=== PATIENT | female | born 1985 | race Caucasian/White ===

== ENCOUNTER 2019-12-25 15:05 | Emergency (ER) | payer OTHER, SELFPAY ==
[2019-12-25 15:14] VITALS: BP 145/50; PULSE 77; RESP 14; TEMP 36.8; O2SAT 100
[2019-12-25] MEDS: KETOROLAC 30 MG/ML VIAL (*BKC) IV PUSH (15:44)
--- NOTE | 2019-12-25 15:58 | ED.ABDPAIN ---
HPI - Abdominal Pain General Chief Complaint: Back Pain/Injury <Ghassan Burr PA-C - Last Filed: 01/28/20 23:10> Stated Complaint: back pain <MAHI Carranza Last Filed: 01/28/20 23:10> Time Seen by Provider: 12/25/19 15:09 <MAHI Carranza Last Filed: 01/28/20 23:10> Source: patient <MAHI Carranza Last Filed: 01/28/20 23:10> Mode of arrival: ambulatory <MAHI Carranza Last Filed: 01/28/20 23:10> Limitations: no limitations <MAHI Carranza Last Filed: 01/28/20 23:10> History of Present Illness HPI narrative: Patient is a 34-year-old female who presents to emergency department for evaluation of low back pain that has been chronic in nature with history of sciatica that is being managed by chiropractor patient on arrival to emergency department for evaluation of an exacerbation of her low back pain which worsened today noting that she had slipped and fell forward today onto the front and had difficulty getting up patient notes pain down the left lower extremity to the level of the foot. Patient has not taken anything for her symptoms and presents per private vehicle <MAHI Carranza Last Filed: 01/28/20 23:10> Related Data Allergies/Adverse Reactions: Allergies Allergy/AdvReac Type Severity Reaction Status Date / Time Penicillins Allergy Unknown Unknown Verified 12/25/19 15:22 <MAHI Carranza Last Filed: 01/28/20 23:10> [facility] Social History Social History: Social History Smoking packs per day: 1 Smoking cigarettes per day: 20.0 Smoking status: Current every day smoker Gender identity (if verbalized by the patient): Female <MAHI Carranza Last Filed: 01/28/20 23:10> Course Course Emergency Course: Patient in the room aware of case findings treatment plan and diagnosis agreeing to follow-up as directed <MAHI Carranza Last Filed: 01/28/20 23:10> Vital Signs Vital signs: Vital Signs Temperature 36.8 C 12/25/19 15:14 Pulse Rate 77 12/25/19 15:14 Respiratory Rate 14 12/25/19 15:14 Blood Pressure 145/50 H 12/25/19 15:14 Pulse Oximetry 100 12/25/19 15:14 Temperature 36.8 C 12/25/19 15:14 Pulse Rate 86 12/25/19 18:39 Respiratory Rate 19 12/25/19 18:39 Blood Pressure 115/71 12/25/19 18:39 Pulse Oximetry 100 12/25/19 18:39 <Ghassan Burr PA-C - Last Filed: 01/28/20 23:10> Vital Signs Temperature 36.8 C 12/25/19 15:14 Pulse Rate 77 12/25/19 15:14 Respiratory Rate 14 12/25/19 15:14 Blood Pressure 145/50 H 12/25/19 15:14 Pulse Oximetry 100 12/25/19 15:14 Temperature 36.8 C 12/25/19 15:14 Pulse Rate 86 12/25/19 18:39 Respiratory Rate 19 12/25/19 18:39 Blood Pressure 115/71 12/25/19 18:39 Pulse Oximetry 100 12/25/19 18:39 <Preston Waggoner MD - Last Filed: 03/02/20 04:34> MDM - Abdominal Pain MDM Narrative Medical decision making narrative: Patients pain is positional in nature and localized to back without signs of cord compression or cauda equina based on neurological exam, skeletal exam and history. No fever or other significant factors to suggest osteomyelitis or spinal epidural abscess. No symptoms or signs to suggest pain is referred from abdominal or / cardiopulmonary sources. No pulsatile masses noted on exam. Patient ambulates with steady gait and is stable for outpatient management given case findings. <MAHI Carranza Last Filed: 01/28/20 23:10> Lab Data Result diagrams: : 12/25/19 16:17 12/25/19 16:18 <MAHI Carranza Last Filed: 01/28/20 23:10> Labs: Lab Results 12/25/19 12/25/19 12/25/19 Range/Units 16:17 16:18 17:53 WBC 12.4 H (4.5-10.0) K/mm3 RBC 4.62 (4.2-5.4) M/mm3 Hgb 13.3 (12.0-15.0) g/dL Hct 40.4 (37.0-47.0) % MCV
--- NOTE | 2019-12-25 16:01 | PC.NURSE ---
Pt is unable to give urine at this time.
[2019-12-25 16:23] LABS: Basophils Absolute Auto 0.1 K/mm3 (0.0-0.1); Basophils Percent Auto 0.8 % (0.2-1.2); Eosinophils Absolute Auto 0.1 K/mm3 (0-0.3); Hematocrit 40.4 % (37.0-47.0); Hemoglobin 13.3 g/dL (12.0-15.0); Immature Granulocyte Absolute 0.06 K/mm3 (0.00-0.031); Immature Granulocyte Percent A 0.5 % (0-0.5); Lymphocytes Absolute Auto 1.57 K/mm3 (0.9-3.2); Lymphocytes Percent Auto 12.6 % (18.3-44.2); Mean Corpuscular HGB Conc 32.9 g/dl (32-36); Mean Corpuscular Hemoglobin 28.8 pg (26-34); Mean Corpuscular Volume 87.4 fl (80-100); Mean Platelet Volume 9.6 fl (7.4-10.4); Monocytes Absolute Auto 0.8 K/mm3 (0.1-0.6); Monocytes Percent Auto 6.2 % (2.6-8.5); Neutrophils Absolute Auto 9.8 K/mm3 (1.3-6.7); Neutrophils Percent Auto 78.9 % (45.5-73.1); Platelet Count Result 332 k/mm3 (150-375); Red Blood Count 4.62 M/mm3 (4.2-5.4); Red Cell Distribution Width 13.6 % (11.5-14.5); White Blood Count 12.4 K/mm3 (4.5-10.0)
[2019-12-25 16:39] LABS: Blood Urea Nitrogen 11 mg/dL (7-17); CRP < 0.5 mg/dL (<1.0); Carbon Dioxide 24 mmol/L (22-30); Chloride 104 mmol/L (98-107); Estimated CRCL calculation 103 ml/min; Estimated Glomerular Filt Rate > 60; Glucose 118 mg/dL (65-105); Potassium 4.1 mmol/L (3.4-5.0); Sodium 138 mmol/L (137-145)
[2019-12-25 18:08] LABS: Add Urine Microscopic? YES; Appearance Urine Clear (Clear); Bacteria Urine Trace /hpf; Bilirubin Urine Negative (Negative); Blood Urine Negative (Negative); Color Urine Yellow (Yellow); Glucose Urine UA Negative (Negative); Ketones Urine Negative (Negative); Leukocyte Esterase Ur Negative LEU/UL (Negative); Mucus Urine Few /lpf; Nitrate Urine Negative (Negative); Protein Urine Negative (Negative); Specific Grav Ur 1.012 (1.001-1.035); Squamous Epithelial Cell Urine Moderate /hpf (Few); Urobilinogen Urine Negative mg/dL (<2.0); WBC Urine 0-3 /hpf
[2019-12-25 18:18] LABS: Amphetamine Screen Urine Negative (Negative); Barbiturate Screen Urine Negative (Negative); Benzodiazepines Screen Urine Positive (Negative); Cannabinoid Screen Urine Negative (Negative); Cocaine Screen Urine Negative (Negative); Methadone Screen Urine Negative (Negative); Opiate Screen Urine Positive (Negative); Phencyclidine Screen Urine Negative (Negative)
[2019-12-25 18:39] VITALS: BP 115/71; PULSE 86; RESP 19; O2SAT 100
== END 2019-12-25 18:40 | disposition home or self-care (01) ==
PROVIDERS: Emergency Medicine Emergency Medical Services; Emergency Provider Emergency Medicine; PCP Internal Medicine Infectious Disease
DX: M54.16 Radiculopathy, lumbar region (principal); F17.210 Nicotine dependence, cigarettes, uncomplicated
CPT/HCPCS: 36415; 80048; 80307; 81001; 85025; 86140; 96374; 96375; 99284; A9270; J1885; J3360

== ENCOUNTER 2020-07-19 11:03 | Emergency (ER) | payer OTHER, SELFPAY ==
[2020-07-19 11:10] VITALS: BP 130/88; PULSE 78; RESP 18; TEMP 36.1; O2SAT 100
--- NOTE | 2020-07-19 12:40 | PC.NURSE ---
Patient not in room at this time.
--- NOTE | 2020-07-19 12:59 | ED.GENADULT ---
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 Patient states she occasionally experience tingling in her hands as well. She states she was told she has elevated glucose at one point and has been having her blood labs monitored by dr donovan as well. She states her leg feels like it is going to give out on her at time and she has had xray and DVT evaluations without findings. She states she also has pain in the right leg that occasionally wakes her up at night. She denies any SOB, calf pain, swelling, erythema. She also states she has noticed some wax that is slightly smelly from her right ear and has had otitis media in the past. patient states she has been seen by her ear doctor. She denies pain in the ear, or pain to touch, changes in hearing. <Toni Barrera PA-C - Last Filed: 07/19/20 13:12> Related Data Allergies/adverse reactions: Allergies Allergy/AdvReac Type Severity Reaction Status Date / Time Penicillins Allergy Unknown Unknown Verified 07/19/20 11:04 <MAHI Jane Last Filed: 07/19/20 13:12> Review of Systems Review of Systems: Narrative: CONSTITUTIONAL: Denies fever, chills, or sweats. EYES: Denies visual changes, redness, or discharge. ENT: Reports right ear drainage Denies rhinorrhea, congestion, sore throat, or otalgia. CARDIOVASCULAR: Denies chest pain, palpitations, or edema. RESPIRATORY: Denies cough or dyspnea. GASTROINTESTINAL: Denies abdominal pain, nausea, vomiting, or diarrhea. GENITOURINARY: Denies dysuria or hematuria. SKIN: Denies rash or itching. MUSCULOSKELETAL: right leg tingling and numbness NEUROLOGIC: Denies headache, numbness, dizziness, or weakness. PSYCHIATRIC: Denies anxiety or depression. <Toni Barrera PA-C - Last Filed: 07/19/20 13:12> [facility] Social History Social History: Social History Smoking packs per day: 1 Smoking cigarettes per day: 20.0 Smoking status: Current every day smoker Gender identity (if verbalized by the patient): Female <Toni Barrera PA-C - Last Filed: 07/19/20 13:12> Exam Narrative: Exam Narrative: GENERAL: Well-appearing, well-nourished. HEAD: Normocephalic, atraumatic. EYES: PERRLA and EOMI. ENT: Nares clear, no rhinorrhea or epistaxis. Mucous membranes moist. Oropharynx without tonsillar hypertrophy exudate or other lesions. Bilateral TMs pearly santizo nonbulging. Earwax noted in right ear canal, no debris, tenderness to touch or with exam- negative for sign of otitis extrena NECK: Supple. No adenopathy or masses. scratches to the right side of her neck. No vertebral tenderness or loss of ROM. CHEST: Clear to auscultation. No respiratory distress. ABDOMEN: Soft, nontender, nondistended, normal active bowel sounds. No bruises noted. EXTREMITIES: No swelling, tenderness, deformity noted to right thigh calf, or lower leg in comparison to left. Negative Homans sign. cap refill intact. Patient ambulates with limp. SKIN: Warm, dry, no rash. NEURO: Alert and oriented x3. Patient moves all extremities without perceived deficits. PSYCH: Normal mood and affect. <Toni Barrera PA-C - Last Filed: 07/19/20 13:12> Course Vital Signs Vital signs: Vital Signs
--- NOTE | 2020-07-19 13:29 | PC.NURSE ---
Patient not in room at this time.
== END 2020-07-19 13:37 | disposition left against medical advice (07) ==
PROVIDERS: Emergency Provider General Practice; PCP Internal Medicine Infectious Disease
DX: H61.21 Impacted cerumen, right ear (principal); G60.9 Hereditary and idiopathic neuropathy, unspecified; F17.210 Nicotine dependence, cigarettes, uncomplicated
CPT/HCPCS: 99281

== ENCOUNTER 2022-01-28 11:47 | Emergency (ER) | payer OTHER, SELFPAY ==
[2022-01-28] VITALS (16 sets, daily range): BP systolic 116–144; BP diastolic 71–86; PULSE 65–97; RESP 14–28; TEMP 36.6; O2SAT 98–100
--- NOTE | ~2022-01-28 | XR_ITS ---
EXAMINATION: XR chest 2V DATE: 01/28/2022 12:10 INDICATION: Shortness of breath and difficulty swallowing. TECHNIQUE: PA and lateral views of the chest were obtained. COMPARISON: Chest radiograph dated 11/27/2019 FINDINGS: The lungs remain clear with no focal airspace opacities, pulmonary edema, pleural effusion or pneumot horax. The cardiomediastinal silhouette is normal. Mild thoracic spondylosis. IMPRESSION: 1. No acute cardiopulmonary disease. Reviewed, dictated and finalized at location A.
--- NOTE | 2022-01-28 11:47 | ECG_ITS ---
Measurements Intervals [place] Rate: 97 P: 62 [place]: 136 QRS: 60 QRSD: 92 T: 58 QT: 355 QTc: 453 Interpretive Statements SINUS RHYTHM WITHIN NORMAL LIMITS COMPARED TO ECG 11/27/2019 18:50:57 NO SIGNIFICANT DIFFERENCE Electronically Signed On 01-28-2022 20:47:15 CDT by Ishaan Smith M.D.
--- NOTE | 2022-01-28 12:52 | ED.CHESTPAIN ---
HPI - Chest Pain General Chief Complaint: Chest Pain Stated Complaint: chest pain, palpitations Time Seen by Provider: 01/28/22 12:32 Source: patient Mode of arrival: ambulatory Limitations: no limitations History of Present Illness HPI narrative: Patient is a 36-year-old female complaining of chest pain, left chest, sharp, 6 out of 10, currently no pain, nonradiating that started last night. Patient also complaining of palpitations but it has been going on for a while but now resolved. Patient denies shortness of breath, abdominal pain, nausea, vomiting, diaphoresis, fever or chills. Patient states that she has anxiety which she attributes the above symptoms. Patient currently denies any symptoms at this time. Patient also asking for a work excuse. Related Data Home Medications Medication Instructions Recorded Confirmed cholecalciferol (vitamin D3) 1,250 1,250 mcg PO WEEKLY 08/24/20 10/25/21 mcg (50,000 unit) tablet gabapentin 300 mg capsule 300 mg PO DAILY 08/24/20 10/25/21 Allergies Allergy/AdvReac Type Severity Reaction Status Date / Time Penicillins Allergy Unknown Unknown Verified 10/25/21 09:19 Review of Systems Review of Systems: All systems reviewed & are unremarkable except as noted in HPI and below Constitutional: Constitutional: Denies body ache(s), Denies chills, Denies excessive sweating, Denies fatigue, Denies fever(s), Denies headache(s), Denies lethargy, Denies malaise, Denies weakness and Denies weight loss Eyes: Eyes: Denies blurry vision, Denies change in vision and Denies loss of vision ENT: Denies dizziness, Denies ear discharge, Denies headache(s), Denies lip swelling, Denies epistaxis, Denies nasal congestion, Denies neck pain, Denies throat swelling and Denies tongue swelling Cardiovascular: Cardiovascular: Denies chest pain at rest, Denies chest pain with activity, Denies diaphoresis, Denies edema, Denies irregular heart rhythm, Denies lightheadedness, Denies palpitations, Denies dyspnea and Denies dyspnea on exertion Respiratory: Respiratory: Denies chest congestion, Denies cough, Denies hemoptysis and Denies dyspnea on exertion Gastrointestinal: Gastrointestinal: Denies abdominal pain, Denies melena, Denies hematochezia, Denies diarrhea, Denies nausea, Denies vomiting and Denies hematemesis Musculoskeletal: Musculoskeletal: Denies abnormal gait, Denies deformity, Denies joint swelling, Denies limited range of motion, Denies neck pain and Denies numbness Neurologic: Denies Abnormal speech present, Denies abnormal gait, Denies confusion, Denies dizziness, Denies headache(s), Denies focal weakness, Denies loss of vision, Denies numbness, Denies Other visual disturbances, Denies Sensory deficit (Neuro) and Denies weakness Psychiatric: Psychiatric: Denies confusion, Denies depression, Denies auditory hallucinations, Denies homicidal ideation and Denies suicidal ideation Endocrine: Endocrine: Denies cold intolerance, Denies excessive sweating, Denies fatigue, Denies heat intolerance and Denies palpitations Hematologic/Lymphatic: Hematologic/Lymphatic: Denies easy bleeding and Denies easy bruising Allergic/Immunologic: Allergic/Immunologic: Denies lip swelling, Denies throat swelling and Denies tongue swelling PMFSH Past Medical History Medical History (Updated 01/28/22 @ 13:48 by Preston Waggoner MD) Otitis media Surgical History Surgical History H/O LEEP H/O tubal ligation Social History Social History Smoking packs per day: 1 Smoking cigarettes per day: 20.0 Smoking status: Current every day smoker Gender identity (if verbalized by the patient): Female Exam Const: General: cooperative, healthy appearing, comfortable, no acute distress, well developed, alert and awake; No confusion Orientation/consciousness: oriented to person, oriented to place, oriented to t
[2022-01-28 12:55] LABS: Basophils Absolute Auto 0.1 K/mm3 (0.0-0.1); Basophils Percent Auto 1.3 % (0.2-1.2); Eosinophils Absolute Auto 0.1 K/mm3 (0-0.3); Eosinophils Percent Auto 1.4 % (0-4.4); Hematocrit 41.5 % (37.0-47.0); Hemoglobin 14.2 g/dL (12.0-15.0); Immature Granulocyte Absolute 0.04 K/mm3 (0.00-0.031); Immature Granulocyte Percent A 0.4 % (0-0.5); Lymphocytes Absolute Auto 2.36 K/mm3 (0.9-3.2); Lymphocytes Percent Auto 25.6 % (18.3-44.2); Mean Corpuscular HGB Conc 34.2 g/dl (32-36); Mean Corpuscular Hemoglobin 29.9 pg (26-34); Mean Corpuscular Volume 87.4 fl (80-100); Mean Platelet Volume 9.6 fl (7.4-10.4); Monocytes Absolute Auto 0.7 K/mm3 (0.1-0.6); Monocytes Percent Auto 7.2 % (2.6-8.5); Neutrophils Absolute Auto 5.9 K/mm3 (1.3-6.7); Neutrophils Percent Auto 64.1 % (45.5-73.1); Platelet Count Result 364 k/mm3 (150-375); Red Blood Count 4.75 M/mm3 (4.2-5.4); Red Cell Distribution Width 12.8 % (11.5-14.5); White Blood Count 9.2 K/mm3 (4.5-10.0)
[2022-01-28 13:05] LABS: Prothrombin Time 12.4 Seconds (11.1-14.7)
[2022-01-28 13:08] LABS: Alanine Aminotransferase 29 U/L (4-35); Albumin Level 4.4 g/dL (3.5-5.1); Alkaline Phosphatase 68 U/L (38-126); Anion Gap 9 mmol/L (8-16); Aspartate Amino Transferase 32 U/L (14-36); Bilirubin,Total 0.9 mg/dL (0.2-1.3); Blood Urea Nitrogen 8 mg/dL (7-17); Calcium 8.7 mg/dL (8.4-10.2); Carbon Dioxide 25 mmol/L (22-30); Chloride 104 mmol/L (98-107); Estimated CRCL calculation 108 ml/min; Estimated Glomerular Filt Rate > 60; Glucose 155 mg/dL (65-110); Lipase 73 U/L (23-300); Potassium 3.7 mmol/L (3.4-5.0); Sodium 138 mmol/L (137-145)
[2022-01-28 13:18] LABS: Troponin I < 0.012 ng/mL (0.000-0.034)
[2022-01-28 14:21] LABS: D Dimer 0.27 ug/mL (<0.48)
[2022-01-28 15:24] LABS: Troponin I < 0.012 ng/mL (0.000-0.034)
== END 2022-01-28 15:54 | disposition home or self-care (01) ==
PROVIDERS: Emergency Medicine; Emergency Provider Emergency Medicine; PCP Internal Medicine Infectious Disease
DX: R07.89 Other chest pain (principal); F41.9 Anxiety disorder, unspecified; F17.210 Nicotine dependence, cigarettes, uncomplicated
CPT/HCPCS: 36415; 71046; 80053; 81025; 83690; 84484; 85025; 85380; 85610; 85730; 93005; 99284

== ENCOUNTER 2023-09-10 12:08 | Emergency (ER) | payer OTHER, SELFPAY ==
[2023-09-10] VITALS (7 sets, daily range): BP systolic 113–145; BP diastolic 66–75; PULSE 60–80; RESP 14–18; TEMP 36.6; O2SAT 98–100
--- NOTE | ~2023-09-10 | XR_ITS ---
EXAMINATION: XR chest 2V Exam Date/Time: 09/10/2023 14:50 METER TESTER HISTORY: chest pain THAT RADIATES TO LEFT SIDE OF BACK X 1 WEEK Comparison: 01/28/22. RESULT: Lines, tubes, and devices: None. Lungs and pleura: Clear. Cardiomediastinal silhouette: Stable. Other: No acute osseous or upper abdominal finding. IMPRESSION: No acute cardiopulmonary process. Reviewed, dictated and finalized at location K. R TESTER
--- NOTE | 2023-09-10 13:58 | PC.NURSE ---
pt upset because she has not been evaluated by ERP yet. Pt states this the smell of the hospital is triggering me my daughter was in the hospital and she almost
--- NOTE | 2023-09-10 14:08 | ECG_ITS ---
Measurements Intervals [place] Rate: 63 P: 31 [place]: 136 QRS: 30 QRSD: 88 T: 50 QT: 406 QTc: 417 Interpretive Statements SINUS RHYTHM NORMAL ECG COMPARED TO ECG 01/28/2022 11:52:06 NO SIGNIFICANT CHANGES Electronically Signed On 09-10-2023 14:27:44 [employer] by Cali Pak D.O.
[2023-09-10 14:32] LABS: Appearance Urine Clear (Clear); Bacteria Urine None Seen /hpf; Bilirubin Urine Negative (Negative); Blood Urine Trace (Negative); Color Urine Yellow (Yellow); Glucose Urine UA Negative (Negative); Ketones Urine Negative (Negative); Leukocyte Esterase Ur Negative LEU/UL (Negative); Nitrate Urine Negative (Negative); Non Pathogenic Casts 0-2; Protein Urine Negative (Negative); Specific Grav Ur 1.007 (1.001-1.035); Squamous Epithelial Cell Urine Occasional /hpf (Few); Urobilinogen Urine 0.2 mg/dL (<2.0); WBC Urine 0-5 /hpf
[2023-09-10 14:38] LABS: Add Urine Microscopic? YES
[2023-09-10] MEDS: KETOROLAC 30 MG/ML VIAL (*BKC) IV PUSH (15:03)
[2023-09-10] MEDS: CYCLOBENZAPRINE HCL 10 MG TABLET PO (15:03)
--- NOTE | 2023-09-10 15:03 | PC.NURSE ---
Med given IM per ERP
--- NOTE | 2023-09-10 15:07 | ED.GENADULT ---
HPI - General Adult General Chief complaint: Back Pain/Injury Stated complaint: back pain Time Seen by Provider: 09/10/23 14:04 History of Present Illness HPI narrative: Yudi Pizarro is a 37 y/o female who presents with complaints of having left upper back pain that has been constant for 1 week / nothing makes her pain better or worse. She has tried tylenol/ motrin at home without relief. Once she got here she states she started to have chest pain across her chest and feeling SOB - she states she is feeling a little panicked being here due to having a bad time previously with her daughter. Denies fever/chills/ cough/ abdominal pain/ nausea/vomiting Related Data Allergies Allergy/AdvReac Type Severity Reaction Status Date / Time Penicillins Allergy Unknown Unknown Verified 09/10/23 12:42 Review of Systems Review of Systems: CONSTITUTIONAL: Denies fever, chills, or sweats. EYES: Denies visual changes, redness, or discharge. ENT: Denies rhinorrhea, congestion, sore throat, or otalgia. CARDIOVASCULAR: Reports chest pain across her chest that started once she got here denies palpitations, or edema. RESPIRATORY: Denies cough reports a little SOB once she got here GASTROINTESTINAL: Denies abdominal pain, nausea, vomiting, or diarrhea. GENITOURINARY: Denies dysuria or hematuria. SKIN: Denies rash or itching. MUSCULOSKELETAL: reports left upper back pain denies joint pain, or myalgia. NEUROLOGIC: Denies headache, numbness, dizziness, or weakness. PSYCHIATRIC: Denies anxiety or depression. [facility] Past Medical History Medical History (Updated 09/10/23 @ 17:09 by Esther Hummel APRN) Otitis media Surgical History Surgical History H/O LEEP H/O tubal ligation Social History Social History Smoking packs per day: 1 Smoking cigarettes per day: 20.0 Smoking status: Current every day smoker Alcohol intake: never Substance use: never Lack of Transportation: No Lack of Food: Never True Current Housing: I Have Housing Concerned About Future Housing: No Difficulty Paying Gas/Electric Bills: No Difficulty Paying for Meds: No Currently Unemployed: No Education: Decline to Answer Difficulty w/ Childcare or Family Care: No Gender identity (if verbalized by the patient): Female Exam Narrative: GENERAL: Well-appearing, well-nourished, and in no acute distress. HEAD: Normocephalic, atraumatic. EYES: PERRLA and EOMI. ENT: Nares clear, no rhinorrhea or epistaxis. Mucous membranes moist. Oropharynx without tonsillar hypertrophy exudate or other lesions. NECK: Supple. No adenopathy or masses. No carotid bruits or JVD CHEST: Clear to auscultation. No respiratory distress. No wheezes rales or rhonchi HEART: Regular rate and rhythm. No murmur heard. Normal peripheral pulses. ABDOMEN: Soft, nontender, nondistended, normal active bowel sounds. EXTREMITIES: Normal range of motion. No edema. SKIN: Warm, dry, no rash. NEURO: No focal deficits. Alert and oriented x3. PSYCH: Normal mood and affect. Course Vital Signs Vital signs: Vital Signs Temperature 36.6 C 09/10/23 12:14 Pulse Rate 78 09/10/23 12:14 Respiratory Rate 18 09/10/23 12:14 Blood Pressure 145/73 H 09/10/23 12:14 Pulse Oximetry 98 09/10/23 12:14 Oxygen Delivery Room Air 09/10/23 12:14 Temperature 36.6 C 09/10/23 12:14 Pulse Rate 60 09/10/23 15:46 Respiratory Rate 16 09/10/23 15:46 Blood Pressure 126/75 09/10/23 15:46 Pulse Oximetry 98 09/10/23 15:46 Oxygen Delivery Room Air 09/10/23 12:14 Medical Decision Making [facility] Narrative Medical decision making narrative: On exam pt is sitting up on the stretcher she states that she has had this constant left upper back pain for 1 week and once she got here she started to have chest pain and SOB Denies cough/ fever/chills No cervical /thoracic
[2023-09-10 15:35] LABS: Basophils Absolute Auto 0.1 K/mm3 (0.0-0.1); Basophils Percent Auto 1.1 % (0.2-1.2); Eosinophils Absolute Auto 0.1 K/mm3 (0-0.3); Eosinophils Percent Auto 1.4 % (0-4.4); Hematocrit 41.9 % (37.0-47.0); Immature Granulocyte Absolute 0.04 K/mm3 (0.00-0.031); Immature Granulocyte Percent A 0.4 % (0-0.5); Lymphocytes Absolute Auto 2.66 K/mm3 (0.9-3.2); Lymphocytes Percent Auto 26.9 % (18.3-44.2); Mean Corpuscular HGB Conc 33.4 g/dl (32-36); Mean Corpuscular Hemoglobin 29.8 pg (26-34); Mean Corpuscular Volume 89.1 fl (80-100); Mean Platelet Volume 9.9 fl (7.4-10.4); Monocytes Absolute Auto 0.6 K/mm3 (0.1-0.6); Monocytes Percent Auto 5.8 % (2.6-8.5); Neutrophils Absolute Auto 6.4 K/mm3 (1.3-6.7); Neutrophils Percent Auto 64.4 % (45.5-73.1); Platelet Count Result 357 k/mm3 (150-375); Red Cell Distribution Width 12.6 % (11.5-14.5); White Blood Count 9.9 K/mm3 (4.5-10.0)
[2023-09-10 15:45] LABS: Alanine Aminotransferase 18 U/L (6-35); Albumin Level 4.5 g/dL (3.5-5.1); Alkaline Phosphatase 65 U/L (38-126); Anion Gap 9 mmol/L (8-16); Aspartate Amino Transferase 23 U/L (14-36); Blood Urea Nitrogen 9 mg/dL (7-17); Calcium 9.2 mg/dL (8.4-10.2); Carbon Dioxide 22 mmol/L (22-30); Chloride 108 mmol/L (98-107); Estimated CRCL calculation 139 ml/min; Estimated Glomerular Filt Rate > 60; Glucose 98 mg/dL (65-110); Lipase 60 U/L (23-300); Potassium 3.8 mmol/L (3.4-5.0); Sodium 139 mmol/L (137-145)
[2023-09-10 15:57] LABS: Troponin I < 0.012 ng/mL (0.000-0.034)
[2023-09-10 16:16] LABS: D Dimer 0.28 ug/mL (<0.48)
== END 2023-09-10 16:50 | disposition left against medical advice (07) ==
PROVIDERS: Emergency Provider Nurse Practitioner Family
DX: S29.012A Strain of muscle and tendon of back wall of thorax, initial encounter (principal); F17.210 Nicotine dependence, cigarettes, uncomplicated; X58.XXXA Exposure to other specified factors, initial encounter
CPT/HCPCS: 36415; 71046; 80053; 81001; 81025; 83690; 84484; 85025; 85380; 93005; 96374; 99284; A9270; J1885

== ENCOUNTER 2024-05-05 20:56 | Emergency (ER) | payer OTHER, SELFPAY ==
--- NOTE | ~2024-05-05 | XR_ITS ---
EXAMINATION: XR chest 2V Exam Date/Time: 05/05/2024 21:40 CDT HISTORY: chest pain that radiates to back Lt arm x 1 day Comparison: 09/10/2023. RESULT: Lines, tubes, and devices: None. Lungs and pleura: Clear. Cardiomediastinal silhouette: Stable. Other: No acute osseous or upper abdominal finding. IMPRESSION: No acute cardiopulmonary process. Reviewed, dictated and finalized at location K.
--- NOTE | ~2024-05-05 | CT_ITS ---
EXAMINATION: CT cervical spine wo con DATE: 05/05/2024 22:14 INDICATION: neck pain, left arm paresthesias TECHNIQUE: Computed tomography (CT) of the cervical spine was performed without intravenous contrast. Automated exposure control and iterative reconstruction technique were employed. The dose-length pro duct was 523.80 mGy-cm. COMPARISON: None. FINDINGS: Vertebral Body Alignment: Intact. Focal kyphosis centered at C5-6 Craniocervical and atlantoaxial alignment: Mild degenerative change. Alignment intact. Osseous structures/fracture: No evidence of a lytic or blastic process in the visualized spine. No e vidence of acute fracture. Trace left mastoid fluid. Complete right mastoid and right middle ear opac ification. Cervical soft tissues: The paraspinal soft tissues planes are maintained. Degenerative changes: Moderate degenerative disc disease at C5-6. Mild left and severe right neural f oraminal narrowing at C5-6 secondary to degenerative disc and uncovertebral joint change. No severe c entral canal narrowing. IMPRESSION: No acute fracture or traumatic malalignment in the cervical spine. Reviewed, dictated and finalized at location K.
--- NOTE | ~2024-05-05 | CT_ITS ---
EXAMINATION: CT brain wo con DATE: 05/05/2024 22:12 INDICATION: paresthesias . TECHNIQUE: Computed tomography (CT) of the head was performed without intravenous contrast. The mA wa s adjusted according to patient size. Iterative reconstruction technique was employed. The dose-lengt h product was 605.33 mGy-cm. COMPARISON: 10/08/2019. FINDINGS: No acute intracranial hemorrhage or extra-axial fluid collection. No hydrocephalus, mass, or herniation. No acute ischemic infarct. Unremarkable dural venous sinus attenuation. No acute osseous abnormality. Complete opacification of the right mastoid air cells and middle ear space, a chronic finding. Trace left mastoid fluid. The remaining aerated spaces are clear. IMPRESSION: No acute intracranial process. Reviewed, dictated and finalized at location K.
--- NOTE | 2024-05-05 20:57 | ECG_ITS ---
Test Date: 2024-05-05 21:22:22 Measurements Intervals [place] Rate: 86 P: 31 [place]: 135 QRS: 23 QRSD: 93 T: 50 QT: 364 QTc: 435 Interpretive Statements SINUS RHYTHM NORMAL ECG No previous ECG available for comparison Electronically Signed On 05-06-2024 06:25:54 CDT by Cali Pak D.O.
[2024-05-05 21:13] VITALS: BP 131/68; PULSE 87; PULSE 96; RESP 22; TEMP 36.4; O2SAT 98
[2024-05-05 21:36] LABS: Basophils Absolute Auto 0.1 K/mm3 (0.0-0.1); Basophils Percent Auto 0.9 % (0.2-1.2); Eosinophils Absolute Auto 0.2 K/mm3 (0-0.3); Eosinophils Percent Auto 1.8 % (0-4.4); Hematocrit 41.7 % (37.0-47.0); Hemoglobin 13.9 g/dL (12.0-15.0); Immature Granulocyte Absolute 0.04 K/mm3 (0.00-0.031); Immature Granulocyte Percent A 0.4 % (0-0.5); Lymphocytes Absolute Auto 2.35 K/mm3 (0.9-3.2); Lymphocytes Percent Auto 23.3 % (18.3-44.2); Mean Corpuscular HGB Conc 33.3 g/dl (32-36); Mean Corpuscular Hemoglobin 29.8 pg (26-34); Mean Corpuscular Volume 89.5 fl (80-100); Monocytes Absolute Auto 0.7 K/mm3 (0.1-0.6); Monocytes Percent Auto 6.6 % (2.6-8.5); Neutrophils Absolute Auto 6.8 K/mm3 (1.3-6.7); Platelet Count Result 359 k/mm3 (150-375); Red Blood Count 4.66 M/mm3 (4.2-5.4); Red Cell Distribution Width 12.7 % (11.5-14.5); White Blood Count 10.1 K/mm3 (4.5-10.0)
[2024-05-05 21:49] LABS: Partial Thromboplastin Time 25.3 Seconds (22.3-36.8); Prothrombin Time 13.7 Seconds (11.1-14.7)
[2024-05-05] MEDS: ASPIRIN 81 MG CHEWABLE TABLET 324 MG PO (21:53)
[2024-05-05 21:55] LABS: Alanine Aminotransferase 15 U/L (6-35); Albumin Level 4.4 g/dL (3.5-5.1); Alkaline Phosphatase 58 U/L (38-126); Anion Gap 6 mmol/L (4-12); Aspartate Amino Transferase 21 U/L (14-36); Bilirubin,Total 0.8 mg/dL (0.2-1.3); Blood Urea Nitrogen 10 mg/dL (7-17); Calcium 8.8 mg/dL (8.4-10.2); Carbon Dioxide 26 mmol/L (22-30); Chloride 108 mmol/L (98-107); Estimated CRCL calculation 96 ml/min; Estimated Glomerular Filt Rate > 60; Glucose 137 mg/dL (65-110); Lipase 87 U/L (23-300); Potassium 3.7 mmol/L (3.4-5.0); Sodium 140 mmol/L (137-145)
[2024-05-05 22:04] LABS: Troponin I < 0.012 ng/mL (0.000-0.034)
--- NOTE | 2024-05-05 22:06 | ED.CHESTPAIN ---
HPI - Chest Pain General Chief Complaint: Chest Pain Stated Complaint: chest pain Time Seen by Provider: 05/05/24 21:08 Source: patient Mode of arrival: ambulatory Limitations: no limitations History of Present Illness HPI narrative: This is a 38 year old female that presents to the ER for chest pain. Ongoing intermittently since last night. Also reports left sided neck pain radiating into the left arm. She has been having paresthesias in the left arm intermittently over the last couple of months. Denies shortness of breath, focal numbness or weakness. Related Data Allergies Allergy/AdvReac Type Severity Reaction Status Date / Time Penicillins Allergy Unknown Unknown Verified 09/10/23 12:42 Review of Systems Review of Systems: CONSTITUTIONAL: Denies fever CARDIOVASCULAR: Reports chest pain. Denies palpitations, or edema. RESPIRATORY: Denies cough or dyspnea. MUSCULOSKELETAL: Reports joint pain, and myalgia. NEUROLOGIC: Denies numbness, or weakness. All systems reviewed & are unremarkable except as noted in HPI and below PMFSH Past Medical History Medical History (Updated 05/05/24 @ 23:04 by Pattie Capone PA-C) Otitis media Surgical History Surgical History H/O LEEP H/O tubal ligation Social History Social History Smoking packs per day: 1 Smoking cigarettes per day: 20.0 Smoking status: Current every day smoker Alcohol intake: never Substance use: never Lack of Transportation: No Lack of Food: Never True Current Housing: I Have Housing Concerned About Future Housing: No Difficulty Paying Gas/Electric Bills: No Difficulty Paying for Meds: No Currently Unemployed: No Education: Decline to Answer Difficulty w/ Childcare or Family Care: No Gender identity (if verbalized by the patient): Female Exam Narrative: GENERAL: Well-appearing, well-nourished, and in no acute distress. HEAD: Normocephalic, atraumatic. EYES: PERRLA and EOMI. ENT: Nares clear, no rhinorrhea or epistaxis. Mucous membranes moist. Oropharynx without tonsillar hypertrophy exudate or other lesions. Bilateral TMs pearly santizo non-bulging NECK: Supple. No adenopathy or masses. CHEST: Clear to auscultation. No respiratory distress. No wheezes rales or rhonchi HEART: Regular rate and rhythm. No murmur heard. Normal peripheral pulses. EXTREMITIES: Normal range of motion. No edema. Strength equal in bilateral upper and lower extremities (5/5) SKIN: Warm, dry, no rash. NEURO: No focal deficits. Alert and oriented x3. CN II-XII grossly intact PSYCH: Normal mood and affect Course Course Emergency Course: Patient updated on workup and agree with plan of care Vital Signs Vital signs: Vital Signs Temperature 97.6 F 05/05/24 21:13 Pulse Rate 87 05/05/24 21:13 Respiratory Rate 22 H 05/05/24 21:13 Blood Pressure 131/68 05/05/24 21:13 Pulse Oximetry 98 05/05/24 21:13 Oxygen Delivery Room Air 05/05/24 21:13 Temperature 97.6 F 05/05/24 21:13 Pulse Rate 96 05/05/24 21:13 Respiratory Rate 22 H 05/05/24 21:13 Blood Pressure 131/68 05/05/24 21:13 Pulse Oximetry 98 05/05/24 21:13 Oxygen Delivery Room Air 05/05/24 21:13 MDM - Chest Pain MDM Narrative Medical decision making narrative: patient presents to the emergency department for intermittent chest pains ongoing since last night. She is in no acute distress. Her vitals are stable. Also reporting left-sided neck pain radiating into the arm with intermittent paresthesias. Reports this has been going on for months. She is neurologically intact. CBC and metabolic panel without concerning findings. Chest x-ray without acute cardiopulmonary abnormality. EKG without concerning changes and baseline troponin is negative. Her heart score is 1. CT brain without acute findings. CT cervical spine without acute findin
[2024-05-05] MEDS: KETOROLAC 15 MG/ML VIAL (*BKC) IV PUSH (22:18)
[2024-05-05] MEDS: ACETAMINOPHEN 500 MG TABLET 1000 MG PO (22:18)
== END 2024-05-05 23:21 | disposition home or self-care (01) ==
PROVIDERS: Student in an Organized Health Care Education/Training Program; Emergency Provider Physician Assistant
DX: R07.9 Chest pain, unspecified (principal); M50.322 Other cervical disc degeneration at C5-C6 level; F17.210 Nicotine dependence, cigarettes, uncomplicated
CPT/HCPCS: 36415; 70450; 71046; 72125; 80053; 83690; 84484; 85025; 85610; 85730; 93005; 96374; 99284; A9270; J1885

== ENCOUNTER 2024-05-26 13:01 | Outpatient (CLI) | payer OTHER, SELFPAY ==
--- NOTE | ~2024-05-26 | XR_ITS ---
EXAM: XR thoracic spine 2V DATE: 05/26/2024 13:17 HISTORY: THORACIC BACK PAIN, NO INJURY, X COUPLE WEEKS . COMPARISON: None available. FINDINGS: Vertebral body alignment intact. Vertebral body heights preserved. Mild multilevel disc sp jluis narrowing and marginal osteophytosis. No traumatic malalignment or fracture. Visualized lung pare nchyma is clear. IMPRESSION: Mild multilevel thoracic degenerative disc disease. Reviewed, dictated and finalized at location K.
== END 2024-05-26 13:02 | disposition home or self-care (01) ==
LOC: ANHIMG 13:05
PROVIDERS: PCP Physician Assistant; Visit Provider Physician Assistant
DX: M51.34 Other intervertebral disc degeneration, thoracic region (principal)
CPT/HCPCS: 72070

== ENCOUNTER 2024-07-14 13:06 | Outpatient (RCR) | payer OTHER, SELFPAY ==
--- NOTE | 2024-07-14 14:25 | OPREHPOC ---
Outpatient Therapy Plan of Care This is a Multidisciplinary Plan of Care that may contain components documented by all disciplines (PT, OT, and ST.) PT Problem 1 PT Problem #1 Knowledge Deficit PT Goal 1 Goal / Goal Update Pt to be IND with issued HEP Target Visit 8 PT Problem 2 PT Problem #2 Pain PT Goal 1 Goal / Goal Update Pt to report neck pain no greater than 3/10 in the last week. Target Visit 8 PT Goal 2 Goal / Goal Update Pt to repot 75% improvement in overall symptoms. Target Visit 8 PT Problem 3 PT Problem #3 Pain PT Goal 1 Goal / Goal Update Pt to report no more than 1 headache day in the last week. Target Visit 8 PT Problem 4 PT Problem #4 Impaired Range of Motion PT Goal 1 Goal / Goal Update Pt to demonstrate cervical flexion to 40 deg Target Visit 8 PT Problem 5 PT Problem #5 Impaired Functional Mobil PT Goal 1 Goal / Goal Update Pt to be able to lift 30lb from ground level without an increase in pain.
--- NOTE | 2024-07-14 14:26 | PTOPEVAL1 ---
Assessment and note entered by Princess Holloway, PT, DPT Evaluation Information Assessment Status Evaluation Diagnosis cervicalgia ICD-10 Condition Codes (PT) Cervicalgia M54.2 Subjective Information Pt states she went to the ER about 2 months ago because she thought she was having a heart attack. She states imaging showed DDD of the cervical spine. She states the pain is terrible that everyday life sucks . States her L arm feels heavy , tingling, and numb that goes down her arm, from her shoulder to her spine. States when driving her hand will go numb and she has to put her hand in her lap. She states she has always had an achy back but nothing like this before. 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 laying down helps with her pain. She states she has 5/10 pain at the best, and 9/10 at the worst. Reported Pain Level Pain Score 7: Self Report Assessment PT Clinical Summary Pt presents to therapy today for her initial evaluation with a diagnosis of neck pain. Today she reports radicular pain down her L arm when in an upright position but this goes away when supine . She demonstrates slightly decreased cervical ROM , tenderness to palpation at her L cervical paraspinals, and demonstrates pain with LUE active and resisted motion. Pt reports an increase in headaches from her baseline. Skilled therapy services are indicated to address the deficits noted above, to manage pain, and to return to PLOF . Plan of Care Interventions Electrical Stimulation,Gait Training,Hot Pack/Cold Pack,Manual Therapy,Neuro Re-education,Patient/ Caregiver Educati,Therapeutic Activities, Therapeutic Exercise PT Services Indicated Yes Treatment Frequency and 2x/wk for 8 visits Duration These treatments will address the objective and functional deficits as defined above. The patient will be advanced safely and appropriately in order for the patient to progress towards his/her prior level of function. Additional exercises will be introduced and as well as a comprehensive home exercise program upon discharge, if needed, ?to ensure carryover of functional gains achieved in the clinic. This treatment plan has been reviewed and agreement upon by the patient.
--- NOTE | 2024-07-21 11:03 | PCPTNOTE ---
Patient no showed to PT appointment this date. Called and left voicemail.
--- NOTE | 2024-08-04 09:57 | PCPTNOTE ---
Patient did not show up for scheduled appointment this date. Called and LVM with reminder of next appointment.
--- NOTE | 2024-08-05 10:46 | PCPTNOTE ---
Patient did not show up for scheduled appointment this date.
--- NOTE | 2024-08-05 10:48 | PTOPDC ---
Assessment and note entered by Princess Holloway, PT, DPT Evaluation Information Assessment Status Discharge - Pt Not Present Diagnosis cervicalgia ICD-10 Condition Codes (PT) Cervicalgia M54.2 Subjective Information Pt did not show up to her appointment today. This is her third consultative no show, per our attendance policy she will be discharged. Assessment PT Clinical Summary Discharge d/t attendance policy.
--- NOTE | 2024-08-12 11:34 | PTOPDC ---
Assessment and note entered by Princess Holloway, PT, DPT Evaluation Information Assessment Status Discharge - Pt Not Present Diagnosis cervicalgia ICD-10 Condition Codes (PT) Cervicalgia M54.2 Subjective Information Pt did not show up to her appointment today. This is her fourth consultative no show. She was given an additional opportunity as pt reports there was a miscommunication. She was rescheduled and then did not show up again. Per our attendance policy she will be discharged. Assessment PT Clinical Summary Discharge d/t attendance policy.
== END 2024-08-12 12:52 | disposition home or self-care (01) ==
LOC: ANHGOSHPT 13:06
PROVIDERS: PCP Physician Assistant; Visit Provider Physician Assistant
DX: M54.2 Cervicalgia (principal)
CPT/HCPCS: 97110; 97140; 97161

== ENCOUNTER 2024-12-14 10:45 | Outpatient (CLI) | payer OTHER, SELFPAY ==
--- NOTE | ~2024-12-14 | XR_ITS ---
HISTORY: LOW BACK PAIN-UNSPECIFIED X 11 YRS WORSENING COMPARISON: 05/21/2019 TECHNIQUE: 2 view lumbar spine. FINDINGS: 11 degrees of levoscoliotic curvature of the lumbar spine is identified, an interval change from 2019 examination. Lumbar vertebral bodies are otherwise normally aligned. There are 5 non-rib bearing lumbar vertebral bodies. Interval development of degenerative disease at the level of L4/L5 and L5/S1, an interval change from prior examination with osteophyte formation, endplate changes and disc space narrowing. Facet arthropathy is also noted within the lower lumbar spine, demonstrating progression from 2019 ex amination. Remaining spaces and vertebral body heights are otherwise well maintained. There are no lytic or sclerotic lesions. Paraspinal soft tissues are normal. IMPRESSION: Significant progression in the degenerative disease within the lower lumbar spine, as detailed above. Reviewed, dictated and finalized at location A. [facility] [employer]OS[employer] PROCESSING IMPRESSION: Significant progression in the degenerative disease within the lower lumbar spi ne, as detailed above.
--- NOTE | ~2024-12-14 | XR_ITS ---
EXAMINATION: XR knee LT 3V DATE: 12/14/2024 12:01 INDICATION: Posterior left knee pain TECHNIQUE: Standing AP, lateral and sunrise views of the left knee were obtained COMPARISON: None. FINDINGS: Alignment is normal. No fracture. Joint spaces appear normal in all 3 components. There are tiny mar ginal osteophytes along the intercondylar eminence and the medial trochlea consistent with minimal os teoarthritis in all 3 compartments. Soft tissues are unremarkable with no joint effusion. IMPRESSION: 1. Minimal tricompartmental osteoarthritis at the right knee. No joint effusion or acute osseous abno rmality. Reviewed, dictated and finalized at location A. ICATIONS INSPECTOR IMPRESSION: 1. Minimal tricompartmental osteoarthritis at the right knee. No joint effusion or acute osseous abnormality.
--- OUTSIDE RECORDS SUMMARY | 2024-12-14 11:38 | XMS_ITS | CONTINUITY OF CARE DOCUMENT ---
Author Name chris perez Address Unknown Organization [facility] Address [address] [place] [address] [address] [place] [address] Phone [phone] Care Team Providers Care Gem Technician Name Role Phone Monty López MD Unavailable [phone] HORTENSIA GARCIA MD Unavailable HORTENSIA GARCIA MD Unavailable PROBLEMS Condition Status Date Provider Notes Elevated LFT's active Monty López MD Vitamin D deficiency active Monty Dailey IRON DEFICIENCY active Monty López MD nml b12 Hypertriglyceridemia active Monty Dailey Palpitations AND PRESYNOPE and dizzy active Monty López MD nml tsh Screening active Monty López MD Tobacco abuse active Monty López MD FAMILY HISTORY OF HEART DISEASE active Danya López MD MOM HAD CVA Obesity active Monty López MD ENCOUNTERS Date Type Provider Location Encounter Diag nosis 6 - 6 In-person encounter Office Visit Monty López MD [facility] Palpitations AND PRESYNOPE and dizzyIRON DEFICIENCYVitamin D deficiency 1 - 1 In-person encounter Office Visit Monty López MD [facility] ObesityFAMILY HISTORY OF HEART DISEASETobacco abuseScreeningPalpitations AND PRESYNOPE and dizzyHypertriglyceridemiaElevated LFT's VITAL SIGNS Date Observation Value Provider Body Mass Index (Ratio) 32.12 kg/m2 Danya López MD respiratory rate E&M 16 /min [facility] blood pressure, diastolic 65 mm[Hg] To [facility] blood pressure, systolic 119 mm[Hg] Ton [facility] blood pressure, resting No [facility] oxygen saturation, oximetry 98 % [facility] pulse rate 90 /min [facility] weight E&M 199 [lb_av] [facility] height E&M 66 [in_i] [facility] Body Mass Index (Ratio) 31.79 kg/m2 Danya López MD blood pressure, cuff size regular Cy vivienne Khalil blood pressure, diastolic 70 mm[Hg] Cy vivienne Khalil blood pressure, systolic 112 mm[Hg] Ofe bipinjoey Khalil oxygen saturation, oximetry 98 % Letyjoey Khalil respiratory rate E&M 16 /min Lety Khalil pulse rate 92 /min Lety Wrightyanna l height E&M 66 [in_i] Lety Kylebel l weight E&M 197 [lb_av] Lety Wrightbel l ALLERGIES Allergy Name Onset Date Reaction Criticality Status CONTRAVE High Criticality active RESULTS Date Observation Value Provider Reference Range Interpretation Location ferritin, serum 16 ng/mL [facility] 15-150 B-12, serum 822 pg/mL [facility] [id number] c-reactive protein, quantitative, serum 1.87 mg/L [facility] 0.00-3.00 hemoglobin A1C, blood, as % of total hemoglobin 5.2 % [facility] 4.8-5.6 microalbumin/creatin ine ratio, urine 4.0 MG/G CREAT [facility] 0.0-30.0 microalbumin, random, urine 0.54 mg/dL [facility] Units converted. See lab report for original value. creatinine, random, urine 136.0 mg/dL [facility] Not Estab. hepatitis B core IgG, serum Negative [facility] Negative HBsAg - Confirmation Negative [facility] Negative hepatitis A antibody, IgM Negative [facility] Negative iron saturation percent, serum 14 % [facility] 15-55 Low iron, serum 55 ug/dL [facility] 27-159 iron binding capacity, unsaturated 334 ug/dL [facility] 308-175 3059/01/ 01 iron binding capacity, total 389 ug/dL [facility] 683-220 1698/01/ 01 free thyroxine index 1.8 [facility] 1.2-4.9 triiodothyronine resin uptake 25 % [facility] 24-39 thyroxine, serum, total 7.1 ug/dL [facility] 4.5-12.0 thyroid stimulating hormone, serum 3.240 u[IU]/mL [facility] 0.450-4.500 basophil count, absolute 0.1 x10E3/uL [facility] 0.0-0.2 Eosinophil Absolute Count 0.3 X10E3/UL [facility] 0.0-0.4 monocyte count, blood, automated 1.0 X10E3/UL [facility] 0.1-0.9 High lymphocyte count, blood, automated 3.1 X10E3/UL [facility] 0.7-3.1 Absolute Neutrophils 5.8 X10E3/UL [facility] 1.4-7.0 basophils as percent of blood leukocytes 1 % [facility] Not Estab. eosinophils as percent of blood leukocytes 2 % [facility] Not Estab. monocytes as percent of blood leukocytes 10 % [facility] Not Estab. lymphocytes as percent of blood leukocytes 30 % [facility] Not Estab. neutrophils as percent of blood leukocytes 57 % [facility] Not Estab. platelet count 382 X10E3/UL [facility] 137-384 6052/01/ 01 red blood cell distribution width 13.9 % [facility] 12.3-15.4 mean corpuscular hemoglobin concentration, RBC 33.3 G/DL [facility] 31.5-35.7 mean corpuscular hemoglobin, RBC 28.2 pg [facility] 26.6-33.0 mean corpuscular volume, RBC 85 fL [facility] 79-97 hematocrit, blood 40.0 % [facility] 34.0-46.6 hemoglobin, blood 13.3 g/dL [facility] 11.1-15.9 erythrocyte (RBC) count 4.71 X10E6/UL [facility] 3.77-5.28 leukocyte count, blood 10.3 X10E3/UL [facility] 3.4-10.8 alanine aminotransferase (SGPT), serum 15 1/L [facility] 0-32 aspartate aminotransferase (SGOT), serum 15 1/L [facility] 0-40 alkaline phosphatase, serum 65 1/L [facility] 39-117 bilirubin, serum, total 0.4 mg/dL [facility] 0.0-1.2 albumin/globulin ratio, serum 1.8 [facility] 1.2-2.2 globulin, serum 2.5 [facility] 1.5-4.5 albumin, serum 4.5 g/dL [facility] 3.5-5.5 protein, total, serum 7.0 g/dL [facility] 6.0-8.5 calcium, serum 9.2 mg/dL [facility] 8.7-10.2 carbon dioxide, venous blood 20 mmol/L [facility] 20-29 chloride, serum 105 mmol/L [facility] 96-106 potassium, serum 4.0 mmol/L [facility] 3.5-5.2 sodium, serum 140 mmol/L [facility] 424-719 5112/01/ 01 urea nitrogen/creatinine ratio, serum 12 [facility] 9-23 eGFR if 131 mL/min/{1.7 3_m2} [facility] >59 eGFR if not 114 mL/min/{1.7 3_m2} [facility] >59 creatinine, serum 0.68 mg/dL [facility] 0.57-1.00 urea nitrogen, blood 8 mg/dL [facility] 6-20 blood glucose, random 62 mg/dL [facility] 65-99 Low HISTORY OF MEDICATION USE Medication Status Instructions Dates Provider Indications Com ments TOPAMAX 100 MG ORAL TABLET active one tab by mouth daily 6 Monty López MD ADIPEX-P 37.5 MG ORAL TABLET active one tab by mouth daily 6 Monty López MD VITAMIN D2 50,000IU (ERGO) CAP RX active TAKE ONE CAPSULE BY MOUTH EVERY WEEK 2 Kesha Faustin FERROUS SULFATE 325 (65 FE) MG ORAL TABLET active ONE PER DAY 6 Monty López MD BUPROPION HCL 100 MG ORAL TABLET completed 1 tab by mouth daily, if not effective after 1 week may increase to 1 tab twice daily - 6 Monty López MD NALTREXONE HCL 50 MG ORAL TABLET completed 1/2 tab by mouth daily, if not effective after 1 week may increase to 1/2 tab twice daily - 6 Monty López MD MECLIZINE HCL 25 MG ORAL TABLET active take 1 tab once daily as needed 3 Lety Khalil #20, 6 days supply, Prescribed by YOAN GROVES, Filled 10/16/2019 SOCIAL HISTORY Date Observation Value Provider social history E&M S moking History: P atient currently smokes every day. Monty López MD social history reviewed E&M revi ewed - no changes required Monty López MD number of years as a smoker 20 a Prachi Alvarez smoking history, tot al pack/day [facility] Prachi Alvarez smoking status Current every day smoker T onsamos Alvarez social history E&M S moking History: P kandis currently smokes every day. Monty López MD social history reviewed E&M revi ewed - no changes required Monty López MD number of years as a smoker 20 a Lety Khalil smoking history, tot al pack/day 2 PPD Lety Remi cigarette use yes Lety Knox smoking status Current every day smoker C buck Khalil FAMILY HISTORY Family Member Condition Full Brother Family History of Hy pertension: Full Brother Family History of Di abetes: Mother Family History of Hy pertension: Mother Family History of CV A or Stroke: INSURANCE PROVIDERS Payer name Policy type / Coverage type [place] [employer] MEDICA[employer] (2) Medicaid [id number] ADVANCE DIRECTIVES Name Date DISCUSSED - NO DECISION MADE TREATMENT PLAN Date Name Performer Cardiology;abd us pending Monty López MD Cardiology;abd us pending Monty López MD Cardiology;abd us pending Monty López MD Cardiology;abd us pending Monty López MD Cardiology;abd us pending:did no t liek mayra López MD Cardiology;abd us pending:neg he p screen Monty López MD Cardiology;abd us pe nding:neg uacr neg echo, nml a1c. neg crp N EG RPR, NEG CT PERP PT, neg b12 Monty López MD Cardiology;abd us pending:neg ho lter Monty López MD Cardiology New Patient :304, CHO L NML PER PT Monty López MD Cardiology New Patient Monty harris MD Cardiology New Patient Monty harris MD Cardiology New Patient Monty harris MD Cardiology New Patient :NEG RPR, NEG CT PERP PT Monty López MD Cardiology New Patient Monty harris MD Date Name Stress Routine CT, Coronary Calcium Score LIPID PANEL Abdominal US HEPATITIS PANEL CT, Coronary Calcium Score THYROID PANEL WITH T SH, 3RD GENERATION VITAMIN B12 Vitamin D, 25-Hydrox y COMPREHENSIVE METABO LIC PANEL, W/EGFR C-REACTIVE PROTEIN URINALYSIS, RANDOM, MICROALB/CREATININE HEMOGLOBIN A1c BASIC METABOLIC PANE L W/EGFR IRON AND TOTAL IRON BINDING CAPACITY FERRITIN CBC (INCLUDES DIFF/P LT) Holter Monitor 24 Hr Complete Echo HISTORY OF PROCEDURES Procedure Date Procedure Name Provider Procedure Notes S tatus Ultrasound, abdomen, complete Monty López MD completed EKG Monty López MD complete d
--- OUTSIDE RECORDS SUMMARY | 2024-12-14 11:38 | XMS_ITS | Data Portability ---
Author Organization [facility] Address [address] [place] [address] Care Team Providers Care Insecticide Supervisor Name Role Phone URSULA BENSON Hooker On [phone] Assessment Encounter Date Assessment Date Assessment LastModified by Organization Details LastModified Time 05/31/2021 05/31/2021 Destiney sanabria Not available 05/30/2021 20:43:51 05/19/2024 05/19/2024 Sections of the HPI, exam and assessment completed by DORCAS Diaz student and have been reviewed by me. I agree with the exam findings, assessment and plan except where specifically documented or amended. -NAVEEN Hammond PA-C [email or web address] Not available 05/20/2024 17:52:36 Plan of Treatment Reminders Order Date Submit Date Provider Last Modified By Organization Details Last Modified Time Details Appointments ANY 15 2024 10:00A Brian DURANT PA-C Not available Not available Not available ANY 15 2024 10:15A DORCAS HERNADEZ Not available Not available Not available Lab pap, IG + HPV, cervical - please use Z11.51 in addition to code above for HPV testing. 2020 021 MARGE [facility], [address], [address] [address], [place], [address], 06/02/2021 14:11:22 urinalys is, dipstick 2020 021 elly In-Office Order, Internal Use Only DO Not Attach Compendium DO Not Attach Compendium, Do Not Delete/merge, [id number] 05/31/2021 13:38:26 bacteria l vaginosi s panel, vaginal 2020 021 [facility], [address] [place] [address], [address], [place], [address], 06/04/2021 20:07:46 culture, vaginal/ rectal, streptoc occus group B 2020 021 [facility], [address] [place] [address], [address], [place], [address], 06/04/2021 20:07:47 CMP, serum or plasma 2022 023 [facility], [address], [address], [place], [address], 03/14/2023 08:27:03 lipid panel, serum 2022 023 [facility], [address], [address], [place], [address], 03/14/2023 08:27:02 CBC w/ auto diff 2022 023 [facility], [address], [address], [place], [address], 03/14/2023 08:27:03 TSH + free T4, serum 2022 023 [facility], [address], [address], [place], [address], 03/13/2023 08:29:04 HbA1c (hemoglo bin A1c), blood 2022 023 [facility], [address], [address], [place], [address], 03/13/2023 08:29:04 urinalys is, dipstick 2022 023 [email or web address] In-Office Order, Internal Use Only DO Not Attach Compendium DO Not Attach Compendium, Do Not Delete/merge, [id number] 03/12/2023 11:56:58 urinalys is complete , reflex culture 2022 023 [facility]EMARLEEN [facility], [address], [address], [place], [address], 03/14/2023 06:18:16 vitamin D, 25-hydro xy, total, serum 2022 023 [facility], [address], [address], [place], [address], 03/13/2023 08:29:05 vitamin D, 25-hydro xy, total, serum 2023 024 [facility], [address], [address], [place], [address], 05/20/2024 14:17:31 vitamin B12 + folate, serum or blood 2023 024 [facility], [address], [address], [place], [address], 05/20/2024 14:17:30 CMP, serum or plasma 2023 024 [facility], [address], [address], [place], [address], 05/19/2024 22:07:21 lipid panel, serum 2023 024 [facility], [address], [address], [place], [address], 05/19/2024 22:07:21 CBC w/ auto diff 2023 024 [facility], [address], [address], [place], [address], 05/19/2024 22:07:22 TSH + free T4, serum 2023 024 [facility], [address], [address], [place], [address], 05/20/2024 14:17:29 HbA1c (hemoglo bin A1c), blood 2023 024 [facility], [address], [address], [place], [address], 05/20/2024 14:17:30 urinalys is, dipstick 2023 024 eddy In-Office Order, Internal Use Only DO Not Attach Compendium DO Not Attach Compendium, Do Not Delete/merge, [id number] 09/08/2024 11:29:24 culture, urine 2023 024 [facility], [address], [address], [place], [address], 09/10/2024 03:36:58 HbA1c (hemoglo bin A1c), blood 2024 025 [facility], [address], [address], [place], [address], 12/14/2024 11:10:17 TSH, ultra-se nsitive, serum 2024 025 [facility], [address], [address], [place], [address], 12/14/2024 11:10:17 CMP, serum or plasma 2024 025 [facility], [address], [address], [place], [address], 12/14/2024 11:10:15 CBC w/ auto diff 2024 025 [facility], [address], [address], [place], [address], 12/14/2024 11:10:16 albumin/ creatini ne, mass ratio, urine 2024 025 MARGE [facility], [address], [address], [place], [address], 12/14/2024 11:10:17 lipid panel, serum 2024 025 MARGE [facility], [address], [address], [place], [address], 12/14/2024 11:10:18 Referral obstetri gala and gynecolo gist referral 2022 023 jeanie Olivre MD, [address], [place], [address], 06/10/2023 15:14:46 physical therapis t referral [address] (Outpatient Physical Therapy), [address], [place], [address], 06/10/2024 07:55:55 vascular surgeon referral [address] [address] Pascual Hubbard MD, [address] [facility] , [address], [place], [address], 12/14/2024 11:13:55 Procedures None recorded . Surgeries None recorded . Imaging XR, lumbosac ral spine, 2 or 3 view [address] (Imaging), [address] [place] [address], [address], 12/14/2024 11:13:55 US, doppler, venous [address] (Imaging), [address] [place], [place] [address] [address] [place], [address], 12/14/2024 11:13:55 XR, knee, 3 view [address] (Imaging), [address] [place] [address], [address], 12/14/2024 11:13:55 Medication Orders ketorola c 10 mg tablet [address] [facility], [address] , [place], [place], [id number], 03/12/2023 11:07:39 multivit macias tablet [address] [facility]60, [address] [facility], [place], [place], [id number], 03/12/2023 11:07:44 Calcium with Vitamin D 600 mg-10 mcg (400 unit) tablet [address] [facility]54457, [address] [facility], [place], [place], [id number], 03/12/2023 11:06:44 nitrofur antoin monohydr ate/macr ocrystal s 100 mg capsule 2022 023 [email or web address] [facility], [address] [facility], [place], [place], [id number], 12/14/2024 10:47:18 nicotine 21 mg/24 hr daily transder mal patch 2023 024 [facility]118, [address] [place], [place], [id number], 05/19/2024 14:45:43 hydroxyz ine HCl 25 mg tablet 2023 024 [email or web address] [facility]56238, [address] [place], [place], [id number], 05/20/2024 10:16:24 pantopra zole 20 mg tablet,d elayed release 2023 024 [facility]76296, [address], [place], [place], [id number], 05/19/2024 14:44:01 meloxica m 15 mg tablet 2024 025 [facility] #02789, [address], [place], [place], [id number], 12/14/2024 11:08:19 lisinopr il 10 mg tablet 2024 025 AGUILAR [facility]07462, [address], [place], [place], [id number], 12/14/2024 11:08:21 Patient TargetsNo targets recorded. Patient Instructions Encounter Date Encounter Id Patient Instructions Last Modified By Organization Details Last Modified Time 05/31/2021 [id number] genital herpes: care instructions [email or web address] Not available 05/31/2021 13:38:26 03/12/2023 [id number] A healthy lifestyle: care instructions [email or web address] Not available 03/12/2023 11:38:38 Quitting Tobacco: Care Instructions [email or web address] Not available 03/12/2023 11:29:38 05/19/2024 [id number] Quitting Tobacco: Care Instructions [email or web address] Not available 05/19/2024 14:33:05 A healthy lifestyle: care instructions [email or web address] Not available 05/19/2024 14:35:23 12/14/2024 [id number] prediabetes: care instructions [email or web address] Not available 12/14/2024 11:10:05 back care and preventing injuries: care instructions Not available 12/14/2024 11:08:05 varicose veins: care instructions [email or web address] Not available 12/14/2024 11:08:05 A healthy lifestyle: care instructions Not available 12/14/2024 11:08:05 learning about high blood pressure [email or web address] Not available 12/14/2024 11:08:05 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 for Screening for malignant neoplasm of cervix Referring Physician: Jessica Malin, Family Medicine, Encounter Date: 03/12/2023 Physical Therapist Referral for Chronic neck pain for greater than 3 months Referring Physician: Jessica Malin, [facility], Encounter Date: 05/19/2024 Vascular Surgeon Referral fo r Varicose veins of lower extremity Referring Physician: Quinten Durant, [facility], Encounter Date: 12/14/2024 Results Created Date Observation Date Name Description Value Unit Range Abnormal Flag Note LastModifiedBy Organization Detail LastModifiedTime 05/31/2005/31/2021 urina lysis , dipst ick Leukocytes Negati ve Not Available In-Office Order Internal Use Only DO Not Attach Compendium DO Not Attach Compendium, Do Not Delete/merge, 05/31/2021 10:58:25 05/31/20 21 05/31/2021 urina lysis , dipst ick Nitrite negati ve Not Available In-Office Order Internal Use Only DO Not Attach Compendium DO Not Attach Compendium, Do Not Delete/merge, 05/31/2021 10:58:25 05/31/20 21 05/31/2021 urina lysis , dipst ick Urobilinogen .2 Not Available In-Of fice Order Internal Use Only DO Not Attach Compendium DO Not Attach Compendium, Do Not Delete/merge, 05/31/2021 10:58:25 05/31/20 21 05/31/2021 urina lysis , dipst ick Protein Negati ve Not Available In-Office Order Internal Use Only DO Not Attach Compendium DO Not Attach Compendium, Do Not Delete/merge, 05/31/2021 10:58:25 05/31/2005/31/2021 urina lysis , dipst ick pH 6.0 Not Available In-Office Order Internal Use Only DO Not Attach Compendium DO Not Attach Compendium, Do Not Delete/merge, 05/31/2021 10:58:25 05/31/20 21 05/31/2021 urina lysis , dipst ick Blood Modera te Not Available In-Office Order Internal Use Only DO Not Attach Compendium DO Not Attach Compendium, Do Not Delete/merge, 05/31/2021 10:58:25 05/31/20 21 05/31/2021 urina lysis , dipst ick Specific [place] 1.025 Not Available In-Off ice Order Internal Use Only DO Not Attach Compendium DO Not Attach Compendium, Do Not Delete/merge, 05/31/2021 10:58:25 05/31/20 21 05/31/2021 urina lysis , dipst ick Ketone Negati ve Not Available In-Office Order Internal Use Only DO Not Attach Compendium DO Not Attach Compendium, Do Not Delete/merge, 05/31/2021 10:58:25 05/31/20 21 05/31/2021 urina lysis , dipst ick Bilirubin Negati ve Not Available In-Office Order Internal Use Only DO Not Attach Compendium DO Not Attach Compendium, Do Not Delete/merge, 05/31/2021 10:58:25 05/31/20 21 05/31/2021 urina lysis , dipst ick Glucose Negati ve Not Available In-Office Order Internal Use Only DO Not Attach Compendium DO Not Attach Compendium, Do Not Delete/merge, 05/31/2021 10:58:25 05/31/20 21 06/02/2021 IGP, APTIM A HPV diagnosis: Commen t NEGAT MARLY FOR INTRA EPITH ELIAL LESIO N OR HUSSAIN MADRID . Not Available [facility] ([facility]) [address] [facility], [place], [address], 06/02/2021 14:11:22 05/31/20 21 06/02/2021 IGP, APTIM A HPV specimen adequacy: Commen t Satis facto ry for evalu ation . No endoc ervic al compo nent is ident ified . Not Available [facility] ([facility]) [address] [facility], [place], [address], 06/02/2021 14:11:22 05/31/20 21 06/02/2021 IGP, APTIM A HPV clinician provided ICD10: Commen t Z01.4 19 Z11.5 1 Not Available [facility] ([facility]) [address] [place], [address], 06/02/2021 14:11:22 05/31/20 21 06/02/2021 IGP, APTIM A HPV performed by: Kiley reynoso, Geni nash (ASCP ) Not Available [facility] ([facility]) [address] [place], [address], 06/02/2021 14:11:22 05/31/20 21 06/02/2021 IGP, APTIM A HPV . . Not Available [facility] ([facility]) [address] [place], [address], 06/02/2021 14:11:22 05/31/20 21 06/02/2021 IGP, APTIM A HPV note: Kiley nash The Pap smear is a scree ewelina test desig gus to aid in the detec tion of vicki ligna nt and malig nant condi tions of the uteri ne cervi x. It is not a diagn ostic proce dure and shoul d not be used as the sole means of detec ting cervi dalia cance r. Both false -posi tive and false -nega tive repor ts do occur . Not Available [facility] ([facility]) [address] [place], [address], 06/02/2021 14:11:22 05/31/20 21 06/02/2021 IGP, APTIM A HPV test methodology: Kiley nash This liqui d based ThinP rep(R ) pap test was scree gus with the use of an image guide alexander briscoe Not Available [facility] ([facility]) [address] [place], [address], 06/02/2021 14:11:22 05/31/20 21 06/02/2021 IGP, APTIM A HPV HPV aptima Negati ve negati ve This nucle ic acid ampli ficat ion test detec ts fourt een high- risk HPV types (16,1 8,31, 33,35 ,39,4 5,51, 52,56 ,58,5 9,66, 68) witho coco eckert . Not Available [facility] ([facility]) [address] [facility], [place], [address], 06/02/2021 14:11:22 05/31/20 21 06/02/2021 NUSWA B VG+, HSV trich vag by JOY Negati ve negati ve Not Available [facility] ([facility]) [address] [facility], [place], [address], 06/04/2021 20:07:46 05/31/20 21 06/02/2021 NUSWA B VG+, HSV chlamydia trachomatis, JOY Negati ve negati ve Not Available [facility] ([facility]) [address] [place], [address], 06/04/2021 20:07:46 05/31/20 21 06/02/2021 NUSWA B VG+, HSV neisseria gonorrhoeae, JOY Negati ve negati ve Not Available [facility] ([facility]) [address] [facility], [place], [address], 06/04/2021 20:07:46 05/31/20 21 06/03/2021 NUSWA B VG+, HSV atopobium vaginae Low - 0 score Not Available [facility] ([facility]) [address] [place], [address], 06/04/2021 20:07:46 05/31/20 21 06/03/2021 NUSWA B VG+, HSV bvab 2 Low - 0 score Not Available [facility] ([facility]) [address] [place], [address], 06/04/2021 20:07:46 05/31/20 21 06/03/2021 NUSWA B VG+, HSV megasphaera 1 Low - 0 score Calcu late total score by helena le the 3 indiv idual bacte rial vagin osis (BV) marke r score s toget her. Total score is inter prete d as follo ws: Total score 0-1: Indic ates the absen ce of BV. Total score 2: Indet ermin ate for BV. Addit ional clini dalia data shoul d be evalu ated to estab jamilah a diagn osis. Total score 3-6: Indic ates the prese nce of BV. This test was devel oped and its perfo rmanc e magalie cteri stics deter mined by [facility]. It has not been clear ed or appro rolando by the Food and Drug Admin istra tion. Not Available [facility] ([facility]) [address] [place], [address], 06/04/2021 20:07:46 05/31/20 21 06/03/2021 NUSWA B VG+, HSV hubert albicans, JOY Negati ve negati ve Not Available [facility] ([facility]) [address] [place], [address], 06/04/2021 20:07:46 05/31/20 21 06/03/2021 NUSWA B VG+, HSV hubert glabrata, JOY Negati ve negati ve Not Available [facility] ([facility]) [address] [place], [address], 06/04/2021 20:07:46 05/31/20 21 06/04/2021 NUSWA B VG+, HSV hsv 1 JOY Negati ve negati ve Not Available [facility] ([facility]) [address] [place], [address], 06/04/2021 20:07:46 05/31/20 21 06/04/2021 NUSWA B VG+, HSV hsv 2 JOY Negati ve negati ve Not Available [facility] ([facility]) [address] [place], [address], 06/04/2021 20:07:46 05/31/20 21 06/02/2021 STREP GP B JOY strep gp B JOY Negati ve negati ve Cent[facility] rs for Disea se Contr ol and Preve ntion ([facility]) and Ameri can Congr ess of Obste trici ans and Gynec ologi sts ([facility] ) guide lines for preve ntion of perin atal group B strep tococ dalia (GBS) disea se speci fy co-co llect ion of a vagin al and recta l swab speci men to maxim ize sensi tivit y of GBS detec tion. Per the [facility] and ACOG, swabb ing both the lower vagin a and rectu m subst antia lly incre ases the yield of detec tion donovan red with sampl ing the vagin a alone . Penic illin G, ampic illin , or cefaz gustabo are indic ated for intra partu m proph ylaxi s of perin atal GBS colon izati on. Refle x susce ptibi lity testi ng shoul d be perfo rmed prior to use of clind amyci n only on GBS isola jen from penic illin -kash rgic women who are consi dered a high risk for anaph ylaxi s. Treat ment with vanco mycin witho ut addit ional testi ng is warra nted if resis tance to clind amyci n is noted . Not Available [facility] ([facility]) [address] [facility], [place], [address], 06/04/2021 20:07:47 03/12/2003/13/2023 TSH+F REE T4 TSH 2.060 uIU/m L 0.450- 4.500 Not Available [facility] ([facility]) [address] [facility], [place], [address], 03/13/2023 08:29:04 03/12/2003/13/2023 TSH+F REE T4 T4,free(dire ct) 1.32 NG/dL 0.82-1 .77 Not Available [facility] ([facility]) [address] [facility], [place], [address], 03/13/2023 08:29:04 03/12/2003/13/2023 HEMOG LOBIN A1C hemoglobin A1C 5.3 % 4.8-5. 6 Predi abete s: 5.7 - 6.4 Diabe jen: >6.4 Glyce carissa contr ol for adult s with diabe jen: <7.0 Not Available [facility] ([facility]) [address] [facility], [place], [address], 03/13/2023 08:29:04 03/12/2003/13/2023 VITAM IN D, 25-HY DROXY vitamin D, 25-hydroxy 22.2 NG/mL 30.0-1 00.0 below low normal Vitam in D defic iency has been defin ed by the Insti tute of Medic ine and an Endoc rine Socie ty pract ice guide line as a level of serum 25-OH vitam in D less than 20 ng/mL (1,2) . The Endoc rine Socie ty went on to furth er defin e vitam in D insuf ficie ncy as a level betwe en 21 and 29 ng/mL (2). 1. IOM (Inst itute of Medic ine). 2009. Dieta ry refer ence intak es for calci um and D. Shanna boston [place]: The [facility] Press . 2. Mendy gupta [place], Candida osorio [place], Karina off-F errar i SLAUGHTER, et al. Evalu ation , treat ment, and preve ntion of vitam in D defic iency : an Endoc rine Socie ty clini dalia pract ice guide line. JCEM. 2010; 96(7) :1911 -30. Not Available [facility] ([facility]) [address] [facility], [place], [address], 03/13/2023 08:29:05 03/12/20 23 03/14/2023 LIPID PANEL WITH LDL/H DL RATIO cholesterol, total 156 mg/dL 100-19 9 Not Available [facility] ([facility]) [address] [place], [address], 03/14/2023 08:27:02 03/12/20 23 03/14/2023 LIPID PANEL WITH LDL/H DL RATIO triglyceride s 118 mg/dL 0-149 Not Available [facility] ([facility]) [address] [place], [address], 03/14/2023 08:27:02 03/12/20 23 03/14/2023 LIPID PANEL WITH LDL/H DL RATIO HDL cholesterol 38 mg/dL >39 below low normal Not Available [facility] ([facility]) [address] [place], [address], 03/14/2023 08:27:02 03/12/20 23 03/14/2023 LIPID PANEL WITH LDL/H DL RATIO VLDL cholesterol dalia 21 mg/dL 5-40 Not Available [facility] ([facility]) [address] [place], [address], 03/14/2023 08:27:02 03/12/20 23 03/14/2023 LIPID PANEL WITH LDL/H DL RATIO LDL chol calc ([facility]) 97 mg/dL 0-99 Not Available [facility] ([facility]) [address] [place], [address], 03/14/2023 08:27:02 03/12/20 23 03/14/2023 LIPID PANEL WITH LDL/H DL RATIO LDL/HDL ratio 2.6 ratio 0.0-3. 2 LDL/H DL Ratio Men Women 1/2 Avg.R isk 1.0 1.5 Avg.R isk 3.6 3.2 2X Avg.R isk 6.2 5.0 3X Avg.R isk 8.0 6.1 Not Available [facility] ([facility]) [address] [place], [address], 03/14/2023 08:27:02 03/12/20 23 03/14/2023 COMP. METAB OLIC PANEL (14) glucose 106 mg/dL 70-99 above high normal Not Available [facility] ([facility]) [address] [place], [address], 03/14/2023 08:27:03 03/12/20 23 03/14/2023 COMP. METAB OLIC PANEL (14) BUN 10 mg/dL 6-20 Not Available [facility] ([facility]) [address] [place], [address], 03/14/2023 08:27:03 03/12/20 23 03/14/2023 COMP. METAB OLIC PANEL (14) creatinine 0.74 mg/dL 0.57-1 .00 Not Available [facility] ([facility]) [address] [place], [address], 03/14/2023 08:27:03 03/12/20 23 03/14/2023 COMP. METAB OLIC PANEL (14) eGFR 105 mL/mi n/1.7 3 >59 Not Available [facility] ([facility]) [address] [place], [address], 03/14/2023 08:27:03 03/12/20 23 03/14/2023 COMP. METAB OLIC PANEL (14) BUN/creatini ne ratio 14 9-23 Not Available [facility] ([facility]) [address] [place], [address], 03/14/2023 08:27:03 03/12/20 23 03/14/2023 COMP. METAB OLIC PANEL (14) sodium 141 mmol/ L 134-14 4 Not Available [facility] ([facility]) [address] [place], [address], 03/14/2023 08:27:03 03/12/20 23 03/14/2023 COMP. METAB OLIC PANEL (14) potassium 3.8 mmol/ L 3.5-5. 2 Not Available [facility] ([place] [facility]) [address] [place], [address], 03/14/2023 08:27:03 03/12/20 23 03/14/2023 COMP. METAB OLIC PANEL (14) chloride 105 mmol/ L 96-106 Not Available [facility] ([facility]) [address] [place], [address], 03/14/2023 08:27:03 03/12/20 23 03/14/2023 COMP. METAB OLIC PANEL (14) carbon dioxide, total 22 mmol/ L 20-29 Not Available [facility] ([facility]) [address] [place], [address], 03/14/2023 08:27:03 03/12/20 23 03/14/2023 COMP. METAB OLIC PANEL (14) calcium 8.9 mg/dL 8.7-10 .2 Not Available [facility] ([facility]) [address] [place], [address], 03/14/2023 08:27:03 03/12/20 23 03/14/2023 COMP. METAB OLIC PANEL (14) protein, total 7.1 g/dL 6.0-8. 5 Not Available [facility] ([facility] [address] [facility] [place], [address], 03/14/2023 08:27:03 03/12/20 23 03/14/2023 COMP. METAB OLIC PANEL (14) albumin 4.7 g/dL 3.8-4. 8 Not Available [facility] ([place] [facility]) [address] [place], [address], 03/14/2023 08:27:03 03/12/20 23 03/14/2023 COMP. METAB OLIC PANEL (14) globulin, total 2.4 g/dL 1.5-4. 5 Not Available [facility] ([place] [facility]) [address] [facility], [place], [address], 03/14/2023 08:27:03 03/12/20 23 03/14/2023 COMP. METAB OLIC PANEL (14) A/G ratio 2.0 1.2-2. 2 Not Available [facility] ([facility]) [address] [facility], [place], [address], 03/14/2023 08:27:03 03/12/20 23 03/14/2023 COMP. METAB OLIC PANEL (14) bilirubin, total 0.9 mg/dL 0.0-1. 2 Not Available [facility] ([facility]) [address] [facility], [place], [address], 03/14/2023 08:27:03 03/12/20 23 03/14/2023 COMP. METAB OLIC PANEL (14) alkaline phosphatase 67 IU/L 44-121 Not Available [facility] ([facility]) [address] [facility], [place], [address], 03/14/2023 08:27:03 03/12/20 23 03/14/2023 COMP. METAB OLIC PANEL (14) AST (SGOT) 18 IU/L 0-40 Not Available [facility] ([facility]) [address] [facility], [place], [address], 03/14/2023 08:27:03 03/12/20 23 03/14/2023 COMP. METAB OLIC PANEL (14) ALT (SGPT) 14 IU/L 0-32 Not Available [facility] ([facility]) [address] [facility], [place], [address], 03/14/2023 08:27:03 03/12/20 23 03/14/2023 CBC WITH DIFFE RENTI AL/PL ATELE T WBC 9.5 x10e3 /uL 3.4-10 .8 Not Available [facility] ([facility]) [address] [facility], [place], [address], 03/14/2023 08:27:03 03/12/20 23 03/14/2023 CBC WITH DIFFE RENTI AL/PL ATELE T RBC 4.93 x10e6 /uL 3.77-5 .28 Not Available [facility] ([facility]) [address] [facility], [place], [address], 03/14/2023 08:27:03 03/12/20 23 03/14/2023 CBC WITH DIFFE RENTI AL/PL ATELE T hemoglobin 14.6 g/dL 11.1-1 5.9 Not Available [facility] ([facility]) [address] [place], [address], 03/14/2023 08:27:03 03/12/2003/14/2023 CBC WITH DIFFE RENTI AL/PL ATELE T hematocrit 43.4 % 34.0-4 6.6 Not Available [facility] ([facility]) [address] [facility], [place], [address], 03/14/2023 08:27:03 03/12/2003/14/2023 CBC WITH DIFFE RENTI AL/PL ATELE T MCV 88 fL 79-97 Not Available [facility] ([facility]) [address] [place], [address], 03/14/2023 08:27:03 03/12/2003/14/2023 CBC WITH DIFFE RENTI AL/PL ATELE T MCH 29.6 pg 26.6-3 3.0 Not Available [facility] ([facility]) [address] [place], [address], 03/14/2023 08:27:03 03/12/2003/14/2023 CBC WITH DIFFE RENTI AL/PL ATELE T MCHC 33.6 g/dL 31.5-3 5.7 Not Available [facility] Lab) [address] [place], [address], 03/14/2023 08:27:03 03/12/20 23 03/14/2023 CBC WITH DIFFE RENTI AL/PL ATELE T RDW 12.5 % 11.7-1 5.4 Not Available [facility] ([facility]) [address] [facility], [place], [address], 03/14/2023 08:27:03 03/12/20 23 03/14/2023 CBC WITH DIFFE RENTI AL/PL ATELE T platelets 396 x10e3 /uL 150-45 0 Not Available [facility] ([facility]) [address] [facility], [place], [address], 03/14/2023 08:27:03 03/12/20 23 03/14/2023 CBC WITH DIFFE RENTI AL/PL ATELE T neutrophils 58 % notest ab. Not Available [facility] ([facility]) [address] [facility], [place], [address], 03/14/2023 08:27:03 03/12/20 23 03/14/2023 CBC WITH DIFFE RENTI AL/PL ATELE T lymphs 29 % notest ab. Not Available [facility] ([facility]) [address] [facility], [place], [address], 03/14/2023 08:27:03 03/12/20 23 03/14/2023 CBC WITH DIFFE RENTI AL/PL ATELE T monocytes 9 % notest ab. Not Available [facility] ([facility]) [address] [facility], [place], [address], 03/14/2023 08:27:03 03/12/20 23 03/14/2023 CBC WITH DIFFE RENTI AL/PL ATELE T eos 2 % notest ab. Not Available [facility] ([facility]) [address] [facility], [place], [address], 03/14/2023 08:27:03 03/12/20 23 03/14/2023 CBC WITH DIFFE RENTI AL/PL ATELE T basos 1 % notest ab. Not Available [facility] ([facility]) [address] [facility], [place], [address], 03/14/2023 08:27:03 03/12/20 23 03/14/2023 CBC WITH DIFFE RENTI AL/PL ATELE T neutrophils (absolute) 5.5 x10e3 /uL 1.4-7. 0 Not Available [facility] ([facility]) [address] [facility], [place], [address], 03/14/2023 08:27:03 03/12/20 23 03/14/2023 CBC WITH DIFFE RENTI AL/PL ATELE T lymphs (absolute) 2.8 x10e3 /uL 0.7-3. 1 Not Available [facility] ([facility]) [address] [facility], [place], [address], 03/14/2023 08:27:03 03/12/20 23 03/14/2023 CBC WITH DIFFE RENTI AL/PL ATELE T monocytes(ab solute) 0.9 x10e3 /uL 0.1-0. 9 Not Available [facility] ([facility]) [address] [facility], [place], [address], 03/14/2023 08:27:03 03/12/20 23 03/14/2023 CBC WITH DIFFE RENTI AL/PL ATELE T eos (absolute) 0.2 x10e3 /uL 0.0-0. 4 Not Available [facility] ([facility]) [address] [place], [address], 03/14/2023 08:27:03 03/12/20 23 03/14/2023 CBC WITH DIFFE RENTI AL/PL ATELE T baso (absolute) 0.1 x10e3 /uL 0.0-0. 2 Not Available [facility] ([facility]) [address] [place], [address], 03/14/2023 08:27:03 03/12/20 23 03/14/2023 CBC WITH DIFFE RENTI AL/PL ATELE T immature granulocytes 1 % notest ab. Not Available [facility] ([facility]) [address] [facility], [place], [address], 03/14/2023 08:27:03 03/12/20 23 03/14/2023 CBC WITH DIFFE RENTI AL/PL ATELE T immature grans (abs) 0.1 x10e3 /uL 0.0-0. 1 Not Available [facility] ([facility]) [address] [facility], [place], [address], 03/14/2023 08:27:03 03/12/20 23 03/14/2023 URINE CULTU RE, ROUTI NE urine culture, routine Final report Not Available [facility] ([facility]) [address] [facility], [place], [address], 03/14/2023 06:18:17 03/12/2003/14/2023 URINE CULTU RE, ROUTI NE result 1 Commen t Mixed uroge nital rose 25,00 0-50, 000 colon y formi ng units per mL Not Available [facility] ([facility]) [address] [place], [address], 03/14/2023 06:18:17 03/12/20 23 03/13/2023 UA/M W/RFL X CULTU RE, ROUTI NE specific gravity 1.018 1.005- 1.030 Not Available [facility] ([facility]) [address] [place], [address], 03/14/2023 06:18:15 03/12/20 23 03/13/2023 UA/M W/RFL X CULTU RE, ROUTI NE pH 6.0 5.0-7. 5 Not Available [facility] ([facility]) [address] [place], [address], 03/14/2023 06:18:15 03/12/20 23 03/13/2023 UA/M W/RFL X CULTU RE, ROUTI NE urine-color Yellow yellow Not Available [facility] ([facility]) [address] [place], [address], 03/14/2023 06:18:15 03/12/20 23 03/13/2023 UA/M W/RFL X CULTU RE, ROUTI NE appearance Clear clear Not Available [facility] ([facility]) [address] [place], [address], 03/14/2023 06:18:15 03/12/20 23 03/13/2023 UA/M W/RFL X CULTU RE, ROUTI NE WBC esterase 1+ negati ve abnormal Not Available [facility] ([facility]) [address] [place], [address], 03/14/2023 06:18:15 03/12/20 23 03/13/2023 UA/M W/RFL X CULTU RE, ROUTI NE protein Negati ve negati ve/tra ce Not Available [facility] ([facility]) [address] [place], [address], 03/14/2023 06:18:15 03/12/20 23 03/13/2023 UA/M W/RFL X CULTU REROBBI NE glucose Negati ve negati ve Not Available [facility] ([facility]) [address] [place], [address], 03/14/2023 06:18:15 03/12/20 23 03/13/2023 UA/M W/RFL X CULTU RE, ROUTI NE ketones Negati ve negati ve Not Available [facility] ([facility]) [address] [place], [address], 03/14/2023 06:18:15 03/12/20 23 03/13/2023 UA/M W/RFL X CULTU RE, ROUTI NE occult blood Trace negati ve abnormal Not Available [facility] ([facility]) [address] [facility], [place], [address], 03/14/2023 06:18:15 03/12/20 23 03/13/2023 UA/M W/RFL X CULTU RE, ROUTI NE bilirubin Negati ve negati ve Not Available [facility] ([facility]) [address] [place], [address], 03/14/2023 06:18:15 03/12/20 23 03/13/2023 UA/M W/RFL X CULTU RE, ROUTI NE urobilinogen ,semi-qn 0.2 mg/dL 0.2-1. 0 Not Available [facility] ([facility]) [address] [facility], [place], [address], 03/14/2023 06:18:15 03/12/20 23 03/13/2023 UA/M W/RFL X CULTU RE, ROUTI NE nitrite, urine Negati ve negati ve Not Available [facility] ([facility]) [address] [facility], [place], [address], 03/14/2023 06:18:15 03/12/20 23 03/13/2023 UA/M W/RFL X CULTU RE, ROUTI NE microscopic examination See below: Micro scopi c was indic ated and was perfo rmed. Not Available [facility] ([facility]) [address] [place], [address], 03/14/2023 06:18:15 03/12/20 23 03/13/2023 UA/M W/RFL X CULTU RE, ROUTI NE urinalysis reflex Commen t This speci men has refle xed to a Urine Cultu re. Not Available [facility] ([facility]) [address] [place], [address], 03/14/2023 06:18:15 03/12/20 23 03/13/2023 MICRO SCOPI C EXAMI NATIO N WBC 11-30 /hpf 0-5 abnormal Not Available [facility] ([facility]) [address] [facility], [place], [address], 03/14/2023 06:18:15 03/12/20 23 03/13/2023 MICRO SCOPI C EXAMI NATIO N RBC 11-30 /hpf 0-2 abnormal Not Available [facility] ([facility]) [address] [facility], [place], [address], 03/14/2023 06:18:15 03/12/20 23 03/13/2023 MICRO SCOPI C EXAMI NATIO N epithelial cells (non renal) 0-10 /hpf 0-10 Not Available [facility] ([facility]) [address] [facility], [place], [address], 03/14/2023 06:18:15 03/12/20 23 03/13/2023 MICRO SCOPI C EXAMI NATIO N casts None seen /lpf nonese en Not Available [facility] ([facility]) [address] [facility], [place], [address], 03/14/2023 06:18:15 03/12/20 23 03/13/2023 MICRO SCOPI C EXAMI NATIO N bacteria None seen nonese en/few Not Available [facility] ([facility]) [address] [facility], [place], [address], 03/14/2023 06:18:15 03/12/20 23 03/12/2023 urina lysis , dipst ick Leukocytes Trace Not Available In-Offi ce Order Internal Use Only DO Not Attach Compendium DO Not Attach Compendium, Do Not Delete/merge, [id number] 03/12/2023 11:21:16 03/12/20 23 03/12/2023 urina lysis , dipst ick Nitrite negati ve Not Available In-Office Order Internal Use Only DO Not Attach Compendium DO Not Attach Compendium, Do Not Delete/merge, 03/12/2023 11:21:16 03/12/20 23 03/12/2023 urina lysis , dipst ick Urobilinogen .2 Not Available In-Of fice Order Internal Use Only DO Not Attach Compendium DO Not Attach Compendium, Do Not Delete/merge, 03/12/2023 11:21:16 03/12/20 23 03/12/2023 urina lysis , dipst ick Protein Negati ve Not Available In-Office Order Internal Use Only DO Not Attach Compendium DO Not Attach Compendium, Do Not Delete/merge, 03/12/2023 11:21:16 03/12/20 23 03/12/2023 urina lysis , dipst ick pH 6.0 Not Available In-Office Order Internal Use Only DO Not Attach Compendium DO Not Attach Compendium, Do Not Delete/merge, 03/12/2023 11:21:16 03/12/20 23 03/12/2023 urina lysis , dipst ick Blood Modera te Not Available In-Office Order Internal Use Only DO Not Attach Compendium DO Not Attach Compendium, Do Not Delete/merge, 03/12/2023 11:21:16 03/12/20 23 03/12/2023 urina lysis , dipst ick Specific [place] 1.025 Not Available In-Off ice Order Internal Use Only DO Not Attach Compendium DO Not Attach Compendium, Do Not Delete/merge, 03/12/2023 11:21:16 03/12/20 23 03/12/2023 urina lysis , dipst ick Ketone Negati ve Not Available In-Office Order Internal Use Only DO Not Attach Compendium DO Not Attach Compendium, Do Not Delete/merge, 03/12/2023 11:21:16 03/12/20 23 03/12/2023 urina lysis , dipst ick Bilirubin Negati ve Not Available In-Office Order Internal Use Only DO Not Attach Compendium DO Not Attach Compendium, Do Not Delete/merge, 03/12/2023 11:21:16 03/12/20 23 03/12/2023 urina lysis , dipst ick Glucose Negati ve Not Available In-Office Order Internal Use Only DO Not Attach Compendium DO Not Attach Compendium, Do Not Delete/merge, [id number] 03/12/2023 11:21:16 03/12/20 23 03/12/2023 urina lysis , dipst ick Appearance Slight ly Cloudy Not Available In-Office Order Internal Use Only DO Not Attach Compendium DO Not Attach Compendium, Do Not Delete/merge, [id number] 03/12/2023 11:21:16 03/12/20 23 03/12/2023 urina lysis , dipst ick Color Dark Yellow Not Available In-Office Order Internal Use Only DO Not Attach Compendium DO Not Attach Compendium, Do Not Delete/merge, [id number] 03/12/2023 11:21:16 05/19/20 24 05/19/2024 LIPID PANEL WITH LDL/H DL RATIO cholesterol, total 175 mg/dL 100-19 9 Not Available [facility] Department [address] [place], [address], 05/19/2024 22:07:21 05/19/20 24 05/19/2024 LIPID PANEL WITH LDL/H DL RATIO triglyceride s 308 mg/dL 0-149 above high normal Not Available [facility] Department [address] [place], [address], 05/19/2024 22:07:21 05/19/20 24 05/19/2024 LIPID PANEL WITH LDL/H DL RATIO HDL cholesterol 36 mg/dL 40-999 below low normal Not Available [facility] Department [address] [place], [address], 05/19/2024 22:07:21 05/19/20 24 05/19/2024 LIPID PANEL WITH LDL/H DL RATIO VLDL cholesterol dalia 62 mg/dL 5-40 above high normal Not Available [facility] Department [address] [place], [address], 05/19/2024 22:07:21 05/19/20 24 05/19/2024 LIPID PANEL WITH LDL/H DL RATIO LDL chol calc (nih) 123 mg/dL 0-99 above high normal Not Available [facility] Department [address] [place] [address], [address], 05/19/2024 22:07:21 05/19/20 24 05/19/2024 LIPID PANEL WITH LDL/H DL RATIO LDL/HDL ratio 3.4 0-3.2 above high normal Not Available [facility] Department [address] [place] [address], [address], 05/19/2024 22:07:21 05/19/20 24 05/19/2024 COMP. METAB OLIC PANEL (14) glucose 94 mg/dL 70-99 Not Available [facility] Department [address] [place] [address], [address], 05/19/2024 22:07:21 05/19/20 24 05/19/2024 COMP. METAB OLIC PANEL (14) BUN 13 mg/dL 6-24 Not Available [facility] Department [address] [place] [address], [address], 05/19/2024 22:07:21 05/19/20 24 05/19/2024 COMP. METAB OLIC PANEL (14) creatinine 0.70 mg/dL 0.76-1 .27 below low normal Not Available [facility] [address] [place] [address], [address], 05/19/2024 22:07:21 05/19/20 24 05/19/2024 COMP. METAB OLIC PANEL (14) eGFR 112 >=60 Units for eGFR value s are mL/mi n/1.7 3 The eGFR Calcu latio n has not been valid ated for patie nts under the age of 18. If test resul ts are displ ayed for a patie nt under the age of 18, disre elizabeth that value . Not Available [facility] Department [address] [place] [address], [address], 05/19/2024 22:07:21 05/19/20 24 05/19/2024 COMP. METAB OLIC PANEL (14) BUN/creatini ne ratio 18 9-23 Not Available [facility] Department [address] [place], [address], 05/19/2024 22:07:21 05/19/20 24 05/19/2024 COMP. METAB OLIC PANEL (14) sodium 139 mmol/ L 134-14 4 Not Available [facility] [address] [place] [address], [address], 05/19/2024 22:07:21 05/19/20 24 05/19/2024 COMP. METAB OLIC PANEL (14) potassium 4.2 mmol/ L 3.5-5. 2 Not Available [facility] [address] [place] [address], [address], 05/19/2024 22:07:21 05/19/20 24 05/19/2024 COMP. METAB OLIC PANEL (14) chloride 104 mmol/ L 96-106 Not Available [facility] [address] [place], [address], 05/19/2024 22:07:21 05/19/20 24 05/19/2024 COMP. METAB OLIC PANEL (14) carbon dioxide, total 20 mmol/ L 20-29 Not Available [facility] Department [address] [place] [address], [address], 05/19/2024 22:07:21 05/19/20 24 05/19/2024 COMP. METAB OLIC PANEL (14) calcium 9.4 mg/dL 8.7-10 .2 Not Available [facility] [address] [place], [address], 05/19/2024 22:07:21 05/19/20 24 05/19/2024 COMP. METAB OLIC PANEL (14) protein, total 7.0 g/dL 6.0-8. 5 Not Available [facility] Department [address] [place] [address], [address], 05/19/2024 22:07:21 05/19/20 24 05/19/2024 COMP. METAB OLIC PANEL (14) albumin 4.5 g/dL 3.9-4. 9 Not Available [facility] Department [address] [place] [address], [address], 05/19/2024 22:07:21 05/19/20 24 05/19/2024 COMP. METAB OLIC PANEL (14) globulin, total 2.5 g/dL 1.5-4. 5 Not Available [facility] Department [address] [place] [address], [address], 05/19/2024 22:07:21 05/19/20 24 05/19/2024 COMP. METAB OLIC PANEL (14) A/G ratio 1.8 1.2-2. 2 Not Available [facility] Department [address] [place] [address], [address], 05/19/2024 22:07:21 05/19/20 24 05/19/2024 COMP. METAB OLIC PANEL (14) bilirubin, total 1.0 mg/dL 0.0-1. 2 Not Available [facility] Department [address] [place] [address], [address], 05/19/2024 22:07:21 05/19/20 24 05/19/2024 COMP. METAB OLIC PANEL (14) alkaline phosphatase 77 IU/L 44-121 Not Available [facility] Department [address] [place], [address], 05/19/2024 22:07:21 05/19/20 24 05/19/2024 COMP. METAB OLIC PANEL (14) AST (SGOT) 21 IU/L 0-40 Not Available [facility] Department [address] [place], [address], 05/19/2024 22:07:21 05/19/20 24 05/19/2024 COMP. METAB OLIC PANEL (14) ALT (SGPT) 18 IU/L 0-32 Not Available [facility] Department [address] [place], [address], 05/19/2024 22:07:21 05/19/20 24 05/19/2024 CBC WITH DIFFE RENTI AL/PL ATELE T WBC 11.7 x10e3 /uL 3.4-10 .8 above high normal Not Available [facility] Department [address] [place], [address], 05/19/2024 22:07:22 05/19/20 24 05/19/2024 CBC WITH DIFFE RENTI AL/PL ATELE T RBC 4.89 x10e6 /uL 3.77-5 .28 Not Available [facility] Department [address] [place], [address], 05/19/2024 22:07:22 05/19/20 24 05/19/2024 CBC WITH DIFFE RENTI AL/PL ATELE T hemoglobin 14.5 g/dL 11.1-1 5.9 Not Available [facility] [address] [place], [address], 05/19/2024 22:07:22 05/19/20 24 05/19/2024 CBC WITH DIFFE RENTI AL/PL ATELE T hematocrit 46.9 % 34.0-4 6.6 above high normal Not Available [facility] [address] [place], [address], 05/19/2024 22:07:22 05/19/20 24 05/19/2024 CBC WITH DIFFE RENTI AL/PL ATELE T MCV 96 fL 79-97 Not Available [facility] Department [address] [place], [address], 05/19/2024 22:07:22 05/19/20 24 05/19/2024 CBC WITH DIFFE RENTI AL/PL ATELE T MCH 29.7 pg 26.6-3 3.0 Not Available [facility] [address] [place], [address], 05/19/2024 22:07:22 05/19/20 24 05/19/2024 CBC WITH DIFFE RENTI AL/PL ATELE T MCHC 30.9 g/dL 31.5-3 5.7 below low normal Not Available [facility] [address] [place], [address], 05/19/2024 22:07:22 05/19/20 24 05/19/2024 CBC WITH DIFFE RENTI AL/PL ATELE T RDW 13.2 % 11.5-1 4.5 Not Available [facility] Department [address] [place], [address], 05/19/2024 22:07:22 05/19/20 24 05/19/2024 CBC WITH DIFFE RENTI AL/PL ATELE T platelets 376 x10e3 /uL 150-45 0 Not Available [facility] [address] [place], [address], 05/19/2024 22:07:22 05/19/20 24 05/19/2024 CBC WITH DIFFE RENTI AL/PL ATELE T neutrophils 67 % notest b. Not Available [facility] Department [address] [place], [address], 05/19/2024 22:07:22 05/19/20 24 05/19/2024 CBC WITH DIFFE RENTI AL/PL ATELE T lymphs 22 % notest b. Not Available [facility] Department [address] [place], [address], 05/19/2024 22:07:22 05/19/20 24 05/19/2024 CBC WITH DIFFE RENTI AL/PL ATELE T monocytes 8 % notest b. Not Available [facility] Department [address] [place], [address], 05/19/2024 22:07:22 05/19/20 24 05/19/2024 CBC WITH DIFFE RENTI AL/PL ATELE T eos 2 % notest b. Not Available [facility] Department [address] [place], [address], 05/19/2024 22:07:22 05/19/20 24 05/19/2024 CBC WITH DIFFE RENTI AL/PL ATELE T basos 1 % notest b. Not Available [facility] Department [address] [place], [address], 05/19/2024 22:07:22 05/19/20 24 05/19/2024 CBC WITH DIFFE RENTI AL/PL ATELE T neutrophils (absolute) 7.8 x10e3 /uL 1.4-7. 0 above high normal Not Available [facility] Department [address] [place] [address], [address], 05/19/2024 22:07:22 05/19/20 24 05/19/2024 CBC WITH DIFFE RENTI AL/PL ATELE T lymphs (absolute) 2.5 x10e3 /uL 0.7-3. 1 Not Available [facility] Department [address] [place], [address], 05/19/2024 22:07:22 05/19/20 24 05/19/2024 CBC WITH DIFFE RENTI AL/PL ATELE T monocytes(ab solute) 1.0 x10e3 /uL 0.1-0. 9 above high normal Not Available [facility] Department [address] [place], [address], 05/19/2024 22:07:22 05/19/20 24 05/19/2024 CBC WITH DIFFE RENTI AL/PL ATELE T eos (absolute) 0.2 x10e3 /uL 0.0-0. 4 Not Available [facility] [address] [place], [address], 05/19/2024 22:07:22 05/19/20 24 05/19/2024 CBC WITH DIFFE RENTI AL/PL ATELE T baso (absolute) 0.2 x10e3 /uL 0.0-0. 2 Not Available [facility] [address] [place], [address], 05/19/2024 22:07:22 05/19/20 24 05/19/2024 CBC WITH DIFFE RENTI AL/PL ATELE T immature granulocytes 0.5 % notest b. Not Available [facility] Department [address] [place], [address], 05/19/2024 22:07:22 05/19/20 24 05/19/2024 CBC WITH DIFFE RENTI AL/PL ATELE T immature grans (abs) 0.1 x10e3 /uL 0.0-0. 1 Not Available [facility] [address] [place], [address], 05/19/2024 22:07:22 05/19/20 24 05/19/2024 CBC WITH DIFFE RENTI AL/PL ATELE T NRBC 0 % 0-0 Not Available [facility] Department [address] [place], [address], 05/19/2024 22:07:22 05/19/20 24 05/20/2024 TSH+F REE T4 TSH 1.880 uIU/m L 0.450- 4.500 Not Available [facility] ([facility]) [address] [facility], [place], [address], 05/20/2024 14:17:29 05/19/20 24 05/20/2024 TSH+F REE T4 T4,free(dire ct) 1.29 NG/dL 0.82-1 .77 Not Available [facility] ([facility]) [address] [facility], [place], [address], 05/20/2024 14:17:29 05/19/20 24 05/20/2024 VITAM IN B12 AND FOLAT E vitamin B12 1079 pg/mL 232-12 45 Not Available [facility] ([facility]) [address] [facility], [place], [address], 05/20/2024 14:17:30 05/19/20 24 05/20/2024 VITAM IN B12 AND FOLAT E folate (folic acid), serum 8.9 NG/mL >3.0 A serum folat e bridget ntrat ion of less than 3.1 ng/mL is consi dered to repre sent clini dalia defic iency . Not Available [facility] ([facility]) [address] [facility], [place], [address], 05/20/2024 14:17:30 05/19/20 24 05/20/2024 HEMOG LOBIN A1C hemoglobin A1C 5.7 % 4.8-5. 6 above high normal Predi abete s: 5.7 - 6.4 Diabe jen: >6.4 Glyce carissa contr ol for adult s with diabe jen: <7.0 Not Available [facility] ([facility]) [address] [facility], [place], [address], 05/20/2024 14:17:30 05/19/20 24 05/20/2024 VITAM IN D, 25-HY DROXY vitamin D, 25-hydroxy 21.7 NG/mL 30.0-1 00.0 below low normal Vitam in D defic iency has been defin ed by the Insti tute of Medic ine and an Endoc rine Socie ty pract ice guide line as a level of serum 25-OH vitam in D less than 20 ng/mL (1,2) . The Endoc rine Socie ty went on to furth er defin e vitam in D insuf ficie ncy as a level betwe en 21 and 29 ng/mL (2). 1. IOM (Inst itute of Medic ine). 2010. Dieta ry refer ence intak es for calci um and D. Shanna boston [place]: The [facility] Press . 2. Mendy gupta MF, Candida osorio [place], Karina off-F errar i SUKHJINDER, et al. Evalu ation , treat ment, and preve ntion of vitam in D defic iency : an Endoc rine Socie ty clini dalia pract ice guide line. JCEM. 2010; 96(7) :1911 -30. Not Available [facility] ([facility]) [address] [facility], [place], [address], 05/20/2024 14:17:31 09/08/20 24 09/10/2024 URINE CULTU RE, ROUTI NE urine culture, routine FINAL REPORT Not Available [facility] ([facility]) [address] [facility], [place], [address], 09/10/2024 03:36:58 09/08/20 24 09/10/2024 URINE CULTU RE, ROUTI NE result 1 COMMEN T Mixed uroge nital rose 10,00 0-25, 000 colon y formi ng units per mL Not Available [facility] ([facility]) [address] [facility], [place], [address], 09/10/2024 03:36:58 09/08/20 24 09/08/2024 urina lysis , dipst ick Leukocytes Negati ve Not Available In-Office Order Internal Use Only DO Not Attach Compendium DO Not Attach Compendium, Do Not Delete/merge, [id number] 09/08/2024 10:40:45 09/08/20 24 09/08/2024 urina lysis , dipst ick Nitrite negati ve Not Available In-Office Order Internal Use Only DO Not Attach Compendium DO Not Attach Compendium, Do Not Delete/merge, [id number] 09/08/2024 10:40:45 09/08/20 24 09/08/2024 urina lysis , dipst ick Urobilinogen .2 Not Available In-Of fice Order Internal Use Only DO Not Attach Compendium DO Not Attach Compendium, Do Not Delete/merge, [id number] 09/08/2024 10:40:45 09/08/20 24 09/08/2024 urina lysis , dipst ick Protein Negati ve Not Available In-Office Order Internal Use Only DO Not Attach Compendium DO Not Attach Compendium, Do Not Delete/merge, 09/08/2024 10:40:45 09/08/20 24 09/08/2024 urina lysis , dipst ick pH 6.5 Not Available In-Office Order Internal Use Only DO Not Attach Compendium DO Not Attach Compendium, Do Not Delete/merge, 09/08/2024 10:40:45 09/08/20 24 09/08/2024 urina lysis , dipst ick Blood Modera te Not Available In-Office Order Internal Use Only DO Not Attach Compendium DO Not Attach Compendium, Do Not Delete/merge, 09/08/2024 10:40:45 09/08/20 24 09/08/2024 urina lysis , dipst ick Specific [place] 1.020 Not Available In-Off ice Order Internal Use Only DO Not Attach Compendium DO Not Attach Compendium, Do Not Delete/merge, 09/08/2024 10:40:45 09/08/20 24 09/08/2024 urina lysis , dipst ick Ketone Negati ve Not Available In-Office Order Internal Use Only DO Not Attach Compendium DO Not Attach Compendium, Do Not Delete/merge, 09/08/2024 10:40:45 09/08/20 24 09/08/2024 urina lysis , dipst ick Bilirubin Negati ve Not Available In-Office Order Internal Use Only DO Not Attach Compendium DO Not Attach Compendium, Do Not Delete/merge, 09/08/2024 10:40:45 09/08/20 24 09/08/2024 urina lysis , dipst ick Glucose Negati ve Not Available In-Office Order Internal Use Only DO Not Attach Compendium DO Not Attach Compendium, Do Not Delete/merge, 09/08/2024 10:40:45 09/08/20 24 09/08/2024 urina lysis , dipst ick Appearance Clear Not Available In-Offi ce Order Internal Use Only DO Not Attach Compendium DO Not Attach Compendium, Do Not Delete/merge, 09/08/2024 10:40:45 09/08/20 24 09/08/2024 urina lysis , dipst ick Color Pale Yellow Not Available In-Office Order Internal Use Only DO Not Attach Compendium DO Not Attach Compendium, Do Not Delete/merge, [id number] 09/08/2024 10:40:45 01/29/20 22 01/28/2022 XR, chest No observ ation record ed. [facility] [address], [place], [address], 01/29/2022 08:44:35 05/27/20 24 05/26/2024 XR, thora cic spine , 2 view No observ ation record ed. [facility] [address], [place], [address], 05/28/2024 14:57:29 Result Notes None recorded. 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 3 19:21:21 Smoker 20906609 Active 2022 Not Available [facility] 3 19:21:21 Sciatica 57280594 Active 2022 Not Available [facility] 3 19:21:21 Degenerati on of thoracic interverte bral disc 90647826 Active 2024 QUINTEN DURANT PA-C Attn: Accounting [facility], [place], [address] , [facility] 5 10:58:53 Genital herpes simplex 12390118 Active Not Available [facility] 3 19:21:21 Dysmenorrh ea 245992843 Active Not Available [facility] 3 19:21:21 Irregular periods 12915421 Active Not Available [facility] 3 19:21:21 Sciatica 52992427 Active 2016 Not Available [facility] 3 19:21:21 Problem Notes None recorded. Procedures Surgical History Date Name Laterality Status Provider Name and Address Organization Details Recorded Time 05/31/20 21 Date of Last Pap Smear completed Piper Parkinson MA [facility] 05/31/2021 10:55:19 12/04/19 20 HYSTEROSCOPY, WITH ENDOMETRIAL ABLATION (SURG) completed Johnathan Garibay [facility] 12/17/2019 12:59:22 08/08/20 13 Tubal Ligation completed Venice Tracey MA [facility] 04/10/2016 15:46:56 LEEP completed Venice Tracey MA [facility] 04/10/2016 15:47:32 Imaging Results Imaging Date Name Status LastModified by Organiz ation Details LastModified Time 01/28/2022 XR, chest completed [address], [address], 01/29/2022 08:44:35 05/26/2024 XR, thoracic spine, 2 view completed [address] [place] [address], [address], 05/28/2024 14:57:29 Procedure Notes None recorded. Medical Equipment None Reported. Allergies Allergen ID Allergen Name Allergen Category Reaction Reaction Severity Criticality Documentation Date Start Date Code Code System Note Provider Name and Address Organization Details Recorded Time 389526 Product containin g penicilli n and antibioti c (product) medicatio n other moderate Not available 10/20/2019 88505 05 SNOMED yeast infec tion and spott ing Not Available Not Available Not Available Medications Name Sig Start Date Stop Date Status Note LastModified by Organization Details LastModified Time NealyWearTouch Ultra Blue Test Strips Use to test blood sugar daily 2023 active Not Available Not Available Not Avai lable multivita min tablet Take 1 tablet every day by oral route. 03/12 completed Not Available Not Available Not Available cyclobenz aprine 10 mg tablet TAKE 1 TABLET BY MOUTH THREE TIMES DAILY FOR 14 DAYS NEEDED active Not Available Not Available No t Available neomycin- polymyxin -hydrocor t 3.5 mg/mL-10, 000 unit/mL-1 % ear solution 03/12 completed Not Available Not Available Not Available cefuroxim e axetil 250 mg tablet 01/11 completed Not Available Not Available Not Available clindamyc in HCl 300 mg capsule 03/12 completed Not Available Not Available Not Available azithromy wily 250 mg tablet 2024 active Not Available Not Available Not Avai lable ibuprofen 800 mg tablet TAKE 1 TABLET BY MOUTH THREE TIMES DAILY NEEDED FOR CRAMPS 03/12 completed Not Available Not Available Not Available fluconazo le 150 mg tablet 05/19 completed Not Available Not Available Not Available valacyclo vir 1 gram tablet 03/12 completed Not Available Not Available Not Available meloxicam 15 mg tablet Take 1 tablet every day by oral route. 2024 active Not Available Not Available Not Avai lable naltrexon e 50 mg tablet 12/01 completed Not Available Not Available Not Available prednison e 20 mg tablet Take 2 tablets every day by oral route with meals for 3 days. 03/12 completed Not Available Not Available Not Available terconazo le 0.8 % vaginal cream Insert 1 applicat orful every day by vaginal route at bedtime for 3 days. 01/11 completed Not Available Not Available Not Available clindamyc in HCl 150 mg capsule 03/12 completed Not Available Not Available Not Available sulfameth oxazole 800 mg-trimet hoprim 160 mg tablet 09/28 completed Not Available Not Available Not Available acyclovir 800 mg tablet Take 1 tablet every day by oral route. 10/20 completed Not Available Not Available Not Available ketorolac 10 mg tablet Take 1 tablet as needed by oral route. 03/12 completed Not Available Not Available Not Available pantopraz ole 20 mg tablet,de layed release Take 1 tablet every day by oral route in the morning for 30 days, for acid reflux. active Not Available Not Available No t Available bupropion HCl 100 mg tablet 12/01 completed Not Available Not Available Not Available ofloxacin 0.3 % ear drops 08/20 completed Not Available Not Available Not Available alprazola m 0.25 mg tablet 01/11 completed Not Available Not Available Not Available OneTouch Ultra Test strips USE TO TEST BLOOD SUGAR ONCE A DAY 2023 active Not Available Not Available Not Avai lable meclizine 25 mg tablet 12/01 completed Not Available Not Available Not Available cephalexi n 500 mg capsule 05/19 completed Not Available Not Available Not Available ferrous sulfate 325 mg (65 mg iron) tablet Take 1 tablet every other day by oral route for 30 days. 09/28 completed Not Available Not Available Not Available buspirone 10 mg tablet Take 1 tablet twice a day by oral route around the clock for 30 days. 12/17 completed Not Available Not Available Not Available lisinopri l 10 mg tablet Take 1 tablet every day by oral route. 2024 active Not Available Not Available Not Avai lable nicotine 21 mg/24 hr daily transderm al patch Apply 1 patch every day by transder mal route as directed for 30 days, for smoking cessatio n. active Not Available Not Available No t Available gabapenti n 300 mg capsule TAKE 1 CAPSULE BY MOUTH THREE TIMES DAILY DIRECTED 03/12 completed Not Available Not Available Not Available hydroxyzi ne HCl 25 mg tablet Take 1 tablet 3 times a day by oral route as needed for 30 days, for anxiety. active Not Available Not Available No t Available ergocalci ferol (vitamin D2) 1,250 mcg (50,000 unit) capsule Take 1 capsule every week by oral route for 28 days. 03/12 completed Not Available Not Available Not Available methylpre dnisolone 4 mg tablets in a dose pack 10/20 completed Not Available Not Available Not Available norethind isa (contrace ptive) 0.35 mg tablet Take 1 tablet every day by oral route. 10/20 completed Not Available Not Available Not Available topiramat e 100 mg tablet 01/11 completed Not Available Not Available Not Available naproxen 500 mg tablet 10/20 completed Not Available Not Available Not Available amoxicill in 875 mg-potass ium clavulana te 125 mg tablet 05/19 completed Not Available Not Available Not Available Ciprodex 0.3 %-0.1 % ear drops,brian pension 10/20 completed Not Available Not Available Not Available nitrofura ntoin monohydra te/macroc rystals 100 mg capsule Take 1 capsule every 12 hours by oral route as directed for 5 days. 12/14 completed Not Available Not Available Not Available Ear Drops Otc Antibiot ic from Dr Cheng peña 06/29 completed Not Available Not Available Not Available Seasoniqu e 0.15 mg-30 mcg (84)/10 mcg(7) tablets,3 month dose pack Take 1 tablet every day by oral route. 10/20 completed Not Available Not Available Not Available Calcium with Vitamin D 600 mg-10 mcg (400 unit) tablet Take 1 tablet twice a day by oral route. 03/12 completed Not Available Not Available Not Available LoSeasoni que 0.1 mg-20 mcg (84)/10 mcg (7) tablets,3 month dose pack 1qd 10/20 completed Not Available Not Available Not Available calcium 600 mg (as carbonate )-vitamin D3 20 mcg (800 unit) tablet Take 1 tablet twice a day by oral route for 30 days. 10/20 completed Not Available Not Available Not Available Linzess 145 mcg capsule TAKE 1 CAPSULE BY MOUTH EVERY DAY 02/22 completed Not Available Not Available Not Available Slynd 4 mg (28) tablet Take 1 tablet every day by oral route. 02/22 completed Not Available Not Available Not Available cannabidi ol (CBD) oral edible Take by oral route. 03/12 completed Gummies Not Available Not Available Not Available Vitals Date Recorded Body height Body mass index (BMI) Body weight Systolic blood pressure Diastolic blood pressure Provider Name and Address Organization Details Last Updated DateTime 05/31/2021 167.64 cm 32.9 kg/m2 12647.84 g 118 mm[Hg] 72 mm[Hg] Piper Parkinson [place] [facility] 1 11:04:27 Date Recorded Body height Body mass index (BMI) Body weight Respiratory rate Body temperature Oxygen saturation Oxygen saturation in Arterial blood by Pulse oximetry Heart rate Systolic blood pressure Diastolic blood pressure Provider Name and Address Organization Details Last Updated DateTime 3 167.64 cm 31 kg/m2 41889.1 4 g 16 /min 97.6 [degF] 98 % 98 % 81 /min 104 mm[Hg] 78 mm[Hg] Ita Pina CMA [facility] 3 11:10:04 Date Recorded Body height Body mass index (BMI) Body weight Oxygen saturation Oxygen saturation in Arterial blood by Pulse oximetry Heart rate Respiratory rate Systolic blood pressure Diastolic blood pressure Provider Name and Address Organization Details Last Updated DateTime 4 167.64 cm 33.6 kg/m2 05476.3 1 g 99 % 99 % 88 /min 17 /min 138 mm[Hg] 82 mm[Hg] Audrey Yi MA [facility] 4 13:59:19 Date Recorded Body height Body mass index (BMI) Body weight Oxygen saturation Oxygen saturation in Arterial blood by Pulse oximetry Heart rate Respiratory rate Systolic blood pressure Diastolic blood pressure Provider Name and Address Organization Details Last Updated DateTime 5 167.64 cm 34.4 kg/m2 44666.1 7 g 97 % 97 % 86 /min 17 /min 154 mm[Hg] 79 mm[Hg] Audrey Yi MA [facility] 5 10:43:16 Social History Question Answer Notes LastModified by Organizat ion Details LastModified Time Tobacco Smoking Status Current Every Day Smoker [place] [facility] 04/10/2016 15:52:19 Do You Have An Advance Directive? No [email or web address] Information not available 04/10/2016 What Is Your Level Of Alcohol Consumption? None [email or web address] Information not available 04/10/2016 Is Blood Transfusion Acceptable In An Emergency? Yes [email or web address] Information not available 04/10/2016 What Is Your Level Of Caffeine Consumption? Moderate Soda And Energy Drinks' Information not available 10/20/2019 How Much Tobacco Do You Chew? None [email or web address] Information not available 04/10/2016 Are You Currently Employed? Yes [email or web address] Information not available 04/10/2016 What Type Of Diet Are You Following? REGULAR [email or web address] Information not available 04/10/2016 Which Illicit Or Recreational Drugs Have You Used? Marijuana Information not available 05/31/2021 Do You Or Have You Ever Used E-cigarettes Or Vape? Never Used Electronic Cigarettes Information not available 10/20/2019 Education 9 [email or web address] Information no t available 04/10/2016 What Is Your Occupation? [employer] Information not available 10/20/2019 Live Alone Or With Others? With Others [email or web address] Information not available 04/10/2016 What Was The Date Of Your Most Recent Tobacco Screening? 12/14/2024 Information not available 12/14/2024 How Many Children Do You Have? 5 [email or web address] Information not available 04/10/2016 What Is Your Current Pack Years? [email or web address] s Information not available 05/31/2021 Performs Monthly Self-breast Exam? No [email or web address] Information not available 04/10/2016 Do You Use Protection During Sex? No Information not available 04/10/2016 What Is Your Relationship Status? Single Information not available 04/10/2016 Do You Use Your Seat Belt Or Car Seat Routinely? Yes Information not available 05/31/2021 Seat Belts Used Routinely Yes [email or web address] Information not available 04/10/2016 Are You Sexually Active? Yes [email or web address] Information not available 04/10/2016 Do You Have Smoke And Carbon Monoxide Detectors In Your Home? Yes 05/31/21 Smoke Detectors Information not available 05/31/2021 At What Age Did You Start Smoking Tobacco? 12 Information not available 04/10/2016 Are You Passively Exposed To Smoke? Yes Information not available 05/31/2021 Do You Or Have You Ever Used Smokeless Tobacco? Never Used Smokeless Tobacco Information not available 10/20/2019 How Much Tobacco Do You Smoke? 1 PPD [email or web address] Information not available 04/10/2016 General Stress Level High Information not available 04/10/2016 Do You Use Any Illicit Or Recreational Drugs? Yes Edibles Information not available 05/31/2021 Do You Use Sunscreen Routinely? No [email or web address] Information not available 04/10/2016 Has Tobacco Cessation Counseling Been Provided? Yes Information not available 05/31/2021 On What Date Was Tobacco Cessation Counseling Provided? 12/14/2024 Information not available 12/14/2024 How Many Years Have You Smoked Tobacco? 20 Information not available 10/20/2019 Have You Used IV Drugs? No Information not available 05/31/2021 Do You Or Have You Ever Used Any Other Forms Of Tobacco Or Nicotine? No Information not available 05/31/2021 Sex: Female Functional Status Question Answer Note LastModified by Organizat ion Details LastModified Time What is your exercise level? Occasional [email or web address] Information not available 04/10/2016 Mental Status None recorded. Family History Relationship Description Onset Age of this Age Resolved Age Notes LastModified by Organization Details LastModified Time Mother Depressive disorder [email or web address] Not available 2018 14:02:24 Mother Hypertensive disorder [email or web address] Not available 2018 14:02:37 Mother Malignant tumor of ovary [email or web address] Not available 2018 14:02:49 Brother Depressive disorder [email or web address] Not available 2018 14:02:27 Brother Hypertensive disorder [email or web address] Not available 2018 14:02:33 Maternal Grandmother Family history of malignant neoplasm [email or web address] Not available 2018 14:03:08 Medical History Condition Response Coronary Artery Disease N Kidney Cyst N Blood Diseases N Hyperthyroidism N Blood Transfusion N MRSA N Blood disorders N Emphysema N Blood Clots Y COPD N Depression N Pneumonia N Premature N Peripheral Arterial Disease N Edema N TIA N Headaches/Migraines N Anxiety Disorder N Obesity N Infertility N Polyps N Acid Reflux (GERD) Y Hematuria N Stroke N Neck Injury N Polio N Hospital Admission other than N Neurologic Disorder N Other Sleep Disorders N Rheumatoid Arthritis N Fibromyalgia N Abdominal Aortic Aneurysm Repair N Kidney Disease N Heart Conditions N Heart Disease/Heart Problems N Hospitalizations N Brain Tumors N Acne N Skin Problems N Eating Disorder N Meningitis N Constipation Y Tuberculosis N Cerebral Palsy N Myocardial Infarction N Asthma N Substance Abuse N Peripheral Vascular Disease N Vertigo N Sleep Disorder N Cirrhosis N Pulmonary Embolism N Chicken Pox Y Hematologic Disease N Flomax Use Past or Present N Anxiety/Depression N Thyroid Disease N Colon Cancer N Glaucoma N Lung Disease N Developmental or Behavioral Disorders N Bipolar N Pacemaker N Diverticulitis/Diverticulosis N Anesthesia Complications N Orthopedic Problems N Orthotics N Head Injury/Concussion N Congenital Anomalies N Menezes Bite N Chronic Kidney Disease N Endometriosis N Liver Disease N Dialysis N Schizophrenia N Speech Delay N Chronic Obstructive Pulmonary Disease N Parkinson's Disease N Thyroid Problems N Developmental Delay N GI Problems N Anemia N Immune System Disorder N Multiple Sclerosis N Colon Polyps N Heart Attack (AL) N Diabetes N Cardiomyopathy N Blood Transfusions N Heart Problems/Murmur N Eye Trauma N Congestive Heart Failure (CHF) N Valvular Heart Disease N Hyperlipidemia N Double Vision N Abuse/Domestic Violence N Hepatitis B N Lupus N Epilepsy/Seizures N Reflux/GERD Y Aneurysm N Heart Disease N Bronchitis N Pre-Eclampsia N Hypertension N Heart Failure N Other N Gout N High Blood Pressure N Atrial Fibrillation N Kidney Stones N Head Trauma/Injury N Congenital Heart Disease N Spine Problems N Gastrointestinal Disease N Lung Mass N Sinusitis N Obstructive Sleep Apnea N Muscle, Joint, or Bone Problems N Autoimmune disease N Vision or Eye Problems N Arthritis N Blood Clot N Cancer N Seasonal allergies N Leg or Foot Ulcers N Raynaud's Disease N Aortic Aneurysm N Arrhythmia N Headaches N Heart Problems N Ambloypia N Ear or Hearing Problems N Hyperparathyroidism N Migraines N Artificial Joints N Kidney or Bladder Problems N NSAID Use N Encephalitis N PTSD N Ulcers N Prostate Hypertrophy N Bleeding Disorder N AIDS/HIV N Urinary Tract Infection Y Back Problems Y Allergies N Atrial Flutter N GERD/Reflux Y Hepatitis N Autism Spectrum Disorder (ASD) N Breast Cancer N Hernia N Hypothyroidism N Breast Problem N Genitourinary Disease N Deep Vein Thrombosis N Varicose Veins Y Cystic Fibrosis N Hearing Loss N Developmental Problems N Carotid Disease N Vitamin D Deficiency N ADHD N Bladder or Kidney Problems N High Cholesterol N [place]iers N Valvular Abnormalities N Psychiatric/Mental Health Condition N Organ Transplant N Foot Deformity N Allergies/Hayfever N Dyslipidemia N Hyponatremia N Diabetic Eye Disease N Osteoporosis/Osteopenia N Back Pain Y Proteinuria N Mental Illness N Neurological Problems N Ovarian Cancer N Bedwetting N Seizures/Epilepsy N Kidney Failure N Ocular trauma N Diverticulitis N Dementia N Sleep Apnea N Mental Problems N Warfarin Management N Osteoporosis N Gynecological History Statement/Question Response Abnormal Pap Y Flow Moderate STIs/STDs Y HPV Vaccine N Duration of Flow (days) 7 Age at Menarche 10 Current Control Method Tubal Ligat ion Age at First Child 15 Frequency of Cycle (Q days) 28 Sexually Active? Y Menses Monthly Y Date of Last Pap Smear 05/31/2021 Sexual Problems? Y LMP Approximate Desired Control Method Sterilizati on Obstetrics History GPAL:G 8 P 5 1 2 5 Type Value Multiple Births 0 Full Term 5 Induced 0 Spontaneous 2 Premature 1 Living 5 Ectopics 0 Total 8 Immunizations Vaccine Type Date Status Note Provider Nam e and Address Organization Details Recorded Time Tdap 10/20/2019 completed Not Available [facility] 11/21/2019 02:44:46 HPV9 11/25/2019 completed JAYCE Mcdowell, [place] [facility] 12/01/2019 11:43:36 HPV9 06/02/2021 completed JAYCE [place]cd[place], [place] [facility] 06/02/2021 16:47:57 Past Encounters Encounter ID Performer Location Encounter Start Date Encounter Closed Date Diagnosis/Indication Diagnosis SNOMED-CT Code Diagnosis ICD10 Code Diagnosis Note [id number] Johnathan SkinnerPhoenixjocelyn Teague ([employer]) [address] [place] [id number] 0 04/10/2016 15:09:44 04/11/2016 09:22:11 Dysmenorrhea 669366632 N94.6 Irregular periods 932686 07 N92.6 [id number] JAYCE Calle ([employer]) [address] [place] [id number] 0 03/26/2017 15:27:40 03/26/2017 17:45:26 Irregular periods 89383793 N92.6 Dysmenorrhea 422307109 N 94.6 Genital he rpes simplex 32357853 A60.9 Recurrent urinary tract infection 190517442 N39.0 Family grover nning surveillance 957809880 Z30.09 Generalize d anxiety disorder 97636414 F41.1 stress 2/2 job and children (5 girls in the home) [id number] MD Zahida Goyal (Adult Med) [address] [place] [address] [id number] 0 10/20/2019 13:16:20 10/20/2019 14:46:41 General examination of patient 359340461 Z00.01 Nicotine dependence 5629 4008 F17.200 Cessation was discussed History of palpitations 201677056 Z86.79 Serous otitis media 8032 7007 H65.91 Follow up with ENT Influenza vaccination declined 769949431 Z28.21 Administra tion of diphtheria, pertussis, and tetanus vaccine 349630179 Z23 [id number] Johnathan Teague ([employer]) [address] [place] [address] [id number] 0 11/25/2019 11:25:25 11/26/2019 11:05:02 Gynecologic examination 37355027 Z01.419 Active or passive immunization 717259959 Z23 Menorrhagia 215313952 N9 2.0 Dysmenorrhea 881599024 N 94.6 Exposure t o sexually transmissible disorder 708980626 Z20.2 [id number] MD Zahida Goyal (Adult Med) [address] [place] [address] [id number] 12/01/2019 11:31:07 12/02/2019 09:23:08 Hyperlipidemia 55001518 E78.5 Discussed Aspartate aminotransferase serum level above reference range 320312984 R74.0 Recheck Anxiety 36712429 F41.9 Detailed discussion Start Buspirone, side effects were discussedI do not prescribe Alprazolam History of palpitations 977047635 Z86.79 This was possibly related to energy drink which she has discontinu ed, her anxiety may be playing a role Nicotine dependence 5629 4008 F17.200 Cessation was discussed Insomnia 129055822 G47.0 0 Benadryl or Vistaril PRN [id number] Johnathan Teague ([employer]) [address] [place] [address] [id number] 0 12/17/2019 12:20:07 12/21/2019 10:06:51 Postoperative visit 062984957 Z09 hysterosco py 12/03/2019 , Continue slynd Constipation 11440149 K5 9.00 Genital he rpes simplex 41764112 A60.9 Dysmenorrhea 251969107 N 94.6 [id number] MD Zahida Goyal (Adult Med) [address] [place] [address] [id number] 01/12/2020 12:04:06 01/12/2020 12:48:10 Chronic back pain 302488368 G89.29 She has a history of chronic back pain with LLE radiculopa thy and an abnormal clinical exam with LLE weakness. An MRI is needed to further evaluate the degree of nerve impingemen t. Cyclobenza nighat/Ibup rofen/Phys ical Therapy Left side sciatica 45206 02281 01021 M54.32 Leukocytosis 257803239 D 72.829 Amenorrhea 99677252 N91. 2 This may be due to her OCP, however she needs a test before her MRI Neuropathy 829606066 G62 .9 [id number] MD Zahida Goyal (Adult Med) [address] [place] [address] [id number] 02/23/2020 10:16:42 02/25/2020 10:57:12 Follow-up visit 093510903 Z09 [id number] MD Zahida Goyal (Adult Med) [address] [place] [address] [id number] 0 06/29/2020 12:05:39 06/30/2020 09:38:33 Varicose veins of lower extremity 96849173 I83.892 Lumbar radiculopathy 128 822139 M54.16 [id number] MD Zahida Gyoal (Adult Med) [address] [place] [address] [id number] 09/28/2020 08:34:19 09/30/2020 10:19:52 Anxiety 19214681 F41.9 Detailed discussion Start Hydroxyzin e PRN, side effects were discussedC ounseling Influenza vaccination declined 959313836 Z28.21 [id number] Johnathan Phoenixjocelyn Teague ([employer]) [address] [place] [address] [id number] 05/31/2021 10:33:14 06/01/2021 08:30:01 Gynecologic examination 85532247 Z01.419 Z11.51 Genital he rpes simplex 80469370 A60.9 Exposure t o sexually transmissible disorder 178612702 Z20.2 Cramping pain 903854467 R52 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 [id number] DORCAS HAMMOND [facility] [address] [place] [address] 03/12/2023 11:02:52 03/12/2023 11:56:44 Dysuria 58739922 R30.0 urinary frequency, urgency, retention, dysuria x1 wkPEx- nlurine dip showed trace leuks and moderate bloodstart macrobid, sent UA and cultureh/o UTIs every couple of months, future referral to urology Depression screening 171 848329 Z13.31 PHQ 0 Smoker 23303897 F17.200 1 ppdnot amendable to NRT at this time Screening for malignant neoplasm of cervix 471891617 Z12.4 refer to OB/GYNh/o LEEP and HPV Obesity 950907420 E66.9 discussed increasing exercise and healthier food options, high protein, low fat dietroutin e labs Vitamin D deficiency 347 27558 E55.9 re-check Sciatica 43061190 M54.30 flares, bilateralh as not had imagingcon trolled at this time [id number] DORCAS HAMMOND [facility] [address] [place] [address] 05/19/2024 13:33:45 05/19/2024 14:51:03 Smoker 23549470 F17.200 05/19/24: start patches, smoking 1.5 ppd 03/2023:1 ppdnot amendable to NRT at this time Difficulty sleeping 3013 71810 Z72.820 usually takes CBD with successanx iety has prevented her from sleepingtr ial hydroxyzin e PRN, advised pt of ADRf/u in 1 mo Obesity [id number] E66.8 discussed increasing exercise and healthier food options, high protein, low fat dietroutin e labs Gastroesop hageal reflux disease without esophagitis [id number] K21.9 no relief with TUMStrial pantoprazo le Fatigue 63731389 R53.83 check vitamins Chronic ne ck pain for greater than 3 months [id number] 99790 M54.2 no injury or traumatold that she had cervical DDD in EDwill refer to PT Paresthesia of hand 3090 94171 R20.2 x4 moworse at nightwill discuss at f/u visit Costal chondritis 591575 04 M94.0 x10 dayswent to ED, told that my heart is fine c/o pain with taking deep breathspt smokes 1.5 ppdno relief with muscle relaxer or ibuprofend iscussed management and treatment of costal chondritis Generalize d anxiety disorder [id number] F41.1 TOM 13start hydroxyzin e, advised pt of ADR, f/u in 1 mo Depression screening 171 993005 Z13.31 PHQ 2 [id number] Audrey Yi MA [facility] [address] [place] [address] 09/08/2024 10:31:11 09/08/2024 11:09:28 Dysuria 85621545 R30.0 urinary frequency, urgency, retention, dysuria x1 wkPEx- nlurine dip showed trace leuks and moderate bloodstart macrobid, sent UA and cultureh/o UTIs every couple of months, future referral to urology [id number] QUINTEN DURANT PA-C [facility] [address] [place] [address] 12/14/2024 10:34:24 12/14/2024 11:13:43 Depression screening 506196792 Z13.31 PHQ9- {{Negative * Positive Mild Mode rate Sever e}} (2 out of 27) Obesity 284137219 E66.9 BMI 34.4 Pain of bi lateral knee joints [id number] 99503 M25.561 M25.562 Know that arthritis will cause more pain on some days than on others.Sta y at a healthy weight.Str etch to help prevent stiffness and to prevent injury before you exercise. You may enjoy gentle forms of yoga to help keep your knee joints and muscles flexible.W alk instead of jog.Ride a bike. This makes your thigh muscles stronger and takes pressure off your knee.Wear well-fitti ng and comfortabl e shoes.Exer cise in chest-deep water. This can help you exercise longer with less pain.Avoid exercises that include squatting or kneeling. They can put a lot of strain on your knees.A knee brace may help keep your knee stable and prevent pain.You also can use other things to make life easier, such as a higher toilet seat and handrails in the bathtub or shower.Omer e pain medicines exactly as directed.D o not wait until you are in severe pain. You will get better results if you take it sooner.Do not take two or more pain medicines at the same time unless the doctor told you to. Many pain medicines have acetaminop hen, which is Tylenol. Too much acetaminop hen (Tylenol) can be harmful.Ma ny people take the supplement s glucosamin e and chondroiti n for osteoarthr itis. While medical research has not shown a significan t positive effect on arthritis, many people do find that pain lessens while taking these supplement s. XR ordered Low back pain [id number] M54.50 XR ordered Degenerati on of thoracic intervertebral disc 68251451 M51.34 Start meloxicam 15mg daily with food. No other NSAIDs while on this medication Essential hypertension 27145410 I10 BP today: 154/79BP Goal: {{Less than 140/90* Le ss than 150/90}}BP Controlled : {{yes no*} }Healthy Weight: {{4'10= 91-118 lbs 4'11= 94-123 lbs 5'= 97-127 lbs 5'1= 100-131 lbs 5'2= 104-135 5' 3= 107-140 lbs 5'4= 110-144 lbs 5'5= 115-149 lbs 5'6= 118-154 lbs* 5'7= 121-158 lbs 5'8= 125-163 lbs 5'9= 128-168 lbs 5'10= 132-173 lbs 5'11= 136-178 lbs 6'= 140-183 lbs 6'1= 144-188 lbs 6'2= 148-193 lbs 6'3= 152-199 lbs 6'4= 156-204 lbs}}Discu ssed: Low sodium balanced diet, moderate exercise at least 3-4 times per week for an average of 40 minutes, limiting alcohol to 1 drink per day (F) or 2 drinks per day (M), and smoking cessation if currently smoking. Uncontroll ed Hypertensi on potential risks, heart attack, , stroke, kidney failure etc. Hypertensi on is the silent Killer Take your Hypertensi on medication daily keep appointmen ts stop concentrat ed sugars--fo llow 1500 meal plan exercise 50-60 minutes daily on most days see eye doctor once a year see dentist every 6 months Next Visit: {{1 2 3 4 5 6* 7 8 9 10 11 12} }{{week(s) * month(s) }} Start lisinopril 10mg dailyLabs ordered today Varicose v eins of lower extremity 59035640 I83.93 Referral to vascular surgeonU/S ordered Impaired g lucose tolerance 6836751 R73.03 Discussed with patient taking blood sugars only in the morning when fasting and explained how different foods can affect blood sugarLabs ordered today Health Concerns Section Related Observation LastModified by Organization Detai ls LastModified Time None Recorded Concern Status LastModified by Organization Details LastModified Time None Recorded Advance Directives Directive N: Payers Encounter Date Sequence Insurance Name Policy Number Policy Altman Covered Member ID Altman Member ID Guarantor Name 05/31/2021 1 [facility] ON OR AFTER 05/04/21 (MEDICAID REPLACEMENT - HMO) Yudi Pizarro [id number] Yudi Pizarro 03/12/2023 1 [facility] ON OR AFTER 05/04/21 (MEDICAID REPLACEMENT - HMO) Yudi Pizarro [id number] Yudi Pizarro 05/19/2024 1 [facility] ON OR AFTER 05/04/21 (MEDICAID REPLACEMENT - HMO) Yudi Pizarro [id number] Yudi Pizarro 09/08/2024 1 [facility] ON OR AFTER 05/04/21 (MEDICAID REPLACEMENT - HMO) Yudi Pizarro [id number] Yudi Pizarro 12/14/2024 1 [facility] ON OR AFTER 05/04/21 (MEDICAID REPLACEMENT - HMO) Yudi Pizarro [id number] Yudi Pizarro Notes Date Note Type Note Provider Name and Address Organization Details Recorded Time 05/31/2021 text/html Annual GYNReport ed bypatient.History: no gynecologic complaints Menstrual cycle:Normal menses Urinary symptoms:No hematuria; No incontinence Vulva:No genital lesion Vagina:Normal vaginal discharge Breast:No breast pain; No breast lump; No nipple discharge Current Contraception:Tuba l ligation Sexual complaints:No sexual complaints; No pain during intercourse; Normal libido Menopausal Symptoms:No menopausal symptoms; Normal vaginal lubrication Psychological symptoms:No depression; No anxiety; No PMDD Preventive measures:Encourage self breast examination; Encourage regular exercise; Encourage no tobacco use; Encourage regular mammograms starting age 40; Followed with Q3 year pap smear and high risk HPV typingNotes:crmapi ng 1-2x/month lasts 5-10min 35yo with history of HSV, endometrial ablation with xavi presents for WWE. Johnathan SkinnerPhoenixjocelyn min, [facility] 05/31/2021 17:49:42 03/12/2023 text/html Pt presents to establish care as a new patient. Previously seen at [facility]. C/o dysuria, urinary frequency, and urgency for the past week. No hematuria, vaginal discharge, odor or abd pain. Denies fever, chills, chest pain, SOB, n/v/d, dizziness, weakness, or headaches. DORCAS HAMMOND Attn: Accounting[address] [place], [address], [facility] 03/12/2023 21:36:59 05/19/2024 text/html Patient presents today for an ER f/u. She went to the ER 1 1/2 weeks ago for substernal stabbing chest pain that radiated down her L arm. Her ER cardiac w/u was negative, and she was given muscle relaxers for costochondritis. She notices increased pain on inspiration. Patient smokes 1 1/2 ppd currently, and she is interested in quitting. She developed a cough 1 day ago, but no fevers, rhinorrhea, or sore throat. Patient is not coughing up colored sputum. She endorses a lot of anxiety since having chest pain and trouble sleeping due to anxiety about her health and her children. Patient also struggles with the grief of losing her mother and grandmother. She usually takes CBD for sleep with success, but it hasn't been working. Patient was told that she had DDD, and she suffers with chronic back and neck pain. She is interested in doing PT for her neck. Patient also complained about tingling in her left hand x 4mo that is usually worse at night. DORCAS HAMMOND Attn: Accounting[address] [place], [address], [facility] 05/21/2024 08:45:02 12/14/2024 text/html 39 y/o F here c/o anju knee pain and low back pain. Pt denies injury to anju knees or back. Does have h.o ddd. Pt does state she has varicose veins on back of anju knees that have been bothering her. Denies claudication. Pt states she was taking IBU but was having a lot of stomach pain so she stopped. Has tried PT but states pain was worse. Pt is also c.o blood sugars being elevated after eating. Would like to get labs redone today. QUINTEN DURANT PA-C Attn: Accounting,[address], [place], [address], [facility] 12/14/2024 11:13:41 OBGyn Episode Ob Episode Information Episode Created Date Number of Fetuses Patient Bloodtype Patient rh Status Prepregnancy Weight lbs Domestic Partner Domestic Partner Phone Father Name Hand Laminator Status 04/10/20 16 1 CLOSED Fetus Data First Name Last Name Admitted to NICU Weight (g) Sex Living Outcome Pediatric Complications Fetus ID Race Codes Race Delivery Type F Full Term [id number] Vaginal Nitin Calculation Initial Nitin Date Initial Exam Date Initial Exam Provider Initial Ultrasound Date Last Menstrual Period Date Ultra Sound Weeks Gestation 0 Eighteen To Twenty Week Nitin Update Ultra Sound Date Fundal Height At Umbil Quickening Date Ultra Sound Latest Weeks Gestation Final Nitin Confirmed By Final Nitin Confirmed Date Final Nitin Date Ultra Sound Latest Days Gestation 0 0 Menstrual History Last Menstrual Date Menses Monthly On Bcp Conception Prior Menses Frequency Hcg Plus Date Menarche Onset Age Delivery Information Delivery Date Delivery Type Labor Anesthesia Weeks Gestation Incision Type Labor Labor Length Hrs Delivered By Post Complications Tubal Sterilization Discharge Date Comments 1 [facility] idural 40 Discharge Information Feeding Method Contraceptive Method Maternal HG B and HCT Levels Ob Episode Information Episode Created Date Number of Fetuses Patient Bloodtype Patient rh Status Prepregnancy Weight lbs Domestic Partner Domestic Partner Phone Father Name Hand Laminator Status 04/10/20 16 1 CLOSED Fetus Data First Name Last Name Admitted to NICU Weight (g) Sex Living Outcome Pediatric Complications Fetus ID Race Codes Race Delivery Type 3685.43 5 F Full Term 47826 Vaginal Nitin Calculation Initial Nitin Date Initial Exam Date Initial Exam Provider Initial Ultrasound Date Last Menstrual Period Date Ultra Sound Weeks Gestation 0 Eighteen To Twenty Week Nitin Update Ultra Sound Date Fundal Height At Umbil Quickening Date Ultra Sound Latest Weeks Gestation Final Nitin Confirmed By Final Nitin Confirmed Date Final Nitin Date Ultra Sound Latest Days Gestation 0 0 Menstrual History Last Menstrual Date Menses Monthly On Bcp Conception Prior Menses Frequency Hcg Plus Date Menarche Onset Age Delivery Information Delivery Date Delivery Type Labor Anesthesia Weeks Gestation Incision Type Labor Labor Length Hrs Delivered By Post Complications Tubal Sterilization Discharge Date Comments 4 None 40 Discharge Information Feeding Method Contraceptive Method Maternal HG B and HCT Levels Ob Episode Information Episode Created Date Number of Fetuses Patient Bloodtype Patient rh Status Prepregnancy Weight lbs Domestic Partner Domestic Partner Phone Father Name Hand Laminator Status 04/10/20 16 1 CLOSED Fetus Data First Name Last Name Admitted to NICU Weight (g) Sex Living Outcome Pediatric Complications Fetus ID Race Codes Race Delivery Type M Demise [id number] Nitin Calculation Initial Nitin Date Initial Exam Date Initial Exam Provider Initial Ultrasound Date Last Menstrual Period Date Ultra Sound Weeks Gestation 0 Eighteen To Twenty Week Nitin Update Ultra Sound Date Fundal Height At Umbil Quickening Date Ultra Sound Latest Weeks Gestation Final Nitin Confirmed By Final Nitin Confirmed Date Final Nitin Date Ultra Sound Latest Days Gestation 0 0 Menstrual History Last Menstrual Date Menses Monthly On Bcp Conception Prior Menses Frequency Hcg Plus Date Menarche Onset Age Delivery Information Delivery Date Delivery Type Labor Anesthesia Weeks Gestation Incision Type Labor Labor Length Hrs Delivered By Post Complications Tubal Sterilization Discharge Date Comments 7 28 Discharge Information Feeding Method Contraceptive Method Maternal HG B and HCT Levels Ob Episode Information Episode Created Date Number of Fetuses Patient Bloodtype Patient rh Status Prepregnancy Weight lbs Domestic Partner Domestic Partner Phone Father Name Hand Laminator Status 04/10/20 16 1 CLOSED Fetus Data First Name Last Name Admitted to NICU Weight (g) Sex Living Outcome Pediatric Complications Fetus ID Race Codes Race Delivery Type 3345.24 1 F Full Term [id number] Vaginal Nitin Calculation Initial Nitin Date Initial Exam Date Initial Exam Provider Initial Ultrasound Date Last Menstrual Period Date Ultra Sound Weeks Gestation 0 Eighteen To Twenty Week Nitin Update Ultra Sound Date Fundal Height At Umbil Quickening Date Ultra Sound Latest Weeks Gestation Final Nitin Confirmed By Final Nitin Confirmed Date Final Nitin Date Ultra Sound Latest Days Gestation 0 0 Menstrual History Last Menstrual Date Menses Monthly On Bcp Conception Prior Menses Frequency Hcg Plus Date Menarche Onset Age Delivery Information Delivery Date Delivery Type Labor Anesthesia Weeks Gestation Incision Type Labor Labor Length Hrs Delivered By Post Complications Tubal Sterilization Discharge Date Comments 1 Local 40 Discharge Information Feeding Method Contraceptive Method Maternal HG B and HCT Levels Ob Episode Information Episode Created Date Number of Fetuses Patient Bloodtype Patient rh Status Prepregnancy Weight lbs Domestic Partner Domestic Partner Phone Father Name Hand Laminator Status 04/10/20 16 1 CLOSED Fetus Data First Name Last Name Admitted to NICU Weight (g) Sex Living Outcome Pediatric Complications Fetus ID Race Codes Race Delivery Type F Full Term [id number] Vaginal Nitin Calculation Initial Nitin Date Initial Exam Date Initial Exam Provider Initial Ultrasound Date Last Menstrual Period Date Ultra Sound Weeks Gestation 0 Eighteen To Twenty Week Nitin Update Ultra Sound Date Fundal Height At Umbil Quickening Date Ultra Sound Latest Weeks Gestation Final Nitin Confirmed By Final Nitin Confirmed Date Final Nitin Date Ultra Sound Latest Days Gestation 0 0 Menstrual History Last Menstrual Date Menses Monthly On Bcp Conception Prior Menses Frequency Hcg Plus Date Menarche Onset Age Delivery Information Delivery Date Delivery Type Labor Anesthesia Weeks Gestation Incision Type Labor Labor Length Hrs Delivered By Post Complications Tubal Sterilization Discharge Date Comments 9 None 40 Discharge Information Feeding Method Contraceptive Method Maternal HG B and HCT Levels Ob Episode Information Episode Created Date Number of Fetuses Patient Bloodtype Patient rh Status Prepregnancy Weight lbs Domestic Partner Domestic Partner Phone Father Name Hand Laminator Status 04/10/20 16 1 CLOSED Fetus Data First Name Last Name Admitted to NICU Weight (g) Sex Living Outcome Pediatric Complications Fetus ID Race Codes Race Delivery Type 3345.24 1 F Full Term [id number] Vaginal Nitin Calculation Initial Nitin Date Initial Exam Date Initial Exam Provider Initial Ultrasound Date Last Menstrual Period Date Ultra Sound Weeks Gestation 0 Eighteen To Twenty Week Nitin Update Ultra Sound Date Fundal Height At Umbil Quickening Date Ultra Sound Latest Weeks Gestation Final Nitin Confirmed By Final Nitin Confirmed Date Final Nitin Date Ultra Sound Latest Days Gestation 0 0 Menstrual History Last Menstrual Date Menses Monthly On Bcp Conception Prior Menses Frequency Hcg Plus Date Menarche Onset Age Delivery Information Delivery Date Delivery Type Labor Anesthesia Weeks Gestation Incision Type Labor Labor Length Hrs Delivered By Post Complications Tubal Sterilization Discharge Date Comments 3 [facility] idural 40 Discharge Information Feeding Method Contraceptive Method Maternal HG B and HCT Levels
== END 2024-12-14 10:46 | disposition home or self-care (01) ==
PROVIDERS: PCP Physician Assistant; Visit Provider Physician Assistant Medical
DX: M51.369 Other intervertebral disc degeneration, lumbar region without mention of lumbar back pain or lower extremity pain (principal); M51.379 Other intervertebral disc degeneration, lumbosacral region without mention of lumbar back pain or lower extremity pain; M17.12 Unilateral primary osteoarthritis, left knee; M25.561 Pain in right knee; I83.93 Asymptomatic varicose veins of bilateral lower extremities
CPT/HCPCS: 72100; 73562

== ENCOUNTER 2024-12-24 21:26 | Emergency (ER) | payer OTHER, SELFPAY ==
--- NOTE | ~2024-12-24 | XR_ITS ---
EXAMINATION: XR chest 2V DATE: 12/24/2024 22:28 INDICATION: Chest pain. TECHNIQUE: Frontal and lateral views of the chest were obtained. COMPARISON: Chest 2 views 05/05/2024 FINDINGS: There is no pneumonia, pleural effusion, or pneumothorax. The heart size is normal. IMPRESSION: 1. No acute cardiopulmonary disease. Reviewed, dictated and finalized at location A. FORWARDER
--- OUTSIDE RECORDS SUMMARY | 2024-12-24 21:30 | XMS_ITS | Data Portability ---
Author Organization [facility] Address [address] [place] [address] Care Team Providers Care Hair Worker Name Role Phone EDWARD FOWLER Primary Care Provider [phone] Assessment No assessment recorded. Plan of Treatment Reminders Order Date Submit Date Provider Last Modified By Organization Details Last Modified Time Details Appointments None record ed. Lab None record ed. Referral None record ed. Procedures None record ed. Surgeries None record ed. Imaging None record ed. Medication Orders None record ed. Patient TargetsNo targets recorded. Patient InstructionsNo instructions recorded. Reason for Referral None Reported. 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 4 11:29:45 Problem Notes None recorded. Procedures Surgical History Date Name Laterality Status Provider Name and Address Organization Details Recorded Time 11/15/19 21 Date of Last Pap Smear completed Urmila Tabor [facility] 02/15/2024 11:28:12 11/04/19 21 Endometrial Ablation completed Urmila Tabor [facility] 02/15/2024 11:41:23 08/08/20 13 Tubal Ligation completed rUmila Tabor [facility] 02/15/2024 11:28:13 04/05/20 12 LEEP completed Urmila Tabor [facility] 02/15/2024 11:28:13 11/04/19 12 Colposcopy completed Urmila Tabor [facility] 02/15/2024 11:40:31 11/04/19 12 Colposcopy completed Urmila Tabor [facility] 02/15/2024 11:39:48 Imaging Results None recorded. Procedure Notes None recorded. Medical Equipment None Reported. Allergies No known drug allergies Medications Name Sig Start Date Stop Date Status Note LastModified by Organization Details LastModified Time azithromycin 250 mg tablet 02/14 completed Not Available Not Available Not Available fluconazole 150 mg tablet 02/14 completed Not Available Not Available Not Available ofloxacin 0.3 % ear drops 02/14 completed Not Available Not Available Not Available cephalexin 500 mg capsule active Not Available Not Available N ot Available amoxicillin 875 mg-potassium clavulanate 125 mg tablet 02/14 completed Not Available Not Available Not Available nitrofurantoin monohydrate/macr ocrystals 100 mg capsule active Not Available Not Available Not Available Vitals Date Recorded Body height Body mass index (BMI) Body weight Systolic blood pressure Diastolic blood pressure Provider Name and Address Organization Details Last Updated DateTime 02/15/2024 168.28 cm 33 kg/m2 90039.03 g 121 mm[Hg] 83 mm[Hg] Urmila Tabor [facility] 11:27:47 Social History Question Answer Notes LastModified by Organizat ion Details LastModified Time Tobacco Smoking Status Current Every Day Smoker Urmila Tabor [facility] 02/15/2024 11:39:22 What Is Your Level Of Alcohol Consumption? None [email or web address] Information not available 02/15/2024 Are You Blind Or Do You Have Difficulty Seeing? No [email or web address] Information n ot available 02/15/2024 What Is Your Level Of Caffeine Consumption? Heavy [email or web address] Information not available 02/15/2024 In The 14 Days Before Symptom Onset, Have You Had Close Contact With A Laboratory-confirm ed COVID-19 While That Case Was Ill? No [email or web address] Information n ot available 02/15/2024 In The 14 Days Before Symptom Onset, Have You Had Close Contact With A Person Who Is Under Investigation For COVID-19 While That Person Was Ill? No [email or web address] Information not available 02/15/2024 Have You Been To An Area Known To Be High Risk For COVID-19? No [email or web address] Information not available 02/15/2024 Are You Deaf Or Do You Have Serious Difficulty Hearing? No [email or web address] Information not available 02/15/2024 What Type Of Diet Are You Following? REGULAR Information n ot available 02/15/2024 What Is The Highest Grade Or Level Of School You Have Completed Or The Highest Degree You Have Received? [id number] [email or web address] Information not available 02/15/2024 What Is Your Occupation? [employer] [email or web address] Information not available 02/15/2024 Are There Any Guns Present In Your Home? No [email or web address] Information not available 02/15/2024 Do You Use Protection During Sex? No [email or web address] Information not available 02/15/2024 Do You Use Your Seat Belt Or Car Seat Routinely? Yes [email or web address] Information not available 02/15/2024 Do You Have Smoke And Carbon Monoxide Detectors In Your Home? Yes [email or web address] Information not available 02/15/2024 At What Age Did You Start Smoking Tobacco? 15 [email or web address] Information not available 02/15/2024 How Much Tobacco Do You Smoke? 1 PPD [email or web address] Information not available 02/15/2024 Do You Feel Stressed (tense, Restless, Nervous, Or Anxious, Or Unable To Sleep At Night)? [id number] [email or web address] Information not available 02/15/2024 Do You Use Any Illicit Or Recreational Drugs? No [email or web address] Information not available 02/15/2024 Do You Use Sunscreen Routinely? No [email or web address] Information not available 02/15/2024 Has Tobacco Cessation Counseling Been Provided? Yes Information not available 02/15/2024 On What Date Was Tobacco Cessation Counseling Provided? 02/15/2024 [email or web address] Information not available 02/15/2024 Have You Used IV Drugs? No [email or web address] Information not available 02/15/2024 Do You Or Have You Ever Used Any Other Forms Of Tobacco Or Nicotine? No [email or web address] Information not available 02/15/2024 Sex: Unknown Functional Status Question Answer Note LastModified by Organizat ion Details LastModified Time Do you have difficulty walking or climbing stairs? No [email or web address] Information not available 02/15/2024 Are you able to walk? YESWOREST [email or web address] Information not available 02/15/2024 Are you able to care for yourself? Yes [email or web address] Information not available 02/15/2024 Do you have difficulty dressing or bathing? No [email or web address] Information not available 02/15/2024 What is your exercise level? Occasional [email or web address] Information not available 02/15/2024 Mental Status None recorded. Family History Relationship Description Onset Age of this Age Resolved Age Notes LastModified by Organization Details LastModified Time Mother Anxiety disorder [email or web address] Not available 02/14 11:28:12 Mother Disorder of lung Not available 02/14 11:28:12 Mother Malignant tumor of ovary [email or web address] Not available 02/14 11:28:12 Maternal Grandmother Malignant tumor of ovary [email or web address] Not available 02/14 11:28:12 Medical History Condition Response Allergies (Food, seasonal, environmental ) N Other N Blood Transfusion N Breast Cancer N Drug/Latex Allergies/Reactions N Lung Disease N Dermatologic Disorders N Defects or Inherited Disease N Breast Problem N Gestational Diabetes N Hematologic disorders N Anesthesia Complications N History of STI Y Deep Vein Thrombosis N Polycystic ovary syndrome N Anxiety Disorder Y Autoimmune disease N Arthritis N Polyps N Infertility N History of abnormal pap Y Acid Reflux (GERD) N Cancer N Varicosities N Stroke N Neurologic/Epilepsy N Endometriosis N High Cholesterol N Headaches N Fibromyalgia N Kidney Disease N Heart Problems N Thyroid Problems N Kidney or Bladder Problems N GI Problems N Eating Disorder N Anemia N Art (IVF or FET) N Psychiatric Illness N Ovarian Cancer N Diabetes N Pulmonary (TB, Asthma) N Hepatitis/Liver Disease N No Past Medical History N Eczema N Urinary Tract Infection Y Abuse/Domestic Violence N Asthma N Trauma/Violence N Depression/ depression Y Heart Disease N Pre-Eclampsia N Hypertension N Osteoporosis N Thrombophilias N Gynecological History Statement/Question Response Date of Last Mammogram Date of LMP 01/26/2024 N Was last menstrual period normal N STIs/STDs Yes Desired Control Method Ablation Abnormal Pap Y On BCP's at Conception? N HPV Vaccine Y Colposcopy 11/04/2011 Duration of Flow (days) 7 Current Control Method Tubal Ligat ion Age at First Child 15 Frequency of Cycle (Q days) 7 Sexually Active? Y Date of DEXA bone scan Age of first menstrual cycle 11 Date of Last Pap Smear 11/15/2020 Sexual Problems? N LMP Approximate N 11/15/2020 Obstetrics History GPAL:G 8 P 6 0 2 5 Type Value Full Term 6 Spontaneous 2 Living 5 Total 8 Past Encounters Encounter ID Performer Location Encounter Start Date Encounter Closed Date Diagnosis/Indication Diagnosis SNOMED-CT Code Diagnosis ICD10 Code Diagnosis Note [id number] Jd Oliver MD [facility] [address] [address] 02/15/2024 10:24:56 02/18/2024 16:13:29 Abnormal uterine bleeding [id number] 9100 N93.9 38-year-ol d female presents for follow-up on urinary tract infection at the urgent care. Was treated effectivel y. Her symptoms have resolved. She also reports breast pain. That also resolved after her menses. She also had a bleeding concern. She had an episode of irregular bleeding. That issue has also resolved. She would like to hold off on any treatment or evaluation . We discussed the evaluation and treatment of abnormal uterine bleeding. If that problem persists we will evaluate. Health Concerns Section Related Observation LastModified by Organization Detai ls LastModified Time None Recorded Concern Status LastModified by Organization Details LastModified Time None Recorded Advance Directives Directive None Recorded Payers Encounter Date Sequence Insurance Name Policy Number Policy Altman Covered Member ID Altman Member ID Guarantor Name 02/15/2024 1 [facility] - DOS ON OR AFTER 21 (MEDICAID REPLACEMENT - HMO) Yudi Pizarro [id number] Yudi Rubiomelody Notes Date Note Type Note Provider Name and Address Organization Details Recorded Time 02/15/2024 text/html 38-year-old female presents for follow-up on urinary tract infection at the urgent care. Was treated effectively. Her symptoms have resolved. She also reports breast pain. That also resolved after her menses. She also had a bleeding concern. She had an episode of irregular bleeding. That issue has also resolved. She would like to hold off on any treatment or evaluation. We discussed the evaluation and treatment of abnormal uterine bleeding. If that problem persists we will evaluate. Jd Oliver MD [address], [place], [address], [facility] 02/18/2024 15:43:05 OBGyn Episode Ob Episode Information Episode Created Date Number of Fetuses Patient Bloodtype Patient rh Status Prepregnancy Weight lbs Domestic Partner Domestic Partner Phone Father Name Clinic Manager Status 02/15/20 24 1 CLOSED Fetus Data First Name Last Name Admitted to NICU Weight (g) Sex Living Outcome Pediatric Complications Fetus ID Race Codes Race Delivery Type , [place]ont[place] o[place] 47565 Nitin Calculation Initial Nitin Date Initial Exam [...] Post Complications Tubal Sterilization Discharge Date Comments 6 Discharge Information Feeding Method Contraceptive Method Maternal HG B and HCT Levels Ob Episode Information Episode Created Date Number of Fetuses Patient Bloodtype Patient rh Status Prepregnancy Weight lbs Domestic Partner Domestic Partner Phone Father Name Clinic Manager Status 02/15/20 24 1 CLOSED Fetus Data First Name Last Name Admitted to NICU Weight (g) Sex Living Outcome Pediatric Complications Fetus ID Race Codes Race Delivery Type 3175.14 4 F Full Term 11485 Vaginal Delivery Nitin Calculation Initial Nitin Date Initial Exam [...] Complications Tubal Sterilization Discharge Date Comments 1 40 Discharge Information Feeding Method Contraceptive Method Maternal HG B and HCT Levels Ob Episode Information Episode Created Date Number of Fetuses Patient Bloodtype Patient rh Status Prepregnancy Weight lbs Domestic Partner Domestic Partner Phone Father Name Clinic Manager Status 02/15/20 24 1 CLOSED Fetus Data First Name Last Name Admitted to NICU Weight (g) Sex Living Outcome Pediatric Complications Fetus ID Race Codes Race Delivery Type 3175.14 4 F Full Term 78069 Vaginal Delivery Nitin Calculation Initial Nitin Date Initial Exam [...] Complications Tubal Sterilization Discharge Date Comments 1 40 Discharge Information Feeding Method Contraceptive Method Maternal HG B and HCT Levels Ob Episode Information Episode Created Date Number of Fetuses Patient Bloodtype Patient rh Status Prepregnancy Weight lbs Domestic Partner Domestic Partner Phone Father Name Clinic Manager Status 02/15/20 24 1 CLOSED Fetus Data First Name Last Name Admitted to NICU Weight (g) Sex Living Outcome Pediatric Complications Fetus ID Race Codes Race Delivery Type , [place] o[place] 19814 Nitin Calculation Initial Nitin Date Initial Exam [...] Post Complications Tubal Sterilization Discharge Date Comments 6 Discharge Information Feeding Method Contraceptive Method Maternal HG B and HCT Levels Ob Episode Information Episode Created Date Number of Fetuses Patient Bloodtype Patient rh Status Prepregnancy Weight lbs Domestic Partner Domestic Partner Phone Father Name Clinic Manager Status 02/15/20 24 1 CLOSED Fetus Data First Name Last Name Admitted to NICU Weight (g) Sex Living Outcome Pediatric Complications Fetus ID Race Codes Race Delivery Type Demise 71720 Nitin Calculation Initial Nitin Date Initial Exam [...] Complications Tubal Sterilization Discharge Date Comments 7 Discharge Information Feeding Method Contraceptive Method Maternal HG B and HCT Levels Ob Episode Information Episode Created Date Number of Fetuses Patient Bloodtype Patient rh Status Prepregnancy Weight lbs Domestic Partner Domestic Partner Phone Father Name Clinic Manager Status 02/15/20 24 1 CLOSED Fetus Data First Name Last Name Admitted to NICU Weight (g) Sex Living Outcome Pediatric Complications Fetus ID Race Codes Race Delivery Type 3175.14 4 F Full Term 47643 Vaginal Delivery Nitin Calculation Initial Nitin Date Initial Exam [...] Complications Tubal Sterilization Discharge Date Comments 9 40 Discharge Information Feeding Method Contraceptive Method Maternal HG B and HCT Levels Ob Episode Information Episode Created Date Number of Fetuses Patient Bloodtype Patient rh Status Prepregnancy Weight lbs Domestic Partner Domestic Partner Phone Father Name Clinic Manager Status 02/15/20 24 1 CLOSED Fetus Data First Name Last Name Admitted to NICU Weight (g) Sex Living Outcome Pediatric Complications Fetus ID Race Codes Race Delivery Type 3175.14 4 F Full Term 07935 Vaginal Delivery Nitin Calculation Initial Nitin Date Initial Exam [...] Complications Tubal Sterilization Discharge Date Comments 3 40 Discharge Information Feeding Method Contraceptive Method Maternal HG B and HCT Levels Ob Episode Information Episode Created Date Number of Fetuses Patient Bloodtype Patient rh Status Prepregnancy Weight lbs Domestic Partner Domestic Partner Phone Father Name Clinic Manager Status 02/15/20 24 1 CLOSED Fetus Data First Name Last Name Admitted to NICU Weight (g) Sex Living Outcome Pediatric Complications Fetus ID Race Codes Race Delivery Type 3628.73 6 F Full Term 24878 Vaginal Delivery Nitin Calculation Initial Nitin Date Initial Exam [...] Complications Tubal Sterilization Discharge Date Comments 4 40 Discharge Information Feeding Method Contraceptive Method Maternal HG B and HCT Levels
--- OUTSIDE RECORDS SUMMARY | 2024-12-24 21:30 | XMS_ITS | Data Portability ---
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 I agree with the exam findings, assessment and plan except where specifically documented or amended. -Jessica Malin, [facility], PARachel kam Not available 05/20/2024 17:52:36 Plan of Treatment Reminders Order Date Submit Date Provider Last Modified By Organization Details Last Modified Time Details Appointments ANY 15 2024 10:15A M DORCAS BEST Not available Not available Not available Lab HbA1c (hemoglo bin A1c), blood 2024 025 MARGE [facility], [address], [place], [address], 12/15/2024 14:13:29 TSH, ultra-se nsitive, serum 2024 025 MARGE [facility], [address], [place], [address], 12/15/2024 14:13:28 CMP, serum or plasma 2024 025 MARGE [facility], [address], [place], [address], 12/14/2024 22:06:48 CBC w/ auto diff 2024 025 [facility], [address], [place], [address], 12/14/2024 22:06:49 albumin/ creatini ne, mass ratio, urine 2024 025 [facility], [address], [place], [address], 12/15/2024 14:13:27 lipid panel, serum 2024 025 [facility], [address], [place], [address], 12/14/2024 22:06:47 urinalys is, dipstick 2023 024 [email or web address] In-Office Order, Internal Use Only DO Not Attach Compendium DO Not Attach Compendium, Do Not Delete/merge, [id number] 09/08/2024 11:29:24 culture, urine 2023 024 [facility], [address], [place], [address], 09/10/2024 03:36:58 vitamin D, 25-hydro xy, total, serum 2023 024 [facility], [address], [place], [address], 05/20/2024 14:17:31 vitamin B12 + folate, serum or blood 2023 024 [facility], [address], [place], [address], 05/20/2024 14:17:30 CMP, serum or plasma 2023 024 MARGEMARLEEN Cagle, [address], [place], [address], 05/19/2024 22:07:21 lipid panel, serum 2023 024 MARGE Agee, [address], [place], [address], 05/19/2024 22:07:21 CBC w/ auto diff 2023 024 MARGEMARLEEN Agee, [address], [place], [address], 05/19/2024 22:07:22 TSH + free T4, serum 2023 024 MARGE Cagle, [address], [place], [address], 05/20/2024 14:17:29 HbA1c (hemoglo bin A1c), blood 2023 024 MARGE Cagle, [address], [place], [address], 05/20/2024 14:17:30 CMP, serum or plasma 2022 023 MARGE Agee, [address], [place], [address], 03/14/2023 08:27:03 lipid panel, serum 2022 023 MARGE Agee, [address], [place], [address], 03/14/2023 08:27:02 CBC w/ auto diff 2022 023 MARGEMARLEEN Agee, [address], [place], [address], 03/14/2023 08:27:03 TSH + free T4, serum 2022 023 [facility], [address], [place], [address], 03/13/2023 08:29:04 HbA1c (hemoglo bin A1c), blood 2022 023 [facility], [address], [place], [address], 03/13/2023 08:29:04 urinalys is, dipstick 2022 023 [email or web address] In-Office Order, Internal Use Only DO Not Attach Compendium DO Not Attach Compendium, Do Not Delete/merge, [id number] 03/12/2023 11:56:58 urinalys is complete , reflex culture 2022 023 [facility], [address], [place], [address], 03/14/2023 06:18:16 vitamin D, 25-hydro xy, total, serum 2022 023 [facility], [address], [place], [address], 03/13/2023 08:29:05 pap, IG + HPV, cervical - please use Z11.51 in addition to code above for HPV testing. 2020 021 [facility], [address], [place], [address], 06/02/2021 14:11:22 urinalys is, dipstick 2020 021 elly In-Office Order, Internal Use Only DO Not Attach Compendium DO Not Attach Compendium, Do Not Delete/merge, [id number] 05/31/2021 13:38:26 bacteria l vaginosi s panel, vaginal 2020 021 [facility], [address] [place] [address], [address], [place], [address], 06/04/2021 20:07:46 culture, vaginal/ rectal, streptoc occus group B 2020 021 [facility], [address] [facility], [place], [address], 06/04/2021 20:07:47 Referral vascular surgeon referral 2024 025 [facility] Pascual Hubbard MD, [address] [facility] , [address], [address], 12/15/2024 09:23:53 physical therapis t referral [address] (Outpatient Physical Therapy), [address], [place], [address], 06/10/2024 07:55:55 obstetri gala and gynecolo gist referral 2022 023 jeanie Oliver MD, [address], [place], [address], 06/10/2023 15:14:46 Procedures None recorded . Surgeries None recorded . Imaging XR, lumbosac ral spine, 2 or 3 view 2024 025 [facility] (Imaging), [address] [facility], [place], [address], 12/14/2024 16:10:58 US, doppler, venous 2024 025 [facility] (Imaging), [address], [place], [address], 12/15/2024 10:04:24 XR, knee, 3 view 2024 025 [facility] (Imaging), [address] [place], [address], 12/14/2024 14:59:28 Medication Orders meloxica m 15 mg tablet 2024 025 [facility], [address], [place], [id number], 12/14/2024 11:08:19 lisinopr il 10 mg tablet 2024 025 [facility] #76289, [address], [place], [id number], 12/23/2024 16:35:12 nicotine 21 mg/24 hr daily transder mal patch 2023 024 [facility] #07856, [address], [place], [id number], 05/19/2024 14:45:43 hydroxyz ine HCl 25 mg tablet 2023 024 [email or web address] [facility] #97528, [address], [place], [id number], 05/20/2024 10:16:24 pantopra zole 20 mg tablet,d elayed release 2023 024 [facility] #95180, [address], [place], [id number], 05/19/2024 14:44:01 nitrofur antoin monohydr ate/macr ocrystal s 100 mg capsule 2022 023 [email or web address] [facility] #89621, [address], [place], [place], [id number], 12/14/2024 10:47:18 ketorola c 10 mg tablet 2020 021 [email or web address] [facility] #46527, [address], [place], [place], [id number], 03/12/2023 11:07:39 multivit macias tablet [address] [facility]15691, [address], [place], [place], [id number], 03/12/2023 11:07:44 Calcium with Vitamin D 600 mg-10 mcg (400 unit) tablet [address] [facility]47295, [address], [place], [place], [id number], 03/12/2023 11:06:44 Patient TargetsNo targets recorded. Patient Instructions Encounter Date Encounter Id Patient Instructions Last Modified By Organization Details Last Modified Time 05/31/2021 [id number] genital herpes: care instructions [email or web address] Not available 05/31/2021 13:38:26 03/12/2023 [id number] A healthy lifestyle: care instructions [email or web address] Not available 03/12/2023 11:38:38 Quitting Tobacco: Care Instructions [email or web address] Not available 03/12/2023 11:29:38 05/19/2024 [id number] Quitting Tobacco: Care Instructions [email or web address] Not available 05/19/2024 14:33:05 A healthy lifestyle: care instructions [email or web address] Not available 05/19/2024 14:35:23 12/14/2024 [id number] prediabetes: care instructions [email or web address] Not available 12/14/2024 11:10:05 back care and preventing injuries: care instructions [email or web address] Not available 12/14/2024 11:08:05 varicose veins: care instructions [email or web address] Not available 12/14/2024 11:08:05 A healthy lifestyle: care instructions [email or web address] Not available 12/14/2024 11:08:05 learning about high blood pressure [email or web address] Not available 12/14/2024 11:08:05 Reason for Referral [employer] And Gynecologis t Referral for Screening for malignant neoplasm of cervix Referring Physician: [facility], Encounter Date: 03/12/2023 Physical Therapist Referral for Chronic neck pain for greater than 3 months [facility] [place] Date: 05/19/2024 Vascular Surgeon Referral fo r Varicose veins of lower extremity Referring Physician: Quinten Durant [facility] [place], Encounter Date: 12/14/2024 Results Created Date Observation Date Name Description Value Unit Range Abnormal Flag Note LastModifiedBy Organization Detail LastModifiedTime 05/31/20 21 05/31/2021 urina lysis , dipst ick Leukocytes Negati ve Not Available In-Office Order Internal Use Only DO Not Attach Compendium DO Not Attach Compendium, Do Not Delete/merge, [id number] 05/31/2021 10:58:25 05/31/20 21 05/31/2021 urina lysis [...] 21 05/31/2021 urina lysis , dipst ick pH 6.0 [...] 05/31/2021 urina lysis , dipst ick Specific [place]row 1.025 Not Available In-Off ice Order Internal [...] OR HUSSAIN MADRID . Not Available [facility] ([facility]) [address], [place], [address], 06/02/2021 14:11:22 05/31/20 21 06/02/2021 IGP, APTIM A HPV specimen adequacy: Commen t Satis facto ry for evalu ation . No endoc ervic al compo nent is ident ified . Not Available [facility] ([facility]) [address], [place], [address], 06/02/2021 14:11:22 05/31/20 21 06/02/2021 IGP, APTIM A HPV clinician provided ICD10: Commen t Z01.4 19 Z11.5 1 Not Available [facility] ([facility]) [address], [place], [address], 06/02/2021 14:11:22 05/31/20 21 06/02/2021 IGP, APTIM A HPV performed by: Geni Arcos (ASCP ) Not Available [facility] ([facility]) [address] [place], [address], 06/02/2021 14:11:22 05/31/20 21 06/02/2021 IGP, APTIM A HPV . . Not Available [facility] ([facility]) [address] [facility], [place], [address], 06/02/2021 14:11:22 05/31/2006/02/2021 IGP, APTIM A HPV note: Kiley nash [...] ts do occur . Not Available [facility] ([facility]) [address] [place], [address], 06/02/2021 14:11:22 05/31/2006/02/2021 IGP, APTIM A HPV test methodology: Kiley nash This liqui d based ThinP rep(R ) pap test was scree gus with the use of an image guide alexander briscoe Not Available [facility] ([facility]) [address] [place], [address], 06/02/2021 14:11:22 05/31/2006/02/2021 IGP, APTIM A HPV HPV aptima Negati ve negati ve This nucle ic acid ampli ficat ion test detec ts fourt een high- risk HPV types (16,1 8,31, 33,35 ,39,4 5,51, 52,56 ,58,5 9,66, 68) witho ut diffe renti ation . Not Available [facility] ([facility]) [address] [facility], [place], [address], 06/02/2021 14:11:22 05/31/20 21 06/02/2021 NUSWA B VG+, HSV trich vag by JOY Negati ve negati ve Not Available [facility] ([facility]) [address], [place], [address], 06/04/2021 20:07:46 05/31/20 21 06/02/2021 NUSWA B VG+, HSV chlamydia trachomatis, JOY Negati ve negati ve Not Available [facility] ([facility]) [address] [address], [place], [address], 06/04/2021 20:07:46 05/31/20 21 06/02/2021 NUSWA B VG+, HSV neisseria gonorrhoeae, JOY Negati ve negati ve Not Available [facility] ([facility]) [address], [place], [address], 06/04/2021 20:07:46 05/31/20 21 06/03/2021 NUSWA B VG+, HSV atopobium vaginae Low - 0 score Not Available [facility] ([facility]) [address] [place], [address], 06/04/2021 20:07:46 05/31/20 21 06/03/2021 NUSWA B VG+, HSV bvab 2 Low - 0 score Not Available [facility] ([facility]) [address] [place], [address], 06/04/2021 20:07:46 05/31/20 21 06/03/2021 NUSWA B [...] Drug Admin istra tion. Not Available [facility] ([facility]) [address] [place], [address], 06/04/2021 20:07:46 05/31/20 21 06/03/2021 NUSWA B VG+, HSV hubert albicans, JOY Negati ve negati ve Not Available [facility] ([facility]) [address] [place], [address], 06/04/2021 20:07:46 05/31/20 21 06/03/2021 NUSWA B VG+, HSV hubert glabrata, JOY Negati ve negati ve Not Available [facility] ([facility]) [address] [place], [address], 06/04/2021 20:07:46 05/31/20 21 06/04/2021 NUSWA B VG+, HSV hsv 1 JOY Negati ve negati ve Not Available [facility] ([facility]) [address] [place], [address], 06/04/2021 20:07:46 05/31/20 21 06/04/2021 NUSWA B VG+, HSV hsv 2 JOY Negati ve negati ve Not Available [facility] ([facility]) [address] [place], [address], 06/04/2021 20:07:46 07/06/02/2021 STREP GP B JOY strep gp B JOY Negati ve negati ve Cente rs for Disea se Contr ol and Preve ntion (CDC) and Ameri can Congr ess of Obste trici ans and Gynec ologi sts (ACOG ) guide lines for preve ntion of perin atal group B strep tococ dalia (GBS) disea se speci fy co-co llect ion of a vagin al and recta l swab speci men to maxim ize sensi tivit y of GBS detec tion. Per the CDC and ACOG, swabb ing both the lower [...] n is noted . Not Available [facility] ([facility]) [address] [place], [address], 06/04/2021 20:07:47 03/12/2003/13/2023 TSH+F REE T4 TSH 2.060 uIU/m L 0.450- 4.500 Not Available [facility] ([facility]) [address] [place], [address], 03/13/2023 08:29:04 03/12/2003/13/2023 TSH+F REE T4 T4,free(dire ct) 1.32 NG/dL 0.82-1 .77 Not Available [facility] ([facility]) [address] [place], [address], 03/13/2023 08:29:04 03/12/20 23 03/13/2023 HEMOG LOBIN A1C hemoglobin A1C 5.3 % 4.8-5. 6 Predi abete s: 5.7 - 6.4 Diabe jen: >6.4 Glyce carissa contr ol for adult s with diabe jen: <7.0 Not Available [facility] ([facility]) [address], [place], [address], 03/13/2023 08:29:04 03/12/20 23 03/13/2023 VITAM IN D, 25-HY DROXY vitamin D, [...] Medic ine). 2009. Dieta ry refer ence godfrey es for calci um and D. Shanna boston [place]: The [facility] . 2. Mendy gupta MF, Candida ey [place], Karina off-F errar i SLAUGHTER, et al. Evalu ation , treat ment, and preve ntion of vitam in D defic iency : an Endoc rine Socie ty clini dalia pract ice guide line. JCEM. 2010; 96(7) :1911 -30. Not Available [facility] ([facility]) [address], [place], [address], 03/13/2023 08:29:05 03/12/20 23 03/14/2023 LIPID PANEL WITH LDL/H DL RATIO cholesterol, total 156 mg/dL 100-19 9 Not Available [facility] ([facility]) [address], [place], [address], 03/14/2023 08:27:02 03/12/20 23 03/14/2023 LIPID PANEL WITH LDL/H DL RATIO triglyceride s 118 mg/dL 0-149 Not Available [facility] ([facility]) [address] [place], [address], 03/14/2023 08:27:02 03/12/20 23 03/14/2023 LIPID PANEL WITH LDL/H DL RATIO HDL cholesterol 38 mg/dL >39 below low normal Not Available [facility] ([facility]) [address] [place], [address], 03/14/2023 08:27:02 03/12/20 23 03/14/2023 LIPID PANEL WITH LDL/H DL RATIO VLDL cholesterol dalia 21 mg/dL 5-40 Not Available [facility] ([facility]) [address] [place], [address], 03/14/2023 08:27:02 03/12/20 23 03/14/2023 LIPID PANEL WITH LDL/H DL RATIO LDL chol calc ([facility]) 97 mg/dL 0-99 Not Available [facility] ([facility]) [address] [place], [address], 03/14/2023 08:27:02 03/12/20 23 03/14/2023 LIPID PANEL WITH LDL/H DL RATIO LDL/HDL ratio 2.6 ratio 0.0-3. 2 LDL/H DL Ratio Men Women 1/2 Avg.R isk 1.0 1.5 Avg.R isk 3.6 3.2 2X Avg.R isk 6.2 5.0 3X Avg.R isk 8.0 6.1 Not Available [facility] ([facility]) [address] [place], [address], 03/14/2023 08:27:02 03/12/20 23 03/14/2023 COMP. METAB OLIC PANEL (14) glucose 106 mg/dL 70-99 above high normal Not Available [facility] ([facility]) [address], [place], [address], 03/14/2023 08:27:03 03/12/20 23 03/14/2023 COMP. METAB OLIC PANEL (14) BUN 10 mg/dL 6-20 Not Available [facility] ([facility]) [address] [place], [address], 03/14/2023 08:27:03 03/12/20 23 03/14/2023 COMP. METAB OLIC PANEL (14) creatinine 0.74 mg/dL 0.57-1 .00 Not Available [facility] ([facility]) [address] [place], [address], 03/14/2023 08:27:03 03/12/20 23 03/14/2023 COMP. METAB OLIC PANEL (14) eGFR 105 mL/mi n/1.7 3 >59 Not Available [facility] ([facility]) [address] [place], [address], 03/14/2023 08:27:03 03/12/20 23 03/14/2023 COMP. METAB OLIC PANEL (14) BUN/creatini ne ratio 14 9-23 Not Available [facility] ([facility]) [address] [facility] [place], [address], 03/14/2023 08:27:03 03/12/20 23 03/14/2023 COMP. METAB OLIC PANEL (14) sodium 141 mmol/ L 134-14 4 Not Available [facility] ([facility]) [address] [place], [address], 03/14/2023 08:27:03 03/12/20 23 03/14/2023 COMP. METAB OLIC PANEL (14) potassium 3.8 mmol/ L 3.5-5. 2 Not Available [facility] ([facility]) [address] [place], [address], 03/14/2023 08:27:03 03/12/20 23 03/14/2023 COMP. METAB OLIC PANEL (14) chloride 105 mmol/ L 96-106 Not Available [facility] ([facility]) [address] [facility] [place], [address], 03/14/2023 08:27:03 03/12/20 23 03/14/2023 COMP. METAB OLIC PANEL (14) carbon dioxide, total 22 mmol/ L 20-29 Not Available [facility] ([facility]) [address] [facility] [place], [address], 03/14/2023 08:27:03 03/12/20 23 03/14/2023 COMP. METAB OLIC PANEL (14) calcium 8.9 mg/dL 8.7-10 .2 Not Available [facility] ([facility]) [address] [facility] [place], [address], 03/14/2023 08:27:03 03/12/20 23 03/14/2023 COMP. METAB OLIC PANEL (14) protein, total 7.1 g/dL 6.0-8. 5 Not Available [facility] ([facility]) [address] [facility] [place], [address], 03/14/2023 08:27:03 03/12/20 23 03/14/2023 COMP. METAB OLIC PANEL (14) albumin 4.7 g/dL 3.8-4. 8 Not Available [facility] ([facility]) [address] [facility] [place], [address], 03/14/2023 08:27:03 03/12/20 23 03/14/2023 COMP. METAB OLIC PANEL (14) globulin, total 2.4 g/dL 1.5-4. 5 Not Available [facility] ([facility]) [address] [facility] [place], [address], 03/14/2023 08:27:03 03/12/20 23 03/14/2023 COMP. METAB OLIC PANEL (14) A/G ratio 2.0 1.2-2. 2 Not Available [facility] ([facility]) [address] [facility], [place], [address], 03/14/2023 08:27:03 03/12/20 23 03/14/2023 COMP. METAB OLIC PANEL (14) bilirubin, total 0.9 mg/dL 0.0-1. 2 Not Available [facility] ([facility]) [address] [facility], [place], [address], 03/14/2023 08:27:03 03/12/20 23 03/14/2023 COMP. METAB OLIC PANEL (14) alkaline phosphatase 67 IU/L 44-121 Not Available [facility] ([facility]) [address] [facility] [facility], [place], [address], 03/14/2023 08:27:03 03/12/20 23 03/14/2023 COMP. METAB OLIC PANEL (14) AST (SGOT) 18 IU/L 0-40 Not Available [facility] ([facility]) [address] [facility], [place], [address], 03/14/2023 08:27:03 03/12/20 23 03/14/2023 COMP. METAB OLIC PANEL (14) ALT (SGPT) 14 IU/L 0-32 Not Available [facility] ([facility]) [address] [facility], [place], [address], 03/14/2023 08:27:03 03/12/20 23 03/14/2023 CBC WITH DIFFE RENTI AL/PL ATELE T WBC 9.5 x10e3 /uL 3.4-10 .8 Not Available [facility] ([facility]) [address] [facility], [place], [address], 03/14/2023 08:27:03 03/12/20 23 03/14/2023 CBC WITH DIFFE RENTI AL/PL ATELE T RBC 4.93 x10e6 /uL 3.77-5 .28 Not Available [facility] ([facility]) [address] [place], [address], 03/14/2023 08:27:03 03/12/20 23 03/14/2023 CBC WITH DIFFE RENTI AL/PL ATELE T hemoglobin 14.6 g/dL 11.1-1 5.9 Not Available [facility] ([facility]) [address] [place], [address], 03/14/2023 08:27:03 03/12/2003/14/2023 CBC WITH DIFFE RENTI AL/PL ATELE T hematocrit 43.4 % 34.0-4 6.6 Not Available [facility] ([facility]) [address] [place], [address], 03/14/2023 08:27:03 03/12/20 23 03/14/2023 CBC WITH DIFFE RENTI AL/PL ATELE T MCV 88 fL 79-97 Not Available [facility] ([facility]) [address] [place], [address], 03/14/2023 08:27:03 03/12/2003/14/2023 CBC WITH DIFFE RENTI AL/PL ATELE T MCH 29.6 pg 26.6-3 3.0 Not Available [facility] ([facility]) [address] [place], [address], 03/14/2023 08:27:03 03/12/2003/14/2023 CBC WITH DIFFE RENTI AL/PL ATELE T MCHC 33.6 g/dL 31.5-3 5.7 Not Available [facility] ([facility]) [address] [place], [address], 03/14/2023 08:27:03 03/12/20 23 03/14/2023 CBC WITH DIFFE RENTI AL/PL ATELE T RDW 12.5 % 11.7-1 5.4 Not Available [facility] ([facility]) [address] [facility], [place], [address], 03/14/2023 08:27:03 03/12/20 23 03/14/2023 CBC WITH DIFFE RENTI AL/PL ATELE T platelets 396 x10e3 /uL 150-45 0 Not Available [facility] ([facility]) [address] [facility], [place], [address], 03/14/2023 08:27:03 03/12/20 23 03/14/2023 CBC WITH DIFFE RENTI AL/PL ATELE T neutrophils 58 % notest ab. Not Available [facility] ([facility]) [address] [facility], [place], [address], 03/14/2023 08:27:03 03/12/20 23 03/14/2023 CBC WITH DIFFE RENTI AL/PL ATELE T lymphs 29 % notest ab. Not Available [facility] ([facility]) [address] [facility], [place], [address], 03/14/2023 08:27:03 03/12/20 23 03/14/2023 CBC WITH DIFFE RENTI AL/PL ATELE T monocytes 9 % notest ab. Not Available [facility] ([facility]) [address] [facility], [place], [address], 03/14/2023 08:27:03 03/12/20 23 03/14/2023 CBC WITH DIFFE RENTI AL/PL ATELE T eos 2 % notest ab. Not Available [facility] ([facility]) [address] [facility], [place], [address], 03/14/2023 08:27:03 03/12/20 23 03/14/2023 CBC WITH DIFFE RENTI AL/PL ATELE T basos 1 % notest ab. Not Available [facility] ([facility]) [address] [facility], [place], [address], 03/14/2023 08:27:03 03/12/20 23 03/14/2023 CBC WITH DIFFE RENTI AL/PL ATELE T neutrophils (absolute) 5.5 x10e3 /uL 1.4-7. 0 Not Available [facility] ([facility]) [address] [facility], [place], [address], 03/14/2023 08:27:03 03/12/20 23 03/14/2023 CBC WITH DIFFE RENTI AL/PL ATELE T lymphs (absolute) 2.8 x10e3 /uL 0.7-3. 1 Not Available [facility] ([facility]) [address] [facility], [place], [address], 03/14/2023 08:27:03 03/12/20 23 03/14/2023 CBC WITH DIFFE RENTI AL/PL ATELE T monocytes(ab solute) 0.9 x10e3 /uL 0.1-0. 9 Not Available [facility] ([facility]) [address] [facility], [place], [address], 03/14/2023 08:27:03 03/12/20 23 03/14/2023 CBC WITH DIFFE RENTI AL/PL ATELE T eos (absolute) 0.2 x10e3 /uL 0.0-0. 4 Not Available [facility] ([facility]) [address] [facility], [place], [address], 03/14/2023 08:27:03 03/12/20 23 03/14/2023 CBC WITH DIFFE RENTI AL/PL ATELE T baso (absolute) 0.1 x10e3 /uL 0.0-0. 2 Not Available [facility] ([facility]) [address] [facility], [place], [address], 03/14/2023 08:27:03 03/12/20 23 03/14/2023 CBC WITH DIFFE RENTI AL/PL ATELE T immature granulocytes 1 % notest ab. Not Available [facility] ([facility]) [address] [place], [address], 03/14/2023 08:27:03 03/12/20 23 03/14/2023 CBC WITH DIFFE RENTI AL/PL ATELE T immature grans (abs) 0.1 x10e3 /uL 0.0-0. 1 Not Available [facility] ([facility]) [address] [place], [address], 03/14/2023 08:27:03 03/12/20 23 03/14/2023 URINE CULTU RE, ROUTI NE urine culture, routine Final report Not Available [facility] ([facility]) [address] [place], [address], 03/14/2023 06:18:17 03/12/2003/14/2023 URINE CULTU RE, ROUTI NE result 1 Commen t Mixed uroge nital rose 25,00 0-50, 000 colon y formi ng units per mL Not Available [facility] ([facility]) [address] [place], [address], 03/14/2023 06:18:17 03/12/20 23 03/13/2023 UA/M W/RFL X CULTU RE, ROUTI NE specific gravity 1.018 1.005- 1.030 Not Available [facility] ([facility]) [address] [place], [address], 03/14/2023 06:18:15 03/12/2003/13/2023 UA/M W/RFL X CULTU RE, ROUTI NE pH 6.0 5.0-7. 5 Not Available [facility] ([facility]) [address] [place], [address], 03/14/2023 06:18:15 03/12/20 23 03/13/2023 UA/M W/RFL X CULTU RE, ROUTI NE urine-color Yellow yellow Not Available [facility] ([facility]) [address] [place], [address], 03/14/2023 06:18:15 03/12/20 23 03/13/2023 UA/M W/RFL X CULTU RE, ROUTI NE appearance Clear clear Not Available [facility] ([facility]) [address] [place], [address], 03/14/2023 06:18:15 03/12/20 23 03/13/2023 UA/M W/RFL X CULTU RE, ROUTI NE WBC esterase 1+ negati ve abnormal Not Available [facility] ([facility]) [address] [facility], [place], [address], 03/14/2023 06:18:15 03/12/20 23 03/13/2023 UA/M W/RFL X CULTU RE, ROUTI NE protein Negati ve negati ve/tra ce Not Available [facility] ([facility]) [address] [place], [address], 03/14/2023 06:18:15 03/12/20 23 03/13/2023 UA/M W/RFL X CULTU RE, ROUTI NE glucose Negati ve negati ve Not Available [facility] ([facility]) [address] [place], [address], 03/14/2023 06:18:15 03/12/20 23 03/13/2023 UA/M W/RFL X CULTU RE, ROUTI NE ketones Negati ve negati ve Not Available [facility] ([facility]) [address] [place], [address], 03/14/2023 06:18:15 03/12/20 23 03/13/2023 UA/M W/RFL X CULTU RE, ROUTI NE occult blood Trace negati ve abnormal Not Available [facility] ([facility]) [address] [facility], [place], [address], 03/14/2023 06:18:15 03/12/20 23 03/13/2023 UA/M W/RFL X CULTU RE, ROUTI NE bilirubin Negati ve negati ve Not Available [facility] ([facility]) [address] [facility], [place], [address], 03/14/2023 06:18:15 03/12/20 23 03/13/2023 UA/M W/RFL X CULTU RE, ROUTI NE urobilinogen ,semi-qn 0.2 mg/dL 0.2-1. 0 Not Available [facility] ([facility]) [address] [facility], [place], [address], 03/14/2023 06:18:15 03/12/20 23 03/13/2023 UA/M W/RFL X CULTU RE, ROUTI NE nitrite, urine Negati ve negati ve Not Available [facility] ([facility]) [address] [facility], [place], [address], 03/14/2023 06:18:15 03/12/2003/13/2023 UA/M W/RFL X CULTU RE, ROUTI NE microscopic examination See below: Micro scopi c was indic ated and was perfo rmed. Not Available [facility] ([facility]) [address] [facility], [place], [address], 03/14/2023 06:18:15 03/12/20 23 03/13/2023 UA/M W/RFL X CULTU RE, ROUTI NE urinalysis reflex Commen t This speci men has refle xed to a Urine Cultu re. Not Available [facility] ([facility]) [address] [place], [address], 03/14/2023 06:18:15 03/12/20 23 03/13/2023 MICRO SCOPI C EXAMI NATIO N WBC 11-30 /hpf 0-5 abnormal Not Available [facility] ([facility]) [address] [facility], [place], [address], 03/14/2023 06:18:15 03/12/20 23 03/13/2023 MICRO SCOPI C EXAMI NATIO N RBC 11-30 /hpf 0-2 abnormal Not Available [facility] ([facility]) [address] [facility], [place], [address], 03/14/2023 06:18:15 03/12/20 23 03/13/2023 MICRO SCOPI C EXAMI NATIO N epithelial cells (non renal) 0-10 /hpf 0-10 Not Available [facility] ([facility]) [address] [facility], [place], [address], 03/14/2023 06:18:15 03/12/2003/13/2023 MICRO SCOPI C EXAMI NATIO N casts None seen /lpf nonese en Not Available [facility] ([facility]) [address] [facility], [place], [address], 03/14/2023 06:18:15 03/12/2003/13/2023 MICRO SCOPI C EXAMI NATIO N bacteria None seen nonese en/few Not Available [facility] ([facility]) [address] [facility], [place], [address], 03/14/2023 06:18:15 03/12/2003/12/2023 urina lysis , dipst ick Leukocytes Trace Not Available In-Offi ce Order Internal Use Only DO Not Attach Compendium DO Not Attach Compendium, Do Not Delete/merge, [id number] 03/12/2023 11:21:16 03/12/20 23 03/12/2023 urina lysis , dipst ick Nitrite negati ve Not Available In-Office Order Internal Use Only DO Not Attach Compendium DO Not Attach Compendium, Do Not Delete/merge, [id number] 03/12/2023 11:21:16 03/12/20 23 03/12/2023 urina lysis [...] 03/12/2023 urina lysis , dipst ick Specific Woodrow 1.025 Not Available In-Off ice Order Internal [...] DO Not Attach Compendium, Do Not Delete/merge, [id number] 03/12/2023 11:21:16 03/12/20 23 03/12/2023 urina lysis , dipst ick Appearance Slight ly Cloudy Not Available In-Office Order Internal Use Only DO Not Attach Compendium DO Not Attach Compendium, Do Not Delete/merge, [id number] 03/12/2023 11:21:16 03/12/20 23 03/12/2023 urina lysis , dipst ick Color Dark Yellow Not Available In-Office Order Internal Use Only DO Not Attach Compendium DO Not Attach Compendium, Do Not Delete/merge, [id number] 03/12/2023 11:21:16 05/19/20 24 05/19/2024 LIPID PANEL WITH LDL/H DL RATIO cholesterol, total 175 mg/dL 100-19 9 Not Available [facility] [address] [place], [address], 05/19/2024 22:07:21 05/19/20 24 05/19/2024 LIPID PANEL WITH LDL/H DL RATIO triglyceride s 308 mg/dL 0-149 above high normal Not Available [facility] [address] [place], [address], 05/19/2024 22:07:21 05/19/20 24 05/19/2024 LIPID PANEL WITH LDL/H DL RATIO HDL cholesterol 36 mg/dL 40-999 below low normal Not Available [facility] [address] [place], [address], 05/19/2024 22:07:21 05/19/20 24 05/19/2024 LIPID PANEL WITH LDL/H DL RATIO VLDL cholesterol dalia 62 mg/dL 5-40 above high normal Not Available [facility] [address] [place], [address], 05/19/2024 22:07:21 05/19/20 24 05/19/2024 LIPID PANEL WITH LDL/H DL RATIO LDL chol calc ([facility]) 123 mg/dL 0-99 above high normal Not Available [facility] [address] [place] [address], [address], 05/19/2024 22:07:21 05/19/20 24 05/19/2024 LIPID PANEL WITH LDL/H DL RATIO LDL/HDL ratio 3.4 0-3.2 above high normal Not Available [facility] [address] [place], [address], 05/19/2024 22:07:21 05/19/20 24 05/19/2024 COMP. METAB OLIC PANEL (14) glucose 94 mg/dL 70-99 Not Available [facility] [address] [place] [address], [address], 05/19/2024 22:07:21 05/19/20 24 05/19/2024 COMP. METAB OLIC PANEL (14) BUN 13 mg/dL 6-24 Not Available [facility] [address] [place] [address], [address], 05/19/2024 22:07:21 05/19/20 24 05/19/2024 COMP. METAB OLIC PANEL (14) creatinine 0.70 mg/dL 0.76-1 .27 below low normal Not Available [facility] [address] [place], [address], 05/19/2024 22:07:21 05/19/20 24 05/19/2024 COMP. METAB OLIC PANEL (14) eGFR 112 >=60 Units for eGFR value s are mL/mi n/1.7 3 The eGFR Calcu latio n has not been valid ated for patie nts under the age of 18. If test resul ts are displ ayed for a patie nt under the age of 18, disre elizabeth that value . Not Available [facility] [address] [place], [address], 05/19/2024 22:07:21 05/19/20 24 05/19/2024 COMP. METAB OLIC PANEL (14) BUN/creatini ne ratio 18 9-23 Not Available [facility] [address] [place], [address], 05/19/2024 22:07:21 05/19/20 24 05/19/2024 COMP. METAB OLIC PANEL (14) sodium 139 mmol/ L 134-14 4 Not Available [facility] [address] [place], [address], 05/19/2024 22:07:21 05/19/20 24 05/19/2024 COMP. METAB OLIC PANEL (14) potassium 4.2 mmol/ L 3.5-5. 2 Not Available [facility] [address] [place], [address], 05/19/2024 22:07:21 05/19/20 24 05/19/2024 COMP. METAB OLIC PANEL (14) chloride 104 mmol/ L 96-106 Not Available [facility] [address] [place], [address], 05/19/2024 22:07:21 05/19/20 24 05/19/2024 COMP. METAB OLIC PANEL (14) carbon dioxide, total 20 mmol/ L 20-29 Not Available [facility] [address] [place], [address], 05/19/2024 22:07:21 05/19/20 24 05/19/2024 COMP. METAB OLIC PANEL (14) calcium 9.4 mg/dL 8.7-10 .2 Not Available [facility] [address] [place], [address], 05/19/2024 22:07:21 05/19/20 24 05/19/2024 COMP. METAB OLIC PANEL (14) protein, total 7.0 g/dL 6.0-8. 5 Not Available [facility] [address] [place], [address], 05/19/2024 22:07:21 05/19/20 24 05/19/2024 COMP. METAB OLIC PANEL (14) albumin 4.5 g/dL 3.9-4. 9 Not Available [facility] [address] [place] [address], [address], 05/19/2024 22:07:21 05/19/20 24 05/19/2024 COMP. METAB OLIC PANEL (14) globulin, total 2.5 g/dL 1.5-4. 5 Not Available [facility] [address] [place], [address], 05/19/2024 22:07:21 05/19/20 24 05/19/2024 COMP. METAB OLIC PANEL (14) A/G ratio 1.8 1.2-2. 2 Not Available [facility] [address] [place] [address], [address], 05/19/2024 22:07:21 05/19/20 24 05/19/2024 COMP. METAB OLIC PANEL (14) bilirubin, total 1.0 mg/dL 0.0-1. 2 Not Available [facility] [address] [place] [address], [address], 05/19/2024 22:07:21 05/19/20 24 05/19/2024 COMP. METAB OLIC PANEL (14) alkaline phosphatase 77 IU/L 44-121 Not Available [facility] Department [address] [place] [address], [address], 05/19/2024 22:07:21 05/19/20 24 05/19/2024 COMP. METAB OLIC PANEL (14) AST (SGOT) 21 IU/L 0-40 Not Available [facility] Department [address] [place] [address], [address], 05/19/2024 22:07:21 05/19/20 24 05/19/2024 COMP. METAB OLIC PANEL (14) ALT (SGPT) 18 IU/L 0-32 Not Available [facility] [address] [place], [address], 05/19/2024 22:07:21 05/19/20 24 05/19/2024 CBC WITH DIFFE RENTI AL/PL ATELE T WBC 11.7 x10e3 /uL 3.4-10 .8 above high normal Not Available [facility] [address] [place], [address], 05/19/2024 22:07:22 05/19/20 24 05/19/2024 CBC WITH DIFFE RENTI AL/PL ATELE T RBC 4.89 x10e6 /uL 3.77-5 .28 Not Available [facility] [address] [place], [address], 05/19/2024 22:07:22 05/19/20 24 05/19/2024 CBC WITH DIFFE RENTI AL/PL ATELE T hemoglobin 14.5 g/dL 11.1-1 5.9 Not Available [facility] [address] [place], [address], 05/19/2024 22:07:22 05/19/20 24 05/19/2024 CBC WITH DIFFE RENTI AL/PL ATELE T hematocrit 46.9 % 34.0-4 6.6 above high normal Not Available [facility] [address] [place], [address], 05/19/2024 22:07:22 05/19/20 24 05/19/2024 CBC WITH DIFFE RENTI AL/PL ATELE T MCV 96 fL 79-97 Not Available [facility] [address] [place], [address], 05/19/2024 22:07:22 05/19/20 24 05/19/2024 CBC WITH DIFFE RENTI AL/PL ATELE T MCH 29.7 pg 26.6-3 3.0 Not Available [facility] [address] [place], [address], 05/19/2024 22:07:22 05/19/20 24 05/19/2024 CBC WITH DIFFE RENTI AL/PL ATELE T MCHC 30.9 g/dL 31.5-3 5.7 below low normal Not Available [facility] [address] [place], [address], 05/19/2024 22:07:22 05/19/20 24 05/19/2024 CBC WITH DIFFE RENTI AL/PL ATELE T RDW 13.2 % 11.5-1 4.5 Not Available [facility] [address] [place], [address], 05/19/2024 22:07:22 05/19/20 24 05/19/2024 CBC WITH DIFFE RENTI AL/PL ATELE T platelets 376 x10e3 /uL 150-45 0 Not Available [facility] [address] [place], [address], 05/19/2024 22:07:22 05/19/20 24 05/19/2024 CBC WITH DIFFE RENTI AL/PL ATELE T neutrophils 67 % notest b. Not Available [facility] [address] [place], [address], 05/19/2024 22:07:22 05/19/20 24 05/19/2024 CBC WITH DIFFE RENTI AL/PL ATELE T lymphs 22 % notest b. Not Available [facility] [address] [place], [address], 05/19/2024 22:07:22 05/19/20 24 05/19/2024 CBC WITH DIFFE RENTI AL/PL ATELE T monocytes 8 % notest b. Not Available [facility] [address] [place], [address], 05/19/2024 22:07:22 05/19/20 24 05/19/2024 CBC WITH DIFFE RENTI AL/PL ATELE T eos 2 % notest b. Not Available [facility] [address] [place], [address], 05/19/2024 22:07:22 05/19/20 24 05/19/2024 CBC WITH DIFFE RENTI AL/PL ATELE T basos 1 % notest b. Not Available [facility] [address] [place], [address], 05/19/2024 22:07:22 05/19/20 24 05/19/2024 CBC WITH DIFFE RENTI AL/PL ATELE T neutrophils (absolute) 7.8 x10e3 /uL 1.4-7. 0 above high normal Not Available [facility] [address] [place], [address], 05/19/2024 22:07:22 05/19/20 24 05/19/2024 CBC WITH DIFFE RENTI AL/PL ATELE T lymphs (absolute) 2.5 x10e3 /uL 0.7-3. 1 Not Available [facility] [address] [place], [address], 05/19/2024 22:07:22 05/19/20 24 05/19/2024 CBC WITH DIFFE RENTI AL/PL ATELE T monocytes(ab solute) 1.0 x10e3 /uL 0.1-0. 9 above high normal Not Available [facility] [address] [place], [address], 05/19/2024 22:07:22 05/19/20 24 05/19/2024 CBC WITH DIFFE RENTI AL/PL ATELE T eos (absolute) 0.2 x10e3 /uL 0.0-0. 4 Not Available [facility] [address] [place], [address], 05/19/2024 22:07:22 05/19/20 24 05/19/2024 CBC WITH DIFFE RENTI AL/PL ATELE T baso (absolute) 0.2 x10e3 /uL 0.0-0. 2 Not Available [facility] [address] [place], [address], 05/19/2024 22:07:22 05/19/20 24 05/19/2024 CBC WITH DIFFE RENTI AL/PL ATELE T immature granulocytes 0.5 % notest b. Not Available [facility] [address] [place], [address], 05/19/2024 22:07:22 05/19/20 24 05/19/2024 CBC WITH DIFFE RENTI AL/PL ATELE T immature grans (abs) 0.1 x10e3 /uL 0.0-0. 1 Not Available [facility] [address] [place], [address], 05/19/2024 22:07:22 05/19/20 24 05/19/2024 CBC WITH DIFFE RENTI AL/PL ATELE T NRBC 0 % 0-0 Not Available [facility] [address] [place], [address], 05/19/2024 22:07:22 05/19/20 24 05/20/2024 TSH+F REE T4 TSH 1.880 uIU/m L 0.450- 4.500 Not Available [facility] ([facility]) [address] [place], [address], 05/20/2024 14:17:29 05/19/20 24 05/20/2024 TSH+F REE T4 T4,free(dire ct) 1.29 NG/dL 0.82-1 .77 Not Available [facility] ([facility]) [address] [place], [address], 05/20/2024 14:17:29 05/19/20 24 05/20/2024 VITAM IN B12 AND FOLAT E vitamin B12 1079 pg/mL 232-12 45 Not Available [facility] ([facility]) [address] [facility], [place], [address], 05/20/2024 14:17:30 05/19/20 24 05/20/2024 VITAM IN B12 AND FOLAT E folate (folic acid), serum 8.9 NG/mL >3.0 A serum folat e bridget ntrat ion of less than 3.1 ng/mL is consi dered to repre sent clini dalia defic iency . Not Available [facility] ([facility]) [address] [facility], [place], [address], 05/20/2024 14:17:30 05/19/20 24 05/20/2024 HEMOG LOBIN A1C hemoglobin A1C 5.7 % 4.8-5. 6 above high normal Predi abete s: 5.7 - 6.4 Diabe jen: >6.4 Glyce carissa contr ol for adult s with diabe jen: <7.0 Not Available [facility] ([facility]) [address] [facility], [place], [address], 05/20/2024 14:17:30 05/19/20 24 05/20/2024 VITAM IN [...] Medic ine). 2009. Dieta ry refer ence intkirti es for calci um and D. Shanna boston [place]: The [facility] . 2. Mendy gupta [place], Candida ey [place], Karina off-F errar i SLAUGHTER, et al. Evalu ation , treat ment, and preve ntion of vitam in D defic iency : an Endoc rine Socie ty clini dalia pract ice guide line. EM. 2010; 96(7) :1911 -30. Not Available [facility] ([facility]) [address] [facility], [place], [address], 05/20/2024 14:17:31 09/08/20 24 09/10/2024 URINE CULTU RE, ROUTI NE urine culture, routine FINAL REPORT Not Available [facility] ([facility]) [address] [facility], [place], [address], 09/10/2024 03:36:58 09/08/20 24 09/10/2024 URINE CULTU RE, ROUTI NE result 1 COMMEN T Mixed uroge nital rose 10,00 0-25, 000 colon y formi ng units per mL Not Available [facility] ([facility]) [address] [facility], [place], [address], 09/10/2024 03:36:58 09/08/20 24 09/08/2024 urina lysis , dipst ick Leukocytes Negati ve Not Available In-Office Order Internal Use Only DO Not Attach Compendium DO Not Attach Compendium, Do Not Delete/merge, [id number] 09/08/2024 10:40:45 09/08/20 24 09/08/2024 urina lysis , dipst ick Nitrite negati ve Not Available In-Office Order Internal Use Only DO Not Attach Compendium DO Not Attach Compendium, Do Not Delete/merge, [id number] 09/08/2024 10:40:45 09/08/20 24 09/08/2024 urina lysis , dipst ick Urobilinogen .2 Not Available In-Of fice Order Internal Use Only DO Not Attach Compendium DO Not Attach Compendium, Do Not Delete/merge, [id number] 09/08/2024 10:40:45 09/08/20 24 09/08/2024 urina lysis , dipst ick Protein Negati ve Not Available In-Office Order Internal Use Only DO Not Attach Compendium DO Not Attach Compendium, Do Not Delete/merge, [id number] 09/08/2024 10:40:45 09/08/20 24 09/08/2024 urina lysis , dipst ick pH 6.5 Not Available In-Office Order Internal Use Only DO Not Attach Compendium DO Not Attach Compendium, Do Not Delete/merge, [id number] 09/08/2024 10:40:45 09/08/20 24 09/08/2024 urina lysis , dipst ick Blood Modera te Not Available In-Office Order Internal Use Only DO Not Attach Compendium DO Not Attach Compendium, Do Not Delete/merge, [id number] 09/08/2024 10:40:45 09/08/20 24 09/08/2024 urina lysis , dipst ick Specific Woodrow 1.020 Not Available In-Off ice Order Internal [...] DO Not Attach Compendium, Do Not Delete/merge, [id number] 09/08/2024 10:40:45 09/08/20 24 09/08/2024 urina lysis , dipst ick Color Pale Yellow Not Available In-Office Order Internal Use Only DO Not Attach Compendium DO Not Attach Compendium, Do Not Delete/merge, [id number] 09/08/2024 10:40:45 12/14/1912/14/2024 LIPID PANEL cholesterol, total 161 mg/dL 100-19 9 Not Available [facility] [address] [place] [address], [address], 12/14/2024 22:06:47 12/14/19 25 12/14/2024 LIPID PANEL triglyceride s 341 mg/dL 0-149 above high normal Not Available [facility] [address] [place] [address], [address], 12/14/2024 22:06:47 12/14/19 25 12/14/2024 LIPID PANEL HDL cholesterol 32 mg/dL 40-999 below low normal Not Available [facility] [address] [place] [address], [address], 12/14/2024 22:06:47 12/14/19 25 12/14/2024 LIPID PANEL VLDL cholesterol dalia 68 mg/dL 5-40 above high normal Not Available [facility] [address] [place], [address], 12/14/2024 22:06:47 12/14/19 25 12/14/2024 LIPID PANEL LDL chol calc (nih) 115 mg/dL 0-99 above high normal Not Available [facility] [address] [place], [address], 12/14/2024 22:06:47 12/14/19 25 12/14/2024 COMP. METAB OLIC PANEL (14) glucose 114 mg/dL 70-99 above high normal Not Available [facility] [address] [place], [address], 12/14/2024 22:06:48 12/14/19 25 12/14/2024 COMP. METAB OLIC PANEL (14) BUN 7 mg/dL 6-24 Not Available [facility] [address] [place] [address], [address], 12/14/2024 22:06:48 12/14/19 25 12/14/2024 COMP. METAB OLIC PANEL (14) creatinine 0.64 mg/dL 0.76-1 .27 below low normal Not Available [facility] [address] [place] [address], [address], 12/14/2024 22:06:48 12/14/19 25 12/14/2024 COMP. METAB OLIC PANEL (14) eGFR 114 >=60 Units for eGFR value s are mL/mi n/1.7 3 The eGFR Calcu latio n has not been valid ated for patie nts under the age of 18. If test resul ts are displ ayed for a patie nt under the age of 18, disre elizabeth that value . Not Available [facility] [address] [place] [address], [address], 12/14/2024 22:06:48 12/14/19 25 12/14/2024 COMP. METAB OLIC PANEL (14) BUN/creatini ne ratio 11 9-23 Not Available [facility] Department [address] [place] [address], [address], 12/14/2024 22:06:48 12/14/19 25 12/14/2024 COMP. METAB OLIC PANEL (14) sodium 142 mmol/ L 134-14 4 Not Available [facility] [address] [place] [address], [address], 12/14/2024 22:06:48 12/14/19 25 12/14/2024 COMP. METAB OLIC PANEL (14) potassium 3.9 mmol/ L 3.5-5. 2 Not Available [facility] [address] [place] [address], [address], 12/14/2024 22:06:48 12/14/19 25 12/14/2024 COMP. METAB OLIC PANEL (14) chloride 106 mmol/ L 96-106 Not Available [facility] [address] [place], [address], 12/14/2024 22:06:48 12/14/19 25 12/14/2024 COMP. METAB OLIC PANEL (14) carbon dioxide, total 26 mmol/ L 20-29 Not Available [facility] [address] [place], [address], 12/14/2024 22:06:48 12/14/19 25 12/14/2024 COMP. METAB OLIC PANEL (14) calcium 9.1 mg/dL 8.7-10 .2 Not Available [facility] [address] [place], [address], 12/14/2024 22:06:48 12/14/19 25 12/14/2024 COMP. METAB OLIC PANEL (14) protein, total 6.7 g/dL 6.0-8. 5 Not Available [facility] [address] [place], [address], 12/14/2024 22:06:48 12/14/19 25 12/14/2024 COMP. METAB OLIC PANEL (14) albumin 4.3 g/dL 3.9-4. 9 Not Available [facility] [address] [place], [address], 12/14/2024 22:06:48 12/14/19 25 12/14/2024 COMP. METAB OLIC PANEL (14) globulin, total 2.4 g/dL 1.5-4. 5 Not Available [facility] Department [address] [place], [address], 12/14/2024 22:06:48 12/14/19 25 12/14/2024 COMP. METAB OLIC PANEL (14) A/G ratio 2.0 1.2-2. 2 Not Available [facility] Department [address] [place], [address], 12/14/2024 22:06:48 02/10/20 25 12/14/2024 COMP. METAB OLIC PANEL (14) bilirubin, total 0.7 mg/dL 0.0-1. 2 Not Available [facility] Department [address] [place], [address], 12/14/2024 22:06:48 12/14/19 25 12/14/2024 COMP. METAB OLIC PANEL (14) alkaline phosphatase 75 IU/L 44-121 Not Available [facility] Department [address] [place], [address], 12/14/2024 22:06:48 12/14/19 25 12/14/2024 COMP. METAB OLIC PANEL (14) AST (SGOT) 16 IU/L 0-40 Not Available [facility] Department [address] [place], [address], 12/14/2024 22:06:48 12/14/19 25 12/14/2024 COMP. METAB OLIC PANEL (14) ALT (SGPT) 21 IU/L 0-32 Not Available [facility] Department [address] [place], [address], 12/14/2024 22:06:48 12/14/19 25 12/14/2024 CBC WITH DIFFE RENTI AL/PL ATELE T WBC 9.1 x10e3 /uL 3.4-10 .8 Not Available [facility] Department [address] [place], [address], 12/14/2024 22:06:49 12/14/19 25 12/14/2024 CBC WITH DIFFE RENTI AL/PL ATELE T RBC 4.67 x10e6 /uL 3.77-5 .28 Not Available [facility] Department [address] [place], [address], 12/14/2024 22:06:49 12/14/19 25 12/14/2024 CBC WITH DIFFE RENTI AL/PL ATELE T hemoglobin 13.6 g/dL 11.1-1 5.9 Not Available [facility] Department [address] [place], [address], 12/14/2024 22:06:49 12/14/19 25 12/14/2024 CBC WITH DIFFE RENTI AL/PL ATELE T hematocrit 41.6 % 34.0-4 6.6 Not Available [facility] Department [address] [place], [address], 12/14/2024 22:06:49 12/14/19 25 12/14/2024 CBC WITH DIFFE RENTI AL/PL ATELE T MCV 89 fL 79-97 Not Available [facility] Department [address] [place], [address], 12/14/2024 22:06:49 12/14/19 25 12/14/2024 CBC WITH DIFFE RENTI AL/PL ATELE T MCH 29.1 pg 26.6-3 3.0 Not Available [facility] Department [address] [place], [address], 12/14/2024 22:06:49 12/14/19 25 12/14/2024 CBC WITH DIFFE RENTI AL/PL ATELE T MCHC 32.7 g/dL 31.5-3 5.7 Not Available [facility] Department [address] [place], [address], 12/14/2024 22:06:49 12/14/19 25 12/14/2024 CBC WITH DIFFE RENTI AL/PL ATELE T RDW 12.9 % 11.5-1 4.5 Not Available [facility] Department [address] [place], [address], 12/14/2024 22:06:49 12/14/19 25 12/14/2024 CBC WITH DIFFE RENTI AL/PL ATELE T platelets 422 x10e3 /uL 150-45 0 Not Available [facility] Department [address] [place], [address], 12/14/2024 22:06:49 12/14/19 25 12/14/2024 CBC WITH DIFFE RENTI AL/PL ATELE T neutrophils 58 % notest b. Not Available [facility] Department [address] [place], [address], 12/14/2024 22:06:49 12/14/19 25 12/14/2024 CBC WITH DIFFE RENTI AL/PL ATELE T lymphs 31 % notest b. Not Available [facility] Department [address] [place], [address], 12/14/2024 22:06:49 12/14/19 25 12/14/2024 CBC WITH DIFFE RENTI AL/PL ATELE T monocytes 8 % notest b. Not Available [facility] Department [address] [place], [address], 12/14/2024 22:06:49 12/14/19 25 12/14/2024 CBC WITH DIFFE RENTI AL/PL ATELE T eos 3 % notest b. Not Available [facility] Department [address] [place], [address], 12/14/2024 22:06:49 12/14/19 25 12/14/2024 CBC WITH DIFFE RENTI AL/PL ATELE T basos 1 % notest b. Not Available [facility] Department [address] [place], [address], 12/14/2024 22:06:49 12/14/19 25 12/14/2024 CBC WITH DIFFE RENTI AL/PL ATELE T neutrophils (absolute) 5.3 x10e3 /uL 1.4-7. 0 Not Available [facility] Department [address] [place], [address], 12/14/2024 22:06:49 12/14/19 25 12/14/2024 CBC WITH DIFFE RENTI AL/PL ATELE T lymphs (absolute) 2.8 x10e3 /uL 0.7-3. 1 Not Available [facility] Department [address] [place], [address], 12/14/2024 22:06:49 12/14/19 25 12/14/2024 CBC WITH DIFFE RENTI AL/PL ATELE T monocytes(ab solute) 0.7 x10e3 /uL 0.1-0. 9 Not Available [facility] Department [address] [place], [address], 12/14/2024 22:06:49 12/14/19 25 12/14/2024 CBC WITH DIFFE RENTI AL/PL ATELE T eos (absolute) 0.3 x10e3 /uL 0.0-0. 4 Not Available [facility] Department [address] [place], [address], 12/14/2024 22:06:49 12/14/19 25 12/14/2024 CBC WITH DIFFE RENTI AL/PL ATELE T baso (absolute) 0.1 x10e3 /uL 0.0-0. 2 Not Available [facility] Department [address] [place], [address], 12/14/2024 22:06:49 12/14/19 25 12/14/2024 CBC WITH DIFFE RENTI AL/PL ATELE T immature granulocytes 0.3 % notest b. Not Available [facility] Department [address] [place], [address], 12/14/2024 22:06:49 12/14/19 25 12/14/2024 CBC WITH DIFFE RENTI AL/PL ATELE T immature grans (abs) 0.0 x10e3 /uL 0.0-0. 1 Not Available [facility] Department [address] [place], [address], 12/14/2024 22:06:49 12/14/19 25 12/14/2024 CBC WITH DIFFE RENTI AL/PL ATELE T NRBC 0 % 0-0 Not Available [facility] Department [address], [place], [address], 12/14/2024 22:06:49 12/14/19 25 12/15/2024 ALBUM IN/CR EATIN INE RATIO ,URIN E creatinine, urine 38.3 mg/dL notest ab. Not Available [facility] ([facility]) [address] [place], [address], 12/15/2024 14:13:27 12/14/19 25 12/15/2024 ALBUM IN/CR EATIN INE RATIO ,URIN E albumin, urine <3.0 ug/mL notest ab. Not Available [facility] ([facility]) [address] [place], [address], 12/15/2024 14:13:27 12/14/19 25 12/15/2024 ALBUM IN/CR EATIN INE RATIO ,URIN E alb/creat ratio <8 Sushma l: 0 - 29 Moder ately incre ased: 30 - 300 Sever radha incre ased: >300 Not Available [facility] ([facility]) [address] [place], [address], 12/15/2024 14:13:27 12/14/19 25 12/15/2024 TSH RFX ON ABNOR MAL TO FREE T4 TSH 2.760 uIU/m L 0.450- 4.500 Not Available [facility] ([facility]) [address] [place], [address], 12/15/2024 14:13:28 12/14/19 25 12/15/2024 HEMOG LOBIN A1C hemoglobin A1C 5.6 % 4.8-5. 6 Predi abete s: 5.7 - 6.4 Diabe jen: >6.4 Glyce carissa contr ol for adult s with diabe jen: <7.0 Not Available [facility] ([facility]) [address] [place], [address], 12/15/2024 14:13:29 01/29/20 22 01/28/2022 XR, chest No observ ation record ed. [address], [place], [address], 01/29/2022 08:44:35 05/27/20 24 05/26/2024 XR, thora cic spine , 2 view No observ ation record ed. [address], [place], [address], 05/28/2024 14:57:29 12/14/1912/14/2024 XR, knee, 3 view No observ ation record ed. [address] [address], [place], [address], 12/15/2024 09:25:21 12/14/19 25 12/14/2024 XR, lumbo sacra l spine , 2 or 3 view No observ ation record ed. [address], [place], [address], 12/15/2024 09:25:22 Result Notes None recorded. Problems Name Problem SNOMED Code Status Onset Date Resolution Date Notes Provider Name and Address Organization Details Recorded Time History of palpitatio ns 950164493 Active 2018 Not Available [facility] 3 19:21:21 Influenza vaccinatio n declined 323434187 Active 2018 Not Available [facility] 3 19:21:21 Candidiasi s of vagina 22975022 Active 2019 Not Available [facility] 3 19:21:21 Left side sciatica 6404744369384 04 Active 2019 Not Available [facility] 3 19:21:21 Chronic back pain 083376952 Active 2019 Not Available [facility] 3 19:21:21 Smoker 26938357 Active 2022 Not Available [facility] 3 19:21:21 Sciatica 32119891 Active 2022 Not Available [facility] 3 19:21:21 Degenerati on of thoracic interverte bral disc 58075849 Active 2024 QUINTEN DURANT PA-C Attn: Accounting ,[address] [facility], [place], [address] , [facility] 5 10:58:53 Hyperlipid emia 56815657 Active 2024 DORCAS BEST Attn: Accounting ,[address] [facility], [place], [address] , [facility] 5 08:31:10 Genital herpes simplex 28017463 Active Not Available [facility] 3 19:21:21 Dysmenorrh ea 875777335 Active Not Available [facility] 3 19:21:21 Irregular periods 27609764 Active Not Available [facility] 3 19:21:21 Sciatica 38964364 Active 2016 Not Available [facility] 3 19:21:21 Problem Notes None recorded. Procedures Surgical History Date Name Laterality Status Provider Name and Address Organization Details Recorded Time 05/31/20 21 Date of Last Pap Smear completed Piper Parkinson MA [place] - [facility] 05/31/2021 10:55:19 12/04/19 20 HYSTEROSCOPY, WITH ENDOMETRIAL ABLATION (SURG) completed Johnathan Garibay [place] [facility] 12/17/2019 12:59:22 08/08/20 13 Tubal Ligation completed [place] Tracey [place] [facility] 04/10/2016 15:46:56 LEEP completed [place] Tracey [place] [facility] 04/10/2016 15:47:32 Imaging Results Imaging Date Name Status [facility]Modified by [facility] Details LastModified Time 01/28/2022 XR, chest completed [address], [place], [address], 01/29/2022 08:44:35 05/26/2024 XR, thoracic spine, 2 view completed [address], [place], [address], 05/28/2024 14:57:29 12/14/2024 XR, knee, 3 view active [address], [place], [address], 12/15/2024 09:25:21 12/14/2024 XR, lumbosacral spine, 2 or 3 view active [address], [place], [address], 12/15/2024 09:25:22 Procedure Notes None recorded. Medical Equipment None Reported. Allergies Allergen ID Allergen Name Allergen Category Reaction Reaction Severity Criticality Documentation Date Start Date Code Code System Note Provider Name and Address Organization Details Recorded Time 740594 Product containin g penicilli n (product) medicatio n other moderate Not available 10/20/2019 95245 8001 SNOMED yeast infec tion and spott ing Not Available Not Available Not Available Medications Name Sig Start Date Stop Date Status Note LastModified by Organization Details LastModified Time OneTouch Ultra Blue Test Strips Use to test [...] completed Not Available Not Available Not Available atorvasta tin 10 mg tablet Take 1 tablet every day by oral route at bedtime for 90 days, for choleste rol. 2024 active Not Available Not Available Not Avai lable azithromy wily 250 mg tablet 12/23 completed Not Available Not Available Not Available ibuprofen 800 mg tablet TAKE 1 TABLET [...] completed Not Available Not Available Not Available nicotine 21 mg/24 hr daily transderm al [...] Updated DateTime 05/31/2021 167.64 cm 32.9 kg/m2 79541.84 g 118 mm[Hg] 72 mm[Hg] Piper Parkinson MA [facility] 1 11:04:27 Date Recorded Body height Body mass index (BMI) Body weight Respiratory rate Body temperature Oxygen saturation Oxygen saturation in Arterial blood by Pulse oximetry Heart rate Systolic blood pressure Diastolic blood pressure Provider Name and Address Organization Details Last Updated DateTime 3 167.64 cm 31 kg/m2 72984.1 4 g 16 /min 97.6 [degF] 98 % 98 % 81 /min 104 mm[Hg] 78 mm[Hg] Ita Pina CMA [facility] 3 11:10:04 Date Recorded Body height Body mass index (BMI) Body weight Oxygen saturation Oxygen saturation in Arterial blood by Pulse oximetry Heart rate Respiratory rate Systolic blood pressure Diastolic blood pressure Provider Name and Address Organization Details Last Updated DateTime 4 167.64 cm 33.6 kg/m2 14556.3 1 g 99 % 99 % 88 /min 17 /min 138 mm[Hg] 82 mm[Hg] Audrey Yi MA [facility] 4 13:59:19 Date Recorded Body height Body mass index (BMI) Body weight Oxygen saturation Oxygen saturation in Arterial blood by Pulse oximetry Heart rate Respiratory rate Systolic blood pressure Diastolic blood pressure Provider Name and Address Organization Details Last Updated DateTime 5 167.64 cm 34.4 kg/m2 88835.1 7 g 97 % 97 % 86 /min 17 /min 154 mm[Hg] 79 mm[Hg] Audrey Yi MA [place] - [facility] 5 10:43:16 Social History Question Answer Notes LastModified by Organizat ion Details LastModified Time Tobacco Smoking Status Current Every Day Smoker Venice Tracey MA [facility], [place] - [facility] 04/10/2016 15:52:19 Do You Have An Advance Directive? No [email or web address] Information not available 04/10/2016 What Is Your Level Of Alcohol Consumption? None [email or web address] Information not available 04/10/2016 Is Blood Transfusion Acceptable In An Emergency? Yes [email or web address] Information not available 04/10/2016 What Is Your Level Of Caffeine Consumption? Moderate Soda And Energy Drinks' Information not available 10/20/2019 How Much Tobacco Do You Chew? None [email or web address] Information not available 04/10/2016 Are You Currently Employed? Yes [email or web address] Information not available 04/10/2016 What Type Of Diet Are You Following? REGULAR [email or web address] Information not available 04/10/2016 Which Illicit Or Recreational Drugs Have You Used? Marijuana Information not available 05/31/2021 Do You Or Have You Ever Used E-cigarettes Or Vape? Never Used Electronic Cigarettes Information not available 10/20/2019 Education 9 [email or web address] Information no t available 04/10/2016 What Is Your Occupation? [employer] Information not available 10/20/2019 Live Alone Or With Others? With Others [email or web address] Information not available 04/10/2016 What Was The Date Of Your Most Recent Tobacco Screening? 12/14/2024 Information not available 12/14/2024 How Many Children Do You Have? 5 [email or web address] Information not available 04/10/2016 What Is Your Current Pack Years? 20-29packyear s Information not available 05/31/2021 Performs Monthly Self-breast Exam? No [email or web address] Information not available 04/10/2016 Do You Use Protection During Sex? No [email or web address] Information not available 04/10/2016 What Is Your Relationship Status? Single Information not available 04/10/2016 Do You Use Your Seat Belt Or Car Seat Routinely? Yes Information not available 05/31/2021 Seat Belts Used Routinely Yes Information not available 04/10/2016 Are You Sexually Active? Yes [email or web address] Information not available 04/10/2016 Do You Have Smoke And Carbon Monoxide Detectors In Your Home? Yes 05/31/21 Smoke Detectors Information not available 05/31/2021 At What Age Did You Start Smoking Tobacco? 12 [email or web address] Information not available 04/10/2016 Are You Passively Exposed To Smoke? Yes Information not available 05/31/2021 Do You Or Have You Ever Used Smokeless Tobacco? Never Used Smokeless Tobacco Information not available 10/20/2019 How Much Tobacco Do You Smoke? 1 PPD [email or web address] Information not available 04/10/2016 General Stress Level High [email or web address] Information not available 04/10/2016 Do You Use Any Illicit Or Recreational Drugs? Yes Edibles Information not available 05/31/2021 Do You Use Sunscreen Routinely? No [email or web address] Information not available 04/10/2016 Has Tobacco Cessation [...] Time What is your exercise level? Occasional Information not available 04/10/2016 Mental Status None [...] History Condition Response Coronary Artery Disease N Blood Diseases N Kidney Cyst N Hyperthyroidism N Blood disorders N MRSA N Blood Transfusion N Emphysema N Depression N COPD N Blood Clots Y Pneumonia N Peripheral Arterial Disease N Premature N Edema N TIA N Headaches/Migraines N Anxiety Disorder N Obesity N Polyps N Infertility N Acid Reflux (GERD) Y Hematuria N [...] N Thyroid Disease N Colon Cancer N Lung Disease N Glaucoma N Developmental or Behavioral Disorders N Bipolar N Pacemaker N Diverticulitis/Diverticulosis N Orthopedic Problems N Anesthesia Complications N Orthotics N Head Injury/Concussion N Congenital Anomalies N Menezes Bite N Chronic Kidney Disease N Endometriosis N Liver Disease N Schizophrenia N Dialysis N Speech Delay N Chronic Obstructive Pulmonary Disease N Parkinson's Disease N Thyroid Problems N GI Problems N Developmental Delay N Anemia N Multiple Sclerosis N Immune System Disorder N Colon Polyps N Heart Attack ([place]) N Diabetes N Cardiomyopathy N Blood Transfusions [...] [facility] 11/21/2019 02:44:46 HPV9 11/25/2019 completed JAYCE Mcdowell [place] - [facility] 12/01/2019 11:43:36 HPV9 06/02/2021 completed JAYCE Mcdowell [place] [facility] 06/02/2021 16:47:57 Past Encounters Encounter ID Performer Location Encounter Start Date Encounter Closed Date Diagnosis/Indication Diagnosis SNOMED-CT Code Diagnosis ICD10 Code Diagnosis Note [id number] Johnathan Teague (AGRICULTURAL AGENT) [address] [place] [address] 04/10/2016 15:09:44 04/11/2016 09:22:11 Dysmenorrhea 455374977 N94.6 Irregular periods 006232 07 N92.6 [id number] JAYCE Calle (AGRICULTURAL AGENT) [address] [place] [phone] 0 03/26/2017 15:27:40 03/26/2017 17:45:26 Irregular periods 98161448 N92.6 Dysmenorrhea 084592397 N 94.6 Genital he rpes simplex 74828146 A60.9 Recurrent urinary tract infection 608115594 N39.0 Family grover nning surveillance 969571568 Z30.09 Generalize d anxiety disorder 36722323 F41.1 stress 2/2 job and children (5 girls in the home) [id number] MD Zahida Goyal (Adult Med) [address] [place] [address] 29040[address]966 0 10/20/2019 13:16:20 10/20/2019 14:46:41 General examination of patient 912304697 Z00.01 Nicotine dependence 5629 4008 F17.200 Cessation was discussed History of palpitations 790212423 Z86.79 Serous otitis media 8032 7007 H65.91 Follow up with ENT Influenza vaccination declined 172515475 Z28.21 Administra tion of diphtheria, pertussis, and tetanus vaccine 655952083 Z23 [id number] Johnathan Garibay Zahida (AGRICULTURAL AGENT) [address] [place] [address] 72975[address] 0 11/25/2019 11:25:25 11/26/2019 11:05:02 Gynecologic examination 78553946 Z01.419 Active or passive immunization 927414111 Z23 Menorrhagia 624229734 N9 2.0 Dysmenorrhea 380037572 N 94.6 Exposure t o sexually transmissible disorder 241412659 Z20.2 [id number] MD Zahida Goyal (Adult Med) [address] [place] [address] [phone] 0 12/01/2019 11:31:07 12/02/2019 09:23:08 Hyperlipidemia 76314786 E78.5 Discussed Aspartate aminotransferase serum level above reference range 572947538 R74.0 Recheck Anxiety 96152840 F41.9 Detailed discussion Start Buspirone, side effects were discussedI do not prescribe Alprazolam History of palpitations 442304049 Z86.79 This was possibly related to energy drink which she has discontinu ed, her anxiety may be playing a role Nicotine dependence 5629 4008 F17.200 Cessation was discussed Insomnia 601458152 G47.0 0 Benadryl or Vistaril PRN [id number] Johnathan SkinnerPhoenixjocelyn Teague (AGRICULTURAL AGENT) [address] [place] [address] [phone] 0 12/17/2019 12:20:07 12/21/2019 10:06:51 Postoperative visit 459474078 Z09 hysterosco py 12/03/2019 , Continue slynd Constipation 14446124 K5 9.00 Genital he rpes simplex 43997715 A60.9 Dysmenorrhea 891164967 N 94.6 [id number] MD Zahida Goyal (Adult Med) [address] [place] [address] 76524-[address] 0 01/12/2020 12:04:06 01/12/2020 12:48:10 Chronic back pain 872450546 G89.29 She has a history of chronic back pain with LLE radiculopa thy and an abnormal clinical exam with LLE weakness. An MRI is needed to further evaluate the degree of nerve impingemen t. Cyclobenza nighat/Ibup rofen/Phys ical Therapy Left side sciatica 55395 27674 10579 M54.32 Leukocytosis 746456206 D 72.829 Amenorrhea 58908351 N91. 2 This may be due to her OCP, however she needs a test before her MRI Neuropathy 402070987 G62 .9 [id number] MD Zahida Goyal (Adult Med) [address] [place] [address] [phone] 0 02/23/2020 10:16:42 02/25/2020 10:57:12 Follow-up visit 965986413 Z09 [id number] MD Zahida Goyal (Adult Med) [address] [place] [address] [phone] 0 06/29/2020 12:05:39 06/30/2020 09:38:33 Varicose veins of lower extremity 16087475 I83.892 Lumbar radiculopathy 128 310319 M54.16 [id number] MD Zaihda Goyal (Adult Med) [address] [place] [phone] 0 09/28/2020 08:34:19 09/30/2020 10:19:52 Anxiety 73428659 F41.9 Detailed discussion Start Hydroxyzin e PRN, side effects were discussedC ounseling Influenza vaccination declined 470509210 Z28.21 [id number] Johnathan Garibay Zahida (AGRICULTURAL AGENT) [address] [place] [address] [phone] 05/31/2021 10:33:14 06/01/2021 08:30:01 Gynecologic examination 12864154 Z01.419 Z11.51 Genital he rpes simplex 45939988 A60.9 Exposure t o sexually transmissible disorder 254604155 Z20.2 Cramping pain 674531673 R52 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 [id number] DORCAS BEST [facility] [address] [place] [address] 03/12/2023 11:02:52 03/12/2023 11:56:44 Dysuria 14813193 R30.0 urinary frequency, urgency, retention, dysuria x1 wkPEx- nlurine dip showed trace leuks and moderate bloodstart macrobid, sent UA and cultureh/o UTIs every couple of months, future referral to urology Depression screening 171 653277 Z13.31 PHQ 0 Smoker 02384598 F17.200 1 ppdnot amendable to NRT at this time Screening for malignant neoplasm of cervix 575082619 Z12.4 refer to OB/GYNh/o LEEP and HPV Obesity 664871854 E66.9 discussed increasing exercise and healthier food options, high protein, low fat dietroutin e labs Vitamin D deficiency 347 66349 E55.9 re-check Sciatica 39716820 M54.30 flares, bilateralh as not had imagingcon trolled at this time [id number] DORCAS BEST [facility] [address] [place] [address] 05/19/2024 13:33:45 05/19/2024 14:51:03 Smoker 10058969 F17.200 05/19/24: start patches, smoking 1.5 ppd 03/2023:1 ppdnot amendable to NRT at this time Difficulty sleeping 3013 25253 Z72.820 usually takes CBD with successanx iety has prevented her from sleepingtr ial hydroxyzin e PRN, advised pt of ADRf/u in 1 mo Obesity 966383202 E66.8 discussed increasing exercise and healthier food options, high protein, low fat dietroutin e labs Gastroesop hageal reflux disease without esophagitis 232055417 K21.9 no relief with TUMStrial pantoprazo le Fatigue 96792469 R53.83 check vitamins Chronic ne ck pain for greater than 3 months 6322583238 07562 M54.2 no injury or traumatold that she had cervical DDD in EDwill refer to PT Paresthesia of hand 3090 52866 R20.2 x4 moworse at nightwill discuss at f/u visit Costal chondritis 852146 04 M94.0 x10 dayswent to ED, told that my heart is fine c/o pain with taking deep breathspt smokes 1.5 ppdno relief with muscle relaxer or ibuprofend iscussed management and treatment of costal chondritis Generalize d anxiety disorder 54627515 F41.1 TOM 13start hydroxyzin e, advised pt of ADR, f/u in 1 mo Depression screening 171 396713 Z13.31 PHQ 2 [id number] Audrey Yi MA [facility] [address] [place] [address] 09/08/2024 10:31:11 09/08/2024 11:09:28 Dysuria 27700019 R30.0 urinary frequency, urgency, retention, dysuria x1 wkPEx- nlurine dip showed trace leuks and moderate bloodstart macrobid, sent UA and cultureh/o UTIs every couple of months, future referral to urology [id number] QUINTEN DURANT PA-C [facility] [address] [place] [address] 12/14/2024 10:34:24 12/15/2024 15:48:45 Depression screening 354627538 Z13.31 PHQ9- {{Negative * Positive Mild Mode rate Sever e}} (2 out of 27) Obesity 076757496 E66.9 BMI 34.4 Pain of bi lateral knee joints 2611568751 90967 M25.561 M25.562 Know that arthritis will cause [...] supplement s. XR ordered Low back pain 723026151 M54.50 XR ordered Degenerati on of thoracic intervertebral disc 25310282 M51.34 Start meloxicam 15mg daily with food. No other NSAIDs while on this medication Essential hypertension 24616359 I10 BP today: 154/79BP Goal: {{Less than [...] today Varicose v eins of lower extremity 53700708 I83.93 Referral to vascular surgeonU/S ordered Impaired g lucose tolerance 0475481 R73.03 Discussed with patient taking blood sugars [...] Altman Member ID Guarantor Name 05/31/2021 1 [facility] [facility] ON OR AFTER 05/04/21 (MEDICAID REPLACEMENT - HMO) Yudi Pizarro [id number] Yudi Pizarro 03/12/2023 1 [facility] ON OR AFTER 05/04/21 (MEDICAID REPLACEMENT - HMO) Yudi Pizarro [id number] Yudi Pizarro 05/19/2024 1 [facility] ON OR AFTER 05/04/21 (MEDICAID REPLACEMENT - HMO) Yudi Pizarro [id number] Yudi Pizarro 09/08/2024 1 [facility] ON OR AFTER 05/04/21 (MEDICAID REPLACEMENT - HMO) Yudi Rubiomelody [id number] Yudi Pizarro 12/14/2024 1 [facility] ON OR AFTER 05/04/21 (MEDICAID REPLACEMENT - HMO) Yudi Rubiomelody [id number] Yudi Moira Notes Date Note Type Note Provider Name [...] ablation with xavi presents for WWE. Johnathan Garibay [place], [place] - [facility] 05/31/2021 17:49:42 03/12/2023 text/html Pt presents to establish care as a new patient. Previously seen at [facility]. C/o dysuria, urinary frequency, and urgency for the past week. No hematuria, vaginal discharge, odor or abd pain. Denies fever, chills, chest pain, SOB, n/v/d, dizziness, weakness, or headaches. DORCAS BEST Attn: [address]ing[address] [place], [address], [facility] 03/12/2023 21:36:59 05/19/2024 text/html Patient presents today [...] that is usually worse at night. DORCAS BEST Attn: Accounting[address] [facility], [place], [address], [facility] 05/21/2024 08:45:02 12/14/2024 text/html 39 y/o F [...] today. QUINTEN DURANT PA-C Attn: [address]ing[address] [facility], [place], [address], [facility] 12/14/2024 11:13:41 OBGyn Episode Ob Episode Information Episode Created Date Number of Fetuses Patient Bloodtype Patient rh Status Prepregnancy Weight lbs Domestic Partner Domestic Partner Phone Father Name Betting Clerks Status 04/10/20 16 1 CLOSED Fetus Data First Name Last Name Admitted to NICU Weight (g) Sex Living Outcome Pediatric Complications Fetus ID Race Codes Race Delivery Type F Full Term 53968 Vaginal Nitin Calculation Initial Nitin Date Initial [...] Complications Tubal Sterilization Discharge Date Comments 1 Regional- idural 40 Discharge Information Feeding Method Contraceptive Method Maternal HG B and HCT Levels Ob Episode Information Episode Created Date Number of Fetuses Patient Bloodtype Patient rh Status Prepregnancy Weight lbs Domestic Partner Domestic Partner Phone Father Name Betting Clerks Status 04/10/20 16 1 CLOSED Fetus Data First Name Last Name Admitted to NICU Weight (g) Sex Living Outcome Pediatric Complications Fetus ID Race Codes Race Delivery Type 3685.43 5 F Full Term 73849 Vaginal Nitin Calculation Initial Nitin Date Initial [...] Domestic Partner Domestic Partner Phone Father Name Betting Clerks Status 04/10/20 16 1 CLOSED Fetus Data First Name Last Name Admitted to NICU Weight (g) Sex Living Outcome Pediatric Complications Fetus ID Race Codes Race Delivery Type M Demise 66686 Nitin Calculation Initial Nitin Date Initial Exam [...] Domestic Partner Domestic Partner Phone Father Name Betting Clerks Status 04/10/20 16 1 CLOSED Fetus Data First Name Last Name Admitted to NICU Weight (g) Sex Living Outcome Pediatric Complications Fetus ID Race Codes Race Delivery Type 3345.24 1 F Full Term 07802 Vaginal Nitin Calculation Initial Nitin Date Initial [...] Domestic Partner Domestic Partner Phone Father Name Betting Clerks Status 04/10/20 16 1 CLOSED Fetus Data First Name Last Name Admitted to NICU Weight (g) Sex Living Outcome Pediatric Complications Fetus ID Race Codes Race Delivery Type F Full Term 22472 Vaginal Nitin Calculation Initial Nitin Date Initial [...] Domestic Partner Domestic Partner Phone Father Name Betting Clerks Status 04/10/20 16 1 CLOSED Fetus Data First Name Last Name Admitted to NICU Weight (g) Sex Living Outcome Pediatric Complications Fetus ID Race Codes Race Delivery Type 3345.24 1 F Full Term 45375 Vaginal Nitin Calculation Initial Nitin Date Initial [...]
[2024-12-24 22:09] VITALS: BP 147/87; PULSE 87; RESP 14; TEMP 36.5; O2SAT 100
--- NOTE | 2024-12-24 22:09 | ECG_ITS ---
Test Date: 2024-12-24 22:13:02 Measurements Intervals [place] Rate: 74 P: 32 [place]: 119 QRS: 48 QRSD: 96 T: 62 QT: 367 QTc: 409 Interpretive Statements SINUS RHYTHM WITH SHORT [place] INTERVAL BORDERLINE ECG Compared to ECG 05/05/2024 21:22:22 Short [place] interval now present Electronically Signed On 12-25-2024 06:28:04 CRANE HOOKER by Cali Pak D.O.
[2024-12-24 22:25] LABS: Basophils Absolute Auto 0.1 K/mm3 (0.0-0.1); Eosinophils Absolute Auto 0.1 K/mm3 (0-0.3); Eosinophils Percent Auto 1.3 % (0-4.4); Hematocrit 40.4 % (37.0-47.0); Hemoglobin 13.6 g/dL (12.0-15.0); Immature Granulocyte Absolute 0.02 K/mm3 (0.00-0.031); Immature Granulocyte Percent A 0.2 % (0-0.5); Lymphocytes Absolute Auto 3.36 K/mm3 (0.9-3.2); Lymphocytes Percent Auto 31.4 % (18.3-44.2); Mean Corpuscular HGB Conc 33.7 g/dl (32-36); Mean Corpuscular Hemoglobin 29.9 pg (26-34); Mean Corpuscular Volume 88.8 fl (80-100); Mean Platelet Volume 10.2 fl (7.4-10.4); Monocytes Absolute Auto 0.8 K/mm3 (0.1-0.6); Monocytes Percent Auto 7.6 % (2.6-8.5); Neutrophils Absolute Auto 6.3 K/mm3 (1.3-6.7); Neutrophils Percent Auto 58.5 % (45.5-73.1); Platelet Count Result 350 k/mm3 (150-375); Red Blood Count 4.55 M/mm3 (4.2-5.4); Red Cell Distribution Width 12.9 % (11.5-14.5); White Blood Count 10.7 K/mm3 (4.5-10.0)
[2024-12-24 22:37] LABS: Alanine Aminotransferase 26 U/L (6-35); Albumin Level 4.5 g/dL (3.5-5.1); Alkaline Phosphatase 69 U/L (38-126); Anion Gap 9 mmol/L (4-12); Aspartate Amino Transferase 25 U/L (14-36); Bilirubin,Total 0.7 mg/dL (0.2-1.3); Blood Urea Nitrogen 12 mg/dL (7-17); Calcium 9.2 mg/dL (8.4-10.2); Carbon Dioxide 24 mmol/L (22-30); Chloride 106 mmol/L (98-107); Estimated CRCL calculation 113 ml/min; Estimated Glomerular Filt Rate > 60; Glucose 95 mg/dL (65-110); Lipase 84 U/L (23-300); Potassium 3.8 mmol/L (3.4-5.0); Sodium 139 mmol/L (137-145)
[2024-12-24 22:46] LABS: Prothrombin Time 13.1 Seconds (11.1-14.7)
[2024-12-24 22:47] LABS: Partial Thromboplastin Time 25.5 Seconds (22.3-36.8)
[2024-12-24 22:50] LABS: Troponin I < 0.012 ng/mL (0.000-0.034)
[2024-12-24 22:51] LABS: D Dimer < 0.27 ug/mL (<0.48)
[2024-12-24 22:54] LABS: BEDSIDEPREGUCG Negative (Negative)
[2024-12-24 23:54] VITALS: BP 133/58; PULSE 68; RESP 16; TEMP 36.6; O2SAT 100
[2024-12-25] MEDS: ASPIRIN 81 MG CHEWABLE TABLET 324 MG PO (00:58)
[2024-12-25 00:59] VITALS: O2SAT 98
[2024-12-25 04:18] LABS: Troponin I < 0.012 ng/mL (0.000-0.034)
== END 2024-12-25 01:41 | disposition home or self-care (01) ==
PROVIDERS: Emergency Provider Emergency Medicine; PCP Physician Assistant
DX: R07.89 Other chest pain (principal); R94.31 Abnormal electrocardiogram [ECG] [EKG]
CPT/HCPCS: 36415; 71046; 80053; 81025; 83690; 84484; 85025; 85380; 85610; 85730; 93005; 99284; A9270

== ENCOUNTER 2024-12-29 12:30 | Outpatient (CLI) | payer OTHER, SELFPAY ==
--- NOTE | ~2024-12-29 | US_ITS ---
EXAMINATION: US venous doppler [facility] DATE: 12/29/2024 13:24 INDICATION: Palpable abnormality is described within the posterior left knee, presumably the poplitea l fossae. TECHNIQUE: Grayscale ultrasound images without and with compression and Doppler ultrasound images of the bilateral lower extremity veins were obtained. COMPARISON: None. FINDINGS: The visualized portions of right common femoral vein, profunda (deep) femoral vein, femoral vein, pop liteal vein, peroneal veins, posterior tibial veins, and greater saphenous vein outflow are patent. The visualized portions of left common femoral vein, profunda femoral vein, femoral vein, popliteal v ein, peroneal veins, posterior tibial veins, and greater saphenous vein outflow are patent. Within the area of palpable concern (labeled left medial knee) is a well-circumscribed avascular flui d collection measuring 3.8 x 1.8 x 0.6 cm. IMPRESSION: No deep venous thrombosis within the bilateral lower extremities. Findings within the medial left knee which may represent intramuscular extension of a Tobin's cyst in to the vastus medialis muscle. Reviewed, dictated and finalized at location A. QUALITY IMPRESSION: No deep venous thrombosis within the bilateral lower extremities. Findings within the medial left knee which may represent intramuscular extensio n of a Tobin's cyst into the vastus medialis muscle.
--- OUTSIDE RECORDS SUMMARY | 2024-12-29 14:11 | XMS_ITS | Data Portability ---
Author Organization [facility] [place] Address [address] [place] [address] Care Team Providers Care Delivery Person Name Role Phone EDWARD FOWLER Primary Care Provider [phone] Assessment No assessment recorded. 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 4 11:29:45 Problem Notes None recorded. Procedures Surgical History Date Name Laterality Status Provider Name and Address Organization Details Recorded Time 11/15/19 21 Date of Last Pap Smear completed Urmila Tabor [facility] 02/15/2024 11:28:12 11/04/19 21 Endometrial Ablation completed Urmila Tabor [facility] 02/15/2024 11:41:23 08/08/20 13 Tubal Ligation completed Urmila Tabor [facility] 02/15/2024 11:28:13 04/05/20 12 LEEP completed Urmila Tabor [facility] 02/15/2024 11:28:13 11/04/19 12 Colposcopy completed Urmila Tabor [facility] 02/15/2024 11:40:31 11/04/19 12 Colposcopy completed Urmila Tabor [facility] 02/15/2024 11:39:48 Imaging Results None [...] Updated DateTime 02/15/2024 168.28 cm 33 kg/m2 14062.03 g 121 mm[Hg] 83 mm[Hg] Urmila Tabor [facility] 11:27:47 Social History Question Answer Notes LastModified by Organizat ion Details LastModified Time Tobacco Smoking Status Current Every Day Smoker Urmila Tabor [facility] 02/15/2024 11:39:22 What Is Your Level Of Alcohol Consumption? None [email or web address] Information not available 02/15/2024 Are You Blind Or Do You Have Difficulty Seeing? No Information n ot available 02/15/2024 What Is Your Level Of Caffeine Consumption? Heavy [email or web address] Information not available 02/15/2024 In The 14 Days Before Symptom Onset, Have You Had Close Contact With A Laboratory-confirm ed COVID-19 While That Case Was Ill? No [email or web address] Information n ot available 02/15/2024 In The 14 Days Before Symptom Onset, Have You Had Close Contact With A Person Who Is Under Investigation For COVID-19 While That Person Was Ill? No [email or web address] Information not available 02/15/2024 Have You Been To An Area Known To Be High Risk For COVID-19? No [email or web address] Information not available 02/15/2024 Are You Deaf Or Do You Have Serious Difficulty Hearing? No [email or web address] Information not available 02/15/2024 What Type Of Diet Are You Following? REGULAR [email or web address] Information n ot available 02/15/2024 What Is The Highest Grade Or Level Of School You Have Completed Or The Highest Degree You Have Received? [id number] [email or web address] Information not available 02/15/2024 What Is Your Occupation? [employer] [email or web address] Information not available 02/15/2024 Are There Any Guns Present In Your Home? No [email or web address] Information not available 02/15/2024 Do You Use Protection During Sex? No [email or web address] Information not available 02/15/2024 Do You Use Your Seat Belt Or Car Seat Routinely? Yes [email or web address] Information not available 02/15/2024 Do You Have Smoke And Carbon Monoxide Detectors In Your Home? Yes [email or web address] Information not available 02/15/2024 At What Age Did You Start Smoking Tobacco? 15 [email or web address] Information not available 02/15/2024 How Much Tobacco Do You Smoke? 1 PPD [email or web address] Information not available 02/15/2024 Do You Feel Stressed (tense, Restless, Nervous, Or Anxious, Or Unable To Sleep At Night)? [id number] [email or web address] Information not available 02/15/2024 Do You Use Any Illicit Or Recreational Drugs? No [email or web address] Information not available 02/15/2024 Do You Use Sunscreen Routinely? No [email or web address] Information not available 02/15/2024 Has Tobacco Cessation Counseling Been Provided? Yes [email or web address] Information not available 02/15/2024 On What Date Was Tobacco Cessation Counseling Provided? 02/15/2024 [email or web address] Information not available 02/15/2024 Have You Used IV Drugs? No [email or web address] Information not available 02/15/2024 Do You Or Have You Ever Used Any Other Forms Of Tobacco Or Nicotine? No [email or web address] Information not available 02/15/2024 Sex: Unknown Functional Status Question Answer Note LastModified by Organizat ion Details LastModified Time Do you have difficulty walking or climbing stairs? No [email or web address] Information not available 02/15/2024 Are you able to walk? YESWOREST Information not available 02/15/2024 Are you able to care for yourself? Yes [email or web address] Information not available 02/15/2024 Do you have difficulty dressing or bathing? No [email or web address] Information not available 02/15/2024 What is your exercise level? Occasional [email or web address] Information not available 02/15/2024 Mental Status None recorded. Family History Relationship Description Onset Age of this Age Resolved Age Notes LastModified by Organization Details LastModified Time Mother Anxiety disorder [email or web address] Not available 02/14 11:28:12 Mother Disorder of lung [email or web address] Not available 02/14 11:28:12 Mother Malignant tumor of ovary Not available 02/14 11:28:12 Maternal Grandmother Malignant tumor of ovary [email or web address] Not available 02/14 11:28:12 Medical History Condition Response Allergies (Food, seasonal, environmental ) N Other N Breast Cancer N Drug/Latex Allergies/Reactions N Blood Transfusion N Dermatologic Disorders N Lung Disease N Defects or Inherited Disease N Breast Problem N Gestational Diabetes N Hematologic disorders N Anesthesia Complications N History of STI Y Deep Vein Thrombosis N Polycystic ovary syndrome N Anxiety Disorder Y Autoimmune disease N Arthritis N Infertility N Polyps N Acid Reflux (GERD) N History of abnormal pap Y Cancer N Stroke N Varicosities N Neurologic/Epilepsy N Endometriosis N High Cholesterol N Headaches N Fibromyalgia N Kidney Disease N Heart Problems N Kidney or Bladder Problems N Thyroid Problems N GI Problems N Eating Disorder [...] SNOMED-CT Code Diagnosis ICD10 Code Diagnosis Note [id number] Jd Oliver MD [place] [address] [address] 02/15/2024 10:24:56 02/18/2024 16:13:29 Abnormal uterine bleeding [id number] N93.9 38-year-ol d female presents for [...] Altman Member ID Guarantor Name 02/15/2024 1 [facility] - [facility] ON OR AFTER 21 (MEDICAID REPLACEMENT - HMO) Yudi Pizarro [id number] Yudi Rubiomelody Notes Date Note Type Note [...] evaluate. Jd Oliver MD [address], [place], [address], [facility] 02/18/2024 15:43:05 OBGyn Episode Ob Episode Information Episode Created Date Number of Fetuses Patient Bloodtype Patient rh Status Prepregnancy Weight lbs Domestic Partner Domestic Partner Phone Father Name Magneto Specialist Status 02/15/20 24 1 CLOSED Fetus Data First Name Last Name Admitted to NICU Weight (g) Sex Living Outcome Pediatric Complications Fetus ID Race Codes Race Delivery Type , [place] 87071 Nitin Calculation Initial Nitin Date Initial Exam [...] Domestic Partner Domestic Partner Phone Father Name Magneto Specialist Status 02/15/20 24 1 CLOSED Fetus Data First Name Last Name Admitted to NICU Weight (g) Sex Living Outcome Pediatric Complications Fetus ID Race Codes Race Delivery Type 3175.14 4 F Full Term 35077 Vaginal Delivery Nitin Calculation Initial Nitin Date [...] Domestic Partner Domestic Partner Phone Father Name Magneto Specialist Status 02/15/20 24 1 CLOSED Fetus Data First Name Last Name Admitted to NICU Weight (g) Sex Living Outcome Pediatric Complications Fetus ID Race Codes Race Delivery Type 3175.14 4 F Full Term 77286 Vaginal Delivery Nitin Calculation Initial Nitin Date [...] Domestic Partner Domestic Partner Phone Father Name Magneto Specialist Status 02/15/20 24 1 CLOSED Fetus Data First Name Last Name Admitted to NICU Weight (g) Sex Living Outcome Pediatric Complications Fetus ID Race Codes Race Delivery Type , Spontane o[place] 27596 Nitin Calculation Initial Nitin Date Initial Exam [...] Domestic Partner Domestic Partner Phone Father Name Magneto Specialist Status 02/15/20 24 1 CLOSED Fetus Data First Name Last Name Admitted to NICU Weight (g) Sex Living Outcome Pediatric Complications Fetus ID Race Codes Race Delivery Type Demise 88259 Nitin Calculation Initial Nitin Date Initial Exam [...] Domestic Partner Domestic Partner Phone Father Name Magneto Specialist Status 02/15/20 24 1 CLOSED Fetus Data First Name Last Name Admitted to NICU Weight (g) Sex Living Outcome Pediatric Complications Fetus ID Race Codes Race Delivery Type 3175.14 4 F Full Term 26204 Vaginal Delivery Nitin Calculation Initial Nitin Date [...] Domestic Partner Domestic Partner Phone Father Name Magneto Specialist Status 02/15/20 24 1 CLOSED Fetus Data First Name Last Name Admitted to NICU Weight (g) Sex Living Outcome Pediatric Complications Fetus ID Race Codes Race Delivery Type 3175.14 4 F Full Term 76155 Vaginal Delivery Nitin Calculation Initial Nitin Date [...] Domestic Partner Domestic Partner Phone Father Name Magneto Specialist Status 02/15/20 24 1 CLOSED Fetus Data First Name Last Name Admitted to NICU Weight (g) Sex Living Outcome Pediatric Complications Fetus ID Race Codes Race Delivery Type 3628.73 6 F Full Term 15226 Vaginal Delivery Nitin Calculation Initial Nitin Date [...]
--- OUTSIDE RECORDS SUMMARY | 2024-12-29 14:11 | XMS_ITS | Data Portability ---
Author Organization [facility] Jose Collier Address [address] [place] [address] Care Team Providers Care Center Punch Operator Name Role Phone URSULA BENSON Veterinarian Poultry Assessment Encounter Date Assessment Date Assessment LastModified by Organization Details LastModified Time 05/31/2021 05/31/2021 Destiney sanabria Not available 05/30/2021 20:43:51 05/19/2024 05/19/2024 Sections of the HPI, exam and assessment completed by DORCAS Diaz student and have been reviewed by me. I agree with the exam findings, assessment and plan except where specifically documented or amended. -Jessica Malin, [facility], PARachel kam Not available 05/20/2024 17:52:36 Plan of Treatment Reminders Order Date Submit Date Provider Last Modified By Organization Details Last Modified Time Details Appointments ANY 15 2024 10:15A M DORCAS BEST Not available Not available Not available Lab HbA1c (hemoglo bin A1c), blood 2024 025 [facility], [address], [place], [address], 12/15/2024 14:13:29 TSH, ultra-se nsitive, serum 2024 025 MARGE [facility], [address], [place], [address], 12/15/2024 14:13:28 CMP, serum or plasma 2024 025 MARGE [facility], [address], [place], [address], 12/14/2024 22:06:48 CBC w/ auto diff 2024 025 [facility], [address], [place], [address], 12/14/2024 22:06:49 albumin/ creatini ne, mass ratio, urine 2024 025 [facility], [address], [place], [address], 12/15/2024 14:13:27 lipid panel, serum 2024 025 [facility], [address], [place], [address], 12/14/2024 22:06:47 urinalys is, dipstick 2023 024 [email or web address] In-Office Order, Internal Use Only DO Not Attach Compendium DO Not Attach Compendium, Do Not Delete/merge, [id number] 09/08/2024 11:29:24 culture, urine 2023 024 [facility], [address], [place], [address], 09/10/2024 03:36:58 vitamin D, 25-hydro xy, total, serum 2023 024 [facility], [address], [place], [address], 05/20/2024 14:17:31 vitamin B12 + folate, serum or blood 2023 024 [facility], [address], [place], [address], 05/20/2024 14:17:30 CMP, serum or plasma 2023 024 MARGEMARLEEN Cagle, [address], [place], [address], 05/19/2024 22:07:21 lipid panel, serum 2023 024 MARGE Agee, [address], [place], [address], 05/19/2024 22:07:21 CBC w/ auto diff 2023 024 MARGEMARLEEN Agee, [address], [place], [address], 05/19/2024 22:07:22 TSH + free T4, serum 2023 024 MARGE Cagle, [address], [place], [address], 05/20/2024 14:17:29 HbA1c (hemoglo bin A1c), blood 2023 024 MARGE Cagle, [address], [place], [address], 05/20/2024 14:17:30 CMP, serum or plasma 2022 023 MARGE Agee, [address], [place], [address], 03/14/2023 08:27:03 lipid panel, serum 2022 023 MARGE Agee, [address], [place], [address], 03/14/2023 08:27:02 CBC w/ auto diff 2022 023 MARGEMARLEEN Agee, [address], [place], [address], 03/14/2023 08:27:03 TSH + free T4, serum 2022 023 [facility], [address], [place], [address], 03/13/2023 08:29:04 HbA1c (hemoglo bin A1c), blood 2022 023 [facility], [address], [place], [address], 03/13/2023 08:29:04 urinalys is, dipstick 2022 023 [email or web address] In-Office Order, Internal Use Only DO Not Attach Compendium DO Not Attach Compendium, Do Not Delete/merge, [id number] 03/12/2023 11:56:58 urinalys is complete , reflex culture 2022 023 [facility], [address], [place], [address], 03/14/2023 06:18:16 vitamin D, 25-hydro xy, total, serum 2022 023 [facility], [address], [place], [address], 03/13/2023 08:29:05 pap, IG + HPV, cervical - please use Z11.51 in addition to code above for HPV testing. 2020 021 [facility], [address], [place], [address], 06/02/2021 14:11:22 urinalys is, dipstick 2020 021 elly In-Office Order, Internal Use Only DO Not Attach Compendium DO Not Attach Compendium, Do Not Delete/merge, [id number] 05/31/2021 13:38:26 bacteria l vaginosi s panel, vaginal 2020 021 [facility] ([facility] - [facility] Locations), Patient Can Go To The Location Of Their Choice, [id number] 06/04/2021 20:07:46 culture, vaginal/ rectal, streptoc occus group B 2020 021 [facility] (Centralized Electronic Ordering - All Locations), Patient Can Go To The Location Of Their Choice, [address] 06/04/2021 20:07:47 Referral vascular surgeon referral 2024 025 [facility] P[facility]ual Hubbard MD, [address] [address], [place], [address], 12/15/2024 09:23:53 physical therapis t referral [address] (Outpatient Physical Therapy), [address], [place], [address], 06/10/2024 07:55:55 obstetri gala and gynecolo gist referral 2022 023 jeanie Oliver MD, [address], [place], [address], 06/10/2023 15:14:46 Procedures None recorded . Surgeries None recorded . Imaging XR, lumbosac ral spine, 2 or 3 view [address] [facility] (Imaging), [address] [facility], [place], [address], 12/14/2024 16:10:58 US, doppler, venous [address] (Imaging), [address], [place], [address], 12/29/2024 08:22:03 XR, knee, 3 view [address] [facility] (Imaging), [address], [place], [address], 12/14/2024 14:59:28 Medication Orders meloxica m 15 mg tablet 2024 025 [facility]04973, [address], [place], [id number], 12/14/2024 11:08:19 lisinopr il 10 mg tablet 2024 025 [facility] #66429, [address], [place], [id number], 12/23/2024 16:35:12 nicotine 21 mg/24 hr daily transder mal patch 2023 024 [facility] #08663, [address], [place], [id number], 05/19/2024 14:45:43 hydroxyz ine HCl 25 mg tablet 2023 024 [email or web address] [facility] #70921, [address], [place], [id number], 05/20/2024 10:16:24 pantopra zole 20 mg tablet,d elayed release 2023 024 [facility] #81723, [address], [place], [id number], 05/19/2024 14:44:01 nitrofur antoin monohydr ate/macr ocrystal s 100 mg capsule 2022 023 [email or web address] [facility] #58235, [address], [place], [place], [id number], 12/14/2024 10:47:18 ketorola c 10 mg tablet 2020 021 [email or web address] [facility] #60201, [address], [place], [place], [id number], 03/12/2023 11:07:39 multivit macias tablet 2020 021 [email or web address] [facility] #25607, [address], [place], [place], [id number], 03/12/2023 11:07:44 Calcium with Vitamin D 600 mg-10 mcg (400 unit) tablet 2020 021 [email or web address] [facility] #20666, [address], [place], [place], [id number], 03/12/2023 11:06:44 Patient TargetsNo targets recorded. Patient Instructions Encounter Date Encounter Id Patient Instructions Last Modified By Organization Details Last Modified Time 05/31/2021 [id number] genital herpes: care instructions [email or web address] Not available 05/31/2021 13:38:26 03/12/2023 [id number] A healthy lifestyle: care instructions [email or web address] Not available 03/12/2023 11:38:38 Quitting Tobacco: Care Instructions [email or web address] Not available 03/12/2023 11:29:38 05/19/2024 [id number] Quitting Tobacco: Care Instructions [email or web address] Not available 05/19/2024 14:33:05 A healthy lifestyle: care instructions [email or web address] Not available 05/19/2024 14:35:23 12/14/2024 [id number] prediabetes: care instructions [email or web address] Not available 12/14/2024 11:10:05 back care and preventing injuries: care instructions Not available 12/14/2024 11:08:05 varicose veins: care instructions [email or web address] Not available 12/14/2024 11:08:05 A healthy lifestyle: care instructions [email or web address] Not available 12/14/2024 11:08:05 learning about high blood pressure Not available 12/14/2024 11:08:05 Reason for Referral Service Aide And Gynecologis t Referral for Screening for malignant neoplasm of cervix Referring Physician: Jessica Malin [facility], Encounter Date: 03/12/2023 Physical Therapist Referral for Chronic neck pain for greater than 3 months Referring Physician: Jessica Malin [facility], Encounter Date: 05/19/2024 Vascular Surgeon Referral fo r Varicose veins of lower extremity Referring Physician: Quinten Durant, [facility], Encounter Date: 12/14/2024 Results Created Date Observation [...] 05/31/2021 urina lysis , dipst ick Specific Sumner 1.025 Not Available In-Off ice Order Internal Use Only DO Not Attach Compendium DO Not Attach Compendium, Do Not Delete/merge, [id number] 05/31/2021 10:58:25 05/31/20 21 05/31/2021 urina lysis [...] OR HUSSAIN MADRID . Not Available [facility] ([facility]) [address], [place], [address], 06/02/2021 14:11:22 05/31/20 21 06/02/2021 IGP, APTIM A HPV specimen adequacy: Commen t Satis facto ry for evalu ation . No endoc ervic al compo nent is ident ified . Not Available [facility] ([facility]) [address], [place], [address], 06/02/2021 14:11:22 05/31/2006/02/2021 IGP, APTIM A HPV clinician provided ICD10: Kiley t Z01.4 19 Z11.5 1 Not Available [facility] ([facility]) [address], [place], [address], 06/02/2021 14:11:22 05/31/20 21 06/02/2021 IGP, APTIM A HPV performed by: Kiley reynoso, Cytot donna nash (ASCP ) Not Available [facility] ([facility]) [address] [place], [address], 06/02/2021 14:11:22 05/31/20 21 06/02/2021 IGP, APTIM A HPV . . Not Available [facility] ([facility]) [address] [place], [address], 06/02/2021 14:11:22 05/31/20 21 06/02/2021 IGP, APTIM [...] ts do occur . Not Available [facility] ([facility]) [address] [place], [address], 06/02/2021 14:11:22 05/31/20 21 06/02/2021 IGP, APTIM A HPV test methodology: Kiley nash This liqui d based ThinP rep(R ) pap test was scree gus with the use of an image guide d systhugh m. Not Available [facility] ([facility]) [address] [place], [address], 06/02/2021 14:11:22 05/31/2006/02/2021 IGP, APTIM A HPV HPV aptima Negati ve negati ve This nucle ic acid ampli ficat ion test detec ts fourt een high- risk HPV types (16,1 8,31, 33,35 ,39,4 5,51, 52,56 ,58,5 9,66, 68) witho coco stapleton ation . Not Available [facility] ([facility]) [address], [place], [address], 06/02/2021 14:11:22 05/31/20 21 06/02/2021 NUSWA B VG+, HSV trich vag by JOY Negati ve negati ve Not Available [facility] ([facility]) [address], [place], [address], 06/04/2021 20:07:46 05/31/20 21 06/02/2021 NUSWA B VG+, HSV chlamydia trachomatis, JOY Negati ve negati ve Not Available [facility] ([facility]) [address], [place], [address], 06/04/2021 20:07:46 05/31/20 21 06/02/2021 NUSWA B VG+, HSV neisseria gonorrhoeae, JOY Negati ve negati ve Not Available [facility] ([facility]) [address], [place], [address], 06/04/2021 20:07:46 05/31/20 21 06/03/2021 NUSWA B VG+, HSV atopobium vaginae Low - 0 score Not Available [facility] ([facility]) [address], [place], [address], 06/04/2021 20:07:46 05/31/20 21 06/03/2021 NUSWA B VG+, HSV bvab 2 Low - 0 score Not Available [facility] ([facility]) [address] [place], [address], 06/04/2021 20:07:46 05/31/20 21 06/03/2021 NUSWA B VG+, HSV megasphaera 1 Low - 0 score Calcu late total score by helena le the 3 indiv idual bacte rial vagin osis (BV) marke r score s toget her. Total score is inter prete d as follo ws: Total score 0-1: Indic ates the absen ce of BV. Total score 2: Indet maycoin ate for BV. Addit ional clini dalia [...] Drug Admin istra tion. Not Available [facility] ([facility]) [address] [place], [address], 06/04/2021 20:07:46 05/31/20 21 06/03/2021 NUSWA B VG+, HSV hubert albicans, JOY Negati ve negati ve Not Available [facility] ([facility]) [address] [place], [address], 06/04/2021 20:07:46 05/31/20 21 06/03/2021 NUSWA B VG+, HSV hubert glabrata, JOY Negati ve negati ve Not Available [facility] ([facility]) [address] [place], [address], 06/04/2021 20:07:46 05/31/20 21 06/04/2021 NUSWA B VG+, HSV hsv 1 JOY Negati ve negati ve Not Available [facility] ([facility]) [address] [place], [address], 06/04/2021 20:07:46 05/31/20 21 06/04/2021 NUSWA B VG+, HSV hsv 2 JOY Negati ve negati ve Not Available [facility] ([facility]) [address] [place], [address], 06/04/2021 20:07:46 05/31/20 21 06/02/2021 STREP GP B JOY strep gp B JOY Negati ve negati ve [facility] Cont[facility] ol [facility]ve ntion ([facility]) and Soraya can Congr ess of Obste trici ans [...] n is noted . Not Available [facility] ([facility]) [address] [place], [address], 06/04/2021 20:07:47 03/12/20 23 03/13/2023 TSH+F REE T4 TSH 2.060 uIU/m L 0.450- 4.500 Not Available [facility] ([facility]) [address] [place], [address], 03/13/2023 08:29:04 03/12/20 23 03/13/2023 TSH+F REE T4 T4,free(dire ct) 1.32 NG/dL 0.82-1 .77 Not Available [facility] ([facility]) [address] [place], [address], 03/13/2023 08:29:04 03/12/20 23 03/13/2023 HEMOG LOBIN A1C hemoglobin A1C 5.3 % 4.8-5. 6 Predi abete s: 5.7 - 6.4 Diabe jen: >6.4 Glyce carissa contr ol for adult s with diabe jen: <7.0 Not Available [facility] ([facility]) [address], [place], [address], 03/13/2023 08:29:04 03/12/20 23 03/13/2023 VITAM IN [...] um and D. Shanna boston [place]: [employer] [facility] [employer] . 2. Mendy gupta MF, Candida ey [place], Karina off-F errar i SLAUGHTER, et al. Evalu ation , treat ment, and preve ntion of vitam in D defic iency : an Endoc rine Socie ty clini dalia pract ice guide line. JCEM. 2010; 96(7) :1911 -30. Not Available [facility] ([facility]) [address], [place], [address], 03/13/2023 08:29:05 03/12/20 23 03/14/2023 LIPID PANEL WITH LDL/H DL RATIO cholesterol, total 156 mg/dL 100-19 9 Not Available [facility] ([facility]) [address], [place], [address], 03/14/2023 08:27:02 03/12/20 23 03/14/2023 LIPID PANEL WITH LDL/H DL RATIO triglyceride s 118 mg/dL 0-149 Not Available [facility] ([facility]) [address] [place], [address], 03/14/2023 08:27:02 03/12/20 23 03/14/2023 LIPID PANEL WITH LDL/H DL RATIO HDL cholesterol 38 mg/dL >39 below low normal Not Available [facility] ([facility]) [address] [place], [address], 03/14/2023 08:27:02 03/12/20 23 03/14/2023 LIPID PANEL WITH LDL/H DL RATIO VLDL cholesterol dalia 21 mg/dL 5-40 Not Available [facility] ([facility]) [address] [place], [address], 03/14/2023 08:27:02 03/12/20 23 03/14/2023 LIPID PANEL WITH LDL/H DL RATIO LDL chol calc (nih) 97 mg/dL 0-99 Not Available [facility] ([facility]) [address] [place], [address], 03/14/2023 08:27:02 03/12/20 23 03/14/2023 LIPID PANEL WITH LDL/H DL RATIO LDL/HDL ratio 2.6 ratio 0.0-3. 2 LDL/H DL Ratio Men Women 1/2 Avg.R isk 1.0 1.5 Avg.R isk 3.6 3.2 2X Avg.R isk 6.2 5.0 3X Avg.R isk 8.0 6.1 Not Available [facility] ([facility]) [address] [place], [address], 03/14/2023 08:27:02 03/12/20 23 03/14/2023 COMP. METAB OLIC PANEL (14) glucose 106 mg/dL 70-99 above high normal Not Available [facility] ([facility]) [address] [place], [address], 03/14/2023 08:27:03 03/12/20 23 03/14/2023 COMP. METAB OLIC PANEL (14) BUN 10 mg/dL 6-20 Not Available [facility] ([facility]) [address] [place], [address], 03/14/2023 08:27:03 03/12/20 23 03/14/2023 COMP. METAB OLIC PANEL (14) creatinine 0.74 mg/dL 0.57-1 .00 Not Available [facility] ([facility]) [address] [place], [address], 03/14/2023 08:27:03 03/12/20 23 03/14/2023 COMP. METAB OLIC PANEL (14) eGFR 105 mL/mi n/1.7 3 >59 Not Available [facility] ([facility]) [address] [place], [address], 03/14/2023 08:27:03 03/12/20 23 03/14/2023 COMP. METAB OLIC PANEL (14) BUN/creatini ne ratio 14 9-23 Not Available [facility] ([facility]) [address] [place], [address], 03/14/2023 08:27:03 03/12/20 23 03/14/2023 COMP. METAB OLIC PANEL (14) sodium 141 mmol/ L 134-14 4 Not Available [facility] ([facility]) [address] [place], [address], 03/14/2023 08:27:03 03/12/20 23 03/14/2023 COMP. METAB OLIC PANEL (14) potassium 3.8 mmol/ L 3.5-5. 2 Not Available [facility] ([facility]) [address] [place], [address], 03/14/2023 08:27:03 03/12/20 23 03/14/2023 COMP. METAB OLIC PANEL (14) chloride 105 mmol/ L 96-106 Not Available [facility] ([facility]) [address] [place], [address], 03/14/2023 08:27:03 03/12/20 23 03/14/2023 COMP. METAB OLIC PANEL (14) carbon dioxide, total 22 mmol/ L 20-29 Not Available [facility] ([facility]) [address], [place], [address], 03/14/2023 08:27:03 03/12/20 23 03/14/2023 COMP. METAB OLIC PANEL (14) calcium 8.9 mg/dL 8.7-10 .2 Not Available [facility] ([facility]) [address], [place], [address], 03/14/2023 08:27:03 03/12/20 23 03/14/2023 COMP. METAB OLIC PANEL (14) protein, total 7.1 g/dL 6.0-8. 5 Not Available [facility] ([facility]) [address], [place], [address], 03/14/2023 08:27:03 03/12/20 23 03/14/2023 COMP. METAB OLIC PANEL (14) albumin 4.7 g/dL 3.8-4. 8 Not Available [facility] ([facility]) [address] [place], [address], 03/14/2023 08:27:03 03/12/20 23 03/14/2023 COMP. METAB OLIC PANEL (14) globulin, total 2.4 g/dL 1.5-4. 5 Not Available [facility] ([facility]) [address] [place], [address], 03/14/2023 08:27:03 03/12/20 23 03/14/2023 COMP. METAB OLIC PANEL (14) A/G ratio 2.0 1.2-2. 2 Not Available [facility] ([facility]) [address], [place], [address], 03/14/2023 08:27:03 03/12/20 23 03/14/2023 COMP. METAB OLIC PANEL (14) bilirubin, total 0.9 mg/dL 0.0-1. 2 Not Available [facility] ([facility]) [address] [place], [address], 03/14/2023 08:27:03 03/12/20 23 03/14/2023 COMP. METAB OLIC PANEL (14) alkaline phosphatase 67 IU/L 44-121 Not Available [facility]) [address], [place], [address], 03/14/2023 08:27:03 03/12/20 23 03/14/2023 COMP. METAB OLIC PANEL (14) AST (SGOT) 18 IU/L 0-40 Not Available [facility] ([facility]) [address] [place], [address], 03/14/2023 08:27:03 03/12/20 23 03/14/2023 COMP. METAB OLIC PANEL (14) ALT (SGPT) 14 IU/L 0-32 Not Available [facility] ([facility]) [address] [place], [address], 03/14/2023 08:27:03 03/12/20 23 03/14/2023 CBC WITH DIFFE RENTI AL/PL ATELE T WBC 9.5 x10e3 /uL 3.4-10 .8 Not Available [facility] ([facility]) [address] [place], [address], 03/14/2023 08:27:03 03/12/20 23 03/14/2023 CBC WITH DIFFE RENTI AL/PL ATELE T RBC 4.93 x10e6 /uL 3.77-5 .28 Not Available [facility] ([facility]) [address] [place], [address], 03/14/2023 08:27:03 03/12/20 23 03/14/2023 CBC WITH DIFFE RENTI AL/PL ATELE T hemoglobin 14.6 g/dL 11.1-1 5.9 Not Available [facility] ([facility]) [address] [place], [address], 03/14/2023 08:27:03 03/12/20 23 03/14/2023 CBC WITH DIFFE RENTI AL/PL ATELE T hematocrit 43.4 % 34.0-4 6.6 Not Available [facility] ([facility]) [address], [place], [address], 03/14/2023 08:27:03 03/12/20 23 03/14/2023 CBC WITH DIFFE RENTI AL/PL ATELE T MCV 88 fL 79-97 Not Available [facility] ([facility]) [address] [place], [address], 03/14/2023 08:27:03 03/12/20 23 03/14/2023 CBC WITH DIFFE RENTI AL/PL ATELE T MCH 29.6 pg 26.6-3 3.0 Not Available [facility] ([facility]) [address] [place], [address], 03/14/2023 08:27:03 03/12/20 23 03/14/2023 CBC WITH DIFFE RENTI AL/PL ATELE T MCHC 33.6 g/dL 31.5-3 5.7 Not Available [facility] ([facility]) [address] [place], [address], 03/14/2023 08:27:03 03/12/20 23 03/14/2023 CBC WITH DIFFE RENTI AL/PL ATELE T RDW 12.5 % 11.7-1 5.4 Not Available [facility] ([facility]) [address], [place], [address], 03/14/2023 08:27:03 03/12/20 23 03/14/2023 CBC WITH DIFFE RENTI AL/PL ATELE T platelets 396 x10e3 /uL 150-45 0 Not Available [facility] ([facility]) [address], [place], [address], 03/14/2023 08:27:03 03/12/20 23 03/14/2023 CBC WITH DIFFE RENTI AL/PL ATELE T neutrophils 58 % notest ab. Not Available [facility] ([facility]) [address], [place], [address], 03/14/2023 08:27:03 03/12/20 23 03/14/2023 CBC WITH DIFFE RENTI AL/PL ATELE T lymphs 29 % notest ab. Not Available [facility] ([facility]) [address], [place], [address], 03/14/2023 08:27:03 03/12/20 23 03/14/2023 CBC WITH DIFFE RENTI AL/PL ATELE T monocytes 9 % notest ab. Not Available [facility] ([facility]) [address], [place], [address], 03/14/2023 08:27:03 03/12/20 23 03/14/2023 CBC WITH DIFFE RENTI AL/PL ATELE T eos 2 % notest ab. Not Available [facility] ([facility]) [address] [place], [address], 03/14/2023 08:27:03 03/12/20 23 03/14/2023 CBC WITH DIFFE RENTI AL/PL ATELE T basos 1 % notest ab. Not Available [facility] ([facility]) [address], [place], [address], 03/14/2023 08:27:03 03/12/20 23 03/14/2023 CBC WITH DIFFE RENTI AL/PL ATELE T neutrophils (absolute) 5.5 x10e3 /uL 1.4-7. 0 Not Available [facility] ([facility]) [address], [place], [address], 03/14/2023 08:27:03 03/12/20 23 03/14/2023 CBC WITH DIFFE RENTI AL/PL ATELE T lymphs (absolute) 2.8 x10e3 /uL 0.7-3. 1 Not Available [facility] ([facility]) [address] [place], [address], 03/14/2023 08:27:03 03/12/20 23 03/14/2023 CBC WITH DIFFE RENTI AL/PL ATELE T monocytes(ab solute) 0.9 x10e3 /uL 0.1-0. 9 Not Available [facility] ([facility]) [address] [place], [address], 03/14/2023 08:27:03 03/12/20 23 03/14/2023 CBC WITH DIFFE RENTI AL/PL ATELE T eos (absolute) 0.2 x10e3 /uL 0.0-0. 4 Not Available [facility] ([facility]) [address], [place], [address], 03/14/2023 08:27:03 03/12/20 23 03/14/2023 CBC WITH DIFFE RENTI AL/PL ATELE T baso (absolute) 0.1 x10e3 /uL 0.0-0. 2 Not Available [facility] ([facility]) [address] [place], [address], 03/14/2023 08:27:03 03/12/20 23 03/14/2023 CBC WITH DIFFE RENTI AL/PL ATELE T immature granulocytes 1 % notest ab. Not Available [facility] ([facility]) [address] [facility], [place], [address], 03/14/2023 08:27:03 03/12/20 23 03/14/2023 CBC WITH DIFFE RENTI AL/PL ATELE T immature grans (abs) 0.1 x10e3 /uL 0.0-0. 1 Not Available [facility] ([facility]) [address], [place] [place], [address], 03/14/2023 08:27:03 03/12/20 23 03/14/2023 URINE CULTU RE, ROUTI NE urine culture, routine Final report Not Available [facility] ([facility]) [address], [place], [address], 03/14/2023 06:18:17 03/12/20 23 03/14/2023 URINE CULTU RE, ROUTI NE result 1 Commen t Mixed uroge nital rose 25,00 0-50, 000 colon y formi ng units per mL Not Available [facility] ([facility]) [address], [place], [address], 03/14/2023 06:18:17 03/12/20 23 03/13/2023 UA/M W/RFL X CULTU RE, ROUTI NE specific gravity 1.018 1.005- 1.030 Not Available [facility] ([facility]) [address] [place], [address], 03/14/2023 06:18:15 03/12/20 23 03/13/2023 UA/M W/RFL X CULTU RE, ROUTI NE pH 6.0 5.0-7. 5 Not Available [facility] ([facility]) [address] [place], [address], 03/14/2023 06:18:15 03/12/20 23 03/13/2023 UA/M W/RFL X CULTU RE, ROUTI NE urine-color Yellow yellow Not Available [facility] ([facility]) [address] [place], [address], 03/14/2023 06:18:15 03/12/20 23 03/13/2023 UA/M W/RFL X CULTU RE, ROUTI NE appearance Clear clear Not Available [facility] ([facility]) [address] [place], [address], 03/14/2023 06:18:15 03/12/20 23 03/13/2023 UA/M W/RFL X CULTU RE, ROUTI NE WBC esterase 1+ negati ve abnormal Not Available [facility] ([facility]) [address] [place], [address], 03/14/2023 06:18:15 03/12/20 23 03/13/2023 UA/M W/RFL X CULTU RE, ROUTI NE protein Negati ve negati ve/tra ce Not Available [facility] ([facility]) [address] [place], [address], 03/14/2023 06:18:15 03/12/20 23 03/13/2023 UA/M W/RFL X CULTU RE, ROUTI NE glucose Negati ve negati ve Not Available [facility] ([facility]) [address] [place], [address], 03/14/2023 06:18:15 03/12/20 23 03/13/2023 UA/M W/RFL X CULTU RE, ROUTI NE ketones Negati ve negati ve Not Available [facility] ([facility]) [address] [place], [address], 03/14/2023 06:18:15 03/12/20 23 03/13/2023 UA/M W/RFL X CULTU RE, ROUTI NE occult blood Trace negati ve abnormal Not Available [facility] ([facility]) [address] [place], [address], 03/14/2023 06:18:15 03/12/20 23 03/13/2023 UA/M W/RFL X CULTU RE, ROUTI NE bilirubin Negati ve negati ve Not Available [facility] ([facility]) [address] [place], [address], 03/14/2023 06:18:15 03/12/20 23 03/13/2023 UA/M W/RFL X CULTU RE, ROUTI NE urobilinogen ,semi-qn 0.2 mg/dL 0.2-1. 0 Not Available [facility] ([facility]) [address] [place], [address], 03/14/2023 06:18:15 03/12/20 23 03/13/2023 UA/M W/RFL X CULTU RE, ROUTI NE nitrite, urine Negati ve negati ve Not Available [facility] ([facility]) [address] [place], [address], 03/14/2023 06:18:15 03/12/20 23 03/13/2023 UA/M W/RFL X CULTU RE, ROUTI NE microscopic examination See below: Micro scopi c was indic ated and was perfo rmed. Not Available [facility] ([facility]) [address] [place], [address], 03/14/2023 06:18:15 03/12/20 23 03/13/2023 UA/M W/RFL X CULTU RE, ROUTI NE urinalysis reflex Commen t This speci men has refle xed to a Urine Cultu re. Not Available [facility] ([facility]) [address] [place], [address], 03/14/2023 06:18:15 03/12/20 23 03/13/2023 MICRO SCOPI C EXAMI NATIO N WBC 11-30 /hpf 0-5 abnormal Not Available [facility] ([facility]) [address], [place], [address], 03/14/2023 06:18:15 03/12/2003/13/2023 MICRO SCOPI C EXAMI NATIO N RBC 11-30 /hpf 0-2 abnormal Not Available [facility] ([facility]) [address] [facility], [place], [address], 03/14/2023 06:18:15 03/12/20 23 03/13/2023 MICRO SCOPI C EXAMI NATIO N epithelial cells (non renal) 0-10 /hpf 0-10 Not Available [facility] ([facility]) [address] [facility], [place], [address], 03/14/2023 06:18:15 03/12/20 23 03/13/2023 MICRO SCOPI C EXAMI NATIO N casts None seen /lpf nonese en Not Available [facility] ([facility]) [address], [place], [address], 03/14/2023 06:18:15 03/12/2003/13/2023 MICRO SCOPI C EXAMI NATIO N bacteria None seen nonese en/few Not Available [facility] ([facility]) [address], [place], [address], 03/14/2023 06:18:15 03/12/20 23 03/12/2023 urina lysis , dipst ick Leukocytes Trace Not Available In-Offi ce Order Internal Use Only DO Not Attach Compendium DO Not Attach Compendium, Do Not Delete/merge, [id number] 03/12/2023 11:21:16 03/12/20 23 03/12/2023 urina lysis , dipst ick Nitrite negati ve Not Available In-Office Order Internal Use Only DO Not Attach Compendium DO Not Attach Compendium, Do Not Delete/merge, [id number] 03/12/2023 11:21:16 03/12/20 23 03/12/2023 urina lysis [...] 03/12/2023 urina lysis , dipst ick Specific Sumner 1.025 Not Available In-Off ice Order Internal [...] DO Not Attach Compendium, Do Not Delete/merge, [id number] 03/12/2023 11:21:16 03/12/20 23 03/12/2023 urina lysis , dipst ick Appearance Slight ly Cloudy Not Available In-Office Order Internal Use Only DO Not Attach Compendium DO Not Attach Compendium, Do Not Delete/merge, [id number] 03/12/2023 11:21:16 03/12/20 23 03/12/2023 urina lysis , dipst ick Color Dark Yellow Not Available In-Office Order Internal Use Only DO Not Attach Compendium DO Not Attach Compendium, Do Not Delete/merge, [id number] 03/12/2023 11:21:16 05/19/20 24 05/19/2024 LIPID PANEL WITH LDL/H DL RATIO cholesterol, total 175 mg/dL 100-19 9 Not Available [facility] Department [address] [place], [address], 05/19/2024 22:07:21 05/19/20 24 05/19/2024 LIPID PANEL WITH LDL/H DL RATIO triglyceride s 308 mg/dL 0-149 above high normal Not Available [facility] Department [address] [place], [address], 05/19/2024 22:07:21 05/19/20 24 05/19/2024 LIPID PANEL WITH LDL/H DL RATIO HDL cholesterol 36 mg/dL 40-999 below low normal Not Available [facility] Department [address] [place], [address], 05/19/2024 22:07:21 05/19/20 24 05/19/2024 LIPID PANEL WITH LDL/H DL RATIO VLDL cholesterol dalia 62 mg/dL 5-40 above high normal Not Available [facility] Department [address] [place], [address], 05/19/2024 22:07:21 05/19/20 24 05/19/2024 LIPID PANEL WITH LDL/H DL RATIO LDL chol calc ([facility]) 123 mg/dL 0-99 above high normal Not Available [facility] Department [address] [place], [address], 05/19/2024 22:07:21 05/19/20 24 05/19/2024 LIPID PANEL WITH LDL/H DL RATIO LDL/HDL ratio 3.4 0-3.2 above high normal Not Available [facility] Department [address] [place] [address], [address], 05/19/2024 22:07:21 05/19/20 24 05/19/2024 COMP. METAB OLIC PANEL (14) glucose 94 mg/dL 70-99 Not Available [facility] Department [address] [place] [address], [address], 05/19/2024 22:07:21 05/19/20 24 05/19/2024 COMP. METAB OLIC PANEL (14) BUN 13 mg/dL 6-24 Not Available [facility] Department [address] [place] [address], [address], 05/19/2024 22:07:21 05/19/20 24 05/19/2024 COMP. METAB OLIC PANEL (14) creatinine 0.70 mg/dL 0.76-1 .27 below low normal Not Available [facility] Department [address] [place] [address], [address], 05/19/2024 22:07:21 05/19/20 24 05/19/2024 COMP. METAB OLIC PANEL (14) eGFR 112 >=60 Units for eGFR value s are mL/mi n/1.7 3 The eGFR Calcu latio n has not been valid ated for patie nts under the age of 18. If test resul ts are displ ayed for a patie nt under the age of 18, disre elizabeth that value . Not Available [facility] Department [address] [place] [address], [address], 05/19/2024 22:07:21 05/19/20 24 05/19/2024 COMP. METAB OLIC PANEL (14) BUN/creatini ne ratio 18 9-23 Not Available [facility] Department [address] [place], [address], 05/19/2024 22:07:21 05/19/20 24 05/19/2024 COMP. METAB OLIC PANEL (14) sodium 139 mmol/ L 134-14 4 Not Available [facility] Department [address] [place], [address], 05/19/2024 22:07:21 05/19/20 24 05/19/2024 COMP. METAB OLIC PANEL (14) potassium 4.2 mmol/ L 3.5-5. 2 Not Available [facility] Department [address] [place] [address], [address], 05/19/2024 22:07:21 05/19/20 24 05/19/2024 COMP. METAB OLIC PANEL (14) chloride 104 mmol/ L 96-106 Not Available [facility] Department [address] [place] [address], [address], 05/19/2024 22:07:21 05/19/20 24 05/19/2024 COMP. METAB OLIC PANEL (14) carbon dioxide, total 20 mmol/ L 20-29 Not Available [facility] Department [address] [place], [address], 05/19/2024 22:07:21 05/19/20 24 05/19/2024 COMP. METAB OLIC PANEL (14) calcium 9.4 mg/dL 8.7-10 .2 Not Available [facility] Department [address] [place] [address], [address], 05/19/2024 22:07:21 05/19/20 24 05/19/2024 COMP. METAB OLIC PANEL (14) protein, total 7.0 g/dL 6.0-8. 5 Not Available [facility] Department [address] [place] [address], [address], 05/19/2024 22:07:21 05/19/20 24 05/19/2024 COMP. METAB OLIC PANEL (14) albumin 4.5 g/dL 3.9-4. 9 Not Available [facility] Department [address] [place], [address], 05/19/2024 22:07:21 05/19/20 24 05/19/2024 COMP. METAB OLIC PANEL (14) globulin, total 2.5 g/dL 1.5-4. 5 Not Available [facility] Department [address] [place], [address], 05/19/2024 22:07:21 05/19/20 24 05/19/2024 COMP. METAB OLIC PANEL (14) A/G ratio 1.8 1.2-2. 2 Not Available [facility] Department [address] [place], [address], 05/19/2024 22:07:21 05/19/20 24 05/19/2024 COMP. METAB OLIC PANEL (14) bilirubin, total 1.0 mg/dL 0.0-1. 2 Not Available [facility] Department [address] [place], [address], 05/19/2024 22:07:21 05/19/20 24 05/19/2024 COMP. METAB OLIC PANEL (14) alkaline phosphatase 77 IU/L 44-121 Not Available [facility] Department [address] [place], [address], 05/19/2024 22:07:21 05/19/20 24 05/19/2024 COMP. METAB OLIC PANEL (14) AST (SGOT) 21 IU/L 0-40 Not Available [facility] Department [address] [place], [address], 05/19/2024 22:07:21 05/19/20 24 05/19/2024 COMP. METAB OLIC PANEL (14) ALT (SGPT) 18 IU/L 0-32 Not Available [facility] Department [address] [place] [address], [address], 05/19/2024 22:07:21 05/19/20 24 05/19/2024 CBC WITH DIFFE RENTI AL/PL ATELE T WBC 11.7 x10e3 /uL 3.4-10 .8 above high normal Not Available [facility] Department [address] [place], [address], 05/19/2024 22:07:22 05/19/20 24 05/19/2024 CBC WITH DIFFE RENTI AL/PL ATELE T RBC 4.89 x10e6 /uL 3.77-5 .28 Not Available [facility] Department [address] [place], [address], 05/19/2024 22:07:22 05/19/20 24 05/19/2024 CBC WITH DIFFE RENTI AL/PL ATELE T hemoglobin 14.5 g/dL 11.1-1 5.9 Not Available [facility] Department [address] [place], [address], 05/19/2024 22:07:22 05/19/20 24 05/19/2024 CBC WITH DIFFE RENTI AL/PL ATELE T hematocrit 46.9 % 34.0-4 6.6 above high normal Not Available [facility] Department [address] [place], [address], 05/19/2024 22:07:22 05/19/20 24 05/19/2024 CBC WITH DIFFE RENTI AL/PL ATELE T MCV 96 fL 79-97 Not Available [facility] Department [address] [place], [address], 05/19/2024 22:07:22 05/19/20 24 05/19/2024 CBC WITH DIFFE RENTI AL/PL ATELE T MCH 29.7 pg 26.6-3 3.0 Not Available [facility] Department [address] [place], [address], 05/19/2024 22:07:22 07/16/20 24 05/19/2024 CBC WITH DIFFE RENTI AL/PL ATELE T MCHC 30.9 g/dL 31.5-3 5.7 below low normal Not Available [facility] Department [address] [place], [address], 05/19/2024 22:07:22 05/19/20 24 05/19/2024 CBC WITH DIFFE RENTI AL/PL ATELE T RDW 13.2 % 11.5-1 4.5 Not Available [facility] Department [address] [place], [address], 05/19/2024 22:07:22 05/19/20 24 05/19/2024 CBC WITH DIFFE RENTI AL/PL ATELE T platelets 376 x10e3 /uL 150-45 0 Not Available [facility] Department [address] [place], [address], 05/19/2024 22:07:22 05/19/20 24 05/19/2024 CBC WITH DIFFE RENTI AL/PL ATELE T neutrophils 67 % notest b. Not Available [facility] Department [address] [place], [address], 05/19/2024 22:07:22 05/19/20 24 05/19/2024 CBC WITH DIFFE RENTI AL/PL ATELE T lymphs 22 % notest b. Not Available [facility] Department [address] [place], [address], 05/19/2024 22:07:22 05/19/20 24 05/19/2024 CBC WITH DIFFE RENTI AL/PL ATELE T monocytes 8 % notest b. Not Available [facility] Department [address] [place], [address], 05/19/2024 22:07:22 05/19/20 24 05/19/2024 CBC WITH DIFFE RENTI AL/PL ATELE T eos 2 % notest b. Not Available [facility] Department [address] [place], [address], 05/19/2024 22:07:22 05/19/20 24 05/19/2024 CBC WITH DIFFE RENTI AL/PL ATELE T basos 1 % notest b. Not Available [facility] Department [address] [place], [address], 05/19/2024 22:07:22 05/19/20 24 05/19/2024 CBC WITH DIFFE RENTI AL/PL ATELE T neutrophils (absolute) 7.8 x10e3 /uL 1.4-7. 0 above high normal Not Available [facility] Department [address] [place], [address], 05/19/2024 22:07:22 05/19/20 24 05/19/2024 CBC WITH DIFFE RENTI AL/PL ATELE T lymphs (absolute) 2.5 x10e3 /uL 0.7-3. 1 Not Available [facility] Department [address] [place], [address], 05/19/2024 22:07:22 05/19/20 24 05/19/2024 CBC WITH DIFFE RENTI AL/PL ATELE T monocytes(ab solute) 1.0 x10e3 /uL 0.1-0. 9 above high normal Not Available [facility] Department [address] [place], [address], 05/19/2024 22:07:22 05/19/20 24 05/19/2024 CBC WITH DIFFE RENTI AL/PL ATELE T eos (absolute) 0.2 x10e3 /uL 0.0-0. 4 Not Available [facility] Department [address] [place], [address], 05/19/2024 22:07:22 05/19/20 24 05/19/2024 CBC WITH DIFFE RENTI AL/PL ATELE T baso (absolute) 0.2 x10e3 /uL 0.0-0. 2 Not Available [facility] Department [address] [place], [address], 05/19/2024 22:07:22 05/19/20 24 05/19/2024 CBC WITH DIFFE RENTI AL/PL ATELE T immature granulocytes 0.5 % notest b. Not Available [facility] Department [address] [place], [address], 05/19/2024 22:07:22 05/19/20 24 05/19/2024 CBC WITH DIFFE RENTI AL/PL ATELE T immature grans (abs) 0.1 x10e3 /uL 0.0-0. 1 Not Available [facility] Department [address] [place], [address], 05/19/2024 22:07:22 05/19/20 24 05/19/2024 CBC WITH DIFFE RENTI AL/PL ATELE T NRBC 0 % 0-0 Not Available [facility] Department [address] [place], [address], 05/19/2024 22:07:22 05/19/20 24 05/20/2024 TSH+F REE T4 TSH 1.880 uIU/m L 0.450- 4.500 Not Available [facility] ([facility]) [address] [place], [address], 05/20/2024 14:17:29 05/19/20 24 05/20/2024 TSH+F REE T4 T4,free(dire ct) 1.29 NG/dL 0.82-1 .77 Not Available [facility] ([facility]) [address] [place], [address], 05/20/2024 14:17:29 05/19/20 24 05/20/2024 VITAM IN B12 AND FOLAT E vitamin B12 1079 pg/mL 232-12 45 Not Available [facility] ([facility]) [address] [place], [address], 05/20/2024 14:17:30 05/19/20 24 05/20/2024 VITAM IN B12 AND FOLAT E folate (folic acid), serum 8.9 NG/mL >3.0 A serum folat e bridget ntrat ion of less than 3.1 ng/mL is consi dered to repre sent clini dalia defic iency . Not Available [facility] ([facility]) [address] [facility], [place], [address], 05/20/2024 14:17:30 05/19/20 24 05/20/2024 HEMOG LOBIN A1C hemoglobin A1C 5.7 % 4.8-5. 6 above high normal Predi abete s: 5.7 - 6.4 Diabe jen: >6.4 Glyce carissa contr ol for adult s with diabe jen: <7.0 Not Available [facility] ([facility]) [address] [facility], [place], [address], 05/20/2024 14:17:30 05/19/20 24 05/20/2024 VITAM IN [...] Shanna boston [place]: The [facility]io n[facility] [employer] . 2. Mendy gupta MF, Cnadida ey [place], Karina off-F errar i SLAUGHTER, et al. Evalu ation , treat ment, and preve ntion of vitam in D defic iency : an Endoc rine Socie ty clini dalia pract ice guide line. EM. 2010; 96() :1911 -30. Not Available [facility] ([facility]) [address], [place], [address], 05/20/2024 14:17:31 09/08/20 24 09/10/2024 URINE CULTU RE, ROUTI NE urine culture, routine FINAL REPORT Not Available [facility] ([facility]) [address] [facility], [place], [address], 09/10/2024 03:36:58 09/08/20 24 09/10/2024 URINE CULTU RE, ROUTI NE result 1 COMMEN T Mixed uroge nital rose 10,00 0-25, 000 colon y formi ng units per mL Not Available [facility] ([facility]) [address] [facility], [place], [address], 09/10/2024 03:36:58 09/08/20 24 09/08/2024 urina lysis , dipst ick Leukocytes Negati ve Not Available In-Office Order Internal Use Only DO Not Attach Compendium DO Not Attach Compendium, Do Not Delete/merge, [id number] 09/08/2024 10:40:45 09/08/20 24 09/08/2024 urina lysis , dipst ick Nitrite negati ve Not Available In-Office Order Internal Use Only DO Not Attach Compendium DO Not Attach Compendium, Do Not Delete/merge, [id number] 09/08/2024 10:40:45 09/08/20 24 09/08/2024 urina lysis , dipst ick Urobilinogen .2 Not Available In-Of fice Order Internal Use Only DO Not Attach Compendium DO Not Attach Compendium, Do Not Delete/merge, [id number] 09/08/2024 10:40:45 09/08/20 24 09/08/2024 urina lysis , dipst ick Protein Negati ve Not Available In-Office Order Internal Use Only DO Not Attach Compendium DO Not Attach Compendium, Do Not Delete/merge, [id number] 09/08/2024 10:40:45 09/08/20 24 09/08/2024 urina lysis [...] 09/08/2024 urina lysis , dipst ick Specific Sumner 1.020 Not Available In-Off ice Order Internal [...] DO Not Attach Compendium, Do Not Delete/merge, [id number] 09/08/2024 10:40:45 12/14/1912/14/2024 LIPID PANEL cholesterol, total 161 mg/dL 100-19 9 Not Available [facility] Department [address] [place] [address], [address], 12/14/2024 22:06:47 12/14/19 25 12/14/2024 LIPID PANEL triglyceride s 341 mg/dL 0-149 above high normal Not Available [facility] Department [address] [place], [address], 12/14/2024 22:06:47 12/14/19 25 12/14/2024 LIPID PANEL HDL cholesterol 32 mg/dL 40-999 below low normal Not Available [facility] Department [address] [place], [address], 12/14/2024 22:06:47 12/14/19 25 12/14/2024 LIPID PANEL VLDL cholesterol dalia 68 mg/dL 5-40 above high normal Not Available [facility] Department [address] [place], [address], 12/14/2024 22:06:47 12/14/19 25 12/14/2024 LIPID PANEL LDL chol calc (nih) 115 mg/dL 0-99 above high normal Not Available [facility] Department [address] [place], [address], 12/14/2024 22:06:47 12/14/19 25 12/14/2024 COMP. METAB OLIC PANEL (14) glucose 114 mg/dL 70-99 above high normal Not Available [facility] Department [address] [place], [address], 12/14/2024 22:06:48 12/14/19 25 12/14/2024 COMP. METAB OLIC PANEL (14) BUN 7 mg/dL 6-24 Not Available [facility] Department [address] [place], [address], 12/14/2024 22:06:48 12/14/19 25 12/14/2024 COMP. METAB OLIC PANEL (14) creatinine 0.64 mg/dL 0.76-1 .27 below low normal Not Available [facility] Department [address] [place] [address], [address], 12/14/2024 22:06:48 12/14/19 25 12/14/2024 COMP. METAB OLIC PANEL (14) eGFR 114 >=60 Units for eGFR value s are mL/mi n/1.7 3 The eGFR Calcu latio n has not been valid ated for patie nts under the age of 18. If test resul ts are displ ayed for a patie nt under the age of 18, disre elizabeth that value . Not Available [facility] Department [address] [place] [address], [address], 12/14/2024 22:06:48 12/14/19 25 12/14/2024 COMP. METAB OLIC PANEL (14) BUN/creatini ne ratio 11 9-23 Not Available [facility] Department [address] [place] [address], [address], 12/14/2024 22:06:48 12/14/19 25 12/14/2024 COMP. METAB OLIC PANEL (14) sodium 142 mmol/ L 134-14 4 Not Available [facility] Department [address] [place], [address], 12/14/2024 22:06:48 12/14/19 25 12/14/2024 COMP. METAB OLIC PANEL (14) potassium 3.9 mmol/ L 3.5-5. 2 Not Available [facility] Department [address] [place] [address], [address], 12/14/2024 22:06:48 12/14/19 25 12/14/2024 COMP. METAB OLIC PANEL (14) chloride 106 mmol/ L 96-106 Not Available [facility] Department [address] [place], [address], 12/14/2024 22:06:48 12/14/19 25 12/14/2024 COMP. METAB OLIC PANEL (14) carbon dioxide, total 26 mmol/ L Not Available [facility] Department [address] [place], [address], 12/14/2024 22:06:48 12/14/19 25 12/14/2024 COMP. METAB OLIC PANEL (14) calcium 9.1 mg/dL 8.7-10 .2 Not Available [facility] Department [address] [place], [address], 12/14/2024 22:06:48 12/14/19 25 12/14/2024 COMP. METAB OLIC PANEL (14) protein, total 6.7 g/dL 6.0-8. 5 Not Available [facility] Department [address] [place], [address], 12/14/2024 22:06:48 12/14/19 25 12/14/2024 COMP. METAB OLIC PANEL (14) albumin 4.3 g/dL 3.9-4. 9 Not Available [facility] Department [address] [place], [address], 12/14/2024 22:06:48 12/14/19 25 12/14/2024 COMP. METAB OLIC PANEL (14) globulin, total 2.4 g/dL 1.5-4. 5 Not Available [facility] Department [address] [place], [address], 12/14/2024 22:06:48 12/14/19 25 12/14/2024 COMP. METAB OLIC PANEL (14) A/G ratio 2.0 1.2-2. 2 Not Available [facility] Department [address] [place], [address], 12/14/2024 22:06:48 12/14/19 25 12/14/2024 COMP. METAB OLIC PANEL (14) bilirubin, total 0.7 mg/dL 0.0-1. 2 Not Available [facility] Department [address] [place], [address], 12/14/2024 22:06:48 12/14/19 25 12/14/2024 COMP. METAB OLIC PANEL (14) alkaline phosphatase 75 IU/L 44-121 Not Available [facility] Department [address] [place], [address], 12/14/2024 22:06:48 12/14/19 25 12/14/2024 COMP. METAB OLIC PANEL (14) AST (SGOT) 16 IU/L 0-40 Not Available [facility] Department [address] [place], [address], 12/14/2024 22:06:48 12/14/19 25 12/14/2024 COMP. METAB OLIC PANEL (14) ALT (SGPT) 21 IU/L 0-32 Not Available [facility] Department [address] [place] [address], [address], 12/14/2024 22:06:48 12/14/19 25 12/14/2024 CBC WITH DIFFE RENTI AL/PL ATELE T WBC 9.1 x10e3 /uL 3.4-10 .8 Not Available [facility] Department [address] [place], [address], 12/14/2024 22:06:49 12/14/19 25 12/14/2024 CBC WITH DIFFE RENTI AL/PL ATELE T RBC 4.67 x10e6 /uL 3.77-5 .28 Not Available [facility] Department [address] [place], [address], 12/14/2024 22:06:49 12/14/19 25 12/14/2024 CBC WITH DIFFE RENTI AL/PL ATELE T hemoglobin 13.6 g/dL 11.1-1 5.9 Not Available [facility] Department [address] [place], [address], 12/14/2024 22:06:49 12/14/1912/14/2024 CBC WITH DIFFE RENTI AL/PL ATELE T hematocrit 41.6 % 34.0-4 6.6 Not Available [facility] [address] [place], [address], 12/14/2024 22:06:49 12/14/19 25 12/14/2024 CBC WITH DIFFE RENTI AL/PL ATELE T MCV 89 fL 79-97 Not Available [facility] Department [address] [place], [address], 12/14/2024 22:06:49 12/14/19 25 12/14/2024 CBC WITH DIFFE RENTI AL/PL ATELE T MCH 29.1 pg 26.6-3 3.0 Not Available [facility] [address] [place], [address], 12/14/2024 22:06:49 12/14/19 25 12/14/2024 CBC WITH DIFFE RENTI AL/PL ATELE T MCHC 32.7 g/dL 31.5-3 5.7 Not Available [facility] Department [address] [place], [address], 12/14/2024 22:06:49 12/14/19 25 12/14/2024 CBC WITH DIFFE RENTI AL/PL ATELE T RDW 12.9 % 11.5-1 4.5 Not Available [facility] Department [address] [place], [address], 12/14/2024 22:06:49 12/14/19 25 12/14/2024 CBC WITH DIFFE RENTI AL/PL ATELE T platelets 422 x10e3 /uL 150-45 0 Not Available [facility] Department [address] [place], [address], 12/14/2024 22:06:49 12/14/19 25 12/14/2024 CBC WITH DIFFE RENTI AL/PL ATELE T neutrophils 58 % notest b. Not Available [facility] Department [address] [place], [address], 12/14/2024 22:06:49 12/14/19 25 12/14/2024 CBC WITH DIFFE RENTI AL/PL ATELE T lymphs 31 % notest b. Not Available [facility] Department [address] [place], [address], 12/14/2024 22:06:49 12/14/19 25 12/14/2024 CBC WITH DIFFE RENTI AL/PL ATELE T monocytes 8 % notest b. Not Available [facility] Department [address] [place], [address], 12/14/2024 22:06:49 12/14/19 25 12/14/2024 CBC WITH DIFFE RENTI AL/PL ATELE T eos 3 % notest b. Not Available [facility] Department [address] [place], [address], 12/14/2024 22:06:49 12/14/19 25 12/14/2024 CBC WITH DIFFE RENTI AL/PL ATELE T basos 1 % notest b. Not Available [facility] Department [address] [place], [address], 12/14/2024 22:06:49 12/14/19 25 12/14/2024 CBC WITH DIFFE RENTI AL/PL ATELE T neutrophils (absolute) 5.3 x10e3 /uL 1.4-7. 0 Not Available [facility] Department [address] [place], [address], 12/14/2024 22:06:49 12/14/19 25 12/14/2024 CBC WITH DIFFE RENTI AL/PL ATELE T lymphs (absolute) 2.8 x10e3 /uL 0.7-3. 1 Not Available [facility] Department [address] [place], [address], 12/14/2024 22:06:49 12/14/19 25 12/14/2024 CBC WITH DIFFE RENTI AL/PL ATELE T monocytes(ab solute) 0.7 x10e3 /uL 0.1-0. 9 Not Available [facility] Department [address] [place], [address], 12/14/2024 22:06:49 12/14/19 25 12/14/2024 CBC WITH DIFFE RENTI AL/PL ATELE T eos (absolute) 0.3 x10e3 /uL 0.0-0. 4 Not Available [facility] Department [address] [place], [address], 12/14/2024 22:06:49 12/14/19 25 12/14/2024 CBC WITH DIFFE RENTI AL/PL ATELE T baso (absolute) 0.1 x10e3 /uL 0.0-0. 2 Not Available [facility] Department [address] [place], [address], 12/14/2024 22:06:49 12/14/19 25 12/14/2024 CBC WITH DIFFE RENTI AL/PL ATELE T immature granulocytes 0.3 % notest b. Not Available [facility] Department [address] [place], [address], 12/14/2024 22:06:49 12/14/19 25 12/14/2024 CBC WITH DIFFE RENTI AL/PL ATELE T immature grans (abs) 0.0 x10e3 /uL 0.0-0. 1 Not Available [facility] Department [address] [place], [address], 12/14/2024 22:06:49 12/14/19 25 12/14/2024 CBC WITH DIFFE RENTI AL/PL ATELE T NRBC 0 % 0-0 Not Available [facility] Department [address], [place], [address], 12/14/2024 22:06:49 12/14/19 25 12/15/2024 ALBUM IN/CR EATIN INE RATIO ,URIN E creatinine, urine 38.3 mg/dL notest ab. Not Available [facility] ([facility]) [address] [place], [address], 12/15/2024 14:13:27 12/14/19 25 12/15/2024 ALBUM IN/CR EATIN INE RATIO ,URIN E albumin, urine <3.0 ug/mL notest ab. Not Available [facility] ([facility]) [address] [facility], [place], [address], 12/15/2024 14:13:27 12/14/19 25 12/15/2024 ALBUM IN/CR EATIN INE RATIO ,URIN E alb/creat ratio <8 Sushma l: 0 - 29 Moder ately incre ased: 30 - 300 Sever radha incre ased: >300 Not Available [facility] ([facility]) [address] [facility], [place], [address], 12/15/2024 14:13:27 12/14/19 25 12/15/2024 TSH RFX ON ABNOR MAL TO FREE T4 TSH 2.760 uIU/m L 0.450- 4.500 Not Available [facility] ([facility]) [address] [place], [address], 12/15/2024 14:13:28 12/14/19 25 12/15/2024 HEMOG LOBIN A1C hemoglobin A1C 5.6 % 4.8-5. 6 Predi abete s: 5.7 - 6.4 Diabe jen: >6.4 Glyce carissa contr ol for adult s with diabe jen: <7.0 Not Available [facility] ([facility]) [address] [place], [address], 12/15/2024 14:13:29 01/29/20 22 01/28/2022 XR, chest No observ ation record ed. [address] [facility], [place], [address], 01/29/2022 08:44:35 05/27/20 24 05/26/2024 XR, thora cic spine , 2 view No observ ation record ed. [address] [facility], [place], [address], 05/28/2024 14:57:29 12/14/19 25 12/14/2024 XR, knee, 3 view No observ ation record ed. [address] [address], [place], [address], 12/25/2024 15:15:04 12/14/19 25 12/14/2024 XR, lumbo sacra l spine , 2 or 3 view No observ ation record ed. [address] [address], [place], [address], 12/25/2024 15:15:04 12/25/19 25 12/24/2024 XR, chest , 2 view No observ ation record ed. [address] [facility], [place], [address], 12/25/2024 11:41:46 Result Notes None recorded. Problems Name Problem SNOMED Code Status Onset Date Resolution Date Notes Provider Name and Address Organization Details Recorded Time History of palpitatio ns 705919436 Active 2018 Not Available [facility] 3 19:21:21 Influenza vaccinatio n declined 453924528 Active 2018 Not Available [facility] 3 19:21:21 Candidiasi s of vagina 15677085 Active 2019 Not Available [facility] 3 19:21:21 Left side sciatica 1742601791181 04 Active 2019 Not Available [facility] 3 19:21:21 Chronic back pain 742852466 Active 2019 Not Available [facility] 3 19:21:21 Smoker 62081474 Active 2022 Not Available [facility] 3 19:21:21 Sciatica 49764715 Active 2022 Not Available [facility] 3 19:21:21 Degenerati on of thoracic interverte bral disc 02139085 Active 2024 QUINTEN DURANT PA-C Attn: Accounting ,[address] [place], [address] , [facility] 5 10:58:53 Hyperlipid emia 76827003 Active 2024 DORCAS BEST Attn: Accounting ,[address] [place], [address] , [facility] 5 08:31:10 Genital herpes simplex 10850827 Active Not Available [facility] 3 19:21:21 Dysmenorrh ea 202016058 Active Not Available [facility] 3 19:21:21 Irregular periods 75421374 Active Not Available [facility] 3 19:21:21 Sciatica 34852981 Active 2016 Not Available [facility] 3 19:21:21 Problem Notes None recorded. Procedures Surgical History Date Name Laterality Status Provider Name and Address Organization Details Recorded Time 05/31/20 21 Date of Last Pap Smear completed Piper Parkinson MA [facility] 05/31/2021 10:55:19 12/04/19 20 HYSTEROSCOPY, WITH ENDOMETRIAL ABLATION (SURG) completed Johnathan Garibay PA - [facility] 12/17/2019 12:59:22 08/08/20 13 Tubal Ligation completed Venice Tracey MA PA - [facility] 04/10/2016 15:46:56 LEEP completed Venice Tracey MA PA - [facility] 04/10/2016 15:47:32 Imaging Results Imaging Date Name Status LastModified by Organiz ation Details LastModified Time 01/28/2022 XR, chest completed [address] [facility] [address], [place], [address], 01/29/2022 08:44:35 05/26/2024 XR, thoracic spine, 2 view completed [address] [facility], [place], [address], 05/28/2024 14:57:29 12/14/2024 XR, knee, 3 view active [address] [place] [address], [address], 12/25/2024 15:15:04 12/14/2024 XR, lumbosacral spine, 2 or 3 view active [address], [address], 12/25/2024 15:15:04 12/24/2024 XR, chest, 2 view completed [address], [address], 12/25/2024 11:41:46 Procedure Notes None recorded. Medical Equipment None Reported. Allergies Allergen ID Allergen Name Allergen Category Reaction Reaction Severity Criticality Documentation Date Start Date Code Code System Note Provider Name and Address Organization Details Recorded Time 997339 Product containin g penicilli n (product) medicatio n other moderate Not available 10/20/2019 24567 8001 SNOMED yeast infec tion and spott ing Not Available Not Available Not Available 706778 lisinopri l medicatio n dyspnea severe high 12/25/20242024 32001 RxNorm Not Available Not Available Not Available Medications [...] Updated DateTime 05/31/2021 167.64 cm 32.9 kg/m2 58736.84 g 118 mm[Hg] 72 mm[Hg] Piper Parkinson MA [place] - [facility] 1 11:04:27 Date Recorded Body height Body mass index (BMI) Body weight Respiratory rate Body temperature Oxygen saturation Oxygen saturation in Arterial blood by Pulse oximetry Heart rate Systolic blood pressure Diastolic blood pressure Provider Name and Address Organization Details Last Updated DateTime 3 167.64 cm 31 kg/m2 33757.1 4 g 16 /min 97.6 [degF] 98 % 98 % 81 /min 104 mm[Hg] 78 mm[Hg] Ita Pina CMA [facility] 3 11:10:04 Date Recorded Body height Body mass index (BMI) Body weight Oxygen saturation Oxygen saturation in Arterial blood by Pulse oximetry Heart rate Respiratory rate Systolic blood pressure Diastolic blood pressure Provider Name and Address Organization Details Last Updated DateTime 4 167.64 cm 33.6 kg/m2 44591.3 1 g 99 % 99 % 88 /min 17 /min 138 mm[Hg] 82 mm[Hg] Audrey Yi MA [facility] 4 13:59:19 Date Recorded Body height Body mass index (BMI) Body weight Oxygen saturation Oxygen saturation in Arterial blood by Pulse oximetry Heart rate Respiratory rate Systolic blood pressure Diastolic blood pressure Provider Name and Address Organization Details Last Updated DateTime 5 167.64 cm 34.4 kg/m2 87379.1 7 g 97 % 97 % 86 /min 17 /min 154 mm[Hg] 79 mm[Hg] Audrey Yi MA [facility] 5 10:43:16 Social History Question Answer Notes LastModified by ShowKitat ion Details LastModified Time Tobacco Smoking Status Current Every Day Smoker Venice Tracey MA [facility], [facility] 04/10/2016 15:52:19 Do You Have An Advance Directive? No [email or web address] Information not available 04/10/2016 What Is Your Level Of Alcohol Consumption? None [email or web address] Information not available 04/10/2016 Is Blood Transfusion Acceptable In An Emergency? Yes [email or web address] Information not available 04/10/2016 What Is Your Level Of Caffeine Consumption? Moderate Soda And Energy Drinks' Information not available 10/20/2019 How Much Tobacco Do You Chew? None Information not available 04/10/2016 Are You Currently Employed? Yes [email or web address] Information not available 04/10/2016 What Type Of Diet Are You Following? REGULAR [email or web address] Information not available 04/10/2016 Which Illicit Or Recreational Drugs Have You Used? Marijuana Information not available 05/31/2021 Do You Or Have You Ever Used E-cigarettes Or Vape? Never Used Electronic Cigarettes Information not available 10/20/2019 Education 9 [email or web address] Information no t available 04/10/2016 What Is Your Occupation? [employer] Information not available 10/20/2019 Live Alone Or With Others? With Others Information not available 04/10/2016 What Was The Date Of Your Most Recent Tobacco Screening? 12/14/2024 Information not available 12/14/2024 How Many Children Do You Have? 5 [email or web address] Information not available 04/10/2016 What Is Your Current Pack Years? [email or web address] Information not available 05/31/2021 Performs Monthly Self-breast Exam? No [email or web address] Information not available 04/10/2016 Do You Use Protection During Sex? No [email or web address] Information not available 04/10/2016 What Is Your Relationship Status? Single [email or web address] Information not available 04/10/2016 Do You Use Your Seat Belt Or Car Seat Routinely? Yes Information not available 05/31/2021 Seat Belts Used Routinely Yes [email or web address] Information not available 04/10/2016 Are You Sexually Active? Yes [email or web address] Information not available 04/10/2016 Do You Have Smoke And Carbon Monoxide Detectors In Your Home? Yes 05/31/21 Smoke Detectors Information not available 05/31/2021 At What Age Did You Start Smoking Tobacco? 12 [email or web address] Information not available 04/10/2016 Are You Passively Exposed To Smoke? Yes Information not available 05/31/2021 Do You Or Have You Ever Used Smokeless Tobacco? Never Used Smokeless Tobacco Information not available 10/20/2019 How Much Tobacco Do You Smoke? 1 PPD Information not available 04/10/2016 General Stress Level High [email or web address] Information not available 04/10/2016 Do You Use Any Illicit Or Recreational Drugs? Yes Edibles Information not available 05/31/2021 Do You Use Sunscreen Routinely? No [email or web address] Information not available 04/10/2016 Has Tobacco Cessation [...] Time What is your exercise level? Occasional [email or web address] Information not available 04/10/2016 Mental Status None [...] Disorder N Colon Polyps N Heart Attack (OR) N Diabetes N Cardiomyopathy N Blood Transfusions [...] Available [facility] 11/21/2019 02:44:46 HPV9 11/25/2019 completed Piper Parkinson MA [place], [place] - [facility] 12/01/2019 11:43:36 HPV9 06/02/2021 completed Piper Parkinson MA [place]le, [place] - [facility] 06/02/2021 16:47:57 Past Encounters Encounter ID Performer Location Encounter Start Date Encounter Closed Date Diagnosis/Indication Diagnosis SNOMED-CT Code Diagnosis ICD10 Code Diagnosis Note [id number] Johnathan Teague (HOSPITAL RECRUITER) [address] [place] [address] 0 04/10/2016 15:09:44 04/11/2016 09:22:11 Dysmenorrhea 984638319 N94.6 Irregular periods 217936 07 N92.6 [id number] JAYCE Calle (HOSPITAL RECRUITER) [address] [place] [address]252[address]688 0 03/26/2017 15:27:40 03/26/2017 17:45:26 Irregular periods 52240490 N92.6 Dysmenorrhea 044143699 N 94.6 Genital he rpes simplex 72456346 A60.9 Recurrent urinary tract infection 603146958 N39.0 Family grover nning surveillance 220906377 Z30.09 Generalize d anxiety disorder 45339176 F41.1 stress 2/2 job and children (5 girls in the home) [id number] MD Zahida Goyal (Adult Med) [address] [place] [address] 56161[address]289 0 10/20/2019 13:16:20 10/20/2019 14:46:41 General examination of patient 953655621 Z00.01 Nicotine dependence 5629 4008 F17.200 Cessation was discussed History of palpitations 617355363 Z86.79 Serous otitis media 8032 7007 H65.91 Follow up with ENT Influenza vaccination declined 380527149 Z28.21 Administra tion of diphtheria, pertussis, and tetanus vaccine 838402427 Z23 [id number] Johnathan Teague (HOSPITAL RECRUITER) [address] [place] [address] 25145-833 0 11/25/2019 11:25:25 11/26/2019 11:05:02 Gynecologic examination 71431929 Z01.419 Active or passive immunization 878608946 Z23 Menorrhagia 007224030 N9 2.0 Dysmenorrhea 091201920 N 94.6 Exposure t o sexually transmissible disorder 423284929 Z20.2 [id number] MD Zahida Goyal (Adult Med) [address] [place] [address] 17901[address]238 0 12/01/2019 11:31:07 12/02/2019 09:23:08 Hyperlipidemia 89358102 E78.5 Discussed Aspartate aminotransferase serum level above reference range 244986175 R74.0 Recheck Anxiety 47805124 F41.9 Detailed discussion Start Buspirone, side effects were discussedI do not prescribe Alprazolam History of palpitations 122169878 Z86.79 This was possibly related to energy drink which she has discontinu ed, her anxiety may be playing a role Nicotine dependence 5629 4008 F17.200 Cessation was discussed Insomnia 053366360 G47.0 0 Benadryl or Vistaril PRN [id number] Johnathan Garibay Zahida (HOSPITAL RECRUITER) [address] [place] [address] 86372-307 0 12/17/2019 12:20:07 12/21/2019 10:06:51 Postoperative visit 470495093 Z09 hysterosco py 12/03/2019 , Continue slynd Constipation 80417244 K5 9.00 Genital he rpes simplex 39910865 A60.9 Dysmenorrhea 689472748 N 94.6 [id number] MD Zahida Goyal (Adult Med) [address] [place] [address] 37367-996 0 01/12/2020 12:04:06 01/12/2020 12:48:10 Chronic back pain 906252796 G89.29 She has a history of chronic back pain with LLE radiculopa thy and an abnormal clinical exam with LLE weakness. An MRI is needed to further evaluate the degree of nerve impingemen t. Cyclobenza nighat/Ibup rofen/Phys ical Therapy Left side sciatica 64474 59826 55755 M54.32 Leukocytosis 730212110 D 72.829 Amenorrhea 29010190 N91. 2 This may be due to her OCP, however she needs a test before her MRI Neuropathy 569987782 G62 .9 [id number] MD Zahida Goyal (Adult Med) [address] [place] [address] 64127-620 0 02/23/2020 10:16:42 02/25/2020 10:57:12 Follow-up visit 271224037 Z09 [id number] MD Zahida Goyal (Adult Med) [address] [place] [address] 14278-136 0 06/29/2020 12:05:39 06/30/2020 09:38:33 Varicose veins of lower extremity 60075235 I83.892 Lumbar radiculopathy 128 265933 M54.16 [id number] MD Zahida Goyal (Adult Med) [address] [place] [address] [id number] 0 09/28/2020 08:34:19 09/30/2020 10:19:52 Anxiety 23873507 F41.9 Detailed discussion Start Hydroxyzin e PRN, side effects were discussedC ounseling Influenza vaccination declined 743082572 Z28.21 [id number] Johnathan Garibay Zahida (HOSPITAL RECRUITER) [address] [place] [address] 73284-253 0 05/31/2021 10:33:14 06/01/2021 08:30:01 Gynecologic examination 90735161 Z01.419 Z11.51 Genital he rpes simplex 60980263 A60.9 Exposure t o sexually transmissible disorder 230027755 Z20.2 Cramping pain 749857137 R52 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 [id number] DORCAS BEST [facility] [address] [place] [address] 03/12/2023 11:02:52 03/12/2023 11:56:44 Dysuria 82705262 R30.0 urinary frequency, urgency, retention, dysuria x1 wkPEx- nlurine dip showed trace leuks and moderate bloodstart macrobid, sent UA and cultureh/o UTIs every couple of months, future referral to urology Depression screening 171 082921 Z13.31 PHQ 0 Smoker 64511267 F17.200 1 ppdnot amendable to NRT at this time Screening for malignant neoplasm of cervix 237382505 Z12.4 refer to OB/GYNh/o LEEP and HPV Obesity 286937967 E66.9 discussed increasing exercise and healthier food options, high protein, low fat dietroutin e labs Vitamin D deficiency 347 30216 E55.9 re-check Sciatica 94407033 M54.30 flares, bilateralh as not had imagingcon trolled at this time [id number] DORCAS BEST [facility] [address] [place] [address] 05/19/2024 13:33:45 05/19/2024 14:51:03 Smoker 14625063 F17.200 05/19/24: start patches, smoking 1.5 ppd 03/2023:1 ppdnot amendable to NRT at this time Difficulty sleeping 3013 76593 Z72.820 usually takes CBD with successanx iety has prevented her from sleepingtr ial hydroxyzin e PRN, advised pt of ADRf/u in 1 mo Obesity 366429524 E66.8 discussed increasing exercise and healthier food options, high protein, low fat dietroutin e labs Gastroesop hageal reflux disease without esophagitis 852440398 K21.9 no relief with TUMStrial pantoprazo le Fatigue 82321521 R53.83 check vitamins Chronic ne ck pain for greater than 3 months 0080038400 46939 M54.2 no injury or traumatold that she had cervical DDD in EDwill refer to PT Paresthesia of hand 3090 23742 R20.2 x4 moworse at nightwill discuss at f/u visit Costal chondritis 235175 04 M94.0 x10 dayswent to ED, told that my heart is fine c/o pain with taking deep breathspt smokes 1.5 ppdno relief with muscle relaxer or ibuprofend iscussed management and treatment of costal chondritis Generalize d anxiety disorder 38095265 F41.1 TOM 13start hydroxyzin e, advised pt of ADR, f/u in 1 mo Depression screening 171 103805 Z13.31 PHQ 2 [id number] Audrey Yi MA [facility] [address] [place] [address] 09/08/2024 10:31:11 09/08/2024 11:09:28 Dysuria 89928583 R30.0 urinary frequency, urgency, retention, dysuria x1 wkPEx- nlurine dip showed trace leuks and moderate bloodstart macrobid, sent UA and cultureh/o UTIs every couple of months, future referral to urology [id number] QUINTEN DURANT PA-C [facility] [address] [place] [address] 12/14/2024 10:34:24 12/15/2024 15:48:45 Depression screening 183965838 Z13.31 PHQ9- {{Negative * Positive Mild Mode rate Sever e}} (2 out of 27) Obesity 460183995 E66.9 BMI 34.4 Pain of bi lateral knee joints 6820619902 96130 M25.561 M25.562 Know that arthritis will cause [...] much acetaminop hen (Tylenol) can be harmful.Ma bhupinder people take the supplement s glucosamin e and chondroiti n for osteoarthr itis. While medical research has not shown a significan t positive effect on arthritis, many people do find that pain lessens while taking these supplement s. XR ordered Low back pain 712137302 M54.50 XR ordered Degenerati on of thoracic intervertebral disc 30741805 M51.34 Start meloxicam 15mg daily with food. No other NSAIDs while on this medication Essential hypertension 88564939 I10 BP today: 154/79BP Goal: {{Less than [...] today Varicose v eins of lower extremity 68026556 I83.93 Referral to vascular surgeonU/S ordered Impaired g lucose tolerance 6696869 R73.03 Discussed with patient taking blood sugars [...] [employer]man Member ID Guarantor Name 05/31/2021 1 [facility] ON OR AFTER 05/04/21 (MEDICAID REPLACEMENT - HMO) Yudi Moira [id number] Yudi Moira 03/12/2023 1 [facility] ON OR AFTER 05/04/21 (MEDICAID REPLACEMENT - HMO) Yudi Moira [id number] Yudi Moira 05/19/2024 1 [facility] ON OR AFTER 05/04/21 (MEDICAID REPLACEMENT - HMO) Yudi Pizarro [id number] Yudi Moira 09/08/2024 1 [facility] ON OR AFTER 05/04/21 (MEDICAID REPLACEMENT - HMO) Yudi Moira [id number] Yudi Moira 12/14/2024 1 [facility] ON OR AFTER 05/04/21 (MEDICAID REPLACEMENT - HMO) Yudi Moira [id number] Yudisara Pizarro Notes Date Note Type Note Provider [...] with xavi presents for WWE. Johnathan Garibay [facility], [facility] 05/31/2021 17:49:42 03/12/2023 text/html Pt presents to establish care as a new patient. Previously seen at [facility]. C/o dysuria, urinary frequency, and urgency for the past week. No hematuria, vaginal discharge, odor or abd pain. Denies fever, chills, chest pain, SOB, n/v/d, dizziness, weakness, or headaches. DORCAS BEST Attn: Accounting[address] [facility], [place], [address], [facility] 03/12/2023 21:36:59 05/19/2024 text/html Patient presents today [...] at night. DORCAS BEST Attn: Accounting[address] [facility], [place], [address], [facility] 05/21/2024 08:45:02 12/14/2024 text/html 39 y/o F [...] today. QUINTEN DURANT PA-C Attn: Accounting[address] [facility] [place], [address], [facility] 12/14/2024 11:13:41 OBGyn Episode Ob Episode Information Episode Created Date Number of Fetuses Patient Bloodtype Patient rh Status Prepregnancy Weight lbs Domestic Partner Domestic Partner Phone Father Name Steam Distribution Supervisor Status 04/10/20 16 1 CLOSED Fetus Data First Name Last Name Admitted to NICU Weight (g) Sex Living Outcome Pediatric Complications Fetus ID Race Codes Race Delivery Type F Full Term 99807 Vaginal Nitin Calculation Initial Nitin Date Initial [...] Complications Tubal Sterilization Discharge Date Comments 1 [facility] idural 40 Discharge Information Feeding Method Contraceptive Method Maternal HG B and HCT Levels Ob Episode Information Episode Created Date Number of Fetuses Patient Bloodtype Patient rh Status Prepregnancy Weight lbs Domestic Partner Domestic Partner Phone Father Name Steam Distribution Supervisor Status 04/10/20 16 1 CLOSED Fetus Data First Name Last Name Admitted to NICU Weight (g) Sex Living Outcome Pediatric Complications Fetus ID Race Codes Race Delivery Type 3685.43 5 F Full Term 22132 Vaginal Nitin Calculation Initial Nitin Date Initial [...] Domestic Partner Domestic Partner Phone Father Name [employer] Supervisor Status 04/10/20 16 1 CLOSED Fetus Data First Name Last Name Admitted to NICU Weight (g) Sex Living Outcome Pediatric Complications Fetus ID Race Codes Race Delivery Type M Demise 33354 Nitin Calculation Initial Nitin Date Initial Exam [...] Domestic Partner Domestic Partner Phone Father Name [employer] Supervisor Status 04/10/20 16 1 CLOSED Fetus Data First Name Last Name Admitted to NICU Weight (g) Sex Living Outcome Pediatric Complications Fetus ID Race Codes Race Delivery Type 3345.24 1 F Full Term 69081 Vaginal Nitin Calculation Initial Nitin Date Initial [...] Domestic Partner Domestic Partner Phone Father Name [employer] Supervisor Status 04/10/20 16 1 CLOSED Fetus Data First Name Last Name Admitted to NICU Weight (g) Sex Living Outcome Pediatric Complications Fetus ID Race Codes Race Delivery Type F Full Term 88602 Vaginal Nitin Calculation Initial Nitin Date Initial [...] Domestic Partner Domestic Partner Phone Father Name [employer] Supervisor Status 04/10/20 16 1 CLOSED Fetus Data First Name Last Name Admitted to NICU Weight (g) Sex Living Outcome Pediatric Complications Fetus ID Race Codes Race Delivery Type 3345.24 1 F Full Term [id number] Vaginal Nitin Calculation Initial Nitin Date Initial [...]
--- OUTSIDE RECORDS SUMMARY | 2024-12-29 14:11 | XMS_ITS | CONTINUITY OF CARE DOCUMENT ---
Author Name chris perez Address Unknown Organization [facility] Address [address] [place] [address] [address] [place] [address] Phone [phone] Care Team Providers Care Food Service Supervisor Name Role Phone Monty López MD Unavailable HORTENSIA GARCIA MD Unavailable HORTENSIA GARCIA MD [...] In-person encounter Office Visit Monty López MD [facility] Palpitations AND PRESYNOPE and dizzyIRON DEFICIENCYVitamin D deficiency 1 - 1 In-person encounter Office Visit Monty López MD [facility] ObesityFAMILY HISTORY OF HEART DISEASETobacco abuseScreeningPalpitations AND PRESYNOPE and dizzyHypertriglyceridemiaElevated LFT's VITAL SIGNS Date Observation Value Provider Body Mass Index (Ratio) 32.12 kg/m2 Danya López MD respiratory rate E&M 16 /min [facility] blood pressure, diastolic 65 mm[Hg] To [facility] blood pressure, systolic 119 mm[Hg] Ton [facility] blood pressure, resting No Tons [facility] oxygen saturation, oximetry 98 % [facility] pulse rate 90 /min [facility] weight E&M 199 [lb_av] [facility] height E&M 66 [in_i] [facility] Body Mass Index (Ratio) 31.79 kg/m2 [...] iron binding capacity, unsaturated 334 ug/dL [employer] [id number]/01/ 01 iron binding capacity, total 389 ug/dL [employer] [phone]/01/ 01 free thyroxine index 1.8 [employer] 1.2-4.9 [...] Not Estab. platelet count 382 X10E3/UL [employer] [phone]/01/ 01 red blood cell distribution width 13.9 [...] [employer] 3.5-5.2 sodium, serum 140 mmol/L [employer] [phone]/01/ 01 urea nitrogen/creatinine ratio, serum 12 [employer] [...] smoking history, tot al pack/day 2 [facility] yes Prachi Alvarez smoking status [...] 2 PPD Lety Remi cigarette use yes Leyt Knox smoking status Current every day smoker C buck Khalil FAMILY HISTORY Family Member Condition Full Brother Family History of Hy pertension: Full Brother Family History of Di abetes: Mother Family History of Hy pertension: Mother Family History of CV A or Stroke: INSURANCE PROVIDERS Payer name Policy type / Coverage type [place] [employer] [place] [employer] MEDICAID (2) Medicaid [id number] ADVANCE DIRECTIVES Name Date DISCUSSED - NO [...]
== END 2024-12-29 12:31 | disposition home or self-care (01) ==
LOC: ANHIMG 12:33
PROVIDERS: PCP Physician Assistant
DX: I83.93 Asymptomatic varicose veins of bilateral lower extremities (principal)
CPT/HCPCS: 93970

== ENCOUNTER 2025-01-12 14:20 | Emergency (ER) | payer OTHER, SELFPAY ==
--- NOTE | ~2025-01-12 | US_ITS ---
EXAMINATION: US venous doppler [facility] DATE: 01/12/2025 15:18 INDICATION: Lower limb edema. TECHNIQUE: Grayscale ultrasound images without and with compression and Doppler ultrasound images of the bilateral lower extremity veins were obtained. COMPARISON: Ultrasound 12/29/2024 FINDINGS: The visualized portions of right common femoral vein, profunda (deep) femoral vein, femoral vein, pop liteal vein, peroneal veins, posterior tibial veins, and greater saphenous vein outflow are patent. The visualized portions of left common femoral vein, profunda femoral vein, femoral vein, popliteal v ein, peroneal veins, posterior tibial veins, and greater saphenous vein outflow are patent. IMPRESSION: 1. No deep venous thrombosis. Reviewed, dictated and finalized at location B.
--- NOTE | ~2025-01-12 | XR_ITS ---
EXAMINATION: XR chest 2V DATE: 01/12/2025 15:44 INDICATION: Lower extremity edema. TECHNIQUE: Frontal and lateral views of the chest were obtained. COMPARISON: Chest 2 views 12/24/2024 FINDINGS: There is no pneumonia, pleural effusion, or pneumothorax. The heart size is normal. IMPRESSION: 1. No acute cardiopulmonary disease. Reviewed, dictated and finalized at location B.
[2025-01-12 14:35] VITALS: BP 142/74; PULSE 99; RESP 18; TEMP 36.9; O2SAT 98
--- NOTE | 2025-01-12 15:23 | ED_ITS ---
HPI - Extremity Injury (Lower) General Chief Complaint: Extremity Injury, Lower <Pattie Capone PA-C - Last Filed: 01/15/25 12:22> Stated Complaint: swelling to BLE <Pattie Capone PA-C - Last Filed: 01/15/25 12:22> Time Seen by Provider: 01/12/25 15:23 <Pattie Capone PA-C - Last Filed: 01/15/25 12:22> Focused HPI: This is a 39 year old female that presents to the ER for bilateral lower extremity edema. Ongoing over the last couple of days. Reports mild associated pain. Denies, fever, redness. GENERAL: Well-appearing, well-nourished, and in no acute distress. HEAD: Normocephalic, atraumatic. CHEST: Clear to auscultation. ?No respiratory distress. HEART: Regular rate and rhythm.? NEURO: ?Alert and oriented x3. Patient screened in triage and initial orders placed.? ?Additional care and disposition to be based upon?diagnostic testing and treatment. <Pattie Capone PA-C - Last Filed: 01/15/25 12:22> History of Present Illness HPI Narrative: Agree with the HPI above. Patient has had previous dependent edema that has responded well to elevation and compression socks in the past and this feels similar. Patient denies any trauma or injury. No recent illnesses. No antihypertensive medications. No calcium channel blockers. No history of thyroid problems. <Germán Machuca MD - Last Filed: 01/12/25 19:37> Related Data Allergies/Adverse Reactions: Allergies Allergy/AdvReac Type Severity Reaction Status Date / Time lisinopril Allergy Intermediate Dyspnea / Verified 01/12/25 14:40 SOB Penicillins Allergy Unknown Unknown Verified 01/12/25 14:40 <Pattie Capone PA-C - Last Filed: 01/15/25 12:22> Review of Systems 2 Review of Systems: As reviewed above in HPI <Germán Machuca MD - Last Filed: 01/12/25 19:37> PMFSH Past Medical History Medical History: Medical History (Updated 01/13/25 @ 00:00 by Background Dajuan) Otitis media <Pattie Capone PA-C - Last Filed: 01/15/25 12:22> Surgical History Surgical History: Surgical History H/O tubal ligation H/O LEEP <Pattie Capone PA-C - Last Filed: 01/15/25 12:22> Social History Social History: Social History Smoking packs per day: 1 Smoking cigarettes per day: 20.0 Smoking status: Current every day smoker Alcohol intake: never Substance use: never Lack of Transportation: No Lack of Food: Never True Current Housing: I Have Housing Concerned About Future Housing: No Difficulty Paying Gas/Electric Bills: No Difficulty Paying for Meds: No Currently Unemployed: No Education: Decline to Answer Difficulty w/ Childcare or Family Care: No Gender identity (if verbalized by the patient): Female <Pattie Capone PA-C - Last Filed: 01/15/25 12:22> Exam 2 Narrative: GENERAL: [Well-appearing, well-nourished, and in no acute distress.] HEAD: [Normocephalic, atraumatic.] EYES: [PERRLA and EOMI.] ENT: Nares clear, no rhinorrhea or epistaxis. Mucous membranes moist. NECK: Supple. CHEST: [Clear to auscultation. No respiratory distress.] HEART: [Regular rate and rhythm]. No murmur heard. [Normal peripheral pulses.] ABDOMEN: [Soft, nondistended], [nontender], [No rigidity or guarding] EXTREMITIES: Normal range of motion. Nonpitting edema to the legs/ankles, no tenderness with palpation, no overlying skin changes of venous insufficiency SKIN: Warm, dry, no rash. NEURO: [No focal deficits]. Alert and oriented [x3.] PSYCH: [Normal mood and affect.] <Germán Machuca MD - Last Filed: 01/12/25 19:37> Course Vital Signs Vital signs: Vital Signs Temperature 98.4 F 01/12/25 14:35 Pulse Rate 99 01/12/25 14:35 Respiratory Rate 18 01/12/25 14:35 Blood Pressure 142/74 H 01/12/25 14:35 Pulse Oximetry 98 01/12/25 14:35 Oxygen Delivery Room Air 01/12/25 14:35 Temperature 98.4 F 01/12/25 14:35 Pulse Rate 73 01/12/25 19:50 Respiratory Rate 16 01/12/25 19:50 Blood Pressure 123/74 01/12/25 19:50 Pulse Oximetry 99 01/12/25 19:50 Oxygen Delivery Room Air 01/12/25 14:35 <Pattie Capone PA-C - Last Filed: 01/15/25 12:22> Vital Signs Temperature 98.4 F 01/12/25 14:35 Pulse Rate 99 01/12/25 14:35 Respiratory Rate 18 01/12/25 14:35 Blood Pressure 142/74 H 01/12/25 14:35 Pulse Oximetry 98 01/12/25 14:35 Oxygen Delivery Room Air 01/12/25 14:35 Temperature 98.4 F 01/12/25 14:35 Pulse Rate 73 01/12/25 19:50 Respiratory Rate 16 01/12/25 19:50 Blood Pressure 123/74 01/12/25 19:50 Pulse Oximetry 99 01/12/25 19:50 Oxygen Delivery Room Air 01/12/25 14:35 <Germán Machuca MD - Last Filed: 01/12/25 19:37> MDM - Extremity Injury (Lower) MDM Narrative Medical decision making narrative: 39-year-old otherwise healthy female presenting for evaluation of bilateral lower ext welling. She has had a history of dependent edema in the past that responded to elevation and compressive dressings. Denies any history of heart failure, no known organ dysfunction such as kidney or liver disease. Denies any trauma or injury. She has an unremarkable physical examination with some nonpitting edema to the ankles. 2+ dorsalis pedis pulses, warm extremities, no overlying skin changes. A broad workup was ordered including CBC, CMP, BNP, chest x-ray and duplex ultrasonography bilaterally. She remains hemodynamically stable here in the emergency department. Suspicion presently is for dependent edema, less likely CHF, hypoalbuminemia, liver or kidney disease. Patient was provided Tylenol. Workup reveals slight leukocytosis without any infection symptoms. Normal hemoglobin, normal platelets. Electrolytes within normal limits, normal renal function panel, normal hepatic function panel. Normal glucose. Normal BNP. Chest x-ray without any acute cardiopulmonary findings. Bilateral venous Doppler shows no DVT. Patient was re-evaluated and without complaint. Had normal workup here and safe for discharge home with regular PCP follow-up. Patient was given instructions on compression, elevation and compression socks. She can take Tylenol and ibuprofen for pain and swelling. <Germán Machuca MD - Last Filed: 01/12/25 19:37> Medical Records Attestation: I reviewed the patient's medical records. <Germán Machuca MD - Last Filed: 01/12/25 19:37> Lab Data Attestation: I reviewed the patient's lab results. <Germán Machuca MD - Last Filed: 01/12/25 19:37> Result diagrams: 01/12/25 16:27 01/12/25 16:27 <Pattie Capone PA-C - Last Filed: 01/15/25 12:22> Labs: Lab Results 01/12/25 Range/Units 16:27 WBC 11.0 H (4.5-10.0) K/mm3 RBC 4.40 (4.2-5.4) M/mm3 Hgb 13.1 (12.0-15.0) g/dL Hct 39.0 (37.0-47.0) % MCV 88.6 (80-100) fl MCH 29.8 (26-34) pg MCHC 33.6 (32-36) g/dl RDW 12.9 (11.5-14.5) % Plt Count 354 (150-375) k/mm3 MPV 9.8 (7.4-10.4) fl Immature Gran % (Auto) 0.3 (0-0.5) % Neut % (Auto) 73.4 H (45.5-73.1) % Lymph % (Auto) 19.0 (18.3-44.2) % [place] % (Auto) 5.3 (2.6-8.5) % Eos % (Auto) 1.0 (0-4.4) % Baso % (Auto) 1.0 (0.2-1.2) % Lymph # (Auto) 2.10 (0.9-3.2) K/mm3 [place] # (Auto) 0.6 (0.1-0.6) K/mm3 Eos # (Auto) 0.1 (0-0.3) K/mm3 Baso # (Auto) 0.1 (0.0-0.1) K/mm3 Abs Immat Gran (auto) 0.03 (0.00-0.031) K/mm3 Absolute Neuts (auto) 8.1 H (1.3-6.7) K/mm3 Absolute Nucleated RBC 0.000 (0.0-0.012) K/mm3 Nucleated RBC % 0.0 (0.0-0.2) % Sodium 140 (137-145) mmol/L Potassium 3.8 (3.4-5.0) mmol/L Chloride 107 (98-107) mmol/L Carbon Dioxide 22 (22-30) mmol/L Anion Gap 11 (4-12) mmol/L BUN 7 D (7-17) mg/dL Creatinine 0.63 L (0.7-1.0) mg/dL Estim Creat Clear Calc 119 ml/min Estimated GFR > 60 (59 - ) Glucose 103 (65-110) mg/dL Calcium 9.1 (8.4-10.2) mg/dL Total Bilirubin 0.7 (0.2-1.3) mg/dL AST 21 (14-36) U/L ALT 26 (6-35) U/L Alkaline Phosphatase 66 (38-126) U/L NT-Pro-B Natriuret Pep 44 (19.9-100) pg/mL Total Protein 7.0 (6.3-8.2) g/dL Albumin 4.5 (3.5-5.1) g/dL <Pattie Capone PA-C - Last Filed: 01/15/25 12:22> Lab Results 01/12/25 Range/Units 16:27 WBC 11.0 H (4.5-10.0) K/mm3 RBC 4.40 (4.2-5.4) M/mm3 Hgb 13.1 (12.0-15.0) g/dL Hct 39.0 (37.0-47.0) % MCV 88.6 (80-100) fl MCH 29.8 (26-34) pg MCHC 33.6 (32-36) g/dl RDW 12.9 (11.5-14.5) % Plt Count 354 (150-375) k/mm3 MPV 9.8 (7.4-10.4) fl Immature Gran % (Auto) 0.3 (0-0.5) % Neut % (Auto) 73.4 H (45.5-73.1) % Lymph % (Auto) 19.0 (18.3-44.2) % [place] % (Auto) 5.3 (2.6-8.5) % Eos % (Auto) 1.0 (0-4.4) % Baso % (Auto) 1.0 (0.2-1.2) % Lymph # (Auto) 2.10 (0.9-3.2) K/mm3 [place] # (Auto) 0.6 (0.1-0.6) K/mm3 Eos # (Auto) 0.1 (0-0.3) K/mm3 Baso # (Auto) 0.1 (0.0-0.1) K/mm3 Abs Immat Gran (auto) 0.03 (0.00-0.031) K/mm3 Absolute Neuts (auto) 8.1 H (1.3-6.7) K/mm3 Absolute Nucleated RBC 0.000 (0.0-0.012) K/mm3 Nucleated RBC % 0.0 (0.0-0.2) % Sodium 140 (137-145) mmol/L Potassium 3.8 (3.4-5.0) mmol/L Chloride 107 (98-107) mmol/L Carbon Dioxide 22 (22-30) mmol/L Anion Gap 11 (4-12) mmol/L BUN 7 D (7-17) mg/dL Creatinine 0.63 L (0.7-1.0) mg/dL Estim Creat Clear Calc 119 ml/min Estimated GFR > 60 (59 - ) Glucose 103 (65-110) mg/dL Calcium 9.1 (8.4-10.2) mg/dL Total Bilirubin 0.7 (0.2-1.3) mg/dL AST 21 (14-36) U/L ALT 26 (6-35) U/L Alkaline Phosphatase 66 (38-126) U/L NT-Pro-B Natriuret Pep 44 (19.9-100) pg/mL Total Protein 7.0 (6.3-8.2) g/dL Albumin 4.5 (3.5-5.1) g/dL <Germán Machuca MD - Last Filed: 01/12/25 19:37> Imaging Data Attestation: I personally reviewed and interpreted this imaging study as follows: < Germán Machuca MD - Last Filed: 01/12/25 19:37> My impression: Impressions Venous Doppler Study 01/12/25 15:21 IMPRESSION: 1. No deep venous thrombosis. Chest X-Ray 01/12/25 15:46 IMPRESSION: 1. No acute cardiopulmonary disease. <Germán Machuca MD - Last Filed: 01/12/25 19:37> Critical Care Time Critical Care Time Critical Care Time: No <Pattie Capone PA-C - Last Filed: 01/15/25 12:22> Discharge Plan Discharge Clinical Impression: Dependent edema <Pattie Capone PA-C - Last Filed: 01/15/25 12:22> Patient Disposition: Home, Self-Care <Pattie Capone PA-C - Last Filed: 01/15/25 12:22> Condition: Stable <Pattie Capone PA-C - Last Filed: 01/15/25 12:22> Instructions: Antibiotic Form, Edema (ED) <Pattie Capone PA-C - Last Filed: 01/15/25 12:22> Additional Instructions: Your leg swelling is likely dependent edema or gravity dependent fluid collections, no signs of heart failure, normal signs are liver or kidney disease. No blood clots. Recommendations are to wear compression socks for comfort and swelling as well as elevation of the legs when resting and at night. Tylenol and ibuprofen for pain. Return with any new or worsening concerns otherwise follow-up with regular doctor. <Pattie Capone PA-C - Last Filed: 01/15/25 12:22> Patient Language: Kyrgyz <Pattie Capone PA-C - Last Filed: 01/15/25 12:22> Prescriptions: No Action cyclobenzaprine 10 mg tablet 10 mg PO TID PRN (Reason: muscle spasm) Qty: 14 0RF fluticasone propionate [Flonase Allergy Relief] 50 mcg/actuation spray,suspension 1 - 2 spray intranasal BID Qty: 16 3RF Rx Instructions: administer into each nostril <Pattie Capone PA-C - Last Filed: 01/15/25 12:22> Follow-up/Referrals: Kimo,DORCAS Lopez [Primary Care Provider] - <Pattie Capone PA-C - Last Filed: 01/15/25 12:22> Time of Disposition: 19:37 <Pattie Capone PA-C - Last Filed: 01/15/25 12:22> 19:37 <Germán Machuca MD - Last Filed: 01/12/25 19:37>
--- OUTSIDE RECORDS SUMMARY | 2025-01-12 16:11 | XMS_ITS | Data Portability ---
Author Organization [facility] Jose Collier Address [address] [place] [place] [address] Care Team Providers Care Risk Control Consultant Name Role Phone URSULA BENSON Opthalmic Tech [phone] Assessment Encounter Date Assessment Date Assessment LastModified by Organization Details LastModified Time 05/31/2021 05/31/2021 Destiney sanabria Not available 05/30/2021 20:43:51 05/19/2024 05/19/2024 Sections of the HPI, exam and assessment completed by DORCAS Diaz student and have been reviewed by me. I agree with the exam findings, assessment and plan except where specifically documented or amended. -Jessica Malin, [facility], PARachel kam Not available 05/20/2024 17:52:36 Plan of Treatment Reminders Order Date Submit Date Provider Last Modified By Organization Details Last Modified Time Details Appointments ANY 15 2024 10:15A M DORCAS BEST Not available Not available Not available Lab HbA1c (hemoglo bin A1c), blood 2024 025 [facility], [address], [place], [address], 12/15/2024 14:13:29 TSH, ultra-se nsitive, serum 2024 025 MAR[facility], [address], [place], [address], 12/15/2024 14:13:28 CMP, serum or plasma 2024 025 MARGE [facility], [address], [place], [address], 12/14/2024 22:06:48 CBC w/ auto diff 2024 025 [facility], [address], [place], [address], 12/14/2024 22:06:49 albumin/ creatini ne, mass ratio, urine 2024 025 [facility], [address], [place], [address], 12/15/2024 14:13:27 lipid panel, serum 2024 025 [facility], [address], [place], [address], 12/14/2024 22:06:47 urinalys is, dipstick 2023 024 [email or web address] In-Office Order, Internal Use Only DO Not Attach Compendium DO Not Attach Compendium, Do Not Delete/merge, [id number] 09/08/2024 11:29:24 culture, urine 2023 024 [facility], [address], [place], [address], 09/10/2024 03:36:58 vitamin D, 25-hydro xy, total, serum 2023 024 [facility], [address], [place], [address], 05/20/2024 14:17:31 vitamin B12 + folate, serum or blood 2023 024 [facility], [address], [place], [address], 05/20/2024 14:17:30 CMP, serum or plasma 2023 024 MARGEMARLEEN Cagle, [address], [place], [address], 05/19/2024 22:07:21 lipid panel, serum 2023 024 MARGE Agee, [address], [place], [address], 05/19/2024 22:07:21 CBC w/ auto diff 2023 024 MARGEMARLEEN Agee, [address], [place], [address], 05/19/2024 22:07:22 TSH + free T4, serum 2023 024 MARGE Cagle, [address], [place], [address], 05/20/2024 14:17:29 HbA1c (hemoglo bin A1c), blood 2023 024 MARGE Cagle, [address], [place], [address], 05/20/2024 14:17:30 CMP, serum or plasma 2022 023 MARGE Agee, [address], [place], [address], 03/14/2023 08:27:03 lipid panel, serum 2022 023 MARGE Agee, [address], [place], [address], 03/14/2023 08:27:02 CBC w/ auto diff 2022 023 MARGEMARLEEN Agee, [address], [place], [address], 03/14/2023 08:27:03 TSH + free T4, serum 2022 023 [facility], [address], [place], [address], 03/13/2023 08:29:04 HbA1c (hemoglo bin A1c), blood 2022 023 [place] [facility], [address], [place], [address], 03/13/2023 08:29:04 urinalys is, dipstick 2022 023 [email or web address] In-Office Order, Internal Use Only DO Not Attach Compendium DO Not Attach Compendium, Do Not Delete/merge, [id number] 03/12/2023 11:56:58 urinalys is complete , reflex culture 2022 023 [facility], [address], [place], [address], 03/14/2023 06:18:16 vitamin D, 25-hydro xy, total, serum 2022 023 [facility] [facility], [address], [place], [address], 03/13/2023 08:29:05 pap, IG + HPV, cervical - please use Z11.51 in addition to code above for HPV testing. 2020 021 [facility], [address], [place], [address], 06/02/2021 14:11:22 urinalys is, dipstick 2020 021 elly In-Office Order, Internal Use Only DO Not Attach Compendium DO Not Attach Compendium, Do Not Delete/merge, [id number] 05/31/2021 13:38:26 bacteria l vaginosi s panel, vaginal 2020 021 [facility] (Centralized Electronic Ordering - All Locations), Patient Can Go To The Location Of Their Choice, [id number] 06/04/2021 20:07:46 culture, vaginal/ rectal, streptoc occus group B 2020 021 [place] [facility] (Centralized Electronic Ordering - All Locations), Patient Can Go To The Location Of Their Choice, [address] 06/04/2021 20:07:47 Referral vascular surgeon referral 2024 025 [place] [address] Pascual Hubbard MD, [address] [facility] , [place] [address], [place], [address], 01/12/2025 08:11:08 physical therapis t referral [address] (Outpatient Physical Therapy), [address], [place], [address], 06/10/2024 07:55:55 obstetri gala and gynecolo gist referral 2022 023 jeanie Oliver MD, [address], [place], [address], 06/10/2023 15:14:46 Procedures None recorded . Surgeries None recorded . Imaging XR, lumbosac ral spine, 2 or 3 view 2024 025 [facility] (Imaging), [address] [facility], [place], [address], 12/14/2024 16:10:58 US, doppler, venous [address] (Imaging), [address], [address], 12/29/2024 08:22:03 XR, knee, 3 view 2024 025 [facility] (Imaging), [address], [place], [address], 12/14/2024 14:59:28 Medication Orders meloxica m 15 mg tablet 2024 025 [facility], [address], [place], [id number], 12/14/2024 11:08:19 lisinopr il 10 mg tablet 2024 025 [facility] #46897, [address], [place], [id number], 12/23/2024 16:35:12 nicotine 21 mg/24 hr daily transder mal patch 2023 024 [facility] #20735, [address], [place], [id number], 05/19/2024 14:45:43 hydroxyz ine HCl 25 mg tablet 2023 024 [email or web address] [facility] #93753, [address], [place], [id number], 05/20/2024 10:16:24 pantopra zole 20 mg tablet,d elayed release 2023 024 [facility] #84833, [address], [place], [id number], 05/19/2024 14:44:01 nitrofur antoin monohydr ate/macr ocrystal s 100 mg capsule 2022 023 [facility] #04635, [address], [place], [place], [id number], 12/14/2024 10:47:18 ketorola c 10 mg tablet 2020 021 [email or web address] [facility] #61726, [address], [place], [place], [id number], 03/12/2023 11:07:39 multivit macias tablet 2020 021 [email or web address] [facility] #65718, [address], [place], [place], [id number], 03/12/2023 11:07:44 Calcium with Vitamin D 600 mg-10 mcg (400 unit) tablet 2020 021 [email or web address] [facility] #64171, [address], [place], [place], [id number], 03/12/2023 11:06:44 Patient TargetsNo targets recorded. Patient Instructions Encounter Date Encounter Id Patient Instructions Last Modified By Organization Details Last Modified Time 05/31/2021 [id number] genital herpes: care instructions [email or web address] Not available 05/31/2021 13:38:26 03/12/2023 [id number] A healthy lifestyle: care instructions [email or web address] Not available 03/12/2023 11:38:38 Quitting Tobacco: Care Instructions [email or web address] Not available 03/12/2023 11:29:38 05/19/2024 [id number] Quitting Tobacco: Care Instructions [email or web address] Not available 05/19/2024 14:33:05 A healthy lifestyle: care instructions [email or web address] Not available 05/19/2024 14:35:23 12/14/2024 [id number] prediabetes: care instructions Not available 12/14/2024 11:10:05 back care and preventing injuries: care instructions [email or web address] Not available 12/14/2024 11:08:05 varicose veins: care instructions [email or web address] Not available 12/14/2024 11:08:05 A healthy lifestyle: care instructions [email or web address] Not available 12/14/2024 11:08:05 learning about high blood pressure [email or web address] Not available 12/14/2024 11:08:05 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 for Referral 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 Referral for Screening for malignant neoplasm of cervix Referring Physician: Jessica Malin [facility], Encounter Date: 03/12/2023 Physical Therapist Referral for Chronic neck pain for greater than 3 months Referring Physician: Jessica Malin [facility], Encounter Date: 05/19/2024 Vascular Surgeon Referral fo r Varicose veins of lower extremity Referring Physician: Quinten Durant, [facility], Encounter Date: 12/14/2024 Results Created Date [...] 05/31/2021 urina lysis , dipst ick Specific [place] 1.025 Not Available In-Off ice Order Internal Use Only DO Not Attach Compendium DO Not Attach Compendium, Do Not Delete/merge, [id number] 05/31/2021 10:58:25 05/31/20 21 05/31/2021 urina lysis [...] OR HUSSAIN MADRID . Not Available [facility] ([facility]) [address], [place], [address], 06/02/2021 14:11:22 05/31/20 21 06/02/2021 IGP, APTIM A HPV specimen adequacy: Commen t Satis facto ry for evalu ation . No endoc ervic al compo nent is ident ified . Not Available [facility] ([facility]) [address], [place], [address], 06/02/2021 14:11:22 05/31/2006/02/2021 IGP, APTIM A HPV clinician provided ICD10: Kiley t Z01.4 19 Z11.5 1 Not Available [facility] ([facility]) [address], [place], [address], 06/02/2021 14:11:22 05/31/20 21 06/02/2021 IGP, APTIM A HPV performed by: Kiley reynoso, Cytot donna nash (ASCP ) Not Available [facility] ([facility]) [address] [place], [address], 06/02/2021 14:11:22 05/31/20 21 06/02/2021 IGP, APTIM A HPV . . Not Available [facility] ([facility]) [address] [place], [address], 06/02/2021 14:11:22 05/31/20 21 06/02/2021 IGP, APTIM [...] ts do occur . Not Available [facility] ([facility]) [address] [place], [address], 06/02/2021 14:11:22 05/31/20 21 06/02/2021 IGP, APTIM A HPV test methodology: Kiley nash This liqui d based ThinP rep(R ) pap test was scree gus with the use of an image guide d systhugh m. Not Available [facility] ([facility]) [address] [place], [address], 06/02/2021 14:11:22 05/31/2006/02/2021 IGP, APTIM A HPV HPV aptima Negati ve negati ve This nucle ic acid ampli ficat ion test detec ts fourt een high- risk HPV types (16,1 8,31, 33,35 ,39,4 5,51, 52,56 ,58,5 9,66, 68) witho coco stapleton ation . Not Available [facility] ([facility]) [address], [place], [address], 06/02/2021 14:11:22 05/31/20 21 06/02/2021 NUSWA B VG+, HSV trich vag by JOY Negati ve negati ve Not Available [facility] ([facility]) [address], [place], [address], 06/04/2021 20:07:46 05/31/20 21 06/02/2021 NUSWA B VG+, HSV chlamydia trachomatis, JOY Negati ve negati ve Not Available [facility] ([facility]) [address], [place], [address], 06/04/2021 20:07:46 05/31/20 21 06/02/2021 NUSWA B VG+, HSV neisseria gonorrhoeae, JOY Negati ve negati ve Not Available [facility] ([facility]) [address], [place], [address], 06/04/2021 20:07:46 05/31/20 21 06/03/2021 NUSWA B VG+, HSV atopobium vaginae Low - 0 score Not Available [facility] ([facility]) [address], [place], [address], 06/04/2021 20:07:46 05/31/20 21 06/03/2021 NUSWA B VG+, HSV bvab 2 Low - 0 score Not Available [facility] ([facility]) [address] [place], [address], 06/04/2021 20:07:46 05/31/20 21 06/03/2021 NUSWA B [...] Drug Admin istra tion. Not Available [facility] ([facility]) [address] [place], [address], 06/04/2021 20:07:46 05/31/20 21 06/03/2021 NUSWA B VG+, HSV hubert albicans, JOY Negati ve negati ve Not Available [facility] ([facility]) [address] [place], [address], 06/04/2021 20:07:46 05/31/20 21 06/03/2021 NUSWA B VG+, HSV hubert glabrata, JOY Negati ve negati ve Not Available [facility] ([facility]) [address] [place], [address], 06/04/2021 20:07:46 05/31/20 21 06/04/2021 NUSWA B VG+, HSV hsv 1 JOY Negati ve negati ve Not Available [facility] ([facility]) [address] [place], [address], 06/04/2021 20:07:46 05/31/20 21 06/04/2021 NUSWA B VG+, HSV hsv 2 JOY Negati ve negati ve Not Available [facility] ([facility]) [address] [place], [address], 06/04/2021 20:07:46 05/31/20 21 06/02/2021 STREP GP B JOY strep gp B JOY Negati ve negati ve [facility] Cont[facility] ol and [facility]ve n[facility] ([facility]) and Soraya can Congr ess of [...] n is noted . Not Available [facility] ([facility]) [address] [place], [address], 06/04/2021 20:07:47 03/12/20 23 03/13/2023 TSH+F REE T4 TSH 2.060 uIU/m L 0.450- 4.500 Not Available [facility] ([facility]) [address] [place], [address], 03/13/2023 08:29:04 03/12/20 23 03/13/2023 TSH+F REE T4 T4,free(dire ct) 1.32 NG/dL 0.82-1 .77 Not Available [facility] ([facility]) [address] [place], [address], 03/13/2023 08:29:04 03/12/20 23 03/13/2023 HEMOG LOBIN A1C hemoglobin A1C 5.3 % 4.8-5. 6 Predi abete s: 5.7 - 6.4 Diabe jen: >6.4 Glyce carissa contr ol for adult s with diabe jen: <7.0 Not Available [facility] ([facility]) [address], [place], [address], 03/13/2023 08:29:04 03/12/20 23 03/13/2023 VITAM IN [...] um and D. Shanna boston [place]: [facility] . 2. Mendy gupta MF, Candida ey [place], Karina off-F errar i SLAUGHTER, et al. Evalu ation , treat ment, and preve ntion of vitam in D defic iency : an Endoc rine Socie ty clini dalia pract ice guide line. JCEM. 2010; 96(7) :1911 -30. Not Available [facility] ([facility]) [address], [place], [address], 03/13/2023 08:29:05 03/12/20 23 03/14/2023 LIPID PANEL WITH LDL/H DL RATIO cholesterol, total 156 mg/dL 100-19 9 Not Available [facility] ([facility]) [address], [place], [address], 03/14/2023 08:27:02 03/12/20 23 03/14/2023 LIPID PANEL WITH LDL/H DL RATIO triglyceride s 118 mg/dL 0-149 Not Available [facility] ([facility]) [address] [place], [address], 03/14/2023 08:27:02 03/12/20 23 03/14/2023 LIPID PANEL WITH LDL/H DL RATIO HDL cholesterol 38 mg/dL >39 below low normal Not Available [facility] ([facility]) [address] [place], [address], 03/14/2023 08:27:02 03/12/20 23 03/14/2023 LIPID PANEL WITH LDL/H DL RATIO VLDL cholesterol dalia 21 mg/dL 5-40 Not Available [facility] ([facility]) [address] [place], [address], 03/14/2023 08:27:02 03/12/20 23 03/14/2023 LIPID PANEL WITH LDL/H DL RATIO LDL chol calc (nih) 97 mg/dL 0-99 Not Available [facility] ([facility]) [address] [place], [address], 03/14/2023 08:27:02 03/12/20 23 03/14/2023 LIPID PANEL WITH LDL/H DL RATIO LDL/HDL ratio 2.6 ratio 0.0-3. 2 LDL/H DL Ratio Men Women 1/2 Avg.R isk 1.0 1.5 Avg.R isk 3.6 3.2 2X Avg.R isk 6.2 5.0 3X Avg.R isk 8.0 6.1 Not Available [facility] ([facility]) [address] [place], [address], 03/14/2023 08:27:02 03/12/20 23 03/14/2023 COMP. METAB OLIC PANEL (14) glucose 106 mg/dL 70-99 above high normal Not Available [facility] ([facility]) [address] [place], [address], 03/14/2023 08:27:03 03/12/20 23 03/14/2023 COMP. METAB OLIC PANEL (14) BUN 10 mg/dL 6-20 Not Available [facility] ([facility]) [address] [place], [address], 03/14/2023 08:27:03 03/12/20 23 03/14/2023 COMP. METAB OLIC PANEL (14) creatinine 0.74 mg/dL 0.57-1 .00 Not Available [facility] ([facility]) [address] [place], [address], 03/14/2023 08:27:03 03/12/20 23 03/14/2023 COMP. METAB OLIC PANEL (14) eGFR 105 mL/mi n/1.7 3 >59 Not Available [facility] ([facility]) [address] [place], [address], 03/14/2023 08:27:03 03/12/20 23 03/14/2023 COMP. METAB OLIC PANEL (14) BUN/creatini ne ratio 14 9-23 Not Available [facility] ([facility]) [address] [facility] [place], [address], 03/14/2023 08:27:03 03/12/20 23 03/14/2023 COMP. METAB OLIC PANEL (14) sodium 141 mmol/ L 134-14 4 Not Available [facility] ([facility]) [address] [facility] [place], [address], 03/14/2023 08:27:03 03/12/20 23 03/14/2023 COMP. METAB OLIC PANEL (14) potassium 3.8 mmol/ L 3.5-5. 2 Not Available [facility] ([facility]) [address] [facility] [place], [address], 03/14/2023 08:27:03 03/12/20 23 03/14/2023 COMP. METAB OLIC PANEL (14) chloride 105 mmol/ L 96-106 Not Available [facility] ([facility]) [address] [facility] [place], [address], 03/14/2023 08:27:03 03/12/20 23 03/14/2023 COMP. METAB OLIC PANEL (14) carbon dioxide, total 22 mmol/ L 20-29 Not Available [facility] ([facility]) [address], [place], [address], 03/14/2023 08:27:03 03/12/20 23 03/14/2023 COMP. METAB OLIC PANEL (14) calcium 8.9 mg/dL 8.7-10 .2 Not Available [facility] ([facility]) [address] [facility] [address], [place], [address], 03/14/2023 08:27:03 03/12/20 23 03/14/2023 COMP. METAB OLIC PANEL (14) protein, total 7.1 g/dL 6.0-8. 5 Not Available [facility] ([facility]) [address] [facility] [address], [place], [address], 03/14/2023 08:27:03 03/12/20 23 03/14/2023 COMP. METAB OLIC PANEL (14) albumin 4.7 g/dL 3.8-4. 8 Not Available [facility] ([facility]) [address] [facility] [place], [address], 03/14/2023 08:27:03 03/12/20 23 03/14/2023 COMP. METAB OLIC PANEL (14) globulin, total 2.4 g/dL 1.5-4. 5 Not Available [facility] ([facility]) [address] [facility] [place], [address], 03/14/2023 08:27:03 03/12/20 23 03/14/2023 COMP. METAB OLIC PANEL (14) A/G ratio 2.0 1.2-2. 2 Not Available [facility] ([facility]) [address] [facility], [place], [address], 03/14/2023 08:27:03 03/12/20 23 03/14/2023 COMP. METAB OLIC PANEL (14) bilirubin, total 0.9 mg/dL 0.0-1. 2 Not Available [facility] ([facility]) [address] [place], [address], 03/14/2023 08:27:03 03/12/20 23 03/14/2023 COMP. METAB OLIC PANEL (14) alkaline phosphatase 67 IU/L 44-121 Not Available [facility] ([facility]) [address], [place], [address], 03/14/2023 08:27:03 03/12/20 23 03/14/2023 COMP. METAB OLIC PANEL (14) AST (SGOT) 18 IU/L 0-40 Not Available [facility] ([facility]) [address] [place], [address], 03/14/2023 08:27:03 03/12/20 23 03/14/2023 COMP. METAB OLIC PANEL (14) ALT (SGPT) 14 IU/L 0-32 Not Available [facility] ([facility]) [address] [place], [address], 03/14/2023 08:27:03 03/12/20 23 03/14/2023 CBC WITH DIFFE RENTI AL/PL ATELE T WBC 9.5 x10e3 /uL 3.4-10 .8 Not Available [facility] ([facility]) [address] [place], [address], 03/14/2023 08:27:03 03/12/20 23 03/14/2023 CBC WITH DIFFE RENTI AL/PL ATELE T RBC 4.93 x10e6 /uL 3.77-5 .28 Not Available [facility] ([facility]) [address] [place], [address], 03/14/2023 08:27:03 03/12/20 23 03/14/2023 CBC WITH DIFFE RENTI AL/PL ATELE T hemoglobin 14.6 g/dL 11.1-1 5.9 Not Available [facility] ([facility]) [address] [place], [address], 03/14/2023 08:27:03 03/12/20 23 03/14/2023 CBC WITH DIFFE RENTI AL/PL ATELE T hematocrit 43.4 % 34.0-4 6.6 Not Available [facility] ([facility]) [address] [facility] [facility] [address], [place], [address], 03/14/2023 08:27:03 03/12/20 23 03/14/2023 CBC WITH DIFFE RENTI AL/PL ATELE T MCV 88 fL 79-97 Not Available [facility] ([facility]) [address] [place], [address], 03/14/2023 08:27:03 03/12/20 23 03/14/2023 CBC WITH DIFFE RENTI AL/PL ATELE T MCH 29.6 pg 26.6-3 3.0 Not Available [facility] ([facility]) [address] [place], [address], 03/14/2023 08:27:03 03/12/20 23 03/14/2023 CBC WITH DIFFE RENTI AL/PL ATELE T MCHC 33.6 g/dL 31.5-3 5.7 Not Available [facility] ([facility]) [address] [place], [address], 03/14/2023 08:27:03 03/12/20 23 03/14/2023 CBC WITH DIFFE RENTI AL/PL ATELE T RDW 12.5 % 11.7-1 5.4 Not Available [facility] ([facility]) [address] [facility] [facility], [place], [address], 03/14/2023 08:27:03 03/12/20 23 03/14/2023 CBC WITH DIFFE RENTI AL/PL ATELE T platelets 396 x10e3 /uL 150-45 0 Not Available [facility] ([facility]) [address] [facility] [facility], [place], [address], 03/14/2023 08:27:03 03/12/20 23 03/14/2023 CBC WITH DIFFE RENTI AL/PL ATELE T neutrophils 58 % notest ab. Not Available [facility] ([facility]) [address] [facility] [facility], [place], [address], 03/14/2023 08:27:03 03/12/20 23 03/14/2023 CBC WITH DIFFE RENTI AL/PL ATELE T lymphs 29 % notest ab. Not Available [facility] ([facility]) [address] [facility] [facility], [place], [address], 03/14/2023 08:27:03 03/12/20 23 03/14/2023 CBC WITH DIFFE RENTI AL/PL ATELE T monocytes 9 % notest ab. Not Available [facility] ([facility]) [address] [facility] [facility], [place], [address], 03/14/2023 08:27:03 03/12/20 23 03/14/2023 CBC WITH DIFFE RENTI AL/PL ATELE T eos 2 % notest ab. Not Available [facility] ([facility]) [address] [place], [address], 03/14/2023 08:27:03 03/12/20 23 03/14/2023 CBC WITH DIFFE RENTI AL/PL ATELE T basos 1 % notest ab. Not Available [facility] ([facility]) [address] [facility] [facility], [place], [address], 03/14/2023 08:27:03 03/12/20 23 03/14/2023 CBC WITH DIFFE RENTI AL/PL ATELE T neutrophils (absolute) 5.5 x10e3 /uL 1.4-7. 0 Not Available [facility] ([facility]) [address] [facility] [facility], [place], [address], 03/14/2023 08:27:03 03/12/20 23 03/14/2023 CBC WITH DIFFE RENTI AL/PL ATELE T lymphs (absolute) 2.8 x10e3 /uL 0.7-3. 1 Not Available [facility] ([facility]) [address] [place], [address], 03/14/2023 08:27:03 03/12/20 23 03/14/2023 CBC WITH DIFFE RENTI AL/PL ATELE T monocytes(ab solute) 0.9 x10e3 /uL 0.1-0. 9 Not Available [facility] ([facility]) [address] [place], [address], 03/14/2023 08:27:03 03/12/20 23 03/14/2023 CBC WITH DIFFE RENTI AL/PL ATELE T eos (absolute) 0.2 x10e3 /uL 0.0-0. 4 Not Available [facility] ([facility]) [address] [facility], [place], [address], 03/14/2023 08:27:03 03/12/20 23 03/14/2023 CBC WITH DIFFE RENTI AL/PL ATELE T baso (absolute) 0.1 x10e3 /uL 0.0-0. 2 Not Available [facility] ([facility]) [address] [place], [address], 03/14/2023 08:27:03 03/12/20 23 03/14/2023 CBC WITH DIFFE RENTI AL/PL ATELE T immature granulocytes 1 % notest ab. Not Available [facility] ([facility]) [address] [facility], [place], [address], 03/14/2023 08:27:03 03/12/20 23 03/14/2023 CBC WITH DIFFE RENTI AL/PL ATELE T immature grans (abs) 0.1 x10e3 /uL 0.0-0. 1 Not Available [facility] ([facility]) [address] [facility], [place], [address], 03/14/2023 08:27:03 03/12/20 23 03/14/2023 URINE CULTU RE, ROUTI NE urine culture, routine Final report Not Available [facility] ([facility]) [address] [facility], [place], [address], 03/14/2023 06:18:17 03/12/20 23 03/14/2023 URINE CULTU RE, ROUTI NE result 1 Commen t Mixed uroge nital rose 25,00 0-50, 000 colon y formi ng units per mL Not Available [facility] ([facility]) [address] [facility], [place], [address], 03/14/2023 06:18:17 03/12/20 23 03/13/2023 UA/M W/RFL X CULTU RE, ROUTI NE specific gravity 1.018 1.005- 1.030 Not Available [facility] ([facility]) [address] [place], [address], 03/14/2023 06:18:15 03/12/20 23 03/13/2023 UA/M W/RFL X CULTU RE, ROUTI NE pH 6.0 5.0-7. 5 Not Available [facility] ([facility]) [address] [place], [address], 03/14/2023 06:18:15 03/12/20 23 03/13/2023 UA/M W/RFL X CULTU RE, ROUTI NE urine-color Yellow yellow Not Available [facility] ([facility]) [address] [place], [address], 03/14/2023 06:18:15 03/12/20 23 03/13/2023 UA/M W/RFL X CULTU RE, ROUTI NE appearance Clear clear Not Available [facility] ([facility]) [address] [place], [address], 03/14/2023 06:18:15 03/12/20 23 03/13/2023 UA/M W/RFL X CULTU RE, ROUTI NE WBC esterase 1+ negati ve abnormal Not Available [facility] ([facility]) [address] [place], [address], 03/14/2023 06:18:15 03/12/20 23 03/13/2023 UA/M W/RFL X CULTU RE, ROUTI NE protein Negati ve negati ve/tra ce Not Available [facility] ([facility]) [address] [place], [address], 03/14/2023 06:18:15 03/12/20 23 03/13/2023 UA/M W/RFL X CULTU RE, ROUTI NE glucose Negati ve negati ve Not Available [facility] ([facility]) [address] [place], [address], 03/14/2023 06:18:15 03/12/20 23 03/13/2023 UA/M W/RFL X CULTU RE, ROUTI NE ketones Negati ve negati ve Not Available [facility] ([facility]) [address] [place], [address], 03/14/2023 06:18:15 03/12/20 23 03/13/2023 UA/M W/RFL X CULTU RE, ROUTI NE occult blood Trace negati ve abnormal Not Available [facility] ([facility]) [address] [place], [address], 03/14/2023 06:18:15 03/12/20 23 03/13/2023 UA/M W/RFL X CULTU RE, ROUTI NE bilirubin Negati ve negati ve Not Available [facility] ([facility]) [address] [place], [address], 03/14/2023 06:18:15 03/12/20 23 03/13/2023 UA/M W/RFL X CULTU RE, ROUTI NE urobilinogen ,semi-qn 0.2 mg/dL 0.2-1. 0 Not Available [facility] ([facility]) [address] [place], [address], 03/14/2023 06:18:15 03/12/20 23 03/13/2023 UA/M W/RFL X CULTU RE, ROUTI NE nitrite, urine Negati ve negati ve Not Available [facility] ([facility]) [address] [place], [address], 03/14/2023 06:18:15 03/12/20 23 03/13/2023 UA/M W/RFL X CULTU RE, ROUTI NE microscopic examination See below: Micro scopi c was indic ated and was perfo rmed. Not Available [facility] ([facility]) [address] [place], [address], 03/14/2023 06:18:15 03/12/20 23 03/13/2023 UA/M W/RFL X CULTU RE, ROUTI NE urinalysis reflex Commen t This speci men has refle xed to a Urine Cultu re. Not Available [facility] ([facility]) [address] [place], [address], 03/14/2023 06:18:15 03/12/20 23 03/13/2023 MICRO SCOPI C EXAMI NATIO N WBC 11-30 /hpf 0-5 abnormal Not Available [facility] ([facility]) [address], [place], [address], 03/14/2023 06:18:15 03/12/2003/13/2023 MICRO SCOPI C EXAMI NATIO N RBC 11-30 /hpf 0-2 abnormal Not Available [facility] ([facility]) [address] [facility], [place], [address], 03/14/2023 06:18:15 03/12/20 23 03/13/2023 MICRO SCOPI C EXAMI NATIO N epithelial cells (non renal) 0-10 /hpf 0-10 Not Available [facility] ([facility]) [address] [facility], [place], [address], 03/14/2023 06:18:15 03/12/20 23 03/13/2023 MICRO SCOPI C EXAMI NATIO N casts None seen /lpf nonese en Not Available [facility] ([facility]) [address] [facility], [place], [address], 03/14/2023 06:18:15 03/12/2003/13/2023 MICRO SCOPI C EXAMI NATIO N bacteria None seen nonese en/few Not Available [facility] ([facility]) [address] [facility], [place], [address], 03/14/2023 06:18:15 03/12/20 23 03/12/2023 urina lysis , dipst ick Leukocytes Trace Not Available In-Offi ce Order Internal Use Only DO Not Attach Compendium DO Not Attach Compendium, Do Not Delete/merge, [id number] 03/12/2023 11:21:16 03/12/20 23 03/12/2023 urina lysis , dipst ick Nitrite negati ve Not Available In-Office Order Internal Use Only DO Not Attach Compendium DO Not Attach Compendium, Do Not Delete/merge, [id number] 03/12/2023 11:21:16 03/12/20 23 03/12/2023 urina lysis [...] 03/12/2023 urina lysis , dipst ick Specific [place] 1.025 Not Available In-Off ice Order Internal [...] DO Not Attach Compendium, Do Not Delete/merge, [id number] 03/12/2023 11:21:16 03/12/20 23 03/12/2023 urina lysis , dipst ick Appearance Slight ly Cloudy Not Available In-Office Order Internal Use Only DO Not Attach Compendium DO Not Attach Compendium, Do Not Delete/merge, [id number] 03/12/2023 11:21:16 03/12/20 23 03/12/2023 urina lysis , dipst ick Color Dark Yellow Not Available In-Office Order Internal Use Only DO Not Attach Compendium DO Not Attach Compendium, Do Not Delete/merge, [id number] 03/12/2023 11:21:16 05/19/20 24 05/19/2024 LIPID PANEL WITH LDL/H DL RATIO cholesterol, total 175 mg/dL 100-19 9 Not Available [facility] [address] [place], [address], 05/19/2024 22:07:21 05/19/20 24 05/19/2024 LIPID PANEL WITH LDL/H DL RATIO triglyceride s 308 mg/dL 0-149 above high normal Not Available [facility] [address] [place], [address], 05/19/2024 22:07:21 05/19/20 24 05/19/2024 LIPID PANEL WITH LDL/H DL RATIO HDL cholesterol 36 mg/dL 40-999 below low normal Not Available [facility] [address] [place], [address], 05/19/2024 22:07:21 05/19/20 24 05/19/2024 LIPID PANEL WITH LDL/H DL RATIO VLDL cholesterol dalia 62 mg/dL 5-40 above high normal Not Available [facility] [address] [place], [address], 05/19/2024 22:07:21 05/19/20 24 05/19/2024 LIPID PANEL WITH LDL/H DL RATIO LDL chol calc ([email or web address] 123 mg/dL 0-99 above high normal Not Available [facility] [address] [place], [address], 05/19/2024 22:07:21 05/19/20 24 05/19/2024 LIPID PANEL WITH LDL/H DL RATIO LDL/HDL ratio 3.4 0-3.2 above high normal Not Available [facility] [address] [place] [address], [address], 05/19/2024 22:07:21 05/19/20 24 05/19/2024 COMP. METAB OLIC PANEL (14) glucose 94 mg/dL 70-99 Not Available [facility] [address] [place] [address], [address], 05/19/2024 22:07:21 05/19/20 24 05/19/2024 COMP. METAB OLIC PANEL (14) BUN 13 mg/dL 6-24 Not Available [facility] [address] [place] [address], [address], 05/19/2024 22:07:21 05/19/20 24 05/19/2024 COMP. METAB OLIC PANEL (14) creatinine 0.70 mg/dL 0.76-1 .27 below low normal Not Available [facility] [address] [place] [address], [address], 05/19/2024 22:07:21 05/19/20 24 05/19/2024 COMP. METAB OLIC PANEL (14) eGFR 112 >=60 Units for eGFR value s are mL/mi n/1.7 3 The eGFR Calcu latio n has not been valid ated for patie nts under the age of 18. If test resul ts are displ ayed for a patie nt under the age of 18, disre elizabeth that value . Not Available [facility] [address] [place] [address], [address], 05/19/2024 22:07:21 05/19/20 24 05/19/2024 COMP. METAB OLIC PANEL (14) BUN/creatini ne ratio 18 9-23 Not Available [facility] [address] [place], [address], 05/19/2024 22:07:21 05/19/20 24 05/19/2024 COMP. METAB OLIC PANEL (14) sodium 139 mmol/ L 134-14 4 Not Available [facility] [address] [place], [address], 05/19/2024 22:07:21 05/19/20 24 05/19/2024 COMP. METAB OLIC PANEL (14) potassium 4.2 mmol/ L 3.5-5. 2 Not Available [facility] [address] [place] [address], [address], 05/19/2024 22:07:21 05/19/20 24 05/19/2024 COMP. METAB OLIC PANEL (14) chloride 104 mmol/ L 96-106 Not Available [facility] [address] [place] [address], [address], 05/19/2024 22:07:21 05/19/20 24 05/19/2024 COMP. METAB OLIC PANEL (14) carbon dioxide, total 20 mmol/ L 20-29 Not Available [facility] [address] [place], [address], 05/19/2024 22:07:21 05/19/20 24 05/19/2024 COMP. METAB OLIC PANEL (14) calcium 9.4 mg/dL 8.7-10 .2 Not Available [facility] [address] [place] [address], [address], 05/19/2024 22:07:21 05/19/20 24 05/19/2024 COMP. METAB OLIC PANEL (14) protein, total 7.0 g/dL 6.0-8. 5 Not Available [facility] [address] [place] [address], [address], 05/19/2024 22:07:21 05/19/20 24 05/19/2024 COMP. METAB OLIC PANEL (14) albumin 4.5 g/dL 3.9-4. 9 Not Available [facility] [address] [place], [address], 05/19/2024 22:07:21 05/19/20 24 05/19/2024 COMP. METAB OLIC PANEL (14) globulin, total 2.5 g/dL 1.5-4. 5 Not Available [facility] [address] [place], [address], 05/19/2024 22:07:21 05/19/20 24 05/19/2024 COMP. METAB OLIC PANEL (14) A/G ratio 1.8 1.2-2. 2 Not Available [facility] [address] [place], [address], 05/19/2024 22:07:21 05/19/20 24 05/19/2024 COMP. METAB OLIC PANEL (14) bilirubin, total 1.0 mg/dL 0.0-1. 2 Not Available [facility] [address] [place], [address], 05/19/2024 22:07:21 05/19/20 24 05/19/2024 COMP. METAB OLIC PANEL (14) alkaline phosphatase 77 IU/L 44-121 Not Available [facility] [address] [place], [address], 05/19/2024 22:07:21 05/19/20 24 05/19/2024 COMP. METAB OLIC PANEL (14) AST (SGOT) 21 IU/L 0-40 Not Available [facility] [address] [place], [address], 05/19/2024 22:07:21 05/19/20 24 05/19/2024 COMP. METAB OLIC PANEL (14) ALT (SGPT) 18 IU/L 0-32 Not Available [facility] [address] [place] [address], [address], 05/19/2024 22:07:21 05/19/20 24 05/19/2024 CBC WITH DIFFE RENTI AL/PL ATELE T WBC 11.7 x10e3 /uL 3.4-10 .8 above high normal Not Available [facility] [address] [place], [address], 05/19/2024 22:07:22 05/19/20 24 05/19/2024 CBC WITH DIFFE RENTI AL/PL ATELE T RBC 4.89 x10e6 /uL 3.77-5 .28 Not Available [facility] [address] [place], [address], 05/19/2024 22:07:22 05/19/20 24 05/19/2024 CBC WITH DIFFE RENTI AL/PL ATELE T hemoglobin 14.5 g/dL 11.1-1 5.9 Not Available [facility] [address] [place], [address], 05/19/2024 22:07:22 05/19/20 24 05/19/2024 CBC WITH DIFFE RENTI AL/PL ATELE T hematocrit 46.9 % 34.0-4 6.6 above high normal Not Available [facility] [address] [place], [address], 05/19/2024 22:07:22 05/19/20 24 05/19/2024 CBC WITH DIFFE RENTI AL/PL ATELE T MCV 96 fL 79-97 Not Available [facility] [address] [place], [address], 05/19/2024 22:07:22 05/19/20 24 05/19/2024 CBC WITH DIFFE RENTI AL/PL ATELE T MCH 29.7 pg 26.6-3 3.0 Not Available [facility] [address] [place], [address], 05/19/2024 22:07:22 07/16/20 24 05/19/2024 CBC WITH DIFFE RENTI AL/PL ATELE T MCHC 30.9 g/dL 31.5-3 5.7 below low normal Not Available [facility] [address] [place], [address], 05/19/2024 22:07:22 05/19/20 24 05/19/2024 CBC WITH DIFFE RENTI AL/PL ATELE T RDW 13.2 % 11.5-1 4.5 Not Available [facility] [address] [place], [address], 05/19/2024 22:07:22 05/19/20 24 05/19/2024 CBC WITH DIFFE RENTI AL/PL ATELE T platelets 376 x10e3 /uL 150-45 0 Not Available [facility] [address] [place], [address], 05/19/2024 22:07:22 05/19/20 24 05/19/2024 CBC WITH DIFFE RENTI AL/PL ATELE T neutrophils 67 % notest b. Not Available [facility] [address] [place], [address], 05/19/2024 22:07:22 05/19/20 24 05/19/2024 CBC WITH DIFFE RENTI AL/PL ATELE T lymphs 22 % notest b. Not Available [facility] [address] [place], [address], 05/19/2024 22:07:22 05/19/20 24 05/19/2024 CBC WITH DIFFE RENTI AL/PL ATELE T monocytes 8 % notest b. Not Available [facility] [address] [place], [address], 05/19/2024 22:07:22 05/19/20 24 05/19/2024 CBC WITH DIFFE RENTI AL/PL ATELE T eos 2 % notest b. Not Available [facility] [address] [place], [address], 05/19/2024 22:07:22 05/19/20 24 05/19/2024 CBC WITH DIFFE RENTI AL/PL ATELE T basos 1 % notest b. Not Available [facility] [address] [place], [address], 05/19/2024 22:07:22 05/19/20 24 05/19/2024 CBC WITH DIFFE RENTI AL/PL ATELE T neutrophils (absolute) 7.8 x10e3 /uL 1.4-7. 0 above high normal Not Available [facility] [address] [place], [address], 05/19/2024 22:07:22 05/19/20 24 05/19/2024 CBC WITH DIFFE RENTI AL/PL ATELE T lymphs (absolute) 2.5 x10e3 /uL 0.7-3. 1 Not Available [facility] [address] [place], [address], 05/19/2024 22:07:22 05/19/20 24 05/19/2024 CBC WITH DIFFE RENTI AL/PL ATELE T monocytes(ab solute) 1.0 x10e3 /uL 0.1-0. 9 above high normal Not Available [facility] [address] [place], [address], 05/19/2024 22:07:22 05/19/20 24 05/19/2024 CBC WITH DIFFE RENTI AL/PL ATELE T eos (absolute) 0.2 x10e3 /uL 0.0-0. 4 Not Available [facility] [address] [place], [address], 05/19/2024 22:07:22 05/19/20 24 05/19/2024 CBC WITH DIFFE RENTI AL/PL ATELE T baso (absolute) 0.2 x10e3 /uL 0.0-0. 2 Not Available [facility] [address] [place], [address], 05/19/2024 22:07:22 05/19/20 24 05/19/2024 CBC WITH DIFFE RENTI AL/PL ATELE T immature granulocytes 0.5 % notest b. Not Available [facility] [address] [place], [address], 05/19/2024 22:07:22 05/19/20 24 05/19/2024 CBC WITH DIFFE RENTI AL/PL ATELE T immature grans (abs) 0.1 x10e3 /uL 0.0-0. 1 Not Available [facility] [address] [place], [address], 05/19/2024 22:07:22 05/19/20 24 05/19/2024 CBC WITH DIFFE RENTI AL/PL ATELE T NRBC 0 % 0-0 Not Available [facility] [address] [place], [address], 05/19/2024 22:07:22 05/19/20 24 05/20/2024 TSH+F REE T4 TSH 1.880 uIU/m L 0.450- 4.500 Not Available [facility] ([facility]) [address] [place], [address], 05/20/2024 14:17:29 05/19/20 24 05/20/2024 TSH+F REE T4 T4,free(dire ct) 1.29 NG/dL 0.82-1 .77 Not Available [facility] ([facility]) [address] [place], [address], 05/20/2024 14:17:29 05/19/20 24 05/20/2024 VITAM IN B12 AND FOLAT E vitamin B12 1079 pg/mL 232-12 45 Not Available [facility] ([facility]) [address] [place], [address], 05/20/2024 14:17:30 05/19/20 24 05/20/2024 VITAM IN B12 AND FOLAT E folate (folic acid), serum 8.9 NG/mL >3.0 A serum folat e bridget ntrat ion of less than 3.1 ng/mL is consi dered to repre sent clini dalia defic iency . Not Available [facility] ([facility]) [address] [facility], [place], [address], 05/20/2024 14:17:30 05/19/20 24 05/20/2024 HEMOG LOBIN A1C hemoglobin A1C 5.7 % 4.8-5. 6 above high normal Predi abete s: 5.7 - 6.4 Diabe jen: >6.4 Glyce carissa contr ol for adult s with diabe jen: <7.0 Not Available [facility] ([facility]) [address] [facility], [place], [address], 05/20/2024 14:17:30 05/19/20 24 05/20/2024 VITAM IN [...] Shanna boston [place]: [facility] Press . 2. Mendy gupta MF, Candida ey [place], Karina off-F errar i SLAUGHTER, et al. Evalu ation , treat ment, and preve ntion of vitam in D defic iency : an Endoc rine Socie ty clini dalia pract ice guide line. EM. 2010; 96(6) :1911 -30. Not Available [facility] ([facility]) [address] [facility], [place], [address], 05/20/2024 14:17:31 09/08/20 24 09/10/2024 URINE CULTU RE, ROUTI NE urine culture, routine FINAL REPORT Not Available [facility] ([facility]) [address] [facility], [place], [address], 09/10/2024 03:36:58 09/08/20 24 09/10/2024 URINE CULTU RE, ROUTI NE result 1 COMMEN T Mixed uroge nital rose 10,00 0-25, 000 colon y formi ng units per mL Not Available [facility] ([facility]) [address] [facility], [place], [address], 09/10/2024 03:36:58 09/08/20 24 09/08/2024 urina lysis , dipst ick Leukocytes Negati ve Not Available In-Office Order Internal Use Only DO Not Attach Compendium DO Not Attach Compendium, Do Not Delete/merge, [id number] 09/08/2024 10:40:45 09/08/20 24 09/08/2024 urina lysis , dipst ick Nitrite negati ve Not Available In-Office Order Internal Use Only DO Not Attach Compendium DO Not Attach Compendium, Do Not Delete/merge, [id number] 09/08/2024 10:40:45 09/08/20 24 09/08/2024 urina lysis , dipst ick Urobilinogen .2 Not Available In-Of fice Order Internal Use Only DO Not Attach Compendium DO Not Attach Compendium, Do Not Delete/merge, [id number] 09/08/2024 10:40:45 09/08/20 24 09/08/2024 urina lysis , dipst ick Protein Negati ve Not Available In-Office Order Internal Use Only DO Not Attach Compendium DO Not Attach Compendium, Do Not Delete/merge, [id number] 09/08/2024 10:40:45 09/08/20 24 09/08/2024 urina lysis [...] 09/08/2024 urina lysis , dipst ick Specific [place] 1.020 Not Available In-Off ice Order Internal [...] DO Not Attach Compendium, Do Not Delete/merge, [id number] 09/08/2024 10:40:45 12/14/1912/14/2024 LIPID PANEL cholesterol, total 161 mg/dL 100-19 9 Not Available [facility] [address] [place] [address], [address], 12/14/2024 22:06:47 12/14/19 25 12/14/2024 LIPID PANEL triglyceride s 341 mg/dL 0-149 above high normal Not Available [facility] [address] [place], [address], 12/14/2024 22:06:47 12/14/19 25 12/14/2024 LIPID PANEL HDL cholesterol 32 mg/dL 40-999 below low normal Not Available [facility] [address] [place], [address], 12/14/2024 22:06:47 12/14/19 25 12/14/2024 LIPID PANEL VLDL cholesterol dalia 68 mg/dL 5-40 above high normal Not Available [facility] [address] [place], [address], 12/14/2024 22:06:47 12/14/19 25 12/14/2024 LIPID PANEL LDL chol calc (nih) 115 mg/dL 0-99 above high normal Not Available [facility] [address] [place], [address], 12/14/2024 22:06:47 12/14/19 25 12/14/2024 COMP. METAB OLIC PANEL (14) glucose 114 mg/dL 70-99 above high normal Not Available [facility] [address] [place], [address], 12/14/2024 22:06:48 12/14/19 25 12/14/2024 COMP. METAB OLIC PANEL (14) BUN 7 mg/dL 6-24 Not Available [facility] [address] [place], [address], 12/14/2024 22:06:48 12/14/19 25 12/14/2024 COMP. METAB OLIC PANEL (14) creatinine 0.64 mg/dL 0.76-1 .27 below low normal Not Available [facility] [address] [place] [address], [address], 12/14/2024 22:06:48 12/14/19 25 12/14/2024 COMP. METAB OLIC PANEL (14) eGFR 114 >=60 Units for eGFR value s are mL/mi n/1.7 3 The eGFR Calcu latio n has not been valid ated for patie nts under the age of 18. If test resul ts are displ ayed for a patie nt under the age of 18, disre elizabeth that value . Not Available [facility] [address] [place] [address], [address], 12/14/2024 22:06:48 12/14/19 25 12/14/2024 COMP. METAB OLIC PANEL (14) BUN/creatini ne ratio 11 9-23 Not Available [facility] Department [address] [place] [address], [address], 12/14/2024 22:06:48 12/14/19 25 12/14/2024 COMP. METAB OLIC PANEL (14) sodium 142 mmol/ L 134-14 4 Not Available [facility] [address] [place], [address], 12/14/2024 22:06:48 12/14/19 25 12/14/2024 COMP. METAB OLIC PANEL (14) potassium 3.9 mmol/ L 3.5-5. 2 Not Available [facility] [address] [place] [address], [address], 12/14/2024 22:06:48 12/14/19 25 12/14/2024 COMP. METAB OLIC PANEL (14) chloride 106 mmol/ L 96-106 Not Available [facility] [address] [place], [address], 12/14/2024 22:06:48 12/14/19 25 12/14/2024 COMP. METAB OLIC PANEL (14) carbon dioxide, total 26 mmol/ L Not Available [facility] [address] [place], [address], 12/14/2024 22:06:48 12/14/19 25 12/14/2024 COMP. METAB OLIC PANEL (14) calcium 9.1 mg/dL 8.7-10 .2 Not Available [facility] [address] [place], [address], 12/14/2024 22:06:48 12/14/19 25 12/14/2024 COMP. METAB OLIC PANEL (14) protein, total 6.7 g/dL 6.0-8. 5 Not Available [facility] [address] [place], [address], 12/14/2024 22:06:48 12/14/19 25 12/14/2024 COMP. METAB OLIC PANEL (14) albumin 4.3 g/dL 3.9-4. 9 Not Available [facility] [address] [place], [address], 12/14/2024 22:06:48 12/14/19 25 12/14/2024 COMP. METAB OLIC PANEL (14) globulin, total 2.4 g/dL 1.5-4. 5 Not Available [facility] [address] [place], [address], 12/14/2024 22:06:48 12/14/19 25 12/14/2024 COMP. METAB OLIC PANEL (14) A/G ratio 2.0 1.2-2. 2 Not Available [facility] [address] [place], [address], 12/14/2024 22:06:48 12/14/19 25 12/14/2024 COMP. METAB OLIC PANEL (14) bilirubin, total 0.7 mg/dL 0.0-1. 2 Not Available [facility] [address] [place], [address], 12/14/2024 22:06:48 12/14/19 25 12/14/2024 COMP. METAB OLIC PANEL (14) alkaline phosphatase 75 IU/L 44-121 Not Available [facility] [address] [place], [address], 12/14/2024 22:06:48 12/14/19 25 12/14/2024 COMP. METAB OLIC PANEL (14) AST (SGOT) 16 IU/L 0-40 Not Available [facility] [address] [place], [address], 12/14/2024 22:06:48 12/14/19 25 12/14/2024 COMP. METAB OLIC PANEL (14) ALT (SGPT) 21 IU/L 0-32 Not Available [facility] Department [address] [place] [address], [address], 12/14/2024 22:06:48 12/14/19 25 12/14/2024 CBC WITH DIFFE RENTI AL/PL ATELE T WBC 9.1 x10e3 /uL 3.4-10 .8 Not Available [facility] [address] [place], [address], 12/14/2024 22:06:49 12/14/19 25 12/14/2024 CBC WITH DIFFE RENTI AL/PL ATELE T RBC 4.67 x10e6 /uL 3.77-5 .28 Not Available [facility] [address] [place], [address], 12/14/2024 22:06:49 12/14/19 25 12/14/2024 CBC WITH DIFFE RENTI AL/PL ATELE T hemoglobin 13.6 g/dL 11.1-1 5.9 Not Available [facility] [address] [place], [address], 12/14/2024 22:06:49 12/14/1912/14/2024 CBC WITH DIFFE RENTI AL/PL ATELE T hematocrit 41.6 % 34.0-4 6.6 Not Available [facility] [address] [place], [address], 12/14/2024 22:06:49 12/14/19 25 12/14/2024 CBC WITH DIFFE RENTI AL/PL ATELE T MCV 89 fL 79-97 Not Available [facility] [address] [place], [address], 12/14/2024 22:06:49 12/14/19 25 12/14/2024 CBC WITH DIFFE RENTI AL/PL ATELE T MCH 29.1 pg 26.6-3 3.0 Not Available [facility] [address] [place], [address], 12/14/2024 22:06:49 12/14/19 25 12/14/2024 CBC WITH DIFFE RENTI AL/PL ATELE T MCHC 32.7 g/dL 31.5-3 5.7 Not Available [facility] [address] [place], [address], 12/14/2024 22:06:49 12/14/19 25 12/14/2024 CBC WITH DIFFE RENTI AL/PL ATELE T RDW 12.9 % 11.5-1 4.5 Not Available [facility] [address] [place], [address], 12/14/2024 22:06:49 12/14/19 25 12/14/2024 CBC WITH DIFFE RENTI AL/PL ATELE T platelets 422 x10e3 /uL 150-45 0 Not Available [facility] [address] [place], [address], 12/14/2024 22:06:49 12/14/19 25 12/14/2024 CBC WITH DIFFE RENTI AL/PL ATELE T neutrophils 58 % notest b. Not Available [facility] [address] [place], [address], 12/14/2024 22:06:49 12/14/19 25 12/14/2024 CBC WITH DIFFE RENTI AL/PL ATELE T lymphs 31 % notest b. Not Available [facility] [address] [place], [address], 12/14/2024 22:06:49 12/14/19 25 12/14/2024 CBC WITH DIFFE RENTI AL/PL ATELE T monocytes 8 % notest b. Not Available [facility] Department [address] [place], [address], 12/14/2024 22:06:49 12/14/19 25 12/14/2024 CBC WITH DIFFE RENTI AL/PL ATELE T eos 3 % notest b. Not Available [facility] Department [address] [place], [address], 12/14/2024 22:06:49 12/14/19 25 12/14/2024 CBC WITH DIFFE RENTI AL/PL ATELE T basos 1 % notest b. Not Available [facility] Department [address] [place], [address], 12/14/2024 22:06:49 12/14/19 25 12/14/2024 CBC WITH DIFFE RENTI AL/PL ATELE T neutrophils (absolute) 5.3 x10e3 /uL 1.4-7. 0 Not Available [facility] Department [address] [place], [address], 12/14/2024 22:06:49 12/14/19 25 12/14/2024 CBC WITH DIFFE RENTI AL/PL ATELE T lymphs (absolute) 2.8 x10e3 /uL 0.7-3. 1 Not Available [facility] Department [address] [place], [address], 12/14/2024 22:06:49 12/14/19 25 12/14/2024 CBC WITH DIFFE RENTI AL/PL ATELE T monocytes(ab solute) 0.7 x10e3 /uL 0.1-0. 9 Not Available [facility] Department [address] [place], [address], 12/14/2024 22:06:49 12/14/19 25 12/14/2024 CBC WITH DIFFE RENTI AL/PL ATELE T eos (absolute) 0.3 x10e3 /uL 0.0-0. 4 Not Available [facility] Department [address] [place], [address], 12/14/2024 22:06:49 12/14/19 25 12/14/2024 CBC WITH DIFFE RENTI AL/PL ATELE T baso (absolute) 0.1 x10e3 /uL 0.0-0. 2 Not Available [facility] Department [address] [place], [address], 12/14/2024 22:06:49 12/14/19 25 12/14/2024 CBC WITH DIFFE RENTI AL/PL ATELE T immature granulocytes 0.3 % notest b. Not Available [facility] Department [address] [place], [address], 12/14/2024 22:06:49 12/14/19 25 12/14/2024 CBC WITH DIFFE RENTI AL/PL ATELE T immature grans (abs) 0.0 x10e3 /uL 0.0-0. 1 Not Available [facility] Department [address] [place], [address], 12/14/2024 22:06:49 12/14/19 25 12/14/2024 CBC WITH DIFFE RENTI AL/PL ATELE T NRBC 0 % 0-0 Not Available [facility] Department [address], [place], [address], 12/14/2024 22:06:49 12/14/19 25 12/15/2024 ALBUM IN/CR EATIN INE RATIO ,URIN E creatinine, urine 38.3 mg/dL notest ab. Not Available [facility] ([facility]) [address] [place], [address], 12/15/2024 14:13:27 12/14/19 25 12/15/2024 ALBUM IN/CR EATIN INE RATIO ,URIN E albumin, urine <3.0 ug/mL notest ab. Not Available [facility] ([facility]) [address] [facility], [place], [address], 12/15/2024 14:13:27 12/14/19 25 12/15/2024 ALBUM IN/CR EATIN INE RATIO ,URIN E alb/creat ratio <8 Sushma l: 0 - 29 Moder ately incre ased: 30 - 300 Sever radha incre ased: >300 Not Available [facility] ([facility]) [address] [facility], [place], [address], 12/15/2024 14:13:27 12/14/19 25 12/15/2024 TSH RFX ON ABNOR MAL TO FREE T4 TSH 2.760 uIU/m L 0.450- 4.500 Not Available [facility] ([facility]) [address] [place], [address], 12/15/2024 14:13:28 12/14/19 25 12/15/2024 HEMOG LOBIN A1C hemoglobin A1C 5.6 % 4.8-5. 6 Predi abete s: 5.7 - 6.4 Diabe jen: >6.4 Glyce carissa contr ol for adult s with diabe jen: <7.0 Not Available [facility] ([facility]) [address] [place], [address], 12/15/2024 14:13:29 01/29/20 22 01/28/2022 XR, chest No observ ation record ed. [address], [place], [address], 01/29/2022 08:44:35 05/27/20 24 05/26/2024 XR, thora cic spine , 2 view No observ ation record ed. [address], [place], [address], 05/28/2024 14:57:29 12/14/19 25 12/14/2024 XR, knee, 3 view No observ ation record ed. [address], [place], [address], 01/04/2025 09:17:36 12/14/19 25 12/14/2024 XR, lumbo sacra l spine , 2 or 3 view No observ ation record ed. [address], [place], [address], 01/04/2025 09:17:36 12/25/19 25 12/24/2024 XR, chest , 2 view No observ ation record ed. [address], [place], [address], 12/25/2024 11:41:46 12/29/19 25 12/29/2024 US, doppl er, venou s No observ ation record ed. [address], [place], [address], 12/29/2024 16:41:07 Result Notes None recorded. Problems Name Problem SNOMED Code Status Onset Date Resolution Date Notes Provider Name and Address Organization Details Recorded Time History of palpitatio ns 068052099 Active 2018 Not Available [facility] 3 19:21:21 Influenza vaccinatio n declined 100454833 Active 2018 Not Available [facility] 3 19:21:21 Candidiasi s of vagina 29206325 Active 2019 Not Available [facility] 3 19:21:21 Left side sciatica 7951984184959 04 Active 2019 Not Available [facility] 3 19:21:21 Chronic back pain 642041970 Active 2019 Not Available [facility] 3 19:21:21 Smoker 34409533 Active 2022 Not Available [facility] 3 19:21:21 Sciatica 47356145 Active 2022 Not Available [facility] 3 19:21:21 Degenerati on of thoracic interverte bral disc 87958850 Active 2024 QUINTEN DURANT PA-C Attn: Accounting ,[address] [place], [address] , [facility] 5 10:58:53 Hyperlipid emia 50093903 Active 2024 DORCAS BEST Attn: Accounting ,[address] [place], [address] , [place] - [facility] 5 08:31:10 Genital herpes simplex 66971276 Active Not Available [facility] 3 19:21:21 Dysmenorrh ea 898939013 Active Not Available [facility] 3 19:21:21 Irregular periods 01017714 Active Not Available [facility] 3 19:21:21 Sciatica 18585777 Active 2016 Not Available [facility] 3 19:21:21 Problem Notes None recorded. Procedures Surgical History Date Name Laterality Status Provider Name and Address Organization Details Recorded Time 05/31/20 21 Date of Last Pap Smear completed Piper Parkinson [place] - [place] 05/31/2021 10:55:19 12/04/19 20 HYSTEROSCOPY, WITH ENDOMETRIAL ABLATION (SURG) completed Johnathan Garibay [place] - [facility] 12/17/2019 12:59:22 08/08/20 13 Tubal Ligation completed Venice Tracey [place] - [facility] 04/10/2016 15:46:56 LEEP completed [place] Tracey MA [place] - [facility] 04/10/2016 15:47:32 Imaging Results Imaging Date Name Status LastModified by Feng eckert Details LastModified Time 01/28/2022 XR, chest completed [address] [facility], [place], [address], 01/29/2022 08:44:35 05/26/2024 XR, thoracic spine, 2 view completed [address] [facility], [place], [address], 05/28/2024 14:57:29 12/14/2024 XR, knee, 3 view completed [address] [place] [address], [address], 01/04/2025 09:17:36 12/14/2024 XR, lumbosacral spine, 2 or 3 view completed [address] [facility], [place], [address], 01/04/2025 09:17:36 12/24/2024 XR, chest, 2 view completed [address] [facility], [place], [address], 12/25/2024 11:41:46 12/29/2024 US, doppler, venous completed [address] [place] [address], [address], 12/29/2024 16:41:07 Procedure Notes None recorded. Medical Equipment None Reported. Allergies Allergen ID Allergen Name Allergen Category Reaction Reaction Severity Criticality Documentation Date Start Date Code Code System Note Provider Name and Address Organization Details Recorded Time 640921 Product containin g penicilli n (product) medicatio n other moderate Not available 10/20/2019 41733 8001 SNOMED yeast infec tion and spott ing Not Available Not Available Not Available 557005 lisinopri l medicatio n dyspnea severe high 12/25/20242024 97565 RxNorm Not Available Not Available Not Available [...] Available hydroxyzi ne HCl 25 mg tablet TAKE 1 TABLET BY MOUTH THREE TIMES DAILY NEEDED FOR ANXIETY 2024 active Not Available Not Available Not Avai lable ergocalci ferol (vitamin D2) 1,250 mcg (50,000 [...] Updated DateTime 05/31/2021 167.64 cm 32.9 kg/m2 89672.84 g 118 mm[Hg] 72 mm[Hg] Piper Parkinson MA [facility] 1 11:04:27 Date Recorded Body height Body mass index (BMI) Body weight Respiratory rate Body temperature Oxygen saturation Oxygen saturation in Arterial blood by Pulse oximetry Heart rate Systolic blood pressure Diastolic blood pressure Provider Name and Address Organization Details Last Updated DateTime 3 167.64 cm 31 kg/m2 90573.1 4 g 16 /min 97.6 [degF] 98 % 98 % 81 /min 104 mm[Hg] 78 mm[Hg] Ita Pina CMA [facility] 3 11:10:04 Date Recorded Body height Body mass index (BMI) Body weight Oxygen saturation Oxygen saturation in Arterial blood by Pulse oximetry Heart rate Respiratory rate Systolic blood pressure Diastolic blood pressure Provider Name and Address Organization Details Last Updated DateTime 4 167.64 cm 33.6 kg/m2 78410.3 1 g 99 % 99 % 88 /min 17 /min 138 mm[Hg] 82 mm[Hg] Audrey Yi MA [facility] 4 13:59:19 Date Recorded Body height Body mass index (BMI) Body weight Oxygen saturation Oxygen saturation in Arterial blood by Pulse oximetry Heart rate Respiratory rate Systolic blood pressure Diastolic blood pressure Provider Name and Address Organization Details Last Updated DateTime 5 167.64 cm 34.4 kg/m2 94731.1 7 g 97 % 97 % 86 /min 17 /min 154 mm[Hg] 79 mm[Hg] Audrey Yi MA [facility] 5 10:43:16 Social History Question Answer Notes LastModified by Organizat ion Details LastModified Time Tobacco Smoking Status Current Every Day Smoker Venice Tracey MA [facility], [facility] 04/10/2016 15:52:19 Do You Have An Advance Directive? No Information not available 04/10/2016 What Is Your Level Of Alcohol Consumption? None [email or web address] Information not available 04/10/2016 Is Blood Transfusion Acceptable In An Emergency? Yes [email or web address] Information not available 04/10/2016 What Is Your Level Of Caffeine Consumption? Moderate Soda And Energy Drinks' overma Information not available 10/20/2019 How Much Tobacco Do You Chew? None [email or web address] Information not available 04/10/2016 Are You Currently Employed? Yes Information not available 04/10/2016 What Type Of Diet Are You Following? REGULAR [email or web address] Information not available 04/10/2016 Which Illicit Or Recreational Drugs Have You Used? Marijuana Information not available 05/31/2021 Do You Or Have You Ever Used E-cigarettes Or Vape? Never Used Electronic Cigarettes Information not available 10/20/2019 Education 9 [email or web address] Information no t available 04/10/2016 What Is Your Occupation? [employer] Information not available 10/20/2019 Live Alone Or With Others? With Others [email or web address] Information not available 04/10/2016 What Was The Date Of Your Most Recent Tobacco Screening? 12/14/2024 Information not available 12/14/2024 How Many Children Do You Have? 5 [email or web address] Information not available 04/10/2016 What Is Your Current Pack Years? 20-29packkatjaar s Information not available 05/31/2021 Performs Monthly Self-breast Exam? No [email or web address] Information not available 04/10/2016 Do You Use Protection During Sex? No [email or web address] Information not available 04/10/2016 What Is Your Relationship Status? Single [email or web address] Information not available 04/10/2016 Do You Use Your Seat Belt Or Car Seat Routinely? Yes Information not available 05/31/2021 Seat Belts Used Routinely Yes [email or web address] Information not available 04/10/2016 Are You Sexually Active? Yes [email or web address] Information not available 04/10/2016 Do You Have Smoke And Carbon Monoxide Detectors In Your Home? Yes 05/31/21 Smoke Detectors Information not available 05/31/2021 At What Age Did You Start Smoking Tobacco? 12 [email or web address] Information not available 04/10/2016 Are You Passively Exposed To Smoke? Yes Information not available 05/31/2021 Do You Or Have You Ever Used Smokeless Tobacco? Never Used Smokeless Tobacco Information not available 10/20/2019 How Much Tobacco Do You Smoke? 1 PPD [email or web address] Information not available 04/10/2016 General Stress Level High [email or web address] Information not available 04/10/2016 Do You Use Any Illicit Or Recreational Drugs? Yes Edibles Information not available 05/31/2021 Do You Use Sunscreen Routinely? No [email or web address] Information not available 04/10/2016 Has Tobacco Cessation [...] Time What is your exercise level? Occasional [email or web address] Information not available 04/10/2016 Mental Status None [...] Disorder N Colon Polyps N Heart Attack ([place]) N Diabetes N Cardiomyopathy N Blood Transfusions [...] 11/21/2019 02:44:46 HPV9 11/25/2019 completed JAYCE Mcdowell, [facility] 12/01/2019 11:43:36 HPV9 06/02/2021 completed JAYCE Mcdowell, [place] - [facility] 06/02/2021 16:47:57 Past Encounters Encounter ID Performer Location Encounter Start Date Encounter Closed Date Diagnosis/Indication Diagnosis SNOMED-CT Code Diagnosis ICD10 Code Diagnosis Note [id number] Johnathan Phoenix Teague (HELICOPTER SPECIALIST) [address] [place] [address] 0 04/10/2016 15:09:44 04/11/2016 09:22:11 Dysmenorrhea 866924785 N94.6 Irregular periods 218451 07 N92.6 [id number] JAYCE Calle (HELICOPTER SPECIALIST) [address] [place] [address]115[address] 0 03/26/2017 15:27:40 03/26/2017 17:45:26 Irregular periods 94580420 N92.6 Dysmenorrhea 351148263 N 94.6 Genital he rpes simplex 70223244 A60.9 Recurrent urinary tract infection 679381039 N39.0 Family grover nning surveillance 192501633 Z30.09 Generalize d anxiety disorder 87780483 F41.1 stress 2/2 job and children (5 girls in the home) [id number] MD Zahida Goyal (Adult Med) [address] [place] [address] 30519-908 0 10/20/2019 13:16:20 10/20/2019 14:46:41 General examination of patient 176346895 Z00.01 Nicotine dependence 5629 4008 F17.200 Cessation was discussed History of palpitations 500485966 Z86.79 Serous otitis media 8032 7007 H65.91 Follow up with ENT Influenza vaccination declined 869844123 Z28.21 Administra tion of diphtheria, pertussis, and tetanus vaccine 847031915 Z23 [id number] Johnathan Teague (HELICOPTER SPECIALIST) [address] [place] [address]44[address]083 0 11/25/2019 11:25:25 11/26/2019 11:05:02 Gynecologic examination 54725535 Z01.419 Active or passive immunization 832547451 Z23 Menorrhagia 585994229 N9 2.0 Dysmenorrhea 512147678 N 94.6 Exposure t o sexually transmissible disorder 580464787 Z20.2 [id number] MD Zahida Goyal (Adult Med) [address] [place] [phone] 0 12/01/2019 11:31:07 12/02/2019 09:23:08 Hyperlipidemia 44370827 E78.5 Discussed Aspartate aminotransferase serum level above reference range 488024525 R74.0 Recheck Anxiety 21378445 F41.9 Detailed discussion Start Buspirone, side effects were discussedI do not prescribe Alprazolam History of palpitations 548431254 Z86.79 This was possibly related to energy drink which she has discontinu ed, her anxiety may be playing a role Nicotine dependence 5629 4008 F17.200 Cessation was discussed Insomnia 413281786 G47.0 0 Benadryl or Vistaril PRN [id number] Johnathan Teague (HELICOPTER SPECIALIST) [address] [place] [address] [id number] 0 12/17/2019 12:20:07 12/21/2019 10:06:51 Postoperative visit 988337019 Z09 hysterosco py 12/03/2019 , Continue slynd Constipation 30005989 K5 9.00 Genital he rpes simplex 96788676 A60.9 Dysmenorrhea 190369630 N 94.6 [id number] MD Zahida Goyal (Adult Med) [address] [place] [address] [id number] 0 01/12/2020 12:04:06 01/12/2020 12:48:10 Chronic back pain 213958942 G89.29 She has a history of chronic back pain with LLE radiculopa thy and an abnormal clinical exam with LLE weakness. An MRI is needed to further evaluate the degree of nerve impingemen t. Cyclobenza nighat/Ibup rofen/Phys ical Therapy Left side sciatica 77603 03055 12650 M54.32 Leukocytosis 139641555 D 72.829 Amenorrhea 93878967 N91. 2 This may be due to her OCP, however she needs a test before her MRI Neuropathy 149029756 G62 .9 [id number] MD Zahida Goyal (Adult Med) [address] [place] [address] [id number] 0 02/23/2020 10:16:42 02/25/2020 10:57:12 Follow-up visit 758133259 Z09 [id number] MD Zahida Goyal (Adult Med) [address] [place] [address] [id number] 0 06/29/2020 12:05:39 06/30/2020 09:38:33 Varicose veins of lower extremity 86518378 I83.892 Lumbar radiculopathy 128 277396 M54.16 [id number] MD Zahida Goyal (Adult Med) [address] [place] [address] [id number] 0 09/28/2020 08:34:19 09/30/2020 10:19:52 Anxiety 28027370 F41.9 Detailed discussion Start [facility]in e [facility] declined 802761326 Z28.21 [id number] Johnathan Teague (HELICOPTER SPECIALIST) [address] [place] [address] [id number] 0 05/31/2021 10:33:14 06/01/2021 08:30:01 Gynecologic examination 11273053 Z01.419 Z11.51 Genital he rpes simplex 42500032 A60.9 Exposure t o sexually transmissible disorder 790445813 Z20.2 Cramping pain 444136460 R52 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 [id number] DORCAS BEST [facility] [address] [place] [address] 03/12/2023 11:02:52 03/12/2023 11:56:44 Dysuria 47508127 R30.0 urinary frequency, urgency, retention, dysuria x1 wkPEx- nlurine dip showed trace leuks and moderate bloodstart macrobid, sent UA and cultureh/o UTIs every couple of months, future referral to urology Depression screening 171 430263 Z13.31 PHQ 0 Smoker 33219248 F17.200 1 ppdnot amendable to NRT at this time Screening for malignant neoplasm of cervix 795163478 Z12.4 refer to OB/GYNh/o LEEP and HPV Obesity 431396056 E66.9 discussed increasing exercise and healthier food options, high protein, low fat dietroutin e labs Vitamin D deficiency 347 26269 E55.9 re-check Sciatica 96108454 M54.30 flares, bilateralh as not had imagingcon trolled at this time [id number] DORCAS BEST [facility] [address] [place] [address] 05/19/2024 13:33:45 05/19/2024 14:51:03 Smoker 76947731 F17.200 05/19/24: start patches, smoking 1.5 ppd 03/2023:1 ppdnot amendable to NRT at this time Difficulty sleeping 3013 09474 Z72.820 usually takes CBD with successanx iety has prevented her from sleepingtr ial hydroxyzin e PRN, advised pt of ADRf/u in 1 mo Obesity 218861624 E66.8 discussed increasing exercise and healthier food options, high protein, low fat dietroutin e labs Gastroesop hageal reflux disease without esophagitis 965637863 K21.9 no relief with TUMStrial pantoprazo le Fatigue 93772851 R53.83 check vitamins Chronic ne ck pain for greater than 3 months 8083436619 72709 M54.2 no injury or traumatold that she had cervical DDD in EDwill refer to PT Paresthesia of hand 3090 32278 R20.2 x4 moworse at nightwill discuss at f/u visit Costal chondritis 418736 04 M94.0 x10 dayswent to ED, told that my heart is fine c/o pain with taking deep breathspt smokes 1.5 ppdno relief with muscle relaxer or ibuprofend iscussed management and treatment of costal chondritis Generalize d anxiety disorder 18269164 F41.1 TOM 13start hydroxyzin e, advised pt of ADR, f/u in 1 mo Depression screening 171 468558 Z13.31 PHQ 2 [id number] Audrey Yi MA [facility] [address] [place] [address] 09/08/2024 10:31:11 09/08/2024 11:09:28 Dysuria 03919288 R30.0 urinary frequency, urgency, retention, dysuria x1 wkPEx- nlurine dip showed trace leuks and moderate bloodstart macrobid, sent UA and cultureh/o UTIs every couple of months, future referral to urology [id number] QUINTEN DURANT PA-C [facility] [address] [place] [address] 12/14/2024 10:34:24 12/15/2024 15:48:45 Depression screening 286940718 Z13.31 PHQ9- {{Negative * Positive Mild Mode rate Sever e}} (2 out of 27) Obesity 057761268 E66.9 BMI 34.4 Pain of bi lateral knee joints 9227143970 07246 M25.561 M25.562 Know that arthritis will cause [...] supplement s. XR ordered Low back pain 413706908 M54.50 XR ordered Degenerati on of thoracic intervertebral disc 06941657 M51.34 Start meloxicam 15mg daily with food. No other NSAIDs while on this medication Essential hypertension 83927366 I10 BP today: 154/79BP Goal: {{Less than [...] today Varicose v eins of lower extremity 44642793 I83.93 Referral to vascular surgeonU/S ordered Impaired g lucose tolerance 1388369 R73.03 Discussed with patient taking blood sugars [...] Altman Member ID Guarantor Name 05/31/2021 1 [facility] ON OR AFTER 05/04/21 (MEDICAID REPLACEMENT - HMO) Yudi Pizarro [id number] Yudi Pizarro 03/12/2023 1 [facility] ON OR AFTER 05/04/21 (MEDICAID REPLACEMENT - HMO) Yudi Pizarro [id number] Yudi Pizarro 05/19/2024 1 [facility] ON OR AFTER 05/04/21 (MEDICAID REPLACEMENT - HMO) Yudi Pizarro [id number] Yudi Pizarro 09/08/2024 1 [facility] ON OR AFTER 05/04/21 (MEDICAID REPLACEMENT - HMO) Yudi Pizarro [id number] Yudi Pizarro 12/14/2024 1 [facility] ON OR AFTER 05/04/21 (MEDICAID REPLACEMENT - HMO) Yudi Pizarro [id number] Yudi Pizarro Notes Date Note Type Note [...] ablation with xavi presents for WWE. Johnathan Phoenix min, [facility] 05/31/2021 17:49:42 03/12/2023 text/html Pt presents to establish care as a new patient. Previously seen at [facility]. C/o dysuria, urinary frequency, and urgency for the past week. No hematuria, vaginal discharge, odor or abd pain. Denies fever, chills, chest pain, SOB, n/v/d, dizziness, weakness, or headaches. DORCAS BEST Attn: Accounting[address] [place], [address], [facility] 03/12/2023 21:36:59 05/19/2024 text/html Patient presents today [...] at night. DORCAS BEST Attn: Accounting[address] [facility], [place], [address], [facility] 05/21/2024 08:45:02 12/14/2024 text/html 41 [...] QUINTEN DURANT PA-C Attn: Accounting[address] [facility], [place], [address], [facility] 12/14/2024 11:13:41 OBGyn Episode Ob Episode Information Episode Created Date Number of Fetuses Patient Bloodtype Patient rh Status Prepregnancy Weight lbs Domestic Partner Domestic Partner Phone Father Name Bakery Sales Clerk Status 04/10/20 16 1 CLOSED Fetus Data First Name Last Name Admitted to NICU Weight (g) Sex Living Outcome Pediatric Complications Fetus ID Race Codes Race Delivery Type F Full Term 73718 Vaginal Nitin Calculation Initial Nitin Date Initial [...] Complications Tubal Sterilization Discharge Date Comments 1 [facility] idural 40 Discharge Information Feeding Method Contraceptive Method Maternal HG B and HCT Levels Ob Episode Information Episode Created Date Number of Fetuses Patient Bloodtype Patient rh Status Prepregnancy Weight lbs Domestic Partner Domestic Partner Phone Father Name Bakery Sales Clerk Status 04/10/20 16 1 CLOSED Fetus Data First Name Last Name Admitted to NICU Weight (g) Sex Living Outcome Pediatric Complications Fetus ID Race Codes Race Delivery Type 3685.43 5 F Full Term 44804 Vaginal Nitin Calculation Initial Nitin Date Initial [...] Domestic Partner Domestic Partner Phone Father Name Bakery Sales Clerk Status 04/10/20 16 1 CLOSED Fetus Data First Name Last Name Admitted to NICU Weight (g) Sex Living Outcome Pediatric Complications Fetus ID Race Codes Race Delivery Type M Demise 08306 Nitin Calculation Initial Nitin Date Initial Exam [...] Domestic Partner Domestic Partner Phone Father Name Bakery Sales Clerk Status 04/10/20 16 1 CLOSED Fetus Data First Name Last Name Admitted to NICU Weight (g) Sex Living Outcome Pediatric Complications Fetus ID Race Codes Race Delivery Type 3345.24 1 F Full Term 40522 Vaginal Nitin Calculation Initial Nitin Date Initial [...] Domestic Partner Domestic Partner Phone Father Name Bakery Sales Clerk Status 04/10/20 16 1 CLOSED Fetus Data First Name Last Name Admitted to NICU Weight (g) Sex Living Outcome Pediatric Complications Fetus ID Race Codes Race Delivery Type F Full Term 16749 Vaginal Nitin Calculation Initial Nitin Date Initial [...] Complications Tubal Sterilization Discharge Date Comments 9 [facility] 40 Discharge Information Feeding Method Contraceptive Method Maternal HG B and HCT Levels Ob Episode Information Episode Created Date Number of Fetuses Patient Bloodtype Patient rh Status Prepregnancy Weight lbs Domestic Partner Domestic Partner Phone Father Name Bakery Sales Clerk Status 04/10/20 16 1 CLOSED Fetus Data First Name Last Name Admitted to NICU Weight (g) Sex Living Outcome Pediatric Complications Fetus ID Race Codes Race Delivery Type 3345.24 1 F Full Term 82577 Vaginal Nitin Calculation Initial Nitin Date Initial [...]
--- OUTSIDE RECORDS SUMMARY | 2025-01-12 16:12 | XMS_ITS | CONTINUITY OF CARE DOCUMENT ---
Author Name chris perez Address Unknown Organization [facility] Address [address] [place] [address] [address] [place] [address] Phone [phone] Care Team Providers Care Mail Examiner Name Role Phone Monty López MD Unavailable HORTENSIA GARCIA MD Unavailable HORTENSIA GARCIA MD Unavailable PROBLEMS Condition Status Date Provider Notes Obesity active Monty López MD FAMILY HISTORY OF HEART DISEASE active Danya López MD MOM HAD CVA Tobacco abuse active Monty López MD Screening active Monty López MD Palpitations AND PRESYNOPE and dizzy active Monty López MD nml tsh Hypertriglyceridemia active Monty Dailey Elevated LFT's active Monty López MD IRON DEFICIENCY active Monty López MD nml b12 Vitamin D deficiency active Monty Dailey ENCOUNTERS Date Type Provider Location Encounter Diag nosis 6 - 6 In-person encounter Office Visit Monty López MD [facility] Palpitations AND PRESYNOPE and dizzyIRON DEFICIENCYVitamin D deficiency 1 - 1 In-person encounter Office Visit Monty López MD [facility] ObesityFAMILY HISTORY OF HEART DISEASETobacco abuseScreeningPalpitations AND PRESYNOPE and dizzyHypertriglyceridemiaElevated LFT's VITAL SIGNS Date Observation Value Provider Body Mass Index (Ratio) 32.12 kg/m2 Danya López MD respiratory rate E&M 16 /min [facility] blood pressure, diastolic 65 mm[Hg] To [facility] blood pressure, systolic 119 mm[Hg] Ton [facility] blood pressure, resting No Tons [facility] oxygen saturation, oximetry 98 % [facility] pulse rate 90 /min [facility] weight E&M 199 [lb_av] [facility] height E&M 66 [in_i] [facility] Body Mass Index (Ratio) 31.79 kg/m2 [...] iron binding capacity, unsaturated 334 ug/dL [employer] [phone]/01/ 01 iron binding capacity, total 389 ug/dL [employer] [phone]/01/ 01 free thyroxine index 1.8 [employer] 1.2-4.9 [...] Not Estab. platelet count 382 X10E3/UL [facility] 409-673 7348/01/ 01 red blood cell distribution width 13.9 [...] [employer] 3.5-5.2 sodium, serum 140 mmol/L [employer] [phone]/01/ 01 urea nitrogen/creatinine ratio, serum 12 [employer] [...] smoking history, tot al pack[facility] yes Prachi Alvarez smoking [...] Payer name Policy type / Coverage type [place] [employer] party ID [employer]NE MEDICAID (2) Medicaid [id number] ADVANCE DIRECTIVES Name Date DISCUSSED - NO [...]
--- OUTSIDE RECORDS SUMMARY | 2025-01-12 16:12 | XMS_ITS | Data Portability ---
Author Organization [facility] [place] Address [address] [place] [address] Care Team Providers Care Hydraulic Press Servicer Name Role Phone EDWARD FOWLER Primary Care Provider Assessment No assessment recorded. Plan of Treatment [...] Address Organization Details Recorded Time Herpes simplex [id number] Active 2023 Urmila min [facility] 4 11:29:29 Human papilloma virus infection [id number] Active 2023 Urmila min [facility] 4 11:29:35 Mixed anxiety and depressive disorder 661239380 Active 2023 Urmila min [facility] 4 11:29:45 Problem Notes None recorded. Procedures Surgical History Date Name Laterality Status Provider Name and Address Organization Details Recorded Time 11/15/19 21 Date of Last Pap Smear completed Urmila Tabor [facility] 02/15/2024 11:28:12 11/04/19 21 Endometrial Ablation completed Urmila Tabor [facility] 02/15/2024 11:41:23 08/08/20 13 Tubal Ligation completed Urmila Tabor [facility] 02/15/2024 11:28:13 04/05/20 12 LEEP completed Urmila Tabor [facility] 02/15/2024 11:28:13 11/04/19 12 Colposcopy completed Urmila Tabor [facility] 02/15/2024 11:40:31 11/04/19 12 Colposcopy completed Urmila Tabor [facility] 02/15/2024 11:39:48 Imaging Results None [...] Updated DateTime 02/15/2024 168.28 cm 33 kg/m2 16455.03 g 121 mm[Hg] 83 mm[Hg] Urmila Tabor [facility] 11:27:47 Social History Question Answer Notes LastModified by Organizat ion Details LastModified Time Tobacco Smoking Status Current Every Day Smoker Urmila Tabor [facility] 02/15/2024 11:39:22 What Is Your Level Of Alcohol Consumption? None [email or web address] Information not available 02/15/2024 Are You Blind Or Do You Have Difficulty Seeing? No [email or web address] Information n ot available 02/15/2024 What Is Your Level Of Caffeine Consumption? Heavy [email or web address] Information not available 02/15/2024 In The 14 Days Before Symptom Onset, Have You Had Close Contact With A Laboratory-confirm ed COVID-19 While That Case Was Ill? No Information n ot available 02/15/2024 In The 14 Days Before Symptom Onset, Have You Had Close Contact With A Person Who Is Under Investigation For COVID-19 While That Person Was Ill? No [email or web address] Information not available 02/15/2024 Have You Been To An Area Known To Be High Risk For COVID-19? No [email or web address] Information not available 02/15/2024 Are You Deaf Or Do You Have Serious Difficulty Hearing? No [email or web address] Information not available 02/15/2024 What Type Of Diet Are You Following? REGULAR [email or web address] Information n ot available 02/15/2024 What Is The Highest Grade Or Level Of School You Have Completed Or The Highest Degree You Have Received? [id number] [email or web address] Information not available 02/15/2024 What Is Your Occupation? [employer] Information not available 02/15/2024 Are There Any Guns Present In Your Home? No [email or web address] Information not available 02/15/2024 Do You Use Protection During Sex? No [email or web address] Information not available 02/15/2024 Do You Use Your Seat Belt Or Car Seat Routinely? Yes [email or web address] Information not available 02/15/2024 Do You Have Smoke And Carbon Monoxide Detectors In Your Home? Yes [email or web address] Information not available 02/15/2024 At What Age Did You Start Smoking Tobacco? 15 Information not available 02/15/2024 How Much Tobacco Do You Smoke? 1 PPD [email or web address] Information not available 02/15/2024 Do You Feel Stressed (tense, Restless, Nervous, Or Anxious, Or Unable To Sleep At Night)? [id number] [email or web address] Information not available 02/15/2024 Do You Use Any Illicit Or Recreational Drugs? No [email or web address] Information not available 02/15/2024 Do You Use Sunscreen Routinely? No [email or web address] Information not available 02/15/2024 Has Tobacco Cessation Counseling Been Provided? Yes [email or web address] Information not available 02/15/2024 On What Date Was Tobacco Cessation Counseling Provided? 02/15/2024 [email or web address] Information not available 02/15/2024 Have You Used IV Drugs? No [email or web address] Information not available 02/15/2024 Do You Or Have You Ever Used Any Other Forms Of Tobacco Or Nicotine? No [email or web address] Information not available 02/15/2024 Sex: Unknown Functional Status Question Answer Note LastModified by Organizat ion Details LastModified Time Do you have difficulty walking or climbing stairs? No [email or web address] Information not available 02/15/2024 Are you able to walk? YESWOREST [email or web address] Information not available 02/15/2024 Are you able to care for yourself? Yes [email or web address] Information not available 02/15/2024 Do you have difficulty dressing or bathing? No [email or web address] Information not available 02/15/2024 What is your exercise level? Occasional [email or web address] Information not available 02/15/2024 Mental Status None recorded. Family History Relationship Description Onset Age of this Age Resolved Age Notes LastModified by Organization Details LastModified Time Mother Anxiety disorder [email or web address] Not available 02/14 11:28:12 Mother Disorder of lung [email or web address] Not available 02/14 11:28:12 Mother Malignant tumor of ovary [email or web address] Not available 02/14 11:28:12 Maternal Grandmother Malignant tumor of ovary [email or web address] Not available 02/14 11:28:12 Medical History Condition [...] SNOMED-CT Code Diagnosis ICD10 Code Diagnosis Note [id number] Jd Oliver MD [place] [address] [address] 02/15/2024 10:24:56 02/18/2024 16:13:29 Abnormal uterine bleeding [id number] 9100 N93.9 38-year-ol d female presents for [...] [place] Member ID Guarantor Name 02/15/2024 1 [facility] - DOS ON OR AFTER 21 (MEDICAID REPLACEMENT - HMO) Yudi Pizarro [id number] Yudi Rubiomelody Notes Date Note Type Note [...] evaluate. Jd Oliver MD [address], [place], [address], [facility] 02/18/2024 15:43:05 OBGyn Episode Ob Episode Information Episode Created Date Number of Fetuses Patient Bloodtype Patient rh Status Prepregnancy Weight lbs Domestic Partner Domestic Partner Phone Father Name Line Maintainer Section Status 02/15/20 24 1 CLOSED Fetus Data First Name Last Name Admitted to NICU Weight (g) Sex Living Outcome Pediatric Complications Fetus ID Race Codes Race Delivery Type , Spontane ous 81384 Nitin Calculation Initial Nitin Date Initial Exam [...] Domestic Partner Domestic Partner Phone Father Name Line Maintainer Section Status 02/15/20 24 1 CLOSED Fetus Data First Name Last Name Admitted to NICU Weight (g) Sex Living Outcome Pediatric Complications Fetus ID Race Codes Race Delivery Type 3175.14 4 F Full Term 38886 Vaginal Delivery Nitin Calculation Initial Nitin Date [...] Domestic Partner Domestic Partner Phone Father Name Line Maintainer Section Status 02/15/20 24 1 CLOSED Fetus Data First Name Last Name Admitted to NICU Weight (g) Sex Living Outcome Pediatric Complications Fetus ID Race Codes Race Delivery Type 3175.14 4 F Full Term 94612 Vaginal Delivery Nitin Calculation Initial Nitin Date [...] Domestic Partner Domestic Partner Phone Father Name Line Maintainer Section Status 02/15/20 24 1 CLOSED Fetus Data First Name Last Name Admitted to NICU Weight (g) Sex Living Outcome Pediatric Complications Fetus ID Race Codes Race Delivery Type , Spontane ous 96893 Nitin Calculation Initial Nitin Date Initial Exam [...] Domestic Partner Domestic Partner Phone Father Name Line Maintainer Section Status 02/15/20 24 1 CLOSED Fetus Data First Name Last Name Admitted to NICU Weight (g) Sex Living Outcome Pediatric Complications Fetus ID Race Codes Race Delivery Type Demise 78245 Nitin Calculation Initial Nitin Date Initial Exam [...] Domestic Partner Domestic Partner Phone Father Name Line Maintainer Section Status 02/15/20 24 1 CLOSED Fetus Data First Name Last Name Admitted to NICU Weight (g) Sex Living Outcome Pediatric Complications Fetus ID Race Codes Race Delivery Type 3175.14 4 F Full Term 00017 Vaginal Delivery Nitin Calculation Initial Nitin Date [...] Domestic Partner Domestic Partner Phone Father Name Line Maintainer Section Status 02/15/20 24 1 CLOSED Fetus Data First Name Last Name Admitted to NICU Weight (g) Sex Living Outcome Pediatric Complications Fetus ID Race Codes Race Delivery Type 3175.14 4 F Full Term 65252 Vaginal Delivery Nitin Calculation Initial Nitin Date [...] Domestic Partner Domestic Partner Phone Father Name Line Maintainer Section Status 02/15/20 24 1 CLOSED Fetus Data First Name Last Name Admitted to NICU Weight (g) Sex Living Outcome Pediatric Complications Fetus ID Race Codes Race Delivery Type 3628.73 6 F Full Term 30719 Vaginal Delivery Nitin Calculation Initial Nitin Date [...]
[2025-01-12 16:33] LABS: Basophils Absolute Auto 0.1 K/mm3 (0.0-0.1); Eosinophils Absolute Auto 0.1 K/mm3 (0-0.3); Hemoglobin 13.1 g/dL (12.0-15.0); Immature Granulocyte Absolute 0.03 K/mm3 (0.00-0.031); Immature Granulocyte Percent A 0.3 % (0-0.5); Mean Corpuscular HGB Conc 33.6 g/dl (32-36); Mean Corpuscular Hemoglobin 29.8 pg (26-34); Mean Corpuscular Volume 88.6 fl (80-100); Mean Platelet Volume 9.8 fl (7.4-10.4); Monocytes Absolute Auto 0.6 K/mm3 (0.1-0.6); Monocytes Percent Auto 5.3 % (2.6-8.5); Neutrophils Absolute Auto 8.1 K/mm3 (1.3-6.7); Neutrophils Percent Auto 73.4 % (45.5-73.1); Platelet Count Result 354 k/mm3 (150-375); Red Cell Distribution Width 12.9 % (11.5-14.5)
[2025-01-12 16:46] LABS: Alanine Aminotransferase 26 U/L (6-35); Albumin Level 4.5 g/dL (3.5-5.1); Alkaline Phosphatase 66 U/L (38-126); Anion Gap 11 mmol/L (4-12); Aspartate Amino Transferase 21 U/L (14-36); Bilirubin,Total 0.7 mg/dL (0.2-1.3); Blood Urea Nitrogen 7 mg/dL (7-17); Calcium 9.1 mg/dL (8.4-10.2); Carbon Dioxide 22 mmol/L (22-30); Chloride 107 mmol/L (98-107); Estimated CRCL calculation 119 ml/min; Estimated Glomerular Filt Rate > 60; Glucose 103 mg/dL (65-110); Potassium 3.8 mmol/L (3.4-5.0); Sodium 140 mmol/L (137-145)
[2025-01-12 16:54] LABS: NT Pro B Type Natriuretic Pept 44 pg/mL (19.9-100)
--- OUTSIDE RECORDS SUMMARY | 2025-01-12 18:04 | XMS_ITS | CONTINUITY OF CARE DOCUMENT ---
Author Name chris perez Address Unknown Organization [facility] Address [address] [place] [address] [address] [place] [address] Phone [phone] Care Team Providers Care Coroner Transport Technician Name Role Phone Monty López MD [...] In-person encounter Office Visit Monty López MD [facility] Palpitations AND PRESYNOPE and dizzyIRON DEFICIENCYVitamin D deficiency 1 - 1 In-person encounter Office Visit Monty López MD [facility] ObesityFAMILY HISTORY OF HEART DISEASETobacco abuseScreeningPalpitations AND PRESYNOPE and dizzyHypertriglyceridemiaElevated LFT's VITAL SIGNS Date Observation Value Provider Body Mass Index (Ratio) 32.12 kg/m2 Danya López MD respiratory rate E&M 16 /min [facility] blood pressure, diastolic 65 mm[Hg] To [facility] blood pressure, systolic 119 mm[Hg] Ton [facility] blood pressure, resting No Tons [facility] oxygen saturation, oximetry 98 % [facility] pulse rate 90 /min [facility] weight E&M 199 [lb_av] [facility] height E&M 66 [in_i] [facility] Body Mass Index (Ratio) 31.79 kg/m2 [...] iron binding capacity, unsaturated 334 ug/dL [employer] [phone]/01/ 01 iron binding capacity, total 389 ug/dL [facility] [phone]/01/ 01 free thyroxine index 1.8 [employer] 1.2-4.9 [...] Not Estab. platelet count 382 X10E3/UL [facility] [phone]/01/ 01 red blood cell distribution width 13.9 [...] [employer] 3.5-5.2 sodium, serum 140 mmol/L [facility] [phone]/01/ 01 urea nitrogen/creatinine ratio, serum 12 [employer] [...] smoking history, tot al pack/day 2 [facility] cigarette use yes Prachi Alvarez smoking [...] Payer name Policy type / Coverage type [place] [employer] party ID ADRIANNE MEDICAID (2) Medicaid [id number] ADVANCE DIRECTIVES Name Date DISCUSSED - NO [...]
--- NOTE | 2025-01-12 18:14 | PC.NURSE ---
Pt. has BLE edema - non pitting. No wound, rash or deformity.
[2025-01-12 18:16] VITALS: BP 119/86; PULSE 78; RESP 16; O2SAT 100
--- NOTE | 2025-01-12 18:55 | PC.NURSE ---
Pt. requesting medication for her tylenol. Dr. Machuca notified. See MAR for intervention.
[2025-01-12] MEDS: ACETAMINOPHEN 500 MG TABLET 1000 MG PO (19:09)
[2025-01-12 19:50] VITALS: BP 123/74; PULSE 73; RESP 16; O2SAT 99
== END 2025-01-12 19:55 | disposition home or self-care (01) ==
PROVIDERS: Physician Assistant; Emergency Provider Student in an Organized Health Care Education/Training Program; PCP Physician Assistant
DX: R60.0 Localized edema (principal); F17.210 Nicotine dependence, cigarettes, uncomplicated
CPT/HCPCS: 36415; 71046; 80053; 83880; 85025; 93970; 99284; A9270

== ENCOUNTER 2025-02-09 08:38 | Emergency (ER) | payer OTHER, SELFPAY ==
--- NOTE | ~2025-02-09 | CT_ITS ---
CT scan of the Neck Technique: 2.5 mm axial scans were obtained through the neck after intravenous administration of 75 c c Omnipaque 350. Coronal and sagittal reconstructions of the neck were obtained. Dose reduction techn ique was used on this scan by utilizing automated exposure control and iterative reconstruction techn ique. The dose-length product (DLP) was 458.31 mGy-cm. Clinical History: Right neck pain is well Findings: There is no evidence of any significant cervical lymphadenopathy. Several small, nonenlarged jugulo- digastric and posterior cervical lymph nodes are noted bilaterally. Parapharyngeal spaces appear norm al bilaterally. The parotid and submandibular glands appear normal. The pharyngeal mucosal spaces appear normal. No soft tissue masses are seen in the neck. The thyroid gland appears normal. Images of the lung apices reveal no abnormalities. Impression: No significant abnormalities noted. Reviewed, dictated and finalized at [facility]. Impression: No significant abnormalities noted.
--- NOTE | ~2025-02-09 | CT_ITS ---
Non-contrast Head CT History: Headache COMPARISON: 05/05/2024 Technique: Axial non-contrast imaging of the brain was performed. Dose reduction technique was used on this scan by utilizing automated exposure control and iterative reconstruction technique. The dose -length product (DLP) was 605.33 mGy-cm. Findings: There is no evidence of intracranial hemorrhage, mass lesion, or acute infarct. Brain par enchyma appears normal. The ventricles and subarachnoid spaces are normal in size. The calvarium ap pears normal. The visualized paranasal sinuses and left mastoid air cells are clear. Chronic right m astoid effusion. Impression: No intracranial abnormality seen. Reviewed, dictated and finalized at location . Impression: No intracranial abnormality seen.
[2025-02-09 08:42] VITALS: BP 155/88; PULSE 68; RESP 16; O2SAT 100
--- OUTSIDE RECORDS SUMMARY | 2025-02-09 08:51 | XMS_ITS | Data Portability ---
Author Organization [facility] [place] Address [address] [place] [address] Care Team Providers Care Oiler And Greaser Name Role Phone EDWARD FOWLER Primary Care Provider [phone] Assessment No assessment recorded. Plan of Treatment [...] Address Organization Details Recorded Time Herpes simplex [id number] Active 2023 Urmila min [facility] 4 11:29:29 Human papilloma virus infection 697432698 Active 2023 Urmila min [facility] 4 11:29:35 Mixed anxiety and depressive disorder 347177219 Active 2023 Urmila min [facility] 4 11:29:45 Problem Notes None recorded. Procedures Surgical History Date Name Laterality Status Provider Name and Address Organization Details Recorded Time 11/15/19 21 Date of Last Pap Smear completed Urmila Tabor [facility] 02/15/2024 11:28:12 11/04/19 21 Endometrial Ablation completed Urmila Tabor [facility] 02/15/2024 11:41:23 08/08/20 13 Tubal Ligation completed Urmila Tabor [facility] 02/15/2024 11:28:13 04/05/20 12 LEEP completed Urmila Tabor [facility] 02/15/2024 11:28:13 11/04/19 12 Colposcopy completed Urmila Tabor [facility] 02/15/2024 11:40:31 11/04/19 12 Colposcopy completed Urmila Tabor [facility] 02/15/2024 11:39:48 Imaging Results None [...] Updated DateTime 02/15/2024 168.28 cm 33 kg/m2 15163.03 g 121 mm[Hg] 83 mm[Hg] Urmila Tabor [facility] 11:27:47 Social History Question Answer Notes LastModified by Organizat ion Details LastModified Time Tobacco Smoking Status Current Every Day Smoker Urmila Tabor [facility] 02/15/2024 11:39:22 What Is Your Level Of Alcohol Consumption? None [email or web address] Information not available 02/15/2024 Are You Blind Or Do You Have Difficulty Seeing? No [email or web address] Information n ot available 02/15/2024 What Is Your Level Of Caffeine Consumption? Heavy [email or web address] Information not available 02/15/2024 In The 14 Days Before Symptom Onset, Have You Had Close Contact With A Laboratory-confirm ed COVID-19 While That Case Was Ill? No [email or web address] Information n ot available 02/15/2024 In The 14 Days Before Symptom Onset, Have You Had Close Contact With A Person Who Is Under Investigation For COVID-19 While That Person Was Ill? No [email or web address] Information not available 02/15/2024 Have You Been To An Area Known To Be High Risk For COVID-19? No [email or web address] Information not available 02/15/2024 Are You Deaf Or Do You Have Serious Difficulty Hearing? No [email or web address] Information not available 02/15/2024 What Type Of Diet Are You Following? REGULAR [email or web address] Information n ot available 02/15/2024 What Is The Highest Grade Or Level Of School You Have Completed Or The Highest Degree You Have Received? CS24420-8 [email or web address] Information not available 02/15/2024 What Is Your Occupation? [employer] [email or web address] Information not available 02/15/2024 Are There Any Guns Present In Your Home? No [email or web address] Information not available 02/15/2024 Do You Use Protection During Sex? No [email or web address] Information not available 02/15/2024 Do You Use Your Seat Belt Or Car Seat Routinely? Yes [email or web address] Information not available 02/15/2024 Do You Have Smoke And Carbon Monoxide Detectors In Your Home? Yes [email or web address] Information not available 02/15/2024 At What Age Did You Start Smoking Tobacco? 15 [email or web address] Information not available 02/15/2024 How Much Tobacco Do You Smoke? 1 PPD [email or web address] Information not available 02/15/2024 Do You Feel Stressed (tense, Restless, Nervous, Or Anxious, Or Unable To Sleep At Night)? [id number] [email or web address] Information not available 02/15/2024 Do You Use Any Illicit Or Recreational Drugs? No Information not available 02/15/2024 Do You Use Sunscreen Routinely? No [email or web address] Information not available 02/15/2024 Has Tobacco Cessation Counseling Been Provided? Yes Information not available 02/15/2024 On What Date Was Tobacco Cessation Counseling Provided? 02/15/2024 Information not available 02/15/2024 Have You Used IV Drugs? No [email or web address] Information not available 02/15/2024 Do You Or Have You Ever Used Any Other Forms Of Tobacco Or Nicotine? No [email or web address] Information not available 02/15/2024 Sex: Unknown Functional Status Question Answer Note LastModified by Organizat ion Details LastModified Time Do you have difficulty walking or climbing stairs? No [email or web address] Information not available 02/15/2024 Are you able to walk? YESWOREST savrrtfs67 Information not available 02/15/2024 Are you able to care for yourself? Yes Information not available 02/15/2024 Do you have difficulty dressing or bathing? No [email or web address] Information not available 02/15/2024 What is your exercise level? Occasional [email or web address] Information not available 02/15/2024 Mental Status None recorded. Family History Relationship Description Onset Age of this Age Resolved Age Notes LastModified by Organization Details LastModified Time Mother Anxiety disorder [email or web address] Not available 02/14 11:28:12 Mother Disorder of lung [email or web address] Not available 02/14 11:28:12 Mother Malignant tumor of ovary [email or web address] Not available 02/14 11:28:12 Maternal Grandmother Malignant tumor of ovary [email or web address] Not available 02/14 11:28:12 Medical History Condition Response Allergies (Food, seasonal, environmental ) N Other N Drug/Latex Allergies/Reactions N Blood Transfusion N Breast Cancer N Dermatologic Disorders N Lung Disease N Defects or Inherited Disease N Breast Problem N Gestational Diabetes N Hematologic disorders N Anesthesia Complications N History of STI Y Deep Vein Thrombosis N Polycystic ovary syndrome N Anxiety Disorder Y Autoimmune disease N Arthritis N Polyps N Infertility N Acid Reflux (GERD) N History of abnormal pap Y Cancer N Varicosities N Stroke N Neurologic/Epilepsy N Endometriosis N High Cholesterol N Fibromyalgia N Headaches N Kidney Disease N Heart Problems N [...] SNOMED-CT Code Diagnosis ICD10 Code Diagnosis Note [id number] Jd Oliver MD [place] [address] [address] 02/15/2024 10:24:56 02/18/2024 16:13:29 Abnormal uterine bleeding [id number] 9100 N93.9 38-year-ol d female presents for [...] Altman Member ID Guarantor Name 02/15/2024 1 [facility] - DOS ON OR AFTER 21 (MEDICAID REPLACEMENT - HMO) Yudi Pizarro [id number] Yudi Rubiomelody Notes Date Note Type Note [...] evaluate. Jd Oliver MD [address], [place], [address], [facility] 02/18/2024 15:43:05 OBGyn Episode Ob Episode Information Episode Created Date Number of Fetuses Patient Bloodtype Patient rh Status Prepregnancy Weight lbs Domestic Partner Domestic Partner Phone Father Name Network Architect Status 02/15/20 24 1 CLOSED Fetus Data First Name Last Name Admitted to NICU Weight (g) Sex Living Outcome Pediatric Complications Fetus ID Race Codes Race Delivery Type , Spontane ous 17457 Nitin Calculation Initial Nitin Date Initial Exam [...] Domestic Partner Domestic Partner Phone Father Name Network Architect Status 02/15/20 24 1 CLOSED Fetus Data First Name Last Name Admitted to NICU Weight (g) Sex Living Outcome Pediatric Complications Fetus ID Race Codes Race Delivery Type 3175.14 4 F Full Term 70304 Vaginal Delivery Nitin Calculation Initial Nitin Date [...] Domestic Partner Domestic Partner Phone Father Name Network Architect Status 02/15/20 24 1 CLOSED Fetus Data First Name Last Name Admitted to NICU Weight (g) Sex Living Outcome Pediatric Complications Fetus ID Race Codes Race Delivery Type 3175.14 4 F Full Term 93034 Vaginal Delivery Nitin Calculation Initial Nitin Date [...] Domestic Partner Domestic Partner Phone Father Name Network Architect Status 02/15/20 24 1 CLOSED Fetus Data First Name Last Name Admitted to NICU Weight (g) Sex Living Outcome Pediatric Complications Fetus ID Race Codes Race Delivery Type , Spontane ous 05327 Nitin Calculation Initial Nitin Date Initial Exam [...] Domestic Partner Domestic Partner Phone Father Name Network Architect Status 02/15/20 24 1 CLOSED Fetus Data First Name Last Name Admitted to NICU Weight (g) Sex Living Outcome Pediatric Complications Fetus ID Race Codes Race Delivery Type Demise 14437 Nitin Calculation Initial Nitin Date Initial Exam [...] Domestic Partner Domestic Partner Phone Father Name Network Architect Status 02/15/20 24 1 CLOSED Fetus Data First Name Last Name Admitted to NICU Weight (g) Sex Living Outcome Pediatric Complications Fetus ID Race Codes Race Delivery Type 3175.14 4 F Full Term 83983 Vaginal Delivery Nitin Calculation Initial Nitin Date [...] Domestic Partner Domestic Partner Phone Father Name Network Architect Status 02/15/20 24 1 CLOSED Fetus Data First Name Last Name Admitted to NICU Weight (g) Sex Living Outcome Pediatric Complications Fetus ID Race Codes Race Delivery Type 3175.14 4 F Full Term 32331 Vaginal Delivery Nitin Calculation Initial Nitin Date [...] Domestic Partner Domestic Partner Phone Father Name Network Architect Status 02/15/20 24 1 CLOSED Fetus Data First Name Last Name Admitted to NICU Weight (g) Sex Living Outcome Pediatric Complications Fetus ID Race Codes Race Delivery Type 3628.73 6 F Full Term 21622 Vaginal Delivery Nitin Calculation Initial Nitin Date [...]
--- OUTSIDE RECORDS SUMMARY | 2025-02-09 08:51 | XMS_ITS | Referral Summary ---
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
--- OUTSIDE RECORDS SUMMARY | 2025-02-09 08:51 | XMS_ITS | CONTINUITY OF CARE DOCUMENT ---
Author Name chris perez Address Unknown Organization [facility] Address [address] [place] [address] [address] [place] [address] Phone [phone] Care Team Providers Care Take Away Man Name Role Phone Monty López MD Unavailable HORTENSIA GARCIA MD Unavailable HORTENSIA GARCIA MD Unavailable [phone] PROBLEMS Condition Status Date Provider Notes Obesity [...] In-person encounter Office Visit Monty López MD [facility] Palpitations AND PRESYNOPE and dizzyIRON DEFICIENCYVitamin D deficiency 1 - 1 In-person encounter Office Visit Monty López MD [facility] ObesityFAMILY HISTORY OF HEART DISEASETobacco abuseScreeningPalpitations AND PRESYNOPE and dizzyHypertriglyceridemiaElevated LFT's VITAL SIGNS Date Observation Value Provider Body Mass Index (Ratio) 32.12 kg/m2 Danya López MD respiratory rate E&M 16 /min [facility] blood pressure, diastolic 65 mm[Hg] To [facility] blood pressure, systolic 119 mm[Hg] Ton [facility] blood pressure, resting No [facility] oxygen saturation, oximetry 98 % [facility] pulse rate 90 /min [facility] weight E&M 199 [lb_av] [facility] height E&M 66 [in_i] [facility] Body Mass Index (Ratio) 31.79 kg/m2 Danya [...] iron binding capacity, unsaturated 334 ug/dL [employer] [phone]/01/ 01 iron binding capacity, total 389 ug/dL [employer] [phone]/01/ 01 free thyroxine index 1.8 [employer] 1.2-4.9 [...] Not Estab. platelet count 382 X10E3/UL [employer] [phone]/01/ 01 red blood cell distribution width 13.9 [...] [employer] 3.5-5.2 sodium, serum 140 mmol/L [employer] [phone]/01/ 01 urea nitrogen/creatinine ratio, serum 12 [employer] [...] smoking history, tot al pack/day 2 [facility] yes Prachi Alvarez smoking status [...] Payer name Policy type / Coverage type [place] [employer] [place] [employer] MEDICAID (2) Medicaid [id number] ADVANCE DIRECTIVES Name Date DISCUSSED - NO [...]
--- OUTSIDE RECORDS SUMMARY | 2025-02-09 08:51 | XMS_ITS | Clinical Summary ---
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
--- OUTSIDE RECORDS SUMMARY | 2025-02-09 08:51 | XMS_ITS | Data Portability ---
Author Organization [facility] Jose Collier Address [address] [place] [address] Care Team Providers Care Closer On Name Role Phone URSULA BENSON Extension Division Director [phone] Assessment Encounter Date Assessment Date Assessment LastModified by Organization Details LastModified Time 05/19/2024 05/19/2024 Sections of the HPI, exam and assessment completed by DORCAS Diaz student and have been reviewed by me. I agree with the exam findings, assessment and plan except where specifically documented or amended. -Jessica Malin, [facility], PARachel [email or web address] Not available 05/20/2024 17:52:36 Plan of Treatment Reminders Order Date Submit Date Provider Last Modified By Organization Details Last Modified Time Details Appointments ANY 15 2024 11:00A M DORCAS BEST Not available Not available Not available Lab HbA1c (hemoglob in A1c), blood 2024 025 MARGE [facility], [address], [place], [address], 12/15/2024 14:13:29 TSH, ultra-sen sitive, serum 2024 025 MARGE [facility], [address], [place], [address], 12/15/2024 14:13:28 CMP, serum or plasma 2024 025 MARGE [facility], [address], [place], [address], 12/14/2024 22:06:48 CBC w/ auto diff 2024 025 MARGE [facility], [address], [place], [address], 12/14/2024 22:06:49 albumin/c reatinine , mass ratio, urine 2024 025 MARGE Agee, [address], [place], [address], 12/15/2024 14:13:27 lipid panel, serum 2024 025 MARGE Agee, [address], [place], [address], 12/14/2024 22:06:47 urinalysi s, dipstick 2023 024 [email or web address] In-Office Order, Internal Use Only DO Not Attach Compendium DO Not Attach Compendium, Do Not Delete/merge, [id number] 09/08/2024 11:29:24 culture, urine 2023 024 MARGE Agee, [address], [place], [address], 09/10/2024 03:36:58 vitamin D, 25-hydrox y, total, serum 2023 024 MARGE Agee, [address], [place], [address], 05/20/2024 14:17:31 vitamin B12 + folate, serum or blood 2023 024 MARGE gAee, [address], [place], [address], 05/20/2024 14:17:30 CMP, serum or plasma 2023 024 MARGE Agee, [address], [place], [address], 05/19/2024 22:07:21 lipid panel, serum 2023 024 AMRGE Agee, [address], [place], [address], 05/19/2024 22:07:21 CBC w/ auto diff 2023 024 MARGE Agee, [address], [place], [address], 05/19/2024 22:07:22 TSH + free T4, serum 2023 024 MARGE Agee, [address], [place], [address], 05/20/2024 14:17:29 HbA1c (hemoglob in A1c), blood 2023 024 MARGE Agee, [address], [place], [address], 05/20/2024 14:17:30 CMP, serum or plasma 2022 023 MARGE Agee, [address], [place], [address], 03/14/2023 08:27:03 lipid panel, serum 2022 023 MARGE Agee, [address], [place], [address], 03/14/2023 08:27:02 CBC w/ auto diff 2022 023 MARGE Agee, [address], [place], [address], 03/14/2023 08:27:03 TSH + free T4, serum 2022 023 MARGE Agee, [address], [place], [address], 03/13/2023 08:29:04 HbA1c (hemoglob in A1c), blood 2022 023 [facility] [facility], [address], [place], [address], 03/13/2023 08:29:04 urinalysi s, dipstick 2022 023 [email or web address] In-Office Order, Internal Use Only DO Not Attach Compendium DO Not Attach Compendium, Do Not Delete/merge, [id number] 03/12/2023 11:56:58 urinalysi s complete, reflex culture 2022 023 [place] [facility], [address], [place], [address], 03/14/2023 06:18:16 vitamin D, 25-hydrox y, total, serum 2022 023 [facility], [address], [place], [address], 03/13/2023 08:29:05 Referral otolaryng ologist referral 2024 025 [email or web address] Arthur Rodriguez MD, [address], [place], [address], 02/02/2025 08:02:30 physical therapist referral 2024 025 [email or web address] [facility], [address] [facility] , [place], [address], 02/02/2025 08:02:30 vascular surgeon referral 2024 025 Pascual Hubbard MD, [address] [facility] , [address], [place], [address], 01/12/2025 08:11:08 physical therapist referral [email or web address] (Outpatient [facility] Therapy), [address], [place], [address], 06/10/2024 07:55:55 obstetric darrell and gynecolog ist referral 2022 023 jeanie Oliver MD, [address], [place], [address], 06/10/2023 15:14:46 Procedures None recorded. Surgeries None recorded. Imaging MAMMO, screening , bilateral [address] [facility], [address], [address], [place], [address], 01/27/2025 08:13:18 XR, lumbosacr al spine, 2 or 3 view 2024 025 [facility] (Imaging), [address] [facility] [address], [place], [address], 12/14/2024 16:10:58 US, doppler, venous [address] (Imaging), [address], [place], [address], 12/29/2024 08:22:03 XR, knee, 3 view 2024 025 [facility] (Imaging), [address] [facility] [address], [place], [address], 12/14/2024 14:59:28 Medication Orders diclofena c sodium 50 mg tablet,de layed release 2024 025 [facility], [address] [place], [place], [id number], 01/19/2025 11:27:44 meloxicam 15 mg tablet 2024 025 [facility] #85352, [address] [place], [place], [id number], 01/19/2025 11:28:47 lisinopri l 10 mg tablet 2024 025 [facility] #26283, [address], [place], [place], [id number], 12/23/2024 16:35:12 nicotine 21 mg/24 hr daily transderm al patch 2023 024 [facility] #17566, [address], [place], [place], [id number], 05/19/2024 14:45:43 hydroxyzi ne HCl 25 mg tablet 2023 024 [facility] #15947, [address], [place], [place], [id number], 05/20/2024 10:16:24 pantopraz ole 20 mg tablet,de layed release 2023 024 [facility] #56038, [address] [facility], [place], [place], [id number], 05/19/2024 14:44:01 nitrofura ntoin monohydra te/macroc rystals 100 mg capsule [email or web address] [place] [address] [facility]97657, [address], [place], [place], [id number], 12/14/2024 10:47:18 Patient TargetsNo targets recorded. Patient Instructions Encounter Date Encounter Id Patient Instructions Last Modified By Organization Details Last Modified Time 03/12/2023 [id number] A healthy lifestyle: care instructions [email or web address] Not available 03/12/2023 11:38:38 Quitting Tobacco : Care Instructions [email or web address] Not available 03/12/2023 11:29:38 05/19/2024 [id number] Quitting Tobacco : Care Instructions [email or web address] Not available 05/19/2024 14:33:05 A healthy lifestyle: care instructions [email or web address] Not available 05/19/2024 14:35:23 12/14/2024 [id number] prediabetes: car e instructions [email or web address] Not available 12/14/2024 11:10:05 back care and preventing injuries: care instructions [email or web address] Not available 12/14/2024 11:08:05 varicose veins: care instructions [email or web address] Not available 12/14/2024 11:08:05 A healthy lifestyle: care instructions Not available 12/14/2024 11:08:05 learning about high blood pressure [email or web address] Not available 12/14/2024 11:08:05 01/19/2025 [id number] Quitting Tobacco : Care Instructions [email or web address] Not available 01/19/2025 11:38:58 Reason for Referral Meeting Manager And Gynecologis t Referral for Screening for malignant neoplasm of cervix Referring Physician: Jessica Malin [facility], Encounter Date: 03/12/2023 Physical Therapist Referral for Chronic neck pain for greater than 3 months Referring Physician: Jessica Malin [facility], Encounter Date: 05/19/2024 Vascular Surgeon Referral fo r Varicose veins of lower extremity Referring Physician: Joe Durant [facility], Encounter Date: 12/14/2024 Physical Therapist Referral for Pain of left knee joint Referring Physician: Jessica Malin [facility], Encounter Date: 01/19/2025 Extension Division Director Referral fo r Chronic serous otitis media Referring Physician: Jessica Malin [facility], Encounter Date: 01/19/2025 Results Created Date Observation Date Name Description Value Unit Range Abnormal Flag Note LastModifiedBy Organization Detail LastModifiedTime 03/12/2003/13/2023 TSH+F REE T4 TSH 2.060 uIU/m L 0.450- 4.500 Not Available [facility] ([facility]) [address] [facility] [address], [place], [address], 03/13/2023 08:29:04 03/12/2003/13/2023 TSH+F REE T4 T4,free(dire ct) 1.32 NG/dL 0.82-1 .77 Not Available [facility] ([facility]) [address] [facility], [place], [address], 03/13/2023 08:29:04 03/12/2003/13/2023 HEMOG LOBIN A1C hemoglobin A1C 5.3 % 4.8-5. 6 Predi abete s: 5.7 - 6.4 Diabe jen: >6.4 Glyce carissa contr ol for adult s with diabe jen: <7.0 Not Available [facility] ([facility]) [address] [facility], [place], [address], 03/13/2023 08:29:04 03/12/2003/13/2023 VITAM IN D, 25-HY [...] [place]: [facility] . 2. Mendy gupta MF, Candida osorio [place], Karina off-F errar i SLAUGHTER, et al. Evalu ation , treat ment, and preve ntion of vitam in D defic iency : an Endoc rine Socie ty clini dalia pract ice guide line. JCEM. 2010; 96(7) :1911 -30. Not Available [facility] ([facility]) [address] [facility], [place], [address], 03/13/2023 08:29:05 03/12/2003/14/2023 LIPID PANEL WITH LDL/H DL RATIO cholesterol, total 156 mg/dL 100-19 9 Not Available [facility] ([facility]) [address] [place], [address], 03/14/2023 08:27:02 03/12/20 23 03/14/2023 LIPID PANEL WITH LDL/H DL RATIO triglyceride s 118 mg/dL 0-149 Not Available [facility] ([facility]) [address] [place], [address], 03/14/2023 08:27:02 03/12/20 23 03/14/2023 LIPID PANEL WITH LDL/H DL RATIO HDL cholesterol 38 mg/dL >39 below low normal Not Available [facility] ([facility]) [address] [place], [address], 03/14/2023 08:27:02 03/12/20 23 03/14/2023 LIPID PANEL WITH LDL/H DL RATIO VLDL cholesterol dalia 21 mg/dL 5-40 Not Available [facility] ([facility]) [address] [place], [address], 03/14/2023 08:27:02 03/12/20 23 03/14/2023 LIPID PANEL WITH LDL/H DL RATIO LDL chol calc ([facility]) 97 mg/dL 0-99 Not Available [facility] ([facility]) [address] [place], [address], 03/14/2023 08:27:02 03/12/20 23 03/14/2023 LIPID PANEL WITH LDL/H DL RATIO LDL/HDL ratio 2.6 ratio 0.0-3. 2 LDL/H DL Ratio Men Women 1/2 Avg.R isk 1.0 1.5 Avg.R isk 3.6 3.2 2X Avg.R isk 6.2 5.0 3X Avg.R isk 8.0 6.1 Not Available [facility] ([facility]) [address] [place], [address], 03/14/2023 08:27:02 03/12/20 23 03/14/2023 COMP. METAB OLIC PANEL (14) glucose 106 mg/dL 70-99 above high normal Not Available [facility] ([facility]) [address] [place], [address], 03/14/2023 08:27:03 03/12/20 23 03/14/2023 COMP. METAB OLIC PANEL (14) BUN 10 mg/dL 6-20 Not Available [facility] ([facility]) [address] [place], [address], 03/14/2023 08:27:03 03/12/20 23 03/14/2023 COMP. METAB OLIC PANEL (14) creatinine 0.74 mg/dL 0.57-1 .00 Not Available [facility] ([facility]) [address] [place], [address], 03/14/2023 08:27:03 03/12/20 23 03/14/2023 COMP. METAB OLIC PANEL (14) eGFR 105 mL/mi n/1.7 3 >59 Not Available [facility] ([facility]) [address] [place], [address], 03/14/2023 08:27:03 03/12/20 23 03/14/2023 COMP. METAB OLIC PANEL (14) BUN/creatini ne ratio 14 9-23 Not Available [facility] ([facility]) [address] [place], [address], 03/14/2023 08:27:03 03/12/20 23 03/14/2023 COMP. METAB OLIC PANEL (14) sodium 141 mmol/ L 134-14 4 Not Available [facility] ([facility]) [address] [place], [address], 03/14/2023 08:27:03 03/12/20 23 03/14/2023 COMP. METAB OLIC PANEL (14) potassium 3.8 mmol/ L 3.5-5. 2 Not Available [facility] ([facility]) [address] [facility] [place], [address], 03/14/2023 08:27:03 03/12/20 23 03/14/2023 COMP. METAB OLIC PANEL (14) chloride 105 mmol/ L 96-106 Not Available [facility] ([facility]) [address] [facility] [place], [address], 03/14/2023 08:27:03 03/12/20 23 03/14/2023 COMP. METAB OLIC PANEL (14) carbon dioxide, total 22 mmol/ L 20-29 Not Available [facility] ([facility]) [address] [facility], [place], [address], 03/14/2023 08:27:03 03/12/20 23 03/14/2023 COMP. METAB OLIC PANEL (14) calcium 8.9 mg/dL 8.7-10 .2 Not Available [facility] ([facility]) [address] [facility] [place], [address], 03/14/2023 08:27:03 03/12/20 23 03/14/2023 COMP. METAB OLIC PANEL (14) protein, total 7.1 g/dL 6.0-8. 5 Not Available [facility] ([facility]) [address] [facility] [place], [address], 03/14/2023 08:27:03 03/12/20 23 03/14/2023 COMP. METAB OLIC PANEL (14) albumin 4.7 g/dL 3.8-4. 8 Not Available [facility] ([facility]) [address] [facility] [place], [address], 03/14/2023 08:27:03 03/12/20 23 03/14/2023 COMP. METAB OLIC PANEL (14) globulin, total 2.4 g/dL 1.5-4. 5 Not Available [facility] ([facility]) [address] [facility], [place], [address], 03/14/2023 08:27:03 03/12/20 23 03/14/2023 COMP. METAB OLIC PANEL (14) A/G ratio 2.0 1.2-2. 2 Not Available [facility] ([facility]) [address] [facility], [place], [address], 03/14/2023 08:27:03 03/12/20 23 03/14/2023 COMP. METAB OLIC PANEL (14) bilirubin, total 0.9 mg/dL 0.0-1. 2 Not Available [facility] ([facility]) [address] [facility], [place], [address], 03/14/2023 08:27:03 03/12/20 23 03/14/2023 COMP. METAB OLIC PANEL (14) alkaline phosphatase 67 IU/L 44-121 Not Available [facility]) [address] [facility], [place], [address], 03/14/2023 08:27:03 03/12/20 23 03/14/2023 COMP. METAB OLIC PANEL (14) AST (SGOT) 18 IU/L 0-40 Not Available [facility] ([facility]) [address] [facility] [place], [address], 03/14/2023 08:27:03 03/12/20 23 03/14/2023 COMP. METAB OLIC PANEL (14) ALT (SGPT) 14 IU/L 0-32 Not Available [facility] ([facility]) [address] [place], [address], 03/14/2023 08:27:03 03/12/20 23 03/14/2023 CBC WITH DIFFE RENTI AL/PL ATELE T WBC 9.5 x10e3 /uL 3.4-10 .8 Not Available [facility] ([facility]) [address] [place], [address], 03/14/2023 08:27:03 03/12/20 23 03/14/2023 CBC WITH DIFFE RENTI AL/PL ATELE T RBC 4.93 x10e6 /uL 3.77-5 .28 Not Available [facility] ([facility]) [address] [place], [address], 03/14/2023 08:27:03 03/12/20 23 03/14/2023 CBC WITH DIFFE RENTI AL/PL ATELE T hemoglobin 14.6 g/dL 11.1-1 5.9 Not Available [facility] ([facility]) [address] [place], [address], 03/14/2023 08:27:03 03/12/20 23 03/14/2023 CBC WITH DIFFE RENTI AL/PL ATELE T hematocrit 43.4 % 34.0-4 6.6 Not Available [facility] ([facility]) [address] [place], [address], 03/14/2023 08:27:03 03/12/2003/14/2023 CBC WITH DIFFE RENTI AL/PL ATELE T MCV 88 fL 79-97 Not Available [facility] ([facility]) [address] [place], [address], 03/14/2023 08:27:03 03/12/20 23 03/14/2023 CBC WITH DIFFE RENTI AL/PL ATELE T MCH 29.6 pg 26.6-3 3.0 Not Available [facility] ([facility]) [address] [place], [address], 03/14/2023 08:27:03 03/12/20 23 03/14/2023 CBC WITH DIFFE RENTI AL/PL ATELE T MCHC 33.6 g/dL 31.5-3 5.7 Not Available [facility] ([facility]) [address] [place], [address], 03/14/2023 08:27:03 03/12/20 23 03/14/2023 CBC WITH DIFFE RENTI AL/PL ATELE T RDW 12.5 % 11.7-1 5.4 Not Available [facility] ([facility]) [address] [facility] [address], [place], [address], 03/14/2023 08:27:03 03/12/20 23 03/14/2023 CBC WITH DIFFE RENTI AL/PL ATELE T platelets 396 x10e3 /uL 150-45 0 Not Available [facility] ([facility]) [address] [facility] [address], [place], [address], 03/14/2023 08:27:03 03/12/20 23 03/14/2023 CBC WITH DIFFE RENTI AL/PL ATELE T neutrophils 58 % notest ab. Not Available [facility] ([facility]) [address] [facility] [address], [place], [address], 03/14/2023 08:27:03 03/12/20 23 03/14/2023 CBC WITH DIFFE RENTI AL/PL ATELE T lymphs 29 % notest ab. Not Available [facility] ([facility]) [address] [facility] [address], [place], [address], 03/14/2023 08:27:03 03/12/20 23 03/14/2023 CBC WITH DIFFE RENTI AL/PL ATELE T monocytes 9 % notest ab. Not Available [facility] ([facility]) [address] [facility], [place], [address], 03/14/2023 08:27:03 03/12/20 23 03/14/2023 CBC WITH DIFFE RENTI AL/PL ATELE T eos 2 % notest ab. Not Available [facility] ([facility]) [address] [facility], [place], [address], 03/14/2023 08:27:03 03/12/20 23 03/14/2023 CBC WITH DIFFE RENTI AL/PL ATELE T basos 1 % notest ab. Not Available [facility] ([facility]) [address] [facility], [place], [address], 03/14/2023 08:27:03 03/12/20 23 03/14/2023 CBC WITH DIFFE RENTI AL/PL ATELE T neutrophils (absolute) 5.5 x10e3 /uL 1.4-7. 0 Not Available [facility] ([facility]) [address] [facility] [address], [place], [address], 03/14/2023 08:27:03 03/12/20 23 03/14/2023 CBC WITH DIFFE RENTI AL/PL ATELE T lymphs (absolute) 2.8 x10e3 /uL 0.7-3. 1 Not Available [facility] ([facility]) [address] [place], [address], 03/14/2023 08:27:03 03/12/20 23 03/14/2023 CBC WITH DIFFE RENTI AL/PL ATELE T monocytes(ab solute) 0.9 x10e3 /uL 0.1-0. 9 Not Available [facility] ([facility]) [address] [place], [address], 03/14/2023 08:27:03 03/12/20 23 03/14/2023 CBC WITH DIFFE RENTI AL/PL ATELE T eos (absolute) 0.2 x10e3 /uL 0.0-0. 4 Not Available [facility] ([facility]) [address] [place], [address], 03/14/2023 08:27:03 03/12/20 23 03/14/2023 CBC WITH DIFFE RENTI AL/PL ATELE T baso (absolute) 0.1 x10e3 /uL 0.0-0. 2 Not Available [facility] ([facility]) [address] [place], [address], 03/14/2023 08:27:03 03/12/20 23 03/14/2023 CBC WITH DIFFE RENTI AL/PL ATELE T immature granulocytes 1 % notest ab. Not Available [facility] ([facility]) [address] [place], [address], 03/14/2023 08:27:03 03/12/20 23 03/14/2023 CBC WITH DIFFE RENTI AL/PL ATELE T immature grans (abs) 0.1 x10e3 /uL 0.0-0. 1 Not Available [facility] ([facility]) [address] [place], [address], 03/14/2023 08:27:03 03/12/20 23 03/14/2023 URINE CULTU RE, ROUTI NE urine culture, routine Final report Not Available [facility] ([facility]) [address] [place], [address], 03/14/2023 06:18:17 03/12/2003/14/2023 URINE CULTU RE, ROUTI NE result 1 Commen t Mixed uroge nital rose 25,00 0-50, 000 colon y formi ng units per mL Not Available [facility] ([facility]) [address] [place], [address], 03/14/2023 06:18:17 03/12/20 23 03/13/2023 UA/M W/RFL X CULTU RE, ROUTI NE specific gravity 1.018 1.005- 1.030 Not Available [facility] ([facility]) [address] [place], [address], 03/14/2023 06:18:15 03/12/2003/13/2023 UA/M W/RFL X CULTU RE, ROUTI NE pH 6.0 5.0-7. 5 Not Available [facility] ([facility]) [address] [place], [address], 03/14/2023 06:18:15 03/12/20 23 03/13/2023 UA/M W/RFL X CULTU RESHAWANDA NE urine-color Yellow yellow Not Available [facility] ([facility]) [address] [facility], [place], [address], 03/14/2023 06:18:15 03/12/2003/13/2023 UA/M W/RFL X CULTU RE, ROUTI NE appearance Clear clear Not Available [facility] ([facility]) [address] [facility], [place], [address], 03/14/2023 06:18:15 03/12/20 23 03/13/2023 UA/M W/RFL X CULTU RE ROUTI NE WBC esterase 1+ negati ve abnormal Not Available [facility] ([facility]) [address] [facility], [place], [address], 03/14/2023 06:18:15 03/12/20 23 03/13/2023 UA/M W/RFL X CULTU RE ROUTDarrick NE protein Negati ve negati ve/tra ce Not Available [facility] ([facility]) [address] [facility], [place], [address], 03/14/2023 06:18:15 03/12/20 23 03/13/2023 UA/M W/RFL X CULTU RE ROUTDarrick NE glucose Negati ve negati ve Not Available [facility] ([facility]) [address] [facility], [place], [address], 03/14/2023 06:18:15 03/12/2003/13/2023 UA/M W/RFL X CULTU RE, ROUTI NE ketones Negati ve negati ve Not Available [facility] ([facility]) [address] [facility], [place], [address], 03/14/2023 06:18:15 03/12/20 23 03/13/2023 UA/M W/RFL X CULTU RE, ROUTI NE occult blood Trace negati ve abnormal Not Available [facility] ([facility]) [address] [place], [address], 03/14/2023 06:18:15 03/12/20 23 03/13/2023 UA/M W/RFL X CULTU RE, ROUTI NE bilirubin Negati ve negati ve Not Available [facility] ([facility]) [address] [place], [address], 03/14/2023 06:18:15 03/12/20 23 03/13/2023 UA/M W/RFL X CULTU RE, ROUTI NE urobilinogen ,semi-qn 0.2 mg/dL 0.2-1. 0 Not Available [facility] ([facility]) [address] [place], [address], 03/14/2023 06:18:15 03/12/20 23 03/13/2023 UA/M W/RFL X CULTU RE, ROUTI NE nitrite, urine Negati ve negati ve Not Available [facility] ([facility]) [address] [place], [address], 03/14/2023 06:18:15 03/12/20 23 03/13/2023 UA/M W/RFL X CULTU RE, ROUTI NE microscopic examination See below: Micro scopi c was indic ated and was perfo rmed. Not Available [facility] ([facility]) [address] [place], [address], 03/14/2023 06:18:15 03/12/20 23 03/13/2023 UA/M W/RFL X CULTU RE, ROUTI NE urinalysis reflex Commen t This speci men has refle xed to a Urine Cultu re. Not Available [facility] ([facility]) [address] [place], [address], 03/14/2023 06:18:15 03/12/20 23 03/13/2023 MICRO SCOPI C EXAMI NATIO N WBC 11-30 /hpf 0-5 abnormal Not Available [facility] ([facility]) [address] [facility], [place], [address], 03/14/2023 06:18:15 03/12/20 23 03/13/2023 MICRO SCOPI C EXAMI NATIO N RBC 11-30 /hpf 0-2 abnormal Not Available [facility] ([facility]) [address] [facility], [place], [address], 03/14/2023 06:18:15 03/12/20 23 03/13/2023 MICRO SCOPI C EXAMI NATIO N epithelial cells (non renal) 0-10 /hpf 0-10 Not Available [facility] ([facility]) [address] [facility], [place], [address], 03/14/2023 06:18:15 03/12/20 23 03/13/2023 MICRO SCOPI C EXAMI NATIO N casts None seen /lpf nonese en Not Available [facility] ([facility]) [address] [facility], [place], [address], 03/14/2023 06:18:15 03/12/20 23 03/13/2023 MICRO SCOPI C EXAMI NATIO N bacteria None seen nonese en/few Not Available [facility] ([facility]) [address] [facility] [address], [place], [address], 03/14/2023 06:18:15 03/12/2003/12/2023 urina lysis , dipst ick Leukocytes Trace Not Available In-Offi ce Order Internal Use Only DO Not Attach Compendium DO Not Attach Compendium, Do Not Delete/merge, [id number] 03/12/2023 11:21:16 03/12/20 23 03/12/2023 urina lysis [...] 03/12/2023 urina lysis , dipst ick Specific [place] 1.025 Not Available In-Off ice Order Internal [...] Attach Compendium, Do Not Delete/merge, 03/12/2023 11:21:16 05/19/20 24 05/19/2024 LIPID PANEL WITH LDL/H DL RATIO cholesterol, total 175 mg/dL 100-19 9 Not Available [facility] [address] [place], [address], 05/19/2024 22:07:21 05/19/20 24 05/19/2024 LIPID PANEL WITH LDL/H DL RATIO triglyceride s 308 mg/dL 0-149 above high normal Not Available [facility] [address] [place], [address], 05/19/2024 22:07:21 05/19/20 24 05/19/2024 LIPID PANEL WITH LDL/H DL RATIO HDL cholesterol 36 mg/dL 40-999 below low normal Not Available [facility] [address] [place], [address], 05/19/2024 22:07:21 05/19/20 24 05/19/2024 LIPID PANEL WITH LDL/H DL RATIO VLDL cholesterol dalia 62 mg/dL 5-40 above high normal Not Available [facility] [address] [place], [address], 05/19/2024 22:07:21 05/19/20 24 05/19/2024 LIPID PANEL WITH LDL/H DL RATIO LDL chol calc (nih) 123 mg/dL 0-99 above high normal Not Available [facility] [address] [place] [address], [address], 05/19/2024 22:07:21 05/19/20 24 05/19/2024 LIPID PANEL WITH LDL/H DL RATIO LDL/HDL ratio 3.4 0-3.2 above high normal Not Available [facility] [address] [place] [address], [address], 05/19/2024 22:07:21 05/19/20 24 05/19/2024 COMP. METAB OLIC PANEL (14) glucose 94 mg/dL 70-99 Not Available [facility] [address] [place] [address], [address], 05/19/2024 22:07:21 05/19/20 24 05/19/2024 COMP. METAB OLIC PANEL (14) BUN 13 mg/dL 6-24 Not Available [facility] [address] [place] [address], [address], 05/19/2024 22:07:21 05/19/20 24 05/19/2024 COMP. METAB OLIC PANEL (14) creatinine 0.70 mg/dL 0.76-1 .27 below low normal Not Available [facility] [address] [place] [address], [address], 05/19/2024 22:07:21 05/19/20 24 05/19/2024 COMP. METAB OLIC PANEL (14) eGFR 112 >=60 Units for eGFR value s are mL/mi n/1.7 3 The eGFR Calcu latio n has not been valid ated for patie nts under the age of 18. If test resul ts are displ ayed for a patie nt under the age of 18, disre elizabeth that value . Not Available [facility] [address] [place] [address], [address], 05/19/2024 22:07:21 05/19/20 24 05/19/2024 COMP. METAB OLIC PANEL (14) BUN/creatini ne ratio 18 9-[address] [facility] [address] [place], [address], 05/19/2024 22:07:21 05/19/20 24 05/19/2024 COMP. METAB OLIC PANEL (14) sodium 139 mmol/ L 134-14 4 Not Available [facility] [address] [place], [address], 05/19/2024 22:07:21 05/19/20 24 05/19/2024 COMP. METAB OLIC PANEL (14) potassium 4.2 mmol/ L 3.5-5. 2 Not Available [facility] [address] [place], [address], 05/19/2024 22:07:21 05/19/20 24 05/19/2024 COMP. METAB OLIC PANEL (14) chloride 104 mmol/ L 96-106 Not Available [facility] [address] [place], [address], 05/19/2024 22:07:21 05/19/20 24 05/19/2024 COMP. METAB OLIC PANEL (14) carbon dioxide, total 20 mmol/ L 20-29 Not Available [facility] [address] [place], [address], 05/19/2024 22:07:21 05/19/20 24 05/19/2024 COMP. METAB OLIC PANEL (14) calcium 9.4 mg/dL 8.7-10 .2 Not Available [facility] [address] [place], [address], 05/19/2024 22:07:21 05/19/20 24 05/19/2024 COMP. METAB OLIC PANEL (14) protein, total 7.0 g/dL 6.0-8. 5 Not Available [facility] [address] [place], [address], 05/19/2024 22:07:21 05/19/20 24 05/19/2024 COMP. METAB OLIC PANEL (14) albumin 4.5 g/dL 3.9-4. 9 Not Available [facility] [address] [place], [address], 05/19/2024 22:07:21 05/19/20 24 05/19/2024 COMP. METAB OLIC PANEL (14) globulin, total 2.5 g/dL 1.5-4. 5 Not Available [facility] [address] [place], [address], 05/19/2024 22:07:21 05/19/20 24 05/19/2024 COMP. METAB OLIC PANEL (14) A/G ratio 1.8 1.2-2. 2 Not Available [facility] [address] [place], [address], 05/19/2024 22:07:21 05/19/20 24 05/19/2024 COMP. METAB OLIC PANEL (14) bilirubin, total 1.0 mg/dL 0.0-1. 2 Not Available [facility] [address] [place], [address], 05/19/2024 22:07:21 05/19/20 24 05/19/2024 COMP. METAB OLIC PANEL (14) alkaline phosphatase 77 IU/L 44-121 Not Available [facility] Department [address] [place], [address], 05/19/2024 22:07:21 05/19/20 24 05/19/2024 COMP. METAB OLIC PANEL (14) AST (SGOT) 21 IU/L 0-40 Not Available [facility] Department [address] [place], [address], 05/19/2024 22:07:21 05/19/20 24 05/19/2024 COMP. METAB OLIC PANEL (14) ALT (SGPT) 18 IU/L 0-32 Not Available [facility] Department [address] [place], [address], 05/19/2024 22:07:21 05/19/20 24 05/19/2024 CBC WITH DIFFE RENTI AL/PL ATELE T WBC 11.7 x10e3 /uL 3.4-10 .8 above high normal Not Available [facility] [address] [place], [address], 05/19/2024 22:07:22 05/19/20 24 05/19/2024 CBC WITH DIFFE RENTI AL/PL ATELE T RBC 4.89 x10e6 /uL 3.77-5 .28 Not Available [facility] [address] [place], [address], 05/19/2024 22:07:22 05/19/20 24 05/19/2024 CBC WITH DIFFE RENTI AL/PL ATELE T hemoglobin 14.5 g/dL 11.1-1 5.9 Not Available [facility] [address] [place], [address], 05/19/2024 22:07:22 05/19/20 24 05/19/2024 CBC WITH DIFFE RENTI AL/PL ATELE T hematocrit 46.9 % 34.0-4 6.6 above high normal Not Available [facility] [address] [place], [address], 05/19/2024 22:07:22 05/19/20 24 05/19/2024 CBC WITH DIFFE RENTI AL/PL ATELE T MCV 96 fL 79-97 Not Available [facility] [address] [place], [address], 05/19/2024 22:07:22 05/19/20 24 05/19/2024 CBC WITH DIFFE RENTI AL/PL ATELE T MCH 29.7 pg 26.6-3 3.0 Not Available [facility] [address] [place], [address], 05/19/2024 22:07:22 05/19/20 24 05/19/2024 CBC WITH DIFFE RENTI AL/PL ATELE T MCHC 30.9 g/dL 31.5-3 5.7 below low normal Not Available [facility] [address] [place], [address], 05/19/2024 22:07:22 05/19/20 24 05/19/2024 CBC WITH DIFFE RENTI AL/PL ATELE T RDW 13.2 % 11.5-1 4.5 Not Available [facility] [address] [place], [address], 05/19/2024 22:07:22 05/19/20 24 05/19/2024 CBC WITH DIFFE RENTI AL/PL ATELE T platelets 376 x10e3 /uL 150-45 0 Not Available [facility] [address] [place], [address], 05/19/2024 22:07:22 05/19/20 24 05/19/2024 CBC WITH DIFFE RENTI AL/PL ATELE T neutrophils 67 % notest b. Not Available [facility] [address] [place], [address], 05/19/2024 22:07:22 05/19/20 24 05/19/2024 CBC WITH DIFFE RENTI AL/PL ATELE T lymphs 22 % notest b. Not Available [facility] [address] [place], [address], 05/19/2024 22:07:22 05/19/20 24 05/19/2024 CBC WITH DIFFE RENTI AL/PL ATELE T monocytes 8 % notest b. Not Available [facility] [address] [place], [address], 05/19/2024 22:07:22 05/19/20 24 05/19/2024 CBC WITH DIFFE RENTI AL/PL ATELE T eos 2 % notest b. Not Available [facility] [address] [place], [address], 05/19/2024 22:07:22 05/19/20 24 05/19/2024 CBC WITH DIFFE RENTI AL/PL ATELE T basos 1 % notest b. Not Available [facility] [address] [place], [address], 05/19/2024 22:07:22 05/19/20 24 05/19/2024 CBC WITH DIFFE RENTI AL/PL ATELE T neutrophils (absolute) 7.8 x10e3 /uL 1.4-7. 0 above high normal Not Available [facility] [address] [place], [address], 05/19/2024 22:07:22 05/19/20 24 05/19/2024 CBC WITH DIFFE RENTI AL/PL ATELE T lymphs (absolute) 2.5 x10e3 /uL 0.7-3. 1 Not Available [facility] [address] [place], [address], 05/19/2024 22:07:22 05/19/20 24 05/19/2024 CBC WITH DIFFE RENTI AL/PL ATELE T monocytes(ab solute) 1.0 x10e3 /uL 0.1-0. 9 above high normal Not Available [facility] [address] [place], [address], 05/19/2024 22:07:22 05/19/20 24 05/19/2024 CBC WITH DIFFE RENTI AL/PL ATELE T eos (absolute) 0.2 x10e3 /uL 0.0-0. 4 Not Available [facility] [address] [place], [address], 05/19/2024 22:07:22 05/19/20 24 05/19/2024 CBC WITH DIFFE RENTI AL/PL ATELE T baso (absolute) 0.2 x10e3 /uL 0.0-0. 2 Not Available [facility] [address] [place], [address], 05/19/2024 22:07:22 05/19/20 24 05/19/2024 CBC WITH DIFFE RENTI AL/PL ATELE T immature granulocytes 0.5 % notest b. Not Available [facility] [address] [place], [address], 05/19/2024 22:07:22 05/19/20 24 05/19/2024 CBC WITH DIFFE RENTI AL/PL ATELE T immature grans (abs) 0.1 x10e3 /uL 0.0-0. 1 Not Available [facility] [address] [place], [address], 05/19/2024 22:07:22 05/19/20 24 05/19/2024 CBC WITH DIFFE RENTI AL/PL ATELE T NRBC 0 % 0-0 Not Available [facility] [address] [place], [address], 05/19/2024 22:07:22 05/19/20 24 05/20/2024 TSH+F REE T4 TSH 1.880 uIU/m L 0.450- 4.500 Not Available [facility] ([facility]) [address] [facility], [place], [address], 05/20/2024 14:17:29 05/19/20 24 05/20/2024 TSH+F REE T4 T4,free(dire ct) 1.29 NG/dL 0.82-1 .77 Not Available [facility] ([facility]) [address] [facility], [place], [address], 05/20/2024 14:17:29 05/19/20 24 05/20/2024 VITAM IN B12 AND FOLAT E vitamin B12 1079 pg/mL 232-12 45 Not Available [facility] ([facility]) [address] [facility], [place], [address], 05/20/2024 14:17:30 05/19/20 24 05/20/2024 VITAM IN B12 AND FOLAT E folate (folic acid), serum 8.9 NG/mL >3.0 A serum folat e bridget ntrat ion of less than 3.1 ng/mL is consi dered to repre sent clini dalia defic iency . Not Available [facility] ([facility]) [address] [facility], [place], [address], 05/20/2024 14:17:30 05/19/20 24 05/20/2024 HEMOG LOBIN A1C hemoglobin A1C 5.7 % 4.8-5. 6 above high normal Predi abete s: 5.7 - 6.4 Diabe jen: >6.4 Glyce carissa contr ol for adult s with diabe jen: <7.0 Not Available [facility] ([facility]) [address] [facility], [place], [address], 05/20/2024 14:17:30 05/19/20 24 05/20/2024 VITAM IN [...] Medic ine). 2010. Dieta ry refer ence godfrey es for calci um and D. Shanna boston [place]: The [facility] . 2. Mendy gupta MF, Candida osorio [place], Karina off-F errar i SLAUGHTER, et al. Evalu ation , treat ment, and preve ntion of vitam in D defic iency : an Endoc rine Socie ty clini dalia pract ice guide line. JCEM. 2010; 96(7) :1911 -30. Not Available [facility] ([facility]) [address] [facility], [place], [address], 05/20/2024 14:17:31 09/08/20 24 09/10/2024 URINE CULTU RE, ROUTI NE urine culture, routine FINAL REPORT Not Available [facility] ([facility]) [address] [facility], [place], [address], 09/10/2024 03:36:58 09/08/20 24 09/10/2024 URINE CULTU RE, ROUTI NE result 1 COMMEN T Mixed uroge nital rose 10,00 0-25, 000 colon y formi ng units per mL Not Available [facility] ([facility]) [address] [facility], [place], [address], 09/10/2024 03:36:58 09/08/20 24 09/08/2024 urina lysis , dipst ick Leukocytes Negati ve Not Available In-Office Order Internal Use Only DO Not Attach Compendium DO Not Attach Compendium, Do Not Delete/merge, [id number] 09/08/2024 10:40:45 09/08/20 24 09/08/2024 urina lysis , dipst ick Nitrite negati ve Not Available In-Office Order Internal Use Only DO Not Attach Compendium DO Not Attach Compendium, Do Not Delete/merge, [id number] 09/08/2024 10:40:45 09/08/20 24 09/08/2024 urina lysis , dipst ick Urobilinogen .2 Not Available In-Of fice Order Internal Use Only DO Not Attach Compendium DO Not Attach Compendium, Do Not Delete/merge, [id number] 09/08/2024 10:40:45 09/08/20 24 09/08/2024 urina lysis , dipst ick Protein Negati ve Not Available In-Office Order Internal Use Only DO Not Attach Compendium DO Not Attach Compendium, Do Not Delete/merge, [id number] 09/08/2024 10:40:45 09/08/20 24 09/08/2024 urina lysis [...] 09/08/2024 urina lysis , dipst ick Specific [place] 1.020 Not Available In-Off ice Order Internal Use Only DO Not Attach Compendium DO Not Attach Compendium, Do Not Delete/merge, [id number] 09/08/2024 10:40:45 09/08/20 24 09/08/2024 urina lysis , dipst ick Ketone Negati ve Not Available In-Office Order Internal Use Only DO Not Attach Compendium DO Not Attach Compendium, Do Not Delete/merge, [id number] 09/08/2024 10:40:45 09/08/20 24 09/08/2024 urina lysis , dipst ick Bilirubin Negati ve Not Available In-Office Order Internal Use Only DO Not Attach Compendium DO Not Attach Compendium, Do Not Delete/merge, [id number] 09/08/2024 10:40:45 09/08/20 24 09/08/2024 urina lysis , dipst ick Glucose Negati ve Not Available In-Office Order Internal Use Only DO Not Attach Compendium DO Not Attach Compendium, Do Not Delete/merge, [id number] 09/08/2024 10:40:45 09/08/20 24 09/08/2024 urina lysis , dipst ick Appearance Clear Not Available In-Offi ce Order Internal Use Only DO Not Attach Compendium DO Not Attach Compendium, Do Not Delete/merge, [id number] 09/08/2024 10:40:45 09/08/20 24 09/08/2024 urina lysis , dipst ick Color Pale Yellow Not Available In-Office Order Internal Use Only DO Not Attach Compendium DO Not Attach Compendium, Do Not Delete/merge, [id number] 09/08/2024 10:40:45 12/14/19 25 12/14/2024 LIPID PANEL cholesterol, total 161 mg/dL 100-19 9 Not Available [facility] [address] [place], [address], 12/14/2024 22:06:47 12/14/19 25 12/14/2024 LIPID PANEL triglyceride s 341 mg/dL 0-149 above high normal Not Available [facility] [address] [place], [address], 12/14/2024 22:06:47 12/14/19 25 12/14/2024 LIPID PANEL HDL cholesterol 32 mg/dL 40-999 below low normal Not Available [facility] [address] [place], [address], 12/14/2024 22:06:47 12/14/19 25 12/14/2024 LIPID PANEL VLDL cholesterol dalia 68 mg/dL 5-40 above high normal Not Available [facility] [address] [place], [address], 12/14/2024 22:06:47 12/14/19 25 12/14/2024 LIPID PANEL LDL chol calc (nih) 115 mg/dL 0-99 above high normal Not Available [facility] [address] [place], [address], 12/14/2024 22:06:47 12/14/19 25 12/14/2024 COMP. METAB OLIC PANEL (14) glucose 114 mg/dL 70-99 above high normal Not Available [facility] [address] [place], [address], 12/14/2024 22:06:48 12/14/19 25 12/14/2024 COMP. METAB OLIC PANEL (14) BUN 7 mg/dL 6-24 Not Available [facility] [address] [place], [address], 12/14/2024 22:06:48 12/14/19 25 12/14/2024 COMP. METAB OLIC PANEL (14) creatinine 0.64 mg/dL 0.76-1 .27 below low normal Not Available [facility] [address] [place], [address], 12/14/2024 22:06:48 12/14/19 25 12/14/2024 COMP. METAB OLIC PANEL (14) eGFR 114 >=60 Units for eGFR value s are mL/mi n/1.7 3 The eGFR Calcu latio n has not been valid ated for patie nts under the age of 18. If test resul ts are displ ayed for a patie nt under the age of 18, disre elizabeth that value . Not Available [facility] [address] [place], [address], 12/14/2024 22:06:48 12/14/19 25 12/14/2024 COMP. METAB OLIC PANEL (14) BUN/creatini ne ratio 11 9-[address] [facility] Department [address] [place], [address], 12/14/2024 22:06:48 12/14/19 25 12/14/2024 COMP. METAB OLIC PANEL (14) sodium 142 mmol/ L 134-14 4 Not Available [facility] [address] [place], [address], 12/14/2024 22:06:48 12/14/19 25 12/14/2024 COMP. METAB OLIC PANEL (14) potassium 3.9 mmol/ L 3.5-5. 2 Not Available [facility] [address] [place], [address], 12/14/2024 22:06:48 12/14/19 25 12/14/2024 COMP. METAB OLIC PANEL (14) chloride 106 mmol/ L 96-106 Not Available [facility] [address] [place], [address], 12/14/2024 22:06:48 12/14/19 25 12/14/2024 COMP. METAB OLIC PANEL (14) carbon dioxide, total 26 mmol/ L 20-29 Not Available [facility] [address] [place] [address], [address], 12/14/2024 22:06:48 12/14/19 25 12/14/2024 COMP. METAB OLIC PANEL (14) calcium 9.1 mg/dL 8.7-10 .2 Not Available [facility] [address] [place] [address], [address], 12/14/2024 22:06:48 12/14/19 25 12/14/2024 COMP. METAB OLIC PANEL (14) protein, total 6.7 g/dL 6.0-8. 5 Not Available [facility] [address] [place], [address], 12/14/2024 22:06:48 12/14/19 25 12/14/2024 COMP. METAB OLIC PANEL (14) albumin 4.3 g/dL 3.9-4. 9 Not Available [facility] [address] [place] [address], [address], 12/14/2024 22:06:48 12/14/19 25 12/14/2024 COMP. METAB OLIC PANEL (14) globulin, total 2.4 g/dL 1.5-4. 5 Not Available [facility] [address] [place], [address], 12/14/2024 22:06:48 12/14/19 25 12/14/2024 COMP. METAB OLIC PANEL (14) A/G ratio 2.0 1.2-2. 2 Not Available [facility] [address] [place], [address], 12/14/2024 22:06:48 12/14/19 25 12/14/2024 COMP. METAB OLIC PANEL (14) bilirubin, total 0.7 mg/dL 0.0-1. 2 Not Available [facility] [address] [place], [address], 12/14/2024 22:06:48 12/14/19 25 12/14/2024 COMP. METAB OLIC PANEL (14) alkaline phosphatase 75 IU/L 44-121 Not Available [facility] Department [address] [place], [address], 12/14/2024 22:06:48 12/14/19 25 12/14/2024 COMP. METAB OLIC PANEL (14) AST (SGOT) 16 IU/L 0-40 Not Available [facility] Department [address] [place], [address], 12/14/2024 22:06:48 12/14/19 25 12/14/2024 COMP. METAB OLIC PANEL (14) ALT (SGPT) 21 IU/L 0-32 Not Available [facility] Department [address] [place], [address], 12/14/2024 22:06:48 12/14/19 25 12/14/2024 CBC WITH DIFFE RENTI AL/PL ATELE T WBC 9.1 x10e3 /uL 3.4-10 .8 Not Available [facility] [address] [place], [address], 12/14/2024 22:06:49 12/14/19 25 12/14/2024 CBC WITH DIFFE RENTI AL/PL ATELE T RBC 4.67 x10e6 /uL 3.77-5 .28 Not Available [facility] [address] [place], [address], 12/14/2024 22:06:49 12/14/19 25 12/14/2024 CBC WITH DIFFE RENTI AL/PL ATELE T hemoglobin 13.6 g/dL 11.1-1 5.9 Not Available [facility] [address] [place], [address], 12/14/2024 22:06:49 12/14/19 25 12/14/2024 CBC WITH DIFFE RENTI AL/PL ATELE T hematocrit 41.6 % 34.0-4 6.6 Not Available [facility] [address] [place], [address], 12/14/2024 22:06:49 12/14/19 25 12/14/2024 CBC WITH DIFFE RENTI AL/PL ATELE T MCV 89 fL 79-97 Not Available [facility] [address] [place], [address], 12/14/2024 22:06:49 12/14/19 25 12/14/2024 CBC WITH DIFFE RENTI AL/PL ATELE T MCH 29.1 pg 26.6-3 3.0 Not Available [facility] [address] [place], [address], 12/14/2024 22:06:49 12/14/19 25 12/14/2024 CBC WITH DIFFE RENTI AL/PL ATELE T MCHC 32.7 g/dL 31.5-3 5.7 Not Available [facility] [address] [place], [address], 12/14/2024 22:06:49 12/14/19 25 12/14/2024 CBC WITH DIFFE RENTI AL/PL ATELE T RDW 12.9 % 11.5-1 4.5 Not Available [facility] [address] [place], [address], 12/14/2024 22:06:49 12/14/19 25 12/14/2024 CBC WITH DIFFE RENTI AL/PL ATELE T platelets 422 x10e3 /uL 150-45 0 Not Available [facility] [address] [place], [address], 12/14/2024 22:06:49 12/14/19 25 12/14/2024 CBC WITH DIFFE RENTI AL/PL ATELE T neutrophils 58 % notest b. Not Available [facility] [address] [place], [address], 12/14/2024 22:06:49 12/14/19 25 12/14/2024 CBC WITH DIFFE RENTI AL/PL ATELE T lymphs 31 % notest b. Not Available [facility] [address] [place], [address], 12/14/2024 22:06:49 12/14/19 25 12/14/2024 CBC WITH DIFFE RENTI AL/PL ATELE T monocytes 8 % notest b. Not Available [facility] [address] [place], [address], 12/14/2024 22:06:49 12/14/19 25 12/14/2024 CBC WITH DIFFE RENTI AL/PL ATELE T eos 3 % notest b. Not Available [facility] [address] [place], [address], 12/14/2024 22:06:49 12/14/19 25 12/14/2024 CBC WITH DIFFE RENTI AL/PL ATELE T basos 1 % notest b. Not Available [facility] [address] [place], [address], 12/14/2024 22:06:49 12/14/19 25 12/14/2024 CBC WITH DIFFE RENTI AL/PL ATELE T neutrophils (absolute) 5.3 x10e3 /uL 1.4-7. 0 Not Available [facility] [address] [place], [address], 12/14/2024 22:06:49 12/14/19 25 12/14/2024 CBC WITH DIFFE RENTI AL/PL ATELE T lymphs (absolute) 2.8 x10e3 /uL 0.7-3. 1 Not Available [facility] [address] [place], [address], 12/14/2024 22:06:49 12/14/19 25 12/14/2024 CBC WITH DIFFE RENTI AL/PL ATELE T monocytes(ab solute) 0.7 x10e3 /uL 0.1-0. 9 Not Available [facility] [address] [place], [address], 12/14/2024 22:06:49 12/14/19 25 12/14/2024 CBC WITH DIFFE RENTI AL/PL ATELE T eos (absolute) 0.3 x10e3 /uL 0.0-0. 4 Not Available [facility] [address] [place], [address], 12/14/2024 22:06:49 12/14/19 25 12/14/2024 CBC WITH DIFFE RENTI AL/PL ATELE T baso (absolute) 0.1 x10e3 /uL 0.0-0. 2 Not Available [facility] [address] [place], [address], 12/14/2024 22:06:49 12/14/19 25 12/14/2024 CBC WITH DIFFE RENTI AL/PL ATELE T immature granulocytes 0.3 % notest b. Not Available [facility] [address] [place], [address], 12/14/2024 22:06:49 12/14/19 25 12/14/2024 CBC WITH DIFFE RENTI AL/PL ATELE T immature grans (abs) 0.0 x10e3 /uL 0.0-0. 1 Not Available [facility] [address] [place], [address], 12/14/2024 22:06:49 12/14/19 25 12/14/2024 CBC WITH DIFFE RENTI AL/PL ATELE T NRBC 0 % 0-0 Not Available [facility] [address] [place], [address], 12/14/2024 22:06:49 12/14/19 25 12/15/2024 ALBUM IN/CR EATIN INE RATIO ,URIN E creatinine, urine 38.3 mg/dL notest ab. Not Available [facility] ([facility]) [address] [facility] [address], [place], [address], 12/15/2024 14:13:27 12/14/19 25 12/15/2024 ALBUM IN/CR EATIN INE RATIO ,URIN E albumin, urine <3.0 ug/mL notest ab. Not Available [facility] ([facility]) [address] [facility] [address], [place], [address], 12/15/2024 14:13:27 12/14/19 25 12/15/2024 ALBUM IN/CR EATIN INE RATIO ,URIN E alb/creat ratio <8 Sushma l: 0 - 29 Moder ately incre ased: 30 - 300 Sever radha incre ased: >300 Not Available [facility] ([facility]) [address] [facility], [place], [address], 12/15/2024 14:13:27 12/14/19 25 12/15/2024 TSH RFX ON ABNOR MAL TO FREE T4 TSH 2.760 uIU/m L 0.450- 4.500 Not Available [facility] ([facility]) [address] [facility], [place], [address], 12/15/2024 14:13:28 12/14/19 25 12/15/2024 HEMOG LOBIN A1C hemoglobin A1C 5.6 % 4.8-5. 6 Predi abete s: 5.7 - 6.4 Diabe jen: >6.4 Glyce carissa contr ol for adult s with diabe jen: <7.0 Not Available [facility] ([facility]) [address] [facility], [place], [address], 12/15/2024 14:13:29 05/27/20 24 05/26/2024 XR, thora cic spine , 2 view No observ ation record ed. [address] [address], [place], [address], 05/28/2024 14:57:29 12/14/19 25 12/14/2024 XR, knee, 3 view No observ ation record ed. [address] [address], [place], [address], 01/20/2025 10:20:36 12/14/19 25 12/14/2024 XR, lumbo sacra l spine , 2 or 3 view No observ ation record ed. [address] [address], [place], [address], 01/04/2025 09:17:36 12/25/1912/24/2024 XR, chest , 2 view No observ ation record ed. [address] [address], [place], [address], 12/25/2024 11:41:46 12/29/1912/29/2024 US, doppl er, venou s No observ ation record ed. [address] [address], [place], [address], 12/29/2024 16:41:07 01/13/2001/12/2025 imagi ng/di agnos tic resul t No observ ation record ed. [address] [address], [place], [address], 01/14/2025 17:27:50 01/13/20 25 01/12/2025 lab* No observ ation record ed. [address], [place], [address], 01/14/2025 17:27:40 Result Notes None recorded. Problems Name Problem SNOMED Code Status Onset Date Resolution Date Notes Provider Name and Address Organization Details Recorded Time History of palpitatio ns 116323449 Active 2018 Not Available [employer] 3 19:21:21 Influenza vaccinatio n declined 682580054 Active 2018 Not Available [employer] 3 19:21:21 Candidiasi s of vagina 36230613 Active 2019 Not Available [employer] 3 19:21:21 Left side sciatica 8820037186855 04 Active 2019 Not Available [employer] 3 19:21:21 Chronic back pain 503113229 Active 2019 Not Available [employer] 3 19:21:21 Smoker 74604367 Active 2022 Not Available [employer] 3 19:21:21 Sciatica 49917157 Active 2022 Not Available [employer] 3 19:21:21 Degenerati on of thoracic interverte bral disc 26933655 Active 2024 JOE DURANT PA-C Attn: Accounting ,[address] [place], [address] , [facility] 5 10:58:53 Hyperlipid emia 79042651 Active 2024 DORCAS BEST Attn: Accounting ,[address] [facility], [place], [address] , [place] - [facility] 5 08:31:10 Genital herpes simplex 11874685 Active Not Available [employer] 3 19:21:21 Dysmenorrh ea 107579359 Active Not Available [employer] 3 19:21:21 Irregular periods 54928809 Active Not Available [employer] 3 19:21:21 Sciatica 89942624 Active 2016 Not Available [employer] 19:21:21 Problem Notes None recorded. Procedures Surgical History Date Name Laterality Status Provider Name and Address Organization Details Recorded Time 05/31/20 Date of Last Pap Smear completed Piper Parkinson MA [facility] 05/31/2021 10:55:19 12/04/19 20 HYSTEROSCOPY, WITH ENDOMETRIAL ABLATION (SURG) completed Johnathan SkinnerPhoenix [facility] 12/17/2019 12:59:22 08/08/20 13 Tubal Ligation completed Venice Tracey MA [facility] 04/10/2016 15:46:56 LEEP completed Vencie Tracey [place] - [facility] 04/10/2016 15:47:32 Imaging Results Imaging Date Name Status LastModified by [facility] Details LastModified Time 05/26/2024 XR, thoracic spine, 2 view completed [address], [address], 05/28/2024 14:57:29 12/14/2024 XR, knee, 3 view completed [address], [address], 01/20/2025 10:20:36 12/14/2024 XR, lumbosacral spine, 2 or 3 view completed [address], [address], 01/04/2025 09:17:36 12/24/2024 XR, chest, 2 view completed [address], [address], 12/25/2024 11:41:46 12/29/2024 US, doppler, venous completed [address], [address], 12/29/2024 16:41:07 01/12/2025 imaging/diagnos tic result completed [address], [address], 01/14/2025 17:27:50 01/12/2025 lab* completed [address], [place], [address], 01/14/2025 17:27:40 Procedure Notes None recorded. Medical Equipment None Reported. Allergies Allergen ID Allergen Name Allergen Category Reaction Reaction Severity Criticality Documentation Date Start Date Code Code System Note Provider Name and Address Organization Details Recorded Time 623882 Product containin g penicilli n (product) medicatio n other moderate Not available 10/20/2019 13226 8001 SNOMED yeast infec tion and spott ing Not Available Not Available Not Available 662719 lisinopri l medicatio n dyspnea severe high 12/25/20242024 12569 RxNorm Not Available Not Available Not Available [...] Available Not Available meloxicam 15 mg tablet 01/11 completed Not Available Not Available Not Available naltrexon e 50 mg tablet 12/01 completed [...] Not Available Not Available Not Avai lable diclofena c sodium 50 mg tablet,de layed release Take 1 tablet twice a day by oral route with meal(s) for 14 days, for left knee pain. 2024 active Not Available Not Available Not [...] Updated DateTime 3 167.64 cm 31 kg/m2 98458.1 4 g 16 /min 97.6 [degF] 98 % 98 % 81 /min 104 mm[Hg] 78 mm[Hg] Ita Pina CMA [facility] 3 11:10:04 Date Recorded Body height Body mass index (BMI) Body weight Oxygen saturation Oxygen saturation in Arterial blood by Pulse oximetry Heart rate Respiratory rate Systolic blood pressure Diastolic blood pressure Provider Name and Address Organization Details Last Updated DateTime 4 167.64 cm 33.6 kg/m2 41156.3 1 g 99 % 99 % 88 /min 17 /min 138 mm[Hg] 82 mm[Hg] Audrey iY MA [facility] 4 13:59:19 Date Recorded Body height Body mass index (BMI) Body weight Oxygen saturation Oxygen saturation in Arterial blood by Pulse oximetry Heart rate Respiratory rate Systolic blood pressure Diastolic blood pressure Provider Name and Address Organization Details Last Updated DateTime 5 167.64 cm 34.4 kg/m2 48316.1 7 g 97 % 97 % 86 /min 17 /min 154 mm[Hg] 79 mm[Hg] Audrey Yi MA [facility] 5 10:43:16 Date Recorded Body height Body mass index (BMI) Body weight Oxygen saturation Oxygen saturation in Arterial blood by Pulse oximetry Heart rate Respiratory rate Systolic blood pressure Diastolic blood pressure Provider Name and Address Organization Details Last Updated DateTime 5 167.64 cm 34.5 kg/m2 28357.7 7 g 96 % 96 % 90 /min 18 /min 136 mm[Hg] 89 mm[Hg] Kesha Durant [place] [facility] 5 10:58:47 Social History Question Answer Notes LastModified by Organizat ion Details LastModified Time Tobacco Smoking Status Current Every Day Smoker Venice Tracey MA [facility], [place] - [facility] 04/10/2016 15:52:19 Do You Have An Advance Directive? No Information not available 04/10/2016 What Is Your Level Of Alcohol Consumption? None [email or web address] Information not available 04/10/2016 Is Blood Transfusion Acceptable In An Emergency? Yes Information not available 04/10/2016 What Is Your Level Of Caffeine Consumption? Moderate Soda And Energy Drinks' Information not available 10/20/2019 How Much Tobacco Do You Chew? None [email or web address] Information not available 04/10/2016 Are You Currently Employed? Yes Information not available 04/10/2016 What Type Of Diet Are You Following? REGULAR [email or web address] Information not available 04/10/2016 Which Illicit Or Recreational Drugs Have You Used? Marijuana Information not available 05/31/2021 Do You Or Have You Ever Used E-cigarettes Or Vape? Never Used Electronic Cigarettes Information not available 10/20/2019 Education 9 [email or web address] Information no t available 04/10/2016 What Is Your Occupation? [employer] Information not available 10/20/2019 Live Alone Or With Others? With Others [email or web address] Information not available 04/10/2016 What Was The Date Of Your Most Recent Tobacco Screening? 01/19/2025 [email or web address] Information not available 01/19/2025 How Many Children Do You Have? 5 [email or web address] Information not available 04/10/2016 What Is Your Current Pack Years? 20-29packyear s Information not available 05/31/2021 Performs Monthly Self-breast Exam? No Information not available 04/10/2016 Do You Use Protection During Sex? No [email or web address] Information not available 04/10/2016 What Is Your Relationship Status? Single [email or web address] Information not available 04/10/2016 Do You Use Your Seat Belt Or Car Seat Routinely? Yes Information not available 05/31/2021 Seat Belts Used Routinely Yes [email or web address] Information not available 04/10/2016 Are You Sexually Active? Yes Information not available 04/10/2016 Do You Have Smoke And Carbon Monoxide Detectors In Your Home? Yes 05/31/21 Smoke Detectors Information not available 05/31/2021 At What Age Did You Start Smoking Tobacco? 12 [email or web address] Information not available 04/10/2016 Are You Passively Exposed To Smoke? Yes Information not available 05/31/2021 Do You Or Have You Ever Used Smokeless Tobacco? Never Used Smokeless Tobacco Information not available 10/20/2019 How Much Tobacco Do You Smoke? 1 PPD [email or web address] Information not available 04/10/2016 General Stress Level High [email or web address] Information not available 04/10/2016 Do You Use Any Illicit Or Recreational Drugs? Yes Edibles Information not available 05/31/2021 Do You Use Sunscreen Routinely? No [email or web address] Information not available 04/10/2016 Has Tobacco Cessation Counseling Been Provided? Yes Information not available 05/31/2021 On What Date Was Tobacco Cessation Counseling Provided? 01/19/2025 [email or web address] Information not available 01/19/2025 How Many Years Have You Smoked Tobacco? 20 Information not available 10/20/2019 Have You Used IV Drugs? No Information not available 05/31/2021 Do You Or Have You Ever Used Any Other Forms Of Tobacco Or Nicotine? No Information not available 05/31/2021 Sex: Female Functional Status Question Answer Note LastModified by Organizat ion Details LastModified Time What is your exercise level? Occasional [email or web address] Information not available 04/10/2016 Mental Status None [...] N Kidney Cyst N Hyperthyroidism N Blood Transfusion N MRSA N Blood disorders N Emphysema N COPD N Blood Clots Y Depression N Pneumonia N Peripheral Arterial Disease N Premature [...] Hospitalizations N Brain Tumors N Acne N Eating Disorder N Skin Problems N Constipation Y Meningitis N Tuberculosis N Cerebral Palsy N Myocardial Infarction N Asthma N Substance Abuse N Peripheral Vascular Disease N Vertigo N Sleep Disorder N Cirrhosis N Pulmonary Embolism N Chicken Pox Y Flomax Use Past or Present N Hematologic Disease N Anxiety/Depression N Thyroid Disease N Colon [...] Problems N Developmental Delay N Anemia N Immune System Disorder N Multiple Sclerosis N Colon Polyps N Heart Attack ([place]) N Diabetes N Cardiomyopathy N Blood Transfusions N Heart Problems/Murmur N Eye Trauma N Congestive Heart Failure (CHF) N Valvular Heart Disease N Hyperlipidemia N Double Vision N Abuse/Domestic Violence N Hepatitis B N Lupus N Epilepsy/Seizures N Reflux/GERD Y Aneurysm N Bronchitis N Heart Disease N Hypertension N Pre-Eclampsia N Heart Failure N Other N Gout [...] N Kidney Failure N Ocular trauma N Dementia N Diverticulitis N Sleep Apnea N Mental Problems N [...] HPV9 11/25/2019 completed JAYCE Mcdowell [place] [facility] 12/01/2019 11:43:36 HPV9 06/02/2021 completed JAYCE Mcdowell [place] [facility] 06/02/2021 16:47:57 Past Encounters Encounter ID Performer Location Encounter Start Date Encounter Closed Date Diagnosis/Indication Diagnosis SNOMED-CT Code Diagnosis ICD10 Code Diagnosis Note [id number] Johnathan Teague (AUTOMOTIVE PROFESSIONAL) [address] [place] [phone] 04/10/2016 15:09:44 04/11/2016 09:22:11 Dysmenorrhea 960636856 N94.6 Irregular periods 995513 07 N92.6 [id number] JAYCE Calle (AUTOMOTIVE PROFESSIONAL) [address] [place] [address] 03/26/2017 15:27:40 03/26/2017 17:45:26 Irregular periods 33652876 N92.6 Dysmenorrhea 737895875 N 94.6 Genital he rpes simplex 08534974 A60.9 Recurrent urinary tract infection 918212213 N39.0 Family grover nning surveillance 848359109 Z30.09 Generalize d anxiety disorder 26100274 F41.1 stress 2/2 job and children (5 girls in the home) [id number] MD Zahida Goyal (Adult Med) [address] [place] [phone] 10/20/2019 13:16:20 10/20/2019 14:46:41 General examination of patient 205665043 Z00.01 Nicotine dependence 5629 4008 F17.200 Cessation was discussed History of palpitations 657307468 Z86.79 Serous otitis media 8032 7007 H65.91 Follow up with ENT Influenza vaccination declined 080410194 Z28.21 Administra tion of diphtheria, pertussis, and tetanus vaccine 475282664 Z23 [id number] Johnathan Garibay Zahida (AUTOMOTIVE PROFESSIONAL) [address] [place] [address] 11/25/2019 11:25:25 11/26/2019 11:05:02 Gynecologic examination 49844914 Z01.419 Active or passive immunization 678310269 Z23 Menorrhagia 423744458 N9 2.0 Dysmenorrhea 719343210 N 94.6 Exposure t o sexually transmissible disorder 360619864 Z20.2 [id number] MD Zahida Goyal (Adult Med) [address] [place] [address] 0 12/01/2019 11:31:07 12/02/2019 09:23:08 Hyperlipidemia 72125261 E78.5 Discussed Aspartate aminotransferase serum level above reference range 092948573 R74.0 Recheck Anxiety 27219335 F41.9 Detailed discussion Start Buspirone, side effects were discussedI do not prescribe Alprazolam History of palpitations 310575591 Z86.79 This was possibly related to energy drink which she has discontinu ed, her anxiety may be playing a role Nicotine dependence 5629 4008 F17.200 Cessation was discussed Insomnia 123897992 G47.0 0 Benadryl or Vistaril PRN [id number] Johnathan Garibay Zahida (AUTOMOTIVE PROFESSIONAL) [address] [place] [address] 0 12/17/2019 12:20:07 12/21/2019 10:06:51 Postoperative visit 455394307 Z09 hysterosco py 12/03/2019 , Continue slynd Constipation 89545160 K5 9.00 Genital he rpes simplex 49123437 A60.9 Dysmenorrhea 335013848 N 94.6 [id number] MD Zahida Goyal (Adult Med) [address] [place] [phone] 01/12/2020 12:04:06 01/12/2020 12:48:10 Chronic back pain 458969933 G89.29 She has a history of chronic back pain with LLE radiculopa thy and an abnormal clinical exam with LLE weakness. An MRI is needed to further evaluate the degree of nerve impingemen t. Cyclobenza nighat/Ibup rofen/Phys ical Therapy Left side sciatica 61290 97732 65363 M54.32 Leukocytosis 620564319 D 72.829 Amenorrhea 69526189 N91. 2 This may be due to her OCP, however she needs a test before her MRI Neuropathy 843221936 G62 .9 [id number] MD Zahida Goyal (Adult Med) [address] [place] [phone] 0 02/23/2020 10:16:42 02/25/2020 10:57:12 Follow-up visit 413453068 Z09 [id number] MD Zahida Goyal (Adult Med) [address] [place] [address] 965[address] 0 06/29/2020 12:05:39 06/30/2020 09:38:33 Varicose veins of lower extremity 80065175 I83.892 Lumbar radiculopathy 128 524033 M54.16 [id number] MD Zahida Goyal [facility] (Adult Med) [address] [place] [address] 09/28/2020 08:34:19 09/30/2020 10:19:52 Anxiety 80538524 F41.9 Detailed discussion Start Hydroxyzin e PRN, [facility] Influenza vaccination declined 050175384 Z28.21 [id number] Johnathan SkinnerPhoenixjocelyn Teague (AUTOMOTIVE PROFESSIONAL) [address] [place] [phone] 0 05/31/2021 10:33:14 06/01/2021 08:30:01 Gynecologic examination 62758412 Z01.419 Z11.51 Genital he rpes simplex 86627714 A60.9 Exposure t o sexually transmissible disorder 321936684 Z20.2 Cramping pain 242200361 R52 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 [id number] DORCAS BEST [facility] [address] [place] [address] 03/12/2023 11:02:52 03/12/2023 11:56:44 Dysuria 00675524 R30.0 urinary frequency, urgency, retention, dysuria x1 wkPEx- nlurine dip showed trace leuks and moderate bloodstart macrobid, sent UA and cultureh/o UTIs every couple of months, future referral to urology Depression screening 171 352828 Z13.31 PHQ 0 Smoker 67516196 F17.200 1 ppdnot amendable to NRT at this time Screening for malignant neoplasm of cervix 481363262 Z12.4 refer to OB/GYNh/o LEEP and HPV Obesity 449671455 E66.9 discussed increasing exercise and healthier food options, high protein, low fat dietroutin e labs Vitamin D deficiency 347 75328 E55.9 re-check Sciatica 68222731 M54.30 flares, bilateralh as not had imagingcon trolled at this time [id number] DORCAS BEST [facility] [address] [place] [address] 05/19/2024 13:33:45 05/19/2024 14:51:03 Smoker 22411043 F17.200 05/19/24: start patches, smoking 1.5 ppd 03/2023:1 ppdnot amendable to NRT at this time Difficulty sleeping 3013 64649 Z72.820 usually takes CBD with successanx iety has prevented her from sleepingtr ial hydroxyzin e PRN, advised pt of ADRf/u in 1 mo Obesity 390174684 E66.8 discussed increasing exercise and healthier food options, high protein, low fat dietroutin e labs Gastroesop hageal reflux disease without esophagitis 148951934 K21.9 no relief with TUMStrial pantoprazo le Fatigue 89983642 R53.83 check vitamins Chronic ne ck pain for greater than 3 months 4060254306 12573 M54.2 no injury or traumatold that she had cervical DDD in EDwill refer to PT Paresthesia of hand 3090 34705 R20.2 x4 moworse at nightwill discuss at f/u visit Costal chondritis 019907 04 M94.0 x10 dayswent to ED, told that my heart is fine c/o pain with taking deep breathspt smokes 1.5 ppdno relief with muscle relaxer or ibuprofend iscussed management and treatment of costal chondritis Generalize d anxiety disorder 18678993 F41.1 TOM 13start hydroxyzin e, advised pt of ADR, f/u in 1 mo Depression screening 171 856849 Z13.31 PHQ 2 [id number] Audrey Yi MA [facility] [address] [place] [address] 09/08/2024 10:31:11 09/08/2024 11:09:28 Dysuria 28304946 R30.0 urinary frequency, urgency, retention, dysuria x1 wkPEx- nlurine dip showed trace leuks and moderate bloodstart macrobid, sent UA and cultureh/o UTIs every couple of months, future referral to urology [id number] JOE DURANT PA-C [facility] [address] [place] [address] 12/14/2024 10:34:24 12/15/2024 15:48:45 Depression screening 256424252 Z13.31 PHQ9- {{Negative * Positive Mild Mode rate Sever e}} (2 out of 27) Obesity 324567068 E66.9 BMI 34.4 Pain of bi lateral knee joints 7905333086 34825 M25.561 M25.562 Know that arthritis will cause [...] supplement s. XR ordered Low back pain 923325802 M54.50 XR ordered Degenerati on of thoracic intervertebral disc 99711416 M51.34 Start meloxicam 15mg daily with food. No other NSAIDs while on this medication Essential hypertension 34405352 I10 BP today: 154/79BP Goal: {{Less than [...] today Varicose v eins of lower extremity 64061598 I83.93 Referral to vascular surgeonU/S ordered Impaired g lucose tolerance 6764954 R73.03 Discussed with patient taking blood sugars only in the morning when fasting and explained how different foods can affect blood sugarLabs ordered today [id number] DORCAS BEST [facility] [address] [place] [address] 01/19/2025 10:50:51 01/19/2025 11:45:22 Elevated blood-pressure reading without diagnosis of hypertension 013347429 R03.0 BP 120/70s at homeencour aged pt to continue to monitor Pain of le ft knee joint 4801356201 29709 M25.562 no relief with meloxicamX R showed tricompart mental arthritis and llamas's cysttrial diclofenac refer to PT Smoker 99347978 F17.200 01/19/25: 1/2 to 1 ppd, did not try patches 05/19/24: start patches, smoking 1.5 ppd 03/2023:1 ppdnot amendable to NRT at this time Screening for malignant neoplasm of breast 564521434 Z12.39 due for mammo Chronic se george otitis media 63173329 H65.21 requesting referral Constipation 10517064 K5 9.00 no concerning sxPEx- nlmost likely cause of LLQ painrec'd increase water intake/fib er/greenst rial daily miralax Depression screening 171 512589 Z13.31 PHQ 0 Health Concerns Section Related Observation LastModified by Organization Detai ls LastModified Time None Recorded Concern Status LastModified by Organization Details LastModified Time None Recorded Advance Directives Directive N: Payers Encounter Date Sequence Insurance Name Policy Number Policy Altman Covered Member ID Altman Member ID Guarantor Name 03/12/2023 1 [facility] ON OR AFTER 05/04/21 (MEDICAID REPLACEMENT - HMO) Yudi Pizarro [id number] Yudi Pizarro 05/19/2024 1 [facility] ON OR AFTER 05/04/21 (MEDICAID REPLACEMENT - HMO) Yudi Pizarro [id number] Yudi Pizarro 09/08/2024 1 [facility] ON OR AFTER 05/04/21 (MEDICAID REPLACEMENT - HMO) Yudi Pizarro [id number] Yudi Pizarro 12/14/2024 1 [facility] ON OR AFTER 05/04/21 (MEDICAID REPLACEMENT - HMO) Yudi Pizarro [id number] Yudi Pizarro 01/19/2025 1 [facility] ON OR AFTER 05/04/21 (MEDICAID REPLACEMENT - HMO) Yudi Pizarro [id number] Yudi Pizarro Notes Date Note Type Note Provider Name and Address Organization Details Recorded Time 03/12/2023 text/html Pt presents to establish care as a new patient. Previously seen at [facility]. C/o dysuria, urinary frequency, and urgency for the past week. No hematuria, vaginal discharge, odor or abd pain. Denies fever, chills, chest pain, SOB, n/v/d, dizziness, weakness, or headaches. DORCAS BEST Attn: Accounting[address] [facility], [place], [address], [facility] 03/12/2023 21:36:59 05/19/2024 text/html Patient presents today [...] at night. DORCAS BEST Attn: Accounting[address] [facility], [place], [address], [facility] 05/21/2024 08:45:02 12/14/2024 text/html 39 y/o F [...] Would like to get labs redone today. JOE PHILLIP, PA-C Attn: Accounting[address] , [place], [address], [facility] 12/14/2024 11:13:41 01/19/2025 text/html Pt presents for BP check, abd pain and left knee pain. States that she had imaging of L knee that showed arthritis, no improvement with meloxicam. C/o left sided abd pain x3 months, improves after she has BM. Describes as excruciating pain. Has BMs every 3-5 days. Denies nausea, vomiting, decreased appetite or diarrhea. Admits to poor food choices, eats once a day at work at [employer]. DORCAS BEST Attn: Accounting[address] , [place], [address], [facility] 01/20/2025 10:23:34 OBGyn Episode Ob Episode Information Episode Created Date Number of Fetuses Patient Bloodtype Patient rh Status Prepregnancy Weight lbs Domestic Partner Domestic Partner Phone Father Name Corporate Legal Secretary Status 04/10/20 16 1 CLOSED Fetus Data First Name Last Name Admitted to NICU Weight (g) Sex Living Outcome Pediatric Complications Fetus ID Race Codes Race Delivery Type F Full Term 34622 Vaginal Nitin Calculation Initial Nitin Date Initial [...] Complications Tubal Sterilization Discharge Date Comments 1 [facility]- idural 40 Discharge Information Feeding Method Contraceptive Method Maternal HG B and HCT Levels Ob Episode Information Episode Created Date Number of Fetuses Patient Bloodtype Patient rh Status Prepregnancy Weight lbs Domestic Partner Domestic Partner Phone Father Name Corporate Legal Secretary Status 04/10/20 16 1 CLOSED Fetus Data First Name Last Name Admitted to NICU Weight (g) Sex Living Outcome Pediatric Complications Fetus ID Race Codes Race Delivery Type 3685.43 5 F Full Term 37646 Vaginal Nitin Calculation Initial Nitin Date Initial [...] Domestic Partner Domestic Partner Phone Father Name Corporate Legal Secretary Status 04/10/20 16 1 CLOSED Fetus Data First Name Last Name Admitted to NICU Weight (g) Sex Living Outcome Pediatric Complications Fetus ID Race Codes Race Delivery Type M Demise 16273 Nitin Calculation Initial Nitin Date Initial Exam [...] Domestic Partner Domestic Partner Phone Father Name Corporate Legal Secretary Status 04/10/20 16 1 CLOSED Fetus Data First Name Last Name Admitted to NICU Weight (g) Sex Living Outcome Pediatric Complications Fetus ID Race Codes Race Delivery Type 3345.24 1 F Full Term 64569 Vaginal Nitin Calculation Initial Nitin Date Initial [...] Domestic Partner Domestic Partner Phone Father Name Corporate Legal Secretary Status 04/10/20 16 1 CLOSED Fetus Data First Name Last Name Admitted to NICU Weight (g) Sex Living Outcome Pediatric Complications Fetus ID Race Codes Race Delivery Type F Full Term 84287 Vaginal Nitin Calculation Initial Nitin Date Initial [...] Domestic Partner Domestic Partner Phone Father Name Corporate Legal Secretary Status 04/10/20 16 1 CLOSED Fetus Data First Name Last Name Admitted to NICU Weight (g) Sex Living Outcome Pediatric Complications Fetus ID Race Codes Race Delivery Type 3345.24 1 F Full Term [id number] Vaginal Nitin Calculation Initial Nitin Date Initial [...]
--- NOTE | 2025-02-09 09:07 | ED_ITS ---
HPI - General Adult General Chief complaint: Unspecified Stated complaint: lump in neck, swelling to posterior head Time Seen by Provider: 02/09/25 09:06 Source: patient and other Mode of arrival: ambulatory Limitations: no limitations History of Present Illness HPI narrative: Patient presents with complaint of a lump on her left neck as well as subjective swelling to her right posterior head associated with right ear pain of 2 weeks duration. She reports no trauma or difficulty swallowing. She has intermittently been getting headaches. She has been using Midol which seems to help. No fevers or chills. No changes to her voice. No nasal drainage or congestion. She denies any cough, difficulty breathing, or sore throat. She does smoke heavily, 1 and half packs per day. Related Data Allergies Allergy/AdvReac Type Severity Reaction Status Date / Time lisinopril Allergy Intermediate Dyspnea / Verified 02/09/25 08:44 SOB Penicillins Allergy Unknown Unknown Verified 02/09/25 08:44 [facility] Past Medical History Medical History Otitis media Surgical History Surgical History H/O tubal ligation H/O LEEP Social History Social History Smoking packs per day: 1.5 Smoking cigarettes per day: 30.0 Smoking status: Current every day smoker Additional smoking assessment comments: Heavy smoker Alcohol intake: never Substance use: never Lack of Transportation: No Lack of Food: Never True Current Housing: I Have Housing Concerned About Future Housing: No Difficulty Paying Gas/Electric Bills: No Difficulty Paying for Meds: No Currently Unemployed: No Education: Decline to Answer Difficulty w/ Childcare or Family Care: No Gender identity (if verbalized by the patient): Female Exam 2 Narrative: GENERAL: Well-appearing, well-nourished, and in no acute distress. HEAD: Normocephalic, atraumatic. EYES: Non injected, non icteric ENT: Nares clear, no rhinorrhea or epistaxis. Bilateral tympanic membranes are visualized and normal without effusion, bulging, erythema, vesicles. There does seem to be slight asymmetry in the angle with with which it takes to visualize the right tympanic membrane in regards to the anatomy of her right ear although no significant protuberance/prominence of the pinna. No mastoid tenderness. Patient points to right occiput in regards to her subjective swelling to right posterior head but this seems to be at the occipital protuberance. NECK: Supple. Patient endorses right neck swelling and a lump. Grossly, there is some very slight asymmetry along the right lateral neck compared to the left although it is nondiscrete and there is no palpable lump her induration or mass. Thyroid appears normal. Trachea midline. Patient demonstrates good elevation and strength of trapezius muscles, 5/5 against resistance. There also appears to be no abnormality with engagement and palpation of bilateral sternocleidomastoid muscles. CHEST: Speaking in full sentences. No respiratory distress. HEART: Regular rate and rhythm. . ABDOMEN: Soft, nondistended. EXTREMITIES: Normal range of motion. No lower extremity edema. SKIN: Warm, dry, no rash. NEURO: No focal deficits. Alert and oriented x3. PSYCH: Normal mood and affect. Course Vital Signs Vital signs: Vital Signs Pulse Rate 68 02/09/25 08:42 Respiratory Rate 16 02/09/25 08:42 Blood Pressure 155/88 H 02/09/25 08:42 Pulse Oximetry 100 02/09/25 08:42 Temperature 98.0 F 02/09/25 11:17 Pulse Rate 52 L 02/09/25 12:09 Respiratory Rate 16 02/09/25 12:09 Blood Pressure 123/75 02/09/25 12:09 Pulse Oximetry 100 02/09/25 12:09 Medical Decision Making [facility] Narrative Medical decision making narrative: Patient presents with subjective lump to the right side of her neck as well as subjective swelling to her posterior head which is associated with right ear pain the past 2 weeks as well as intermittent headaches. In the emergency department she is afebrile with vital signs notable for hypertension. No leukocytosis, anemia, thrombocytopenia. After obtaining the patient's history and performing a physical exam, the headache is most likely due to benign etiology. The examination is non-focal, there are no high-risk features on history, vital signs are stable, and the patient is non-toxic appearing. The Ddx for the patient's headache is tension headache, migraine, or other headache of non-emergent etiology. Of these, I suspect a component of tension headache/possible musculoskeletal. Unlikely SAH: headache is non-thunderclap. Headache is intermittent and similar to headaches in the past. Unlikely subdural/epidural hematoma: no history of trauma Unlikely meningitis: afebrile, no meningismus Unlikely temporal arteritis: pt <60 years old. No tenderness in temporal area The patient's headache was treated symptomatically with ketorolac, benadryl, compazine; Upon reevaluation, She states her head is feeling better. Her left side of her neck now hurts a bit just because of how she was lying on it. We discussed that her workup has not revealed because of her symptoms. She has a follow-up appointment to see her primary care provider in March. She will be discharged with strict return precautions and instructions to follow up with their PCP. She is given a 1 time dose a steroid has been shown to reduce the occurrence of rebound/bounce-back headache. This may also help with the pain she is experiencing in her neck which at this point has not been identified with the cause but may be due to generalized inflammation. There does not seem to be an infectious etiology to this pain. Discharged with prescriptions for cdti-bpp-sovdals analgesics medications. Differential Diagnosis Differential Diagnosis: Lower suspicion for RPA/MANAGER NURSING. Considered head/neck/throat cancer especially given patient's history. Considered Otitis media, mastoiditis, brain abscess Vital Signs Vital Signs: Vital Signs Pulse Rate 68 02/09/25 08:42 Respiratory Rate 16 02/09/25 08:42 Blood Pressure 155/88 H 02/09/25 08:42 Pulse Oximetry 100 02/09/25 08:42 Temperature 98.0 F 02/09/25 11:17 Pulse Rate 52 L 02/09/25 12:09 Respiratory Rate 16 02/09/25 12:09 Blood Pressure 123/75 02/09/25 12:09 Pulse Oximetry 100 02/09/25 12:09 Lab Data Lab results reviewed: Yes I reviewed the patient's lab results. 02/09/25 09:39 02/09/25 10:02 Labs: Lab Results 02/09/25 02/09/25 Range/Units 09:39 10:02 WBC 9.5 (4.5-10.0) K/mm3 RBC 4.46 (4.2-5.4) M/mm3 Hgb 13.1 (12.0-15.0) g/dL Hct 39.6 (37.0-47.0) % MCV 88.8 (80-100) fl MCH 29.4 (26-34) pg MCHC 33.1 (32-36) g/dl RDW 12.6 (11.5-14.5) % Plt Count 375 (150-375) k/mm3 MPV 9.8 (7.4-10.4) fl Immature Gran % (Auto) 0.3 (0-0.5) % Neut % (Auto) 56.6 (45.5-73.1) % Lymph % (Auto) 30.9 (18.3-44.2) % [place] % (Auto) 9.0 H (2.6-8.5) % Eos % (Auto) 2.1 (0-4.4) % Baso % (Auto) 1.1 (0.2-1.2) % Lymph # (Auto) 2.93 (0.9-3.2) K/mm3 [place] # (Auto) 0.9 H (0.1-0.6) K/mm3 Eos # (Auto) 0.2 (0-0.3) K/mm3 Baso # (Auto) 0.1 (0.0-0.1) K/mm3 Abs Immat Gran (auto) 0.03 (0.00-0.031) K/mm3 Absolute Neuts (auto) 5.4 (1.3-6.7) K/mm3 Absolute Nucleated RBC 0.000 (0.0-0.012) K/mm3 Nucleated RBC % 0.0 (0.0-0.2) % Sodium 141 (137-145) mmol/L Potassium 3.4 (3.4-5.0) mmol/L Chloride 106 (98-107) mmol/L Carbon Dioxide 27 (22-30) mmol/L Anion Gap 8 (4-12) mmol/L BUN 7 (7-17) mg/dL Creatinine 0.64 L 0.70 (0.7-1.0) mg/dL Estim Creat Clear Calc 112 104 ml/min Estimated GFR > 60 > 60 (59 - ) Glucose 84 (65-110) mg/dL Calcium 8.8 (8.4-10.2) mg/dL Influenza A (RT-PCR) Negative (Negative) Influenza B (RT-PCR) Negative (Negative) RSV (RT-PCR) Negative (Negative) SARS-CoV-2 RNA (RT-PCR) Negative (Negative) Imaging Data Radiologist's impression: Impressions Soft Tissue Neck CT 02/09/25 10:10 Impression: No significant abnormalities noted. Head CT 02/09/25 10:11 Impression: No intracranial abnormality seen. Discharge Plan Discharge Clinical Impression: Cephalalgia, Acute pain of right ear, Neck pain on right side, Smoker Patient Disposition: Home Condition: Stable Instructions: Antibiotic Form, How to Stop Smoking (ED), Tension Headache (ED), Earache (ED), General Headache (ED), Acute Neck Pain (ED) Additional Instructions: As we discussed, your workup did not reveal a cause of your symptoms and this included labs and CT imaging. Sometimes you can develop this constellation of symptoms with a tension headache. No signs of infection. Follow-up with primary care physician. Return to the emergency department any new or worsening symptoms. Acetaminophen/Tylenol (maximum 4000 mg per day) is safe to take with NSAIDs (ibuprofen/Motrin) for pain relief. Patient Language: Amharic Prescriptions: New ibuprofen 600 mg tablet 600 mg PO TID PRN (Reason: pain) Qty: 30 0RF acetaminophen 500 mg capsule 1,000 mg PO Q6H PRN (Reason: pain) Qty: 30 0RF No Action cyclobenzaprine 10 mg tablet 10 mg PO TID PRN (Reason: muscle spasm) Qty: 14 0RF fluticasone propionate [Flonase Allergy Relief] 50 mcg/actuation spray,suspension 1 - 2 spray intranasal BID Qty: 16 3RF Rx Instructions: administer into each nostril Follow-up/Referrals: Kimo,DORCAS Lopez [Primary Care Provider] - Stand Alone Forms: Work/School Release IP Time of Disposition: 12:05
[2025-02-09] MEDS: HYDROcodone/acetaminophen (*CRX) 5-325 MG TABLET 1 TAB PO (09:49)
[2025-02-09 09:55] LABS: Basophils Absolute Auto 0.1 K/mm3 (0.0-0.1); Basophils Percent Auto 1.1 % (0.2-1.2); Eosinophils Absolute Auto 0.2 K/mm3 (0-0.3); Eosinophils Percent Auto 2.1 % (0-4.4); Hematocrit 39.6 % (37.0-47.0); Hemoglobin 13.1 g/dL (12.0-15.0); Immature Granulocyte Absolute 0.03 K/mm3 (0.00-0.031); Immature Granulocyte Percent A 0.3 % (0-0.5); Lymphocytes Absolute Auto 2.93 K/mm3 (0.9-3.2); Lymphocytes Percent Auto 30.9 % (18.3-44.2); Mean Corpuscular HGB Conc 33.1 g/dl (32-36); Mean Corpuscular Hemoglobin 29.4 pg (26-34); Mean Corpuscular Volume 88.8 fl (80-100); Mean Platelet Volume 9.8 fl (7.4-10.4); Monocytes Absolute Auto 0.9 K/mm3 (0.1-0.6); Neutrophils Absolute Auto 5.4 K/mm3 (1.3-6.7); Neutrophils Percent Auto 56.6 % (45.5-73.1); Platelet Count Result 375 k/mm3 (150-375); Red Blood Count 4.46 M/mm3 (4.2-5.4); Red Cell Distribution Width 12.6 % (11.5-14.5); White Blood Count 9.5 K/mm3 (4.5-10.0)
[2025-02-09 10:03] LABS: Anion Gap 8 mmol/L (4-12); Blood Urea Nitrogen 7 mg/dL (7-17); Calcium 8.8 mg/dL (8.4-10.2); Carbon Dioxide 27 mmol/L (22-30); Chloride 106 mmol/L (98-107); Estimated CRCL calculation 112 ml/min; Estimated Glomerular Filt Rate > 60; Glucose 84 mg/dL (65-110); Potassium 3.4 mmol/L (3.4-5.0); Sodium 141 mmol/L (137-145)
[2025-02-09 10:04] LABS: Estimated CRCL calculation 104 ml/min; Estimated Glomerular Filt Rate > 60
--- OUTSIDE RECORDS SUMMARY | 2025-02-09 10:12 | XMS_ITS | Referral Summary ---
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 Care Teams Analytical Engineer Relationship Specialty Start Date End Date Vangie Mendoza MD [address] [place] [id number] PCP - General Internal Medicine 07/01/20
--- OUTSIDE RECORDS SUMMARY | 2025-02-09 10:12 | XMS_ITS | Clinical Summary ---
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
--- OUTSIDE RECORDS SUMMARY | 2025-02-09 10:12 | XMS_ITS | CONTINUITY OF CARE DOCUMENT ---
Author Name chris perez Address Unknown Organization [facility] Address [address] [place] [address] [address] [place] [address] Phone [phone] Care Team Providers Care Pan Dumper Name Role Phone Monty López MD Unavailable HORTENSIA GARCIA MD Unavailable [phone] HORTENSIA GARCIA MD Unavailable PROBLEMS Condition Status [...] In-person encounter Office Visit Monty López MD [facility] Palpitations AND PRESYNOPE and dizzyIRON DEFICIENCYVitamin D deficiency 1 - 1 In-person encounter Office Visit Monty López MD [facility] ObesityFAMILY HISTORY OF HEART DISEASETobacco abuseScreeningPalpitations AND PRESYNOPE and dizzyHypertriglyceridemiaElevated LFT's VITAL SIGNS Date Observation Value Provider Body Mass Index (Ratio) 32.12 kg/m2 Danya López MD respiratory rate E&M 16 /min [facility] blood pressure, diastolic 65 mm[Hg] To [facility] blood pressure, systolic 119 mm[Hg] Ton [facility] blood pressure, resting No Tons [facility] oxygen saturation, oximetry 98 % [facility] pulse rate 90 /min [facility] weight E&M 199 [lb_av] [facility] height E&M 66 [in_i] [facility] Body Mass Index (Ratio) 31.79 kg/m2 Danya López MD blood pressure, cuff size regular Cy vivienne Khalil blood pressure, diastolic 70 mm[Hg] Cy vivienne Khalil blood pressure, systolic 112 mm[Hg] Ofe bipinjoey Khalil oxygen saturation, oximetry 98 % Letyjoey Khalil respiratory rate E&M 16 /min Lety Kahlil pulse rate 92 /min Lety Wrightyanna l [...] iron binding capacity, unsaturated 334 ug/dL [employer] [phone]/01/ 01 iron binding capacity, total 389 ug/dL [employer] [phone]/01/ 01 free thyroxine index 1.8 [employer] 1.2-4.9 [...] Not Estab. platelet count 382 X10E3/UL [facility] [phone]/01/ 01 red blood cell distribution width 13.9 [...] [employer] 3.5-5.2 sodium, serum 140 mmol/L [employer] [phone]/01/ 01 urea nitrogen/creatinine ratio, serum 12 [employer] [...] smoking history, tot al pack/day 2 [facility] use yes Prachi Alvarez [...] Payer name Policy type / Coverage type [place] red libertarian ID [employer] MEDICAID (2) Medicaid [id number] ADVANCE DIRECTIVES Name Date DISCUSSED - NO [...]
[2025-02-09 10:30] LABS: Influenza A QL RT-PCR Negative (Negative); Influenza B QL RT-PCR Negative (Negative); RSV RNA, RT-PCR Negative (Negative); SARS-CoV-2 RNA PCR Negative (Negative)
[2025-02-09] MEDS: KETOROLAC 15 MG/ML VIAL (*BKC) IV PUSH (11:06)
[2025-02-09] MEDS: SODIUM CHLORIDE 0.9% IV 1,000 ML 999 ML IV CONT (11:07)
[2025-02-09] MEDS: diphenhydrAMINE HCl INJ 50 MG/ML VIAL 25 MG IV PUSH (11:07)
[2025-02-09] MEDS: PROCHLORPERAZINE EDISYLATE 10 MG/2 ML VIAL IV PUSH (11:07)
[2025-02-09 11:17] VITALS: BP 133/82; PULSE 52; RESP 16; TEMP 36.7; O2SAT 100; O2SAT 98
[2025-02-09 12:09] VITALS: BP 123/75; PULSE 52; RESP 16; O2SAT 100
== END 2025-02-09 12:52 | disposition home or self-care (01) ==
PROVIDERS: Emergency Provider Student in an Organized Health Care Education/Training Program; PCP Physician Assistant
DX: R51.9 Headache, unspecified (principal); H92.01 Otalgia, right ear; M54.2 Cervicalgia; F17.210 Nicotine dependence, cigarettes, uncomplicated; Z20.822 Contact with and (suspected) exposure to COVID-19
CPT/HCPCS: 36415; 70450; 70491; 80048; 85025; 87637; 96361; 96374; 96375; 99284; A9270; J0780; J1200; J1885; J7030; Q9967

== ENCOUNTER 2025-05-05 07:59 | Outpatient (CLI) | payer OTHER, SELFPAY ==
--- OUTSIDE RECORDS SUMMARY | 2025-05-05 08:03 | XMS_ITS | Data Portability ---
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 4 11:29:35 Mixed anxiety and depressive disorder 276903358 Active 2023 Urmila min [facility] 4 11:29:45 Problem Notes None recorded. Procedures Surgical History Date Name Laterality Status Provider Name and Address Organization Details Recorded Time 11/15/19 21 Date of Last Pap Smear completed Urmila Tabor [facility] 02/15/2024 11:28:12 11/04/19 21 Endometrial Ablation completed Urmila Tabor [facility] 02/15/2024 11:41:23 08/08/20 13 Tubal Ligation completed Urmila Tabor [facility] 02/15/2024 11:28:13 04/05/20 12 LEEP completed Urmila Tabor [facility] 02/15/2024 11:28:13 11/04/19 12 Colposcopy completed Urmila Tabor [facility] 02/15/2024 11:40:31 11/04/19 12 Colposcopy completed Urmila Tabor [facility] 02/15/2024 11:39:48 Imaging Results None [...] Updated DateTime 02/15/2024 168.28 cm 33 kg/m2 10171.03 g 121 mm[Hg] 83 mm[Hg] Urmila Tabor [facility] 11:27:47 Social History Question Answer Notes LastModified by Organizat ion Details LastModified Time Tobacco Smoking Status Current Every Day Smoker Urmila min [facility] 02/15/2024 11:39:22 Are You Blind Or Do You Have Difficulty Seeing? No [email or web address] Information n ot available 02/15/2024 What Is Your Level Of Caffeine Consumption? Heavy [email or web address] Information not available 02/15/2024 In The 14 Days Before Symptom Onset, Have You Had Close Contact With A Laboratory-confirm ed COVID-19 While That Case Was Ill? No [email or web address] Information n ot available 02/15/2024 In The 14 Days Before Symptom Onset, Have You Had Close Contact With A Person Who Is Under Investigation For COVID-19 While That Person Was Ill? No [email or web address] Information not available 02/15/2024 Have You Been To An Area Known To Be High Risk For COVID-19? No [email or web address] Information not available 02/15/2024 Are You Deaf Or Do You Have Serious Difficulty Hearing? No [email or web address] Information not available 02/15/2024 What Type Of Diet Are You Following? REGULAR Information n ot available 02/15/2024 What Is The Highest Grade Or Level Of School You Have Completed Or The Highest Degree You Have Received? [id number] [email or web address] Information not available 02/15/2024 Are There Any Guns Present In Your Home? No [email or web address] Information not available 02/15/2024 Do You Use Protection During Sex? No Information not available 02/15/2024 Do You Use Your Seat Belt Or Car Seat Routinely? Yes [email or web address] Information not available 02/15/2024 Do You Have Smoke And Carbon Monoxide Detectors In Your Home? Yes [email or web address] Information not available 02/15/2024 At What Age Did You Start Smoking Tobacco? 15 Information not available 02/15/2024 How Much Tobacco Do You Smoke? 1 PPD Information not available 02/15/2024 Do You Use Sunscreen Routinely? No [email or web address] Information not available 02/15/2024 Has Tobacco Cessation Counseling Been Provided? Yes Information not available 02/15/2024 On What Date Was Tobacco Cessation Counseling Provided? 02/15/2024 [email or web address] Information not available 02/15/2024 Have You Used IV Drugs? No [email or web address] Information not available 02/15/2024 Do You Have Difficulty Walking Or Climbing Stairs? No [email or web address] Information not available 02/15/2024 Sex: Unknown Functional Status Question Answer Note LastModified by Organizat ion Details LastModified Time Do you use any illicit or recreational drugs? No [email or web address] Information not available 02/15/2024 Do you or have you ever used any other forms of tobacco or nicotine? No [email or web address] Information not available 02/15/2024 What is your level of alcohol consumption? None [email or web address] Information not available 02/15/2024 Are you able to walk? YESWOREST [email or web address] Information not available 02/15/2024 Are you able to care for yourself? Yes [email or web address] Information n ot available 02/15/2024 What is your occupation? [employer] [email or web address] Information not available 02/15/2024 Do you have difficulty dressing or bathing? No [email or web address] Information not available 02/15/2024 What is your exercise level? Occasional [email or web address] Information not available 02/15/2024 Mental Status Question Answer Note LastModified by Organization D etails LastModified Time Do you feel stressed (tense, restless, nervous, or anxious, or unable to sleep at night)? [id number] [email or web address] Information not available 02/15/2024 Family History Relationship Description Onset Age of this Age Resolved Age Notes LastModified by Organization Details LastModified Time Mother Anxiety disorder [email or web address] Not available 02/14 11:28:12 Mother Disorder of lung [email or web address] Not available 02/14 11:28:12 Mother Malignant neoplasm of ovary [email or web address] Not available 02/14 11:28:12 Maternal Grandmother Malignant neoplasm of ovary [email or web address] Not available 02/14 11:28:12 Medical History Condition Response Other N Blood Transfusion N Dermatologic Disorders N Gestational Diabetes N Anxiety Disorder Y Autoimmune disease N Arthritis N Polyps N Infertility N Acid Reflux (GERD) N Cancer N Varicosities N Stroke N Neurologic/Epilepsy N Fibromyalgia N Headaches N Kidney Disease N Heart Problems N Kidney or Bladder Problems N Eating Disorder N Art (IVF or FET) N Hepatitis/Liver Disease N No Past Medical History N Urinary Tract Infection Y Asthma N Trauma/Violence N Thrombophilias N Allergies (Food, seasonal, environmental ) N Breast Cancer N Drug/Latex Allergies/Reactions N Lung Disease N Defects or Inherited Disease N Breast Problem N Hematologic disorders N Anesthesia Complications N History of STI Y Deep Vein Thrombosis N Polycystic ovary syndrome N History of abnormal pap Y Endometriosis N High Cholesterol N Thyroid Problems N GI Problems N Anemia N Psychiatric Illness N Ovarian Cancer N Diabetes N Pulmonary (TB, Asthma) N Eczema N Abuse/Domestic Violence N Depression/ depression Y Heart Disease N Pre-Eclampsia N Hypertension N Osteoporosis N Gynecological History Statement/Question Response Date of [...] SNOMED-CT Code Diagnosis ICD10 Code Diagnosis Note [id number] Jd Oliver MD [facility] [address] [address] 02/15/2024 10:24:56 02/18/2024 16:13:29 Abnormal uterine bleeding 0016778261 9100 N93.9 38-year-ol d female presents for [...] Recorded Advance Directives Directive None Recorded Payers Insurance Date Sequence Insurance Name Policy Number Policy Altman Covered Member ID Altman Member ID Guarantor Name 03/07/2024 1 [facility] - DOS ON OR AFTER 21 (MEDICAID REPLACEMENT - HMO) Yudi Pizarro [id number] Yudi Pizarro Notes Date Note Type Note [...] evaluate. Jd Oliver MD [address], [place], [address], [facility] 02/18/2024 15:43:05 OBGyn Episode Ob Episode Information Episode Created Date Number of Fetuses Patient Bloodtype Patient rh Status Prepregnancy Weight lbs Domestic Partner Domestic Partner Phone Father Name Die Try Out Worker Stamping Status 02/15/20 24 1 CLOSED Fetus Data First Name Last Name Admitted to NICU Weight (g) Sex Living Outcome Pediatric Complications Fetus ID Race Codes Race Delivery Type , Spontane ous 89978 Nitin Calculation Initial Nitin Date Initial Exam [...] Domestic Partner Domestic Partner Phone Father Name Die Try Out Worker Stamping Status 02/15/20 24 1 CLOSED Fetus Data First Name Last Name Admitted to NICU Weight (g) Sex Living Outcome Pediatric Complications Fetus ID Race Codes Race Delivery Type 3175.14 4 F Full Term 47401 Vaginal Delivery Nitin Calculation Initial Nitin Date [...] Domestic Partner Domestic Partner Phone Father Name Die Try Out Worker Stamping Status 02/15/20 24 1 CLOSED Fetus Data First Name Last Name Admitted to NICU Weight (g) Sex Living Outcome Pediatric Complications Fetus ID Race Codes Race Delivery Type 3175.14 4 F Full Term 18794 Vaginal Delivery Nitin Calculation Initial Nitin Date [...] Domestic Partner Domestic Partner Phone Father Name Die Try Out Worker Stamping Status 02/15/20 24 1 CLOSED Fetus Data First Name Last Name Admitted to NICU Weight (g) Sex Living Outcome Pediatric Complications Fetus ID Race Codes Race Delivery Type , Spontane ous 93709 Nitin Calculation Initial Nitin Date Initial Exam [...] Domestic Partner Domestic Partner Phone Father Name Die Try Out Worker Stamping Status 02/15/20 24 1 CLOSED Fetus Data First Name Last Name Admitted to NICU Weight (g) Sex Living Outcome Pediatric Complications Fetus ID Race Codes Race Delivery Type Demise 54414 Nitin Calculation Initial Nitin Date Initial Exam [...] Domestic Partner Domestic Partner Phone Father Name Die Try Out Worker Stamping Status 02/15/20 24 1 CLOSED Fetus Data First Name Last Name Admitted to NICU Weight (g) Sex Living Outcome Pediatric Complications Fetus ID Race Codes Race Delivery Type 3175.14 4 F Full Term 65868 Vaginal Delivery Nitin Calculation Initial Nitin Date [...] Domestic Partner Domestic Partner Phone Father Name Die Try Out Worker Stamping Status 02/15/20 24 1 CLOSED Fetus Data First Name Last Name Admitted to NICU Weight (g) Sex Living Outcome Pediatric Complications Fetus ID Race Codes Race Delivery Type 3175.14 4 F Full Term 66041 Vaginal Delivery Nitin Calculation Initial Nitin Date [...] Domestic Partner Domestic Partner Phone Father Name Die Try Out Worker Stamping Status 02/15/20 24 1 CLOSED Fetus Data First Name Last Name Admitted to NICU Weight (g) Sex Living Outcome Pediatric Complications Fetus ID Race Codes Race Delivery Type 3628.73 6 F Full Term 97139 Vaginal Delivery Nitin Calculation Initial Nitin Date [...]
--- OUTSIDE RECORDS SUMMARY | 2025-05-05 08:03 | XMS_ITS | Data Portability ---
Author Organization [facility], Main Office Address [address] [place] [address] Care Team Providers Care Cork Tile Floor Layer Name Role Phone EDWARD FOWLER Primary Care Provider [phone] Assessment No assessment recorded. Plan of Treatment Reminders Order Date Submit Date Provider Last Modified By Organization Details Last Modified Time Details Appointments None record ed. Lab None record ed. Referral None record ed. Procedures None record ed. Surgeries None record ed. Imaging None record ed. Medication Orders None record ed. Patient TargetsNo targets recorded. Patient Instructions Encounter Date Encounter Id Patient Instructions Last Modified By Organization Details Last Modified Time 04/22/2025 [id number] she is very likely a candidate for bilateral Eustachian tube balloon and PE tubes [email or web address] Not available 04/22/2025 15:52:11 Reason for Referral None Reported. Results Created Date Observation Date Name Description Value Unit Range Abnormal Flag Note LastModifiedBy Organization Detail LastModifiedTime 04/23/2004/23/2025 CT, head, w/o contr ast No observ ation record ed. [email or web address] Not Available 04/05 12:29:53 Result Notes None recorded. Problems Name Problem SNOMED Code Status Onset Date Resolution Date Notes Provider Name and Address Organization Details Recorded Time Dysfunction of bilateral eustachian tubes 6023453366317 100 Active 2024 Arthur Rodriguez MD [address] [facility], [facility] [address], [place], [address] , [facility] 15:47:27 Mastoiditis 03476032 Active 2024 Vane Ferris RN [facility], [facility] 15:52:30 Problem Notes None recorded. Medical Equipment None Reported. Allergies Allergen ID Allergen Name Allergen Category Reaction Reaction Severity Criticality Documentation Date Start Date Code Code System Note Provider Name and Address Organization Details Recorded Time 54893 Product containin g penicilli n (product) medicatio n Not available Not available Not available 04/21/2025 11026 8001 [facility] 15:35:35 01493 lisinopri l medicatio n Not available Not available Not available 04/21/2025 23767 RxNorm ESHA Shin, [facility] 14:16:38 Medications Not known to be on any medication Vitals Date Recorded Body height Body mass index (BMI) Body weight Body temperature Provider Name and Address Organization Details Last Updated DateTime 04/22/2025 167.64 cm 33.7 kg/m2 94543.81 g 98.2 [degF] Vane Ferris RN [facility] 04/22/2025 15:39:12 Social History None recorded. Functional Status Question Answer Note LastModified by Organization D etails LastModified Time What is your level of alcohol consumption? None [email or web address] Information not available 04/22/2025 Mental Status None recorded. Family History Nothing Reported Notes:SISTER: TONSILLECTOMY, ADENOIDECTOMY, TUMOR BEHIND EAR EXCISED Medical History Condition Response NO SIGNIFICANT PAST MEDICAL HISTORY Y Gynecological HistoryNo gynecological history recorded. Obstetrics History GPAL:G 0 P 0 0 0 0 Past Encounters Encounter ID Performer Location Encounter Start Date Encounter Closed Date Diagnosis/Indication Diagnosis SNOMED-CT Code Diagnosis ICD10 Code Diagnosis Note [id number] Arthur Rodriguez MD [facility] [address] [place] [address] 04/22/2025 15:29:31 04/27/2025 12:31:54 Dysfunction of bilateral eustachian tubes [id number] 294056 H69.93 Health Concerns Section Related Observation LastModified by Organization Detai ls LastModified Time None Recorded Concern Status LastModified by Organization Details LastModified Time None Recorded Advance Directives Directive None Recorded Payers Insurance Date Sequence Insurance Name Policy Number Policy Altman Covered Member ID Altman Member ID Guarantor Name 04/27/2025 1 [facility] ON OR AFTER 05/04/21 (MEDICAID REPLACEMENT - HMO) Yudisara Pizarro [id number] Yudi Pizarro Notes Date Note Type Note Provider Name and Address Organization Details Recorded Time 04/22/2025 text/html This patient has a history of otitis media for greater than a decade. She reports numerous courses of antibiotics and steroids but has never had tubes. Tubes have been mentioned on numerous occasions however. She did have a CT of her head and we are in the process of obtaining the results. She definitely has hearing loss which is worse on the right side. Arthur Rodriguez MD [address] [place] [address], [place] [address], [place], [address], [place] [facility] 04/22/2025 15:52:39 OBGyn Episode No OBEpisode recorded.
--- OUTSIDE RECORDS SUMMARY | 2025-05-05 08:04 | XMS_ITS | Clinical Summary ---
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
--- OUTSIDE RECORDS SUMMARY | 2025-05-05 08:04 | XMS_ITS | Referral Summary ---
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
--- OUTSIDE RECORDS SUMMARY | 2025-05-05 08:04 | XMS_ITS | Data Portability ---
Author Organization [facility] Jose [facility] Address [address] [place] [address] Care Team Providers Care Loan Analyst Name Role Phone URSULA BENSON Dinkey Locomotive Operator [phone] Assessment Encounter Date Assessment Date Assessment LastModified by Organization Details LastModified Time 05/19/2024 05/19/2024 Sections of the HPI, exam and assessment completed by DORCAS Diaz student and have been reviewed by me. I agree with the exam findings, assessment and plan except where specifically documented or amended. -Jessica Malin, [facility], MAHI kam Not available 05/20/2024 17:52:36 Plan of Treatment Reminders Order Date Submit Date Provider Last Modified By Organization Details Last Modified Time Details Appointments None recorded. Lab HbA1c (hemoglobin A1c), blood 2024 025 MARGE [facility], [address], [place], [address], 14:13:29 TSH, ultra-sensi tive, serum 2024 025 MARGE [facility], [address], [place], [address], 5 14:13:28 CMP, serum or plasma 2024 025 MARGE [facility], [address], [place], [address], 5 22:06:48 CBC w/ auto diff 2024 025 [facility], [address], [place], [address], 5 22:06:49 albumin/cre atinine, mass ratio, urine 2024 025 [facility], [address], [place], [address], 5 14:13:27 lipid panel, serum 2024 025 [facility], [address], [place], [address], 5 22:06:47 urinalysis, dipstick 2023 024 [email or web address] In-Office Order, Internal Use Only DO Not Attach Compendium DO Not Attach Compendium, Do Not Delete/merge, [id number] 4 11:29:24 culture, urine 2023 024 [facility], [address], [place], [address], 4 03:36:58 vitamin D, 25-hydroxy, total, serum 2023 024 [facility], [address], [place], [address], 4 14:17:31 vitamin B12 + folate, serum or blood 2023 024 [facility], [address], [place], [address], 4 14:17:30 CMP, serum or plasma 2023 024 [facility], [address], [place], [address], 4 22:07:21 lipid panel, serum 2023 024 MAR[facility], [address], [address], [place], [address], 4 22:07:21 CBC w/ auto diff 2023 024 MAR[facility], [address], [address], [place], [address], 4 22:07:22 TSH + free T4, serum 2023 024 MARGE [facility], [address], [place], [address], 4 14:17:29 HbA1c (hemoglobin A1c), blood 2023 024 [facility], [address], [place], [address], 4 14:17:30 Referral otolaryngol ogist referral 2024 025 Arthur Rodriguez MD, [address], [place], [address], 5 08:02:30 physical therapist referral [email or web address] [facility] [address] [facility], [address] [facility] , [place], [address], 5 08:02:30 vascular surgeon referral 2024 025 Pascual Hubbard MD, [address] [facility] , [address], [place], [address], 5 08:11:08 physical therapist referral [email or web address] (Outpatient Physical Therapy), [address], [place], [address], 4 07:55:55 Procedures None recorded. Surgeries None recorded. Imaging MAMMO, screening, bilateral [address] [facility], [address], [facility] [address], [place], [address], 5 08:13:18 XR, lumbosacral spine, 2 or 3 view 2024 025 [facility] (Imaging), [employer] [address] [facility], [place], [address], 5 16:10:58 US, doppler, venous [address] (Imaging), [employer] [address], [place], [address], 5 08:22:03 XR, knee, 3 view 2024 025 [facility] (Imaging), [address] [place] [address] [address] [facility], [place], [address], 5 14:59:28 Medication Orders diclofenac sodium 50 mg tablet,sandra yed release 2024 025 [facility][id number], [address] [place], [place], [id number], 5 10:36:35 meloxicam 15 mg tablet 2024 025 [facility] #[id number], [address] [place], [place], [id number], 5 11:28:47 lisinopril 10 mg tablet 2024 025 [facility] #[id number], [address], [place], [id number], 5 16:35:12 nicotine 21 mg/24 hr daily transdermal patch 2023 024 [facility] #72618, [address], [place], [place], [id number], 4 14:45:43 hydroxyzine HCl 25 mg tablet 2023 024 [facility], [address], [place], [place], [id number], 4 10:16:24 pantoprazol e 20 mg tablet,sandra yed release 2023 024 [facility] #87500, [address], [place], [place], [id number], 4 14:44:01 Patient TargetsNo targets recorded. Patient Instructions Encounter Date Encounter Id Patient Instructions Last Modified By Organization Details Last Modified Time 05/19/2024 [id number] Quitting Tobacco : Care Instructions [email or web address] Not available 05/19/2024 14:33:05 A healthy lifestyle: care instructions [email or web address] Not available 05/19/2024 14:35:23 12/14/2024 [id number] prediabetes: car e instructions [email or web address] Not available 12/14/2024 11:10:05 back care and preventing injuries: care instructions [email or web address] Not available 12/14/2024 11:08:05 varicose veins: care instructions [email or web address] Not available 12/14/2024 11:08:05 A healthy lifestyle: care instructions [email or web address] Not available 12/14/2024 11:08:05 learning about high blood pressure [email or web address] Not available 12/14/2024 11:08:05 01/19/2025 [id number] Quitting Tobacco : Care Instructions [email or web address] Not available 01/19/2025 11:38:58 Reason for Referral Physical Therapist Referral for Chronic neck pain for greater than 3 months Referring Physician: [facility], Encounter Date: 05/19/2024 Vascular Surgeon Referral fo r Varicose veins of lower extremity Referring Physician: [facility], Encounter Date: 12/14/2024 Physical Therapist Referral for Pain of left knee joint Referring Physician: Jessica Malin [facility], Encounter Date: 01/19/2025 Dinkey Locomotive Operator Referral fo r Chronic serous otitis media Referring Physician: Jessica Malin [facility], Encounter Date: 01/19/2025 Results Created Date Observation Date Name Description Value Unit Range Abnormal Flag Note LastModifiedBy Organization Detail LastModifiedTime 05/19/20 24 05/19/2024 LIPID PANEL WITH LDL/H DL RATIO cholesterol, total 175 mg/dL 100-19 9 Not Available [facility] [address] [place] [address], [address], 05/19/2024 22:07:21 05/19/20 24 05/19/2024 LIPID PANEL WITH LDL/H DL RATIO triglyceride s 308 mg/dL 0-149 above high normal Not Available [facility] [address] [place], [address], 05/19/2024 22:07:21 05/19/20 24 05/19/2024 LIPID PANEL WITH LDL/H DL RATIO HDL cholesterol 36 mg/dL 40-999 below low normal Not Available [facility] [address] [place], [address], 05/19/2024 22:07:21 05/19/20 24 05/19/2024 LIPID PANEL WITH LDL/H DL RATIO VLDL cholesterol dalia 62 mg/dL 5-40 above high normal Not Available [facility] [address] [place], [address], 05/19/2024 22:07:21 05/19/20 24 05/19/2024 LIPID PANEL WITH LDL/H DL RATIO LDL chol calc ([facility]) 123 mg/dL 0-99 above high normal Not Available [facility] [address] [place], [address], 05/19/2024 22:07:21 05/19/20 24 05/19/2024 LIPID PANEL WITH LDL/H DL RATIO LDL/HDL ratio 3.4 0-3.2 above high normal Not Available [facility] [address] [place], [address], 05/19/2024 22:07:21 05/19/20 24 05/19/2024 COMP. METAB OLIC PANEL (14) glucose 94 mg/dL 70-99 Not Available [facility] [address] [place], [address], 05/19/2024 22:07:21 05/19/20 24 05/19/2024 COMP. METAB OLIC PANEL (14) BUN 13 mg/dL 6-24 Not Available [facility] [address] [place] [address], [address], 05/19/2024 22:07:21 05/19/20 24 05/19/2024 COMP. METAB OLIC PANEL (14) creatinine 0.70 mg/dL 0.76-1 .27 below low normal Not Available [facility] [address] [place] [address], [address], 05/19/2024 22:07:21 05/19/20 24 05/19/2024 COMP. METAB OLIC PANEL (14) eGFR 112 >=60 Units for eGFR value s are mL/mi n/1.7 3 The eGFR Calcu latio n has not been valid ated for patie nts under the age of 18. If test resul ts are displ ayed for a patie nt under the age of 18, disre elizabeth that value . Not Available [facility] [address] [place], [address], 05/19/2024 22:07:21 05/19/20 24 05/19/2024 COMP. METAB OLIC PANEL (14) BUN/creatini ne ratio 18 9-23 Not Available [facility] [address] [place], [address], 05/19/2024 22:07:21 05/19/20 24 05/19/2024 COMP. METAB OLIC PANEL (14) sodium 139 mmol/ L 134-14 4 Not Available [facility] [address] [place], [address], 05/19/2024 22:07:21 05/19/20 24 05/19/2024 COMP. METAB OLIC PANEL (14) potassium 4.2 mmol/ L 3.5-5. 2 Not Available [facility] [address] [place], [address], 05/19/2024 22:07:21 05/19/20 24 05/19/2024 COMP. METAB OLIC PANEL (14) chloride 104 mmol/ L 96-106 Not Available [facility] [address] [place] [address], [address], 05/19/2024 22:07:21 05/19/20 24 05/19/2024 COMP. METAB OLIC PANEL (14) carbon dioxide, total 20 mmol/ L 20-29 Not Available [facility] [address] [place] [address], [address], 05/19/2024 22:07:21 05/19/20 24 05/19/2024 COMP. METAB OLIC PANEL (14) calcium 9.4 mg/dL 8.7-10 .2 Not Available [facility] [address] [place] [address], [address], 05/19/2024 22:07:21 05/19/20 24 05/19/2024 COMP. METAB OLIC PANEL (14) protein, total 7.0 g/dL 6.0-8. 5 Not Available [facility] [address] [place], [address], 05/19/2024 22:07:21 05/19/20 24 05/19/2024 COMP. METAB OLIC PANEL (14) albumin 4.5 g/dL 3.9-4. 9 Not Available [facility] [address] [place] [address], [address], 05/19/2024 22:07:21 05/19/20 24 05/19/2024 COMP. METAB OLIC PANEL (14) globulin, total 2.5 g/dL 1.5-4. 5 Not Available [facility] [address] [place], [address], 05/19/2024 22:07:21 05/19/20 24 05/19/2024 COMP. METAB OLIC PANEL (14) A/G ratio 1.8 1.2-2. 2 Not Available [facility] [address] [place], [address], 05/19/2024 22:07:21 05/19/20 24 05/19/2024 COMP. METAB OLIC PANEL (14) bilirubin, total 1.0 mg/dL 0.0-1. 2 Not Available [facility] [address] [place] [address], [address], 05/19/2024 22:07:21 05/19/20 24 05/19/2024 COMP. METAB OLIC PANEL (14) alkaline phosphatase 77 IU/L 44-121 Not Available [facility] [address] [place] [address], [address], 05/19/2024 22:07:21 05/19/20 24 05/19/2024 COMP. METAB OLIC PANEL (14) AST (SGOT) 21 IU/L 0-40 Not Available [facility] [address] [place] [address], [address], 05/19/2024 22:07:21 05/19/20 24 05/19/2024 COMP. METAB OLIC PANEL (14) ALT (SGPT) 18 IU/L 0-32 Not Available [facility] [address] [place] [address], [address], 05/19/2024 22:07:21 05/19/20 24 05/19/2024 CBC WITH DIFFE RENTI AL/PL ATELE T WBC 11.7 x10e3 /uL 3.4-10 .8 above high normal Not Available [facility] [address] [place], [address], 05/19/2024 22:07:22 05/19/20 24 05/19/2024 CBC WITH DIFFE RENTI AL/PL ATELE T RBC 4.89 x10e6 /uL 3.77-5 .28 Not Available [facility] [address] [place], [address], 05/19/2024 22:07:22 05/19/20 24 05/19/2024 CBC WITH DIFFE RENTI AL/PL ATELE T hemoglobin 14.5 g/dL 11.1-1 5.9 Not Available [facility] [address] [place], [address], 05/19/2024 22:07:22 05/19/20 24 05/19/2024 CBC WITH DIFFE RENTI AL/PL ATELE T hematocrit 46.9 % 34.0-4 6.6 above high normal Not Available [facility] [address] [place], [address], 05/19/2024 22:07:22 05/19/20 24 05/19/2024 CBC WITH DIFFE RENTI AL/PL ATELE T MCV 96 fL 79-97 Not Available [facility] [address] [place], [address], 05/19/2024 22:07:22 05/19/20 24 05/19/2024 CBC WITH DIFFE RENTI AL/PL ATELE T MCH 29.7 pg 26.6-3 3.0 Not Available [facility] [address] [place], [address], 05/19/2024 22:07:22 05/19/20 24 05/19/2024 CBC WITH DIFFE RENTI AL/PL ATELE T MCHC 30.9 g/dL 31.5-3 5.7 below low normal Not Available [facility] [address] [place], [address], 05/19/2024 22:07:22 05/19/20 24 05/19/2024 CBC WITH DIFFE RENTI AL/PL ATELE T RDW 13.2 % 11.5-1 4.5 Not Available [facility] [address] [place], [address], 05/19/2024 22:07:22 05/19/20 24 05/19/2024 CBC WITH DIFFE RENTI AL/PL ATELE T platelets 376 x10e3 /uL 150-45 0 Not Available [facility] [address] [place], [address], 05/19/2024 22:07:22 05/19/20 24 05/19/2024 CBC WITH DIFFE RENTI AL/PL ATELE T neutrophils 67 % notest b. Not Available [facility] [address] [place], [address], 05/19/2024 22:07:22 05/19/20 24 05/19/2024 CBC WITH DIFFE RENTI AL/PL ATELE T lymphs 22 % notest b. Not Available [facility] [address] [place], [address], 05/19/2024 22:07:22 05/19/20 24 05/19/2024 CBC WITH DIFFE RENTI AL/PL ATELE T monocytes 8 % notest b. Not Available [facility] [address] [place], [address], 05/19/2024 22:07:22 05/19/20 24 05/19/2024 CBC WITH DIFFE RENTI AL/PL ATELE T eos 2 % notest b. Not Available [facility] [address] [place], [address], 05/19/2024 22:07:22 05/19/20 24 05/19/2024 CBC WITH DIFFE RENTI AL/PL ATELE T basos 1 % notest b. Not Available [facility] [address] [place], [address], 05/19/2024 22:07:22 05/19/20 24 05/19/2024 CBC WITH DIFFE RENTI AL/PL ATELE T neutrophils (absolute) 7.8 x10e3 /uL 1.4-7. 0 above high normal Not Available [facility] [address] [place], [address], 05/19/2024 22:07:22 05/19/20 24 05/19/2024 CBC WITH DIFFE RENTI AL/PL ATELE T lymphs (absolute) 2.5 x10e3 /uL 0.7-3. 1 Not Available [facility] [address] [place], [address], 05/19/2024 22:07:22 05/19/20 24 05/19/2024 CBC WITH DIFFE RENTI AL/PL ATELE T monocytes(ab solute) 1.0 x10e3 /uL 0.1-0. 9 above high normal Not Available [facility] [address] [place], [address], 05/19/2024 22:07:22 05/19/20 24 05/19/2024 CBC WITH DIFFE RENTI AL/PL ATELE T eos (absolute) 0.2 x10e3 /uL 0.0-0. 4 Not Available [facility] [address] [place], [address], 05/19/2024 22:07:22 05/19/20 24 05/19/2024 CBC WITH DIFFE RENTI AL/PL ATELE T baso (absolute) 0.2 x10e3 /uL 0.0-0. 2 Not Available [facility] [address] [place], [address], 05/19/2024 22:07:22 05/19/20 24 05/19/2024 CBC WITH DIFFE RENTI AL/PL ATELE T immature granulocytes 0.5 % notest b. Not Available [facility] [address] [place], [address], 05/19/2024 22:07:22 05/19/20 24 05/19/2024 CBC WITH DIFFE RENTI AL/PL ATELE T immature grans (abs) 0.1 x10e3 /uL 0.0-0. 1 Not Available [facility] [address] [place], [address], 05/19/2024 22:07:22 05/19/20 24 05/19/2024 CBC WITH DIFFE RENTI AL/PL ATELE T NRBC 0 % 0-0 Not Available [facility] [address] [place], [address], 05/19/2024 22:07:22 05/19/20 24 05/20/2024 TSH+F REE T4 TSH 1.880 uIU/m L 0.450- 4.500 Not Available [facility] ([facility]) [address] [place], [address], 05/20/2024 14:17:29 05/19/20 24 05/20/2024 TSH+F REE T4 T4,free(dire ct) 1.29 NG/dL 0.82-1 .77 Not Available [facility] ([facility]) [address] [place], [address], 05/20/2024 14:17:29 05/19/20 24 05/20/2024 VITAM IN B12 AND FOLAT E vitamin B12 1079 pg/mL 232-12 45 Not Available [facility] ([facility]) [address] [place], [address], 05/20/2024 14:17:30 05/19/20 24 05/20/2024 VITAM IN B12 AND FOLAT E folate (folic acid), serum 8.9 NG/mL >3.0 A serum folat e bridget ntrat ion of less than 3.1 ng/mL is consi dered to repre sent clini dalia defic iency . Not Available [facility] ([facility]) [address] [place], [address], 05/20/2024 14:17:30 05/19/20 24 05/20/2024 HEMOG LOBIN A1C hemoglobin A1C 5.7 % 4.8-5. 6 above high normal Predi abete s: 5.7 - 6.4 Diabe jen: >6.4 Glyce carissa contr ol for adult s with diabe jen: <7.0 Not Available [facility] ([facility]) [address] [facility], [place], [address], 05/20/2024 14:17:30 05/19/20 24 05/20/2024 VITAM IN [...] Endoc rine Socie ty went on to community health er defin e vitam in D insuf ficie ncy as a level betwe en 21 and 29 ng/mL (2). 1. IOM (Inst itute of Medic ine). 2009. Dieta ry refer ence intak es for calci um and D. Shanna boston [place]: [facility] Press . 2. Mendy gupta MF, Candida osorio [place], Karina off-F jarocho i SLAUGHTER, et al. Evalu ation , treat ment, and preve ntion of vitam in D defic iency : an Endoc rine Socie ty clini dalia pract ice guide line. JCEM. 2010; 96(7) :1911 -30. Not Available [facility] ([facility]) [address] [place], [address], 05/20/2024 14:17:31 09/08/20 24 09/10/2024 URINE CULTU RE, ROBBI NE urine culture, routine FINAL REPORT Not Available [facility] ([facility]) [address] [facility], [place], [address], 09/10/2024 03:36:58 09/08/20 24 09/10/2024 URINE CULTU RE, ROBBI NE result 1 COMMEN T Mixed uroge nital rose 10,00 0-25, 000 colon y formi ng units per mL Not Available [facility] ([facility]) [address] [facility], [place], [address], 09/10/2024 03:36:58 09/08/20 24 09/08/2024 urina lysis , dipst ick Leukocytes Negati ve Not Available In-Office Order Internal Use Only DO Not Attach Compendium DO Not Attach Compendium, Do Not Delete/merge, [id number] 09/08/2024 10:40:45 09/08/20 24 09/08/2024 urina lysis , dipst ick Nitrite negati ve Not Available In-Office Order Internal Use Only DO Not Attach Compendium DO Not Attach Compendium, Do Not Delete/merge, [id number] 09/08/2024 10:40:45 09/08/20 24 09/08/2024 urina lysis , dipst ick Urobilinogen .2 Not Available In-Of fice Order Internal Use Only DO Not Attach Compendium DO Not Attach Compendium, Do Not Delete/merge, [id number] 09/08/2024 10:40:45 09/08/20 24 09/08/2024 urina lysis , dipst ick Protein Negati ve Not Available In-Office Order Internal Use Only DO Not Attach Compendium DO Not Attach Compendium, Do Not Delete/merge, [id number] 09/08/2024 10:40:45 09/08/20 24 09/08/2024 urina lysis , dipst ick pH 6.5 Not Available In-Office Order Internal Use Only DO Not Attach Compendium DO Not Attach Compendium, Do Not Delete/merge, [id number] 09/08/2024 10:40:45 09/08/20 24 09/08/2024 urina lysis , dipst ick Blood Modera te Not Available In-Office Order Internal Use Only DO Not Attach Compendium DO Not Attach Compendium, Do Not Delete/merge, [facility] 09/08/2024 10:40:45 09/08/20 24 09/08/2024 urina lysis , dipst ick Specific [place] 1.020 Not Available In-Off ice Order Internal Use Only DO Not Attach Compendium DO Not Attach Compendium, Do Not Delete/merge, [facility] 09/08/2024 10:40:45 09/08/20 24 09/08/2024 urina lysis , dipst ick Ketone Negati ve Not Available In-Office Order Internal Use Only DO Not Attach Compendium DO Not Attach Compendium, Do Not Delete/merge, [facility] 09/08/2024 10:40:45 09/08/20 24 09/08/2024 urina lysis , dipst ick Bilirubin Negati ve Not Available In-Office Order Internal Use Only DO Not Attach Compendium DO Not Attach Compendium, Do Not Delete/merge, [id number] 09/08/2024 10:40:45 09/08/20 24 09/08/2024 urina lysis , dipst ick Glucose Negati ve Not Available In-Office Order Internal Use Only DO Not Attach Compendium DO Not Attach Compendium, Do Not Delete/merge, [facility] 09/08/2024 10:40:45 09/08/20 24 09/08/2024 urina lysis , dipst ick Appearance Clear Not Available In-Offi ce Order Internal Use Only DO Not Attach Compendium DO Not Attach Compendium, Do Not Delete/merge, [id number] 09/08/2024 10:40:45 09/08/20 24 09/08/2024 urina lysis , dipst ick Color Pale Yellow Not Available In-Office Order Internal Use Only DO Not Attach Compendium DO Not Attach Compendium, Do Not Delete/merge, [facility] 09/08/2024 10:40:45 12/14/19 25 12/14/2024 LIPID PANEL cholesterol, total 161 mg/dL 100-19 9 Not Available [facility] [address] [place] [address], [address], 12/14/2024 22:06:47 12/14/19 25 12/14/2024 LIPID PANEL triglyceride s 341 mg/dL 0-149 above high normal Not Available [facility] [address] [place], [address], 12/14/2024 22:06:47 12/14/19 25 12/14/2024 LIPID PANEL HDL cholesterol 32 mg/dL 40-999 below low normal Not Available [facility] [address] [place] [address], [address], 12/14/2024 22:06:47 12/14/19 25 12/14/2024 LIPID PANEL VLDL cholesterol dalia 68 mg/dL 5-40 above high normal Not Available [facility] [address] [place] [address], [address], 12/14/2024 22:06:47 12/14/19 25 12/14/2024 LIPID PANEL LDL chol calc (nih) 115 mg/dL 0-99 above high normal Not Available [facility] [address] [place] [address], [address], 12/14/2024 22:06:47 12/14/19 25 12/14/2024 COMP. METAB OLIC PANEL (14) glucose 114 mg/dL 70-99 above high normal Not Available [facility] [address] [place], [address], 12/14/2024 22:06:48 12/14/19 25 12/14/2024 COMP. METAB OLIC PANEL (14) BUN 7 mg/dL 6-24 Not Available [facility] [address] [place], [address], 12/14/2024 22:06:48 12/14/19 25 12/14/2024 COMP. METAB OLIC PANEL (14) creatinine 0.64 mg/dL 0.76-1 .27 below low normal Not Available [facility] [address] [place] [address], [address], 12/14/2024 22:06:48 12/14/19 25 12/14/2024 COMP. METAB OLIC PANEL (14) eGFR 114 >=60 Units for eGFR value s are mL/mi n/1.7 3 The eGFR Calcu latio n has not been valid ated for patie nts under the age of 18. If test resul ts are displ ayed for a patie nt under the age of 18, disre elizabeth that value . Not Available [facility] [address] [place] [address], [address], 12/14/2024 22:06:48 12/14/19 25 12/14/2024 COMP. METAB OLIC PANEL (14) BUN/creatini ne ratio 11 9-23 Not Available [facility] [address] [place] [address], [address], 12/14/2024 22:06:48 12/14/19 25 12/14/2024 COMP. METAB OLIC PANEL (14) sodium 142 mmol/ L 134-14 4 Not Available [facility] [address] [place] [address], [address], 12/14/2024 22:06:48 12/14/19 25 12/14/2024 COMP. METAB OLIC PANEL (14) potassium 3.9 mmol/ L 3.5-5. 2 Not Available [facility] [address] [place] [address], [address], 12/14/2024 22:06:48 12/14/19 25 12/14/2024 COMP. METAB OLIC PANEL (14) chloride 106 mmol/ L 96-106 Not Available [facility] [address] [place] [address], [address], 12/14/2024 22:06:48 12/14/19 25 12/14/2024 COMP. METAB OLIC PANEL (14) carbon dioxide, total 26 mmol/ L 20-29 Not Available [facility] [address] [place], [address], 12/14/2024 22:06:48 12/14/19 25 12/14/2024 COMP. METAB OLIC PANEL (14) calcium 9.1 mg/dL 8.7-10 .2 Not Available [facility] [address] [place], [address], 12/14/2024 22:06:48 12/14/19 25 12/14/2024 COMP. METAB OLIC PANEL (14) protein, total 6.7 g/dL 6.0-8. 5 Not Available [facility] [address] [place], [address], 12/14/2024 22:06:48 12/14/19 25 12/14/2024 COMP. METAB OLIC PANEL (14) albumin 4.3 g/dL 3.9-4. 9 Not Available [facility] [address] [place], [address], 12/14/2024 22:06:48 12/14/19 25 12/14/2024 COMP. METAB OLIC PANEL (14) globulin, total 2.4 g/dL 1.5-4. 5 Not Available [facility] [address] [place], [address], 12/14/2024 22:06:48 12/14/19 25 12/14/2024 COMP. METAB OLIC PANEL (14) A/G ratio 2.0 1.2-2. 2 Not Available [facility] [address] [place], [address], 12/14/2024 22:06:48 12/14/19 25 12/14/2024 COMP. METAB OLIC PANEL (14) bilirubin, total 0.7 mg/dL 0.0-1. 2 Not Available [facility] [address] [place] [address], [address], 12/14/2024 22:06:48 12/14/19 25 12/14/2024 COMP. METAB OLIC PANEL (14) alkaline phosphatase 75 IU/L 44-121 Not Available [facility] Department [address] [place], [address], 12/14/2024 22:06:48 12/14/19 25 12/14/2024 COMP. METAB OLIC PANEL (14) AST (SGOT) 16 IU/L 0-40 Not Available [facility] Department [address] [place], [address], 12/14/2024 22:06:48 12/14/19 25 12/14/2024 COMP. METAB OLIC PANEL (14) ALT (SGPT) 21 IU/L 0-32 Not Available [facility] Department [address] [place], [address], 12/14/2024 22:06:48 12/14/19 25 12/14/2024 CBC WITH DIFFE RENTI AL/PL ATELE T WBC 9.1 x10e3 /uL 3.4-10 .8 Not Available [facility] [address] [place], [address], 12/14/2024 22:06:49 12/14/19 25 12/14/2024 CBC WITH DIFFE RENTI AL/PL ATELE T RBC 4.67 x10e6 /uL 3.77-5 .28 Not Available [facility] [address] [place], [address], 12/14/2024 22:06:49 12/14/19 25 12/14/2024 CBC WITH DIFFE RENTI AL/PL ATELE T hemoglobin 13.6 g/dL 11.1-1 5.9 Not Available [facility] [address] [place], [address], 12/14/2024 22:06:49 12/14/19 25 12/14/2024 CBC WITH DIFFE RENTI AL/PL ATELE T hematocrit 41.6 % 34.0-4 6.6 Not Available [facility] [address] [place], [address], 12/14/2024 22:06:49 12/14/19 25 12/14/2024 CBC WITH DIFFE RENTI AL/PL ATELE T MCV 89 fL 79-97 Not Available [facility] [address] [place], [address], 12/14/2024 22:06:49 12/14/19 25 12/14/2024 CBC WITH DIFFE RENTI AL/PL ATELE T MCH 29.1 pg 26.6-3 3.0 Not Available [facility] [address] [place], [address], 12/14/2024 22:06:49 12/14/19 25 12/14/2024 CBC WITH DIFFE RENTI AL/PL ATELE T MCHC 32.7 g/dL 31.5-3 5.7 Not Available [facility] [address] [place], [address], 12/14/2024 22:06:49 12/14/19 25 12/14/2024 CBC WITH DIFFE RENTI AL/PL ATELE T RDW 12.9 % 11.5-1 4.5 Not Available [facility] [address] [place], [address], 12/14/2024 22:06:49 12/14/19 25 12/14/2024 CBC WITH DIFFE RENTI AL/PL ATELE T platelets 422 x10e3 /uL 150-45 0 Not Available [facility] [address] [place], [address], 12/14/2024 22:06:49 12/14/19 25 12/14/2024 CBC WITH DIFFE RENTI AL/PL ATELE T neutrophils 58 % notest b. Not Available [facility] [address] [place], [address], 12/14/2024 22:06:49 12/14/19 25 12/14/2024 CBC WITH DIFFE RENTI AL/PL ATELE T lymphs 31 % notest b. Not Available [facility] [address] [place], [address], 12/14/2024 22:06:49 12/14/19 25 12/14/2024 CBC WITH DIFFE RENTI AL/PL ATELE T monocytes 8 % notest b. Not Available [facility] [address] [place], [address], 12/14/2024 22:06:49 12/14/19 25 12/14/2024 CBC WITH DIFFE RENTI AL/PL ATELE T eos 3 % notest b. Not Available [facility] [address] [place], [address], 12/14/2024 22:06:49 12/14/19 25 12/14/2024 CBC WITH DIFFE RENTI AL/PL ATELE T basos 1 % notest b. Not Available [facility] [address] [place], [address], 12/14/2024 22:06:49 12/14/19 25 12/14/2024 CBC WITH DIFFE RENTI AL/PL ATELE T neutrophils (absolute) 5.3 x10e3 /uL 1.4-7. 0 Not Available [facility] [address] [place], [address], 12/14/2024 22:06:49 12/14/19 25 12/14/2024 CBC WITH DIFFE RENTI AL/PL ATELE T lymphs (absolute) 2.8 x10e3 /uL 0.7-3. 1 Not Available [facility] [address] [place], [address], 12/14/2024 22:06:49 12/14/19 25 12/14/2024 CBC WITH DIFFE RENTI AL/PL ATELE T monocytes(ab solute) 0.7 x10e3 /uL 0.1-0. 9 Not Available [facility] [address] [place], [address], 12/14/2024 22:06:49 12/14/19 25 12/14/2024 CBC WITH DIFFE RENTI AL/PL ATELE T eos (absolute) 0.3 x10e3 /uL 0.0-0. 4 Not Available [facility] [address] [place], [address], 12/14/2024 22:06:49 12/14/19 25 12/14/2024 CBC WITH DIFFE RENTI AL/PL ATELE T baso (absolute) 0.1 x10e3 /uL 0.0-0. 2 Not Available [facility] [address] [place], [address], 12/14/2024 22:06:49 12/14/19 25 12/14/2024 CBC WITH DIFFE RENTI AL/PL ATELE T immature granulocytes 0.3 % notest b. Not Available [facility] [address] [place], [address], 12/14/2024 22:06:49 12/14/19 25 12/14/2024 CBC WITH DIFFE RENTI AL/PL ATELE T immature grans (abs) 0.0 x10e3 /uL 0.0-0. 1 Not Available [facility] [address] [place], [address], 12/14/2024 22:06:49 12/14/19 25 12/14/2024 CBC WITH DIFFE RENTI AL/PL ATELE T NRBC 0 % 0-0 Not Available [facility] [address] [place], [address], 12/14/2024 22:06:49 12/14/19 25 12/15/2024 ALBUM IN/CR EATIN INE RATIO ,URIN E creatinine, urine 38.3 mg/dL notest ab. Not Available [facility] ([facility]) [address] [place], [address], 12/15/2024 14:13:27 12/14/19 25 12/15/2024 ALBUM IN/CR EATIN INE RATIO ,URIN E albumin, urine <3.0 ug/mL notest ab. Not Available [facility] ([facility]) [address] [place], [address], 12/15/2024 14:13:27 12/14/19 25 12/15/2024 ALBUM IN/CR EATIN INE RATIO ,URIN E alb/creat ratio <8 Sushma l: 0 - 29 Moder ately incre ased: 30 - 300 Sever radha incre ased: >300 Not Available [facility] ([facility]) [address] [facility], [place], [address], 12/15/2024 14:13:27 12/14/19 25 12/15/2024 TSH RFX ON ABNOR MAL TO FREE T4 TSH 2.760 uIU/m L 0.450- 4.500 Not Available [facility] ([facility]) [address] [facility], [place], [address], 12/15/2024 14:13:28 12/14/19 25 12/15/2024 HEMOG LOBIN A1C hemoglobin A1C 5.6 % 4.8-5. 6 Predi abete s: 5.7 - 6.4 Diabe jen: >6.4 Glyce carissa contr ol for adult s with diabe jen: <7.0 Not Available [facility] ([facility]) [address] [place], [address], 12/15/2024 14:13:29 05/04/20 25 05/05/2025 LIPID PANEL cholesterol, total 140 mg/dL 100-19 9 Not Available [facility] ([facility]) [address] [facility], [place], [address], 05/05/2025 08:28:38 05/04/20 25 05/05/2025 LIPID PANEL triglyceride s 203 mg/dL 0-149 above high normal Not Available [facility] ([facility]) [address] [place], [address], 05/05/2025 08:28:38 05/04/20 25 05/05/2025 LIPID PANEL HDL cholesterol 29 mg/dL >39 below low normal Not Available [facility] ([facility]) [address] [place], [address], 05/05/2025 08:28:38 05/04/20 25 05/05/2025 LIPID PANEL VLDL cholesterol dalia 34 mg/dL 5-40 Not Available [facility] ([facility]) [address] [place], [address], 05/05/2025 08:28:38 05/04/20 25 05/05/2025 LIPID PANEL LDL chol calc ([facility]) 77 mg/dL 0-99 Not Available [facility] ([facility]) [address] [place], [address], 05/05/2025 08:28:38 05/27/20 24 05/26/2024 XR, thora cic spine , 2 view No observ ation record ed. [address], [address], 05/28/2024 14:57:29 12/14/19 25 12/14/2024 XR, knee, 3 view No observ ation record ed. [address], [address], 01/20/2025 10:20:36 12/14/19 25 12/14/2024 XR, lumbo sacra l spine , 2 or 3 view No observ ation record ed. [address] [place], [address], 01/04/2025 09:17:36 12/25/1912/24/2024 XR, chest , 2 view No observ ation record ed. [address], [place], [address], 12/25/2024 11:41:46 12/29/19 25 12/29/2024 US, doppl er, venou s No observ ation record ed. [address], [place], [address], 12/29/2024 16:41:07 01/13/20 25 01/12/2025 imagi ng/di agnos tic resul t No observ ation record ed. [email or web address], [place], [address], 01/14/2025 17:27:50 01/13/20 25 01/12/2025 lab* No observ ation record ed. [email or web address], [place], [address], 01/14/2025 17:27:40 02/10/20 25 02/09/2025 CT, neck, w/o contr ast No observ ation record ed. [address], [place], [address], 02/09/2025 16:28:07 Result Notes None recorded. Problems Name Problem SNOMED Code Status Onset Date Resolution Date Notes Provider Name and Address Organization Details Recorded Time History of palpitatio ns 621273244 Active 2018 Not Available [facility] 3 19:21:21 Influenza vaccinatio n declined 351892593 Active 2018 Not Available [facility] 3 19:21:21 Candidiasi s of vagina 78639976 Active 2019 Not Available [facility] 3 19:21:21 Left side sciatica 2313642059149 04 Active 2019 Not Available [facility] 3 19:21:21 Chronic back pain 639116468 Active 2019 Not Available [facility] 3 19:21:21 Smoker 63228039 Active 2022 Not Available [facility] 3 19:21:21 Sciatica 03611853 Active 2022 Not Available [facility] 3 19:21:21 Degenerati on of thoracic interverte bral disc 97097833 Active 2024 JOE DURANT PA-C Attn: Accounting ,[address] [facility], [place], [address] , [facility] - [facility] 5 10:58:53 Hyperlipid emia 60057928 Active 2024 DORCAS BEST Attn: Accounting ,[address] [facility], [place], [address] , [facility] - [facility] 5 08:31:10 Genital herpes simplex 62512922 Active Not Available [facility] 3 19:21:21 Dysmenorrh ea 945607423 Active Not Available [facility] 3 19:21:21 Irregular periods 79522759 Active Not Available [facility] 3 19:21:21 Sciatica 37127994 Active 2016 Not Available [facility] 3 19:21:21 Problem Notes None recorded. Procedures Surgical History Date Name Laterality Status Provider Name and Address Organization Details Recorded Time 05/31/20 21 Date of Last Pap Smear completed Piper Parkinson MA [place] 05/31/2021 10:55:19 12/04/19 20 HYSTEROSCOPY, WITH ENDOMETRIAL ABLATION (SURG) completed Johnathan Garibay [place] 12/17/2019 12:59:22 08/08/20 13 Tubal Ligation completed [place] Tracey [place] 04/10/2016 15:46:56 LEEP completed [place] Tracey [place] 04/10/2016 15:47:32 Imaging Results None recorded. Procedure Notes None recorded. Medical Equipment None Reported. Allergies Allergen ID Allergen Name Allergen Category Reaction Reaction Severity Criticality Documentation Date Start Date Code Code System Note Provider Name and Address Organization Details Recorded Time 132549 Product containin g penicilli n (product) medicatio n other moderate Not available 10/20/2019 62348 8001 SNOMED yeast infec tion and spott ing Chiqui Galvin MA null, [place] - [place] 9 14:00:27 185013 lisinopri l medicatio n dyspnea severe high 12/25/20242024 33478 RxNorm Bryon Manuel RN null, [place] - [place] 5 15:13:30 Medications Name Sig Start Date Stop Date [...] THREE TIMES DAILY FOR 14 DAYS NEEDED 05/04 completed Not Available Not Available Not Available neomycin- polymyxin -hydrocor t 3.5 mg/mL-10, [...] bedtime for 90 days, for choleste rol. 05/04 completed headache s Not Available Not Available Not Available azithromy wily 250 mg tablet 12/23 completed [...] 1 tablet every day by oral route. 01/19 completed Not Available Not Available Not Available [...] 1 tablet every day by oral route. 12/23 completed SOB Not Available Not Available Not Available nicotine [...] for 14 days, for left knee pain. 05/04 completed Not Available Not Available Not Available ergocalci ferol (vitamin D2) 1,250 mcg [...] and Address Organization Details Last Updated DateTime 167.64 cm 34.4 kg/m2 54065.1 7 g 97 % 97 % 86 /min 17 /min 154 mm[Hg] 79 mm[Hg] Audrey Yi MA [facility] 10:43:16 Date Recorded Body height Body mass index (BMI) Body weight Oxygen saturation Oxygen saturation in Arterial blood by Pulse oximetry Heart rate Respiratory rate Systolic blood pressure Diastolic blood pressure Provider Name and Address Organization Details Last Updated DateTime 167.64 cm 34.5 kg/m2 82329.7 7 g 96 % 96 % 90 /min 18 /min 136 mm[Hg] 89 mm[Hg] Kesha Durant MA [facility] 10:58:47 Date Recorded Systolic blood pressure Diastolic blood pressure Provider Name and Address Organization Details Last Updated DateTime 05/04/2025 128 mm[Hg] 80 mm[Hg] DORCAS BEST Attn: Accounting,[address] [place], [address], [facility] 05/04/2025 10:44:50 Date Recorded Body height Body mass index (BMI) Body weight Oxygen saturation Oxygen saturation in Arterial blood by Pulse oximetry Heart rate Respiratory rate Systolic blood pressure Diastolic blood pressure Provider Name and Address Organization Details Last Updated DateTime 5 167.64 cm 34 kg/m2 11205.2 g 98 % 98 % 71 /min 17 /min 144 mm[Hg] 84 mm[Hg] Audrey Yi MA [facility] 5 10:28:50 Date Recorded Body height Body mass index (BMI) Body weight Oxygen saturation Oxygen saturation in Arterial blood by Pulse oximetry Heart rate Respiratory rate Systolic blood pressure Diastolic blood pressure Provider Name and Address Organization Details Last Updated DateTime 4 167.64 cm 33.6 kg/m2 51560.3 1 g 99 % 99 % 88 /min 17 /min 138 mm[Hg] 82 mm[Hg] Audrey Yi MA [facility] 4 13:59:19 Social History Question Answer Notes LastModified by Organizat ion Details LastModified Time Tobacco Smoking Status Current Every Day Smoker Venice Tracey MA [facility], [facility] 04/10/2016 15:52:19 Do You Have An Advance Directive? No [email or web address] Information not available 04/10/2016 Is Blood Transfusion Acceptable In An Emergency? Yes [email or web address] Information not available 04/10/2016 What Is Your Level Of Caffeine Consumption? Moderate Soda And Energy Drinks' Information not available 10/20/2019 How Much Tobacco Do You Chew? None [email or web address] Information not available 04/10/2016 What Type Of Diet Are You Following? REGULAR [email or web address] Information not available 04/10/2016 Which Illicit Or Recreational Drugs Have You Used? Marijuana Information not available 05/31/2021 Education 9 [email or web address] Information no t available 04/10/2016 Live Alone Or With Others? With Others [email or web address] Information not available 04/10/2016 What Was The Date Of Your Most Recent Tobacco Screening? 05/04/2025 Information not available 05/04/2025 How Many Children Do You Have? 5 [email or web address] Information not available 04/10/2016 What Is Your Current Pack Years? 20-29packyea rs Information not available 05/31/2021 Performs Monthly Self-breast Exam? No [email or web address] Information not available 04/10/2016 Do You Use Protection During Sex? No [email or web address] Information not available 04/10/2016 What Is Your Relationship Status? Single [email or web address] Information not available 04/10/2016 Do You Use Your Seat Belt Or Car Seat Routinely? Yes Information not available 05/31/2021 Seat Belts Used Routinely Yes [email or web address] Information not available 04/10/2016 Are You Sexually Active? Yes [email or web address] Information not available 04/10/2016 Do You Have Smoke And Carbon Monoxide Detectors In Your Home? Yes 05/31/21 Smoke Detectors Information not available 05/31/2021 At What Age Did You Start Smoking Tobacco? 12 [email or web address] Information not available 04/10/2016 Are You Passively Exposed To Smoke? Yes Information not available 05/31/2021 How Much Tobacco Do You Smoke? 1 PPD [email or web address] Information not available 04/10/2016 General Stress Level High [email or web address] Information not available 04/10/2016 Do You Use Sunscreen Routinely? No Information not available 04/10/2016 Has Tobacco Cessation Counseling Been Provided? Yes Information not available 05/31/2021 On What Date Was Tobacco Cessation Counseling Provided? 05/04/2025 Information not available 05/04/2025 How Many Years Have You Smoked Tobacco? 20 Information not available 10/20/2019 Have You Used IV Drugs? No Information not available 05/31/2021 Sex: Female Functional Status Question Answer Note LastModified by Organizat ion Details LastModified Time Do you use any illicit or recreational drugs? Yes edibles Information not available 05/31/2021 Do you or have you ever used any other forms of tobacco or nicotine? No Information not available 05/31/2021 What is your level of alcohol consumption? None [email or web address] Information not available 04/10/2016 Do you or have you ever used smokeless tobacco? Never used smokeless tobacco Information not available 10/20/2019 Are you currently employed? Yes [email or web address] Information not available 04/10/2016 What is your occupation? [employer] Information not available 10/20/2019 Do you or have you ever used e-cigarettes or vape? Never used electronic cigarettes Information not available 10/20/2019 What is your exercise level? Occasional [email or web address] Information not available 04/10/2016 Mental Status None recorded. Family History Relationship Description Onset Age of this Age Resolved Age Notes LastModified by Organization Details LastModified Time Mother Depressive disorder [email or web address] Not available 2018 14:02:24 Mother Hypertensive disorder [email or web address] Not available 2018 14:02:37 Mother Malignant neoplasm of ovary [email or web address] Not available 2018 14:02:49 [...] Disorder N Colon Polyps N Heart Attack (RI) N Diabetes N Cardiomyopathy N Blood Transfusions [...] e and Address Organization Details Recorded Time HPV, quadrivalent 7 completed Not Available [facility] 05/04/2025 10:14:31 Tdap 9 completed Not Available [facility] 11/21/2019 02:44:46 HPV9 0 completed Piper Parkinson MA null, [facility] 12/01/2019 11:43:36 HPV9 1 completed Piper Parkinson MA null, [place] 06/02/2021 16:47:57 Past Encounters Encounter ID Performer Location Encounter Start Date Encounter Closed Date Diagnosis/Indication Diagnosis SNOMED-CT Code Diagnosis ICD10 Code Diagnosis Note [id number] MD Zahida Moreno (NETWORK/TELECOM ENGINEER) [address] [place] [address] 04/10/2016 15:09:44 04/11/2016 09:22:11 Dysmenorrhea 785884492 N94.6 Irregular periods 318683 07 N92.6 [id number] MD Zahida Moreno (NETWORK/TELECOM ENGINEER) [address] [place] [address] 03/26/2017 15:27:40 03/26/2017 17:45:26 Irregular periods 28229058 N92.6 Dysmenorrhea 399117224 N 94.6 Genital he rpes simplex 90046793 A60.9 Recurrent urinary tract infection 412048211 N39.0 Family gorver nning surveillance 529567339 Z30.09 Generalize d anxiety disorder 87697866 F41.1 stress 2/2 job and children (5 girls in the home) [id number] MD Zahida Goyal (Adult Med) [address] [place] [phone] 0 10/20/2019 13:16:20 10/20/2019 14:46:41 General examination of patient 736591414 Z00.01 Nicotine dependence 5629 4008 F17.200 Cessation was discussed History of palpitations 347291444 Z86.79 Serous otitis media 8032 7007 H65.91 Follow up with ENT Influenza vaccination declined 672524854 Z28.21 Administra tion of diphtheria, pertussis, and tetanus vaccine 897968885 Z23 [id number] MD Zahida Moreno (NETWORK/TELECOM ENGINEER) [address] [place] [id number] 0 11/25/2019 11:25:25 11/26/2019 11:05:02 Gynecologic examination 07120892 Z01.419 Active or passive immunization 606659005 Z23 Menorrhagia 341960577 N9 2.0 Dysmenorrhea 301251821 N 94.6 Exposure t o sexually transmissible disorder 805574428 Z20.2 [id number] MD Zahida Goyal (Adult Med) [address] [place] [address] 0 12/01/2019 11:31:07 12/02/2019 09:23:08 Hyperlipidemia 46555039 E78.5 Discussed Aspartate aminotransferase serum level above reference range 306278776 R74.0 Recheck Anxiety 13462867 F41.9 Detailed discussion Start Buspirone, side effects were discussedI do not prescribe Alprazolam History of palpitations 532781568 Z86.79 This was possibly related to energy drink which she has discontinu ed, her anxiety may be playing a role Nicotine dependence 5629 4008 F17.200 Cessation was discussed Insomnia 916190678 G47.0 0 Benadryl or Vistaril PRN [id number] MD Zahida Moreno (NETWORK/TELECOM ENGINEER) [address] [place] [id number] 0 12/17/2019 12:20:07 12/21/2019 10:06:51 Postoperative visit 757854791 Z09 hysterosco py 12/03/2019 , Continue slynd Constipation 90228247 K5 9.00 Genital he rpes simplex 54686520 A60.9 Dysmenorrhea 752898298 N 94.6 [id number] MD Zahida Goyal (Adult Med) [address] [place] [id number] 0 01/12/2020 12:04:06 01/12/2020 12:48:10 Chronic back pain 278225664 G89.29 She has a history of chronic back pain with LLE radiculopa thy and an abnormal clinical exam with LLE weakness. An MRI is needed to further evaluate the degree of nerve impingemen t. Cyclobenza nighat/Ibup rofen/Phys ical Therapy Left side sciatica 20307 28713 58617 M54.32 Leukocytosis 539432203 D 72.829 Amenorrhea 12501196 N91. 2 This may be due to her OCP, however she needs a test before her MRI Neuropathy 328473701 G62 .9 [id number] MD Zahida Goyal (Adult Med) [address] [place] [address] 85804[address] 0 02/23/2020 10:16:42 02/25/2020 10:57:12 Follow-up visit 421089068 Z09 [id number] MD Zahida Goyal (Adult Med) [address] [place] [address] 685[address]391 0 06/29/2020 12:05:39 06/30/2020 09:38:33 Varicose veins of lower extremity 97494488 I83.892 Lumbar radiculopathy 128 308042 M54.16 [id number] MD Zahida Goyal (Adult Med) [address] [place] [address] 0 09/28/2020 08:34:19 09/30/2020 10:19:52 Anxiety 62507513 F41.9 Detailed discussion Start Hydroxyzin e PRN, side effects were discussedC ounseling Influenza vaccination declined 944267738 Z28.21 [id number] MD Zahida Moreno (NETWORK/TELECOM ENGINEER) [address] [place] [address] 779[address]-841 0 05/31/2021 10:33:14 06/01/2021 08:30:01 Gynecologic examination 99046546 Z01.419 Z11.51 Genital he rpes simplex 69142335 A60.9 Exposure t o sexually transmissible disorder 259677877 Z20.2 Cramping pain 256548058 R52 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 [id number] Tobi peña MD [facility] [address] [place] [address] 03/12/2023 11:02:52 03/12/2023 11:56:44 Dysuria 76811917 R30.0 urinary frequency, urgency, retention, dysuria x1 wkPEx- nlurine dip showed trace leuks and moderate bloodstart macrobid, sent UA and cultureh/o UTIs every couple of months, future referral to urology Depression screening 171 431022 Z13.31 PHQ 0 Smoker 99913039 F17.200 1 ppdnot amendable to NRT at this time Screening for malignant neoplasm of cervix 038084870 Z12.4 refer to OB/GYNh/o LEEP and HPV Obesity 778294079 E66.9 discussed increasing exercise and healthier food options, high protein, low fat dietroutin e labs Vitamin D deficiency 347 00939 E55.9 re-check Sciatica 72676647 M54.30 flares, bilateralh as not had imagingcon trolled at this time [id number] Tobi peña MD [facility] [address] [place] [address] 05/19/2024 13:33:45 05/19/2024 14:51:03 Smoker 87052943 F17.200 05/19/24: start patches, smoking 1.5 ppd 03/2023:1 ppdnot amendable to NRT at this time Difficulty sleeping 3013 41088 Z72.820 usually takes CBD with successanx iety has prevented her from sleepingtr ial hydroxyzin e PRN, advised pt of ADRf/u in 1 mo Obesity 048003741 E66.8 discussed increasing exercise and healthier food options, high protein, low fat dietroutin e labs Gastroesop hageal reflux disease without esophagitis 818607220 K21.9 no relief with TUMStrial pantoprazo le Fatigue 55330761 R53.83 check vitamins Chronic ne ck pain for greater than 3 months 2611165565 50013 M54.2 no injury or traumatold that she had cervical DDD in EDwill refer to PT Paresthesia of hand 3090 45266 R20.2 x4 moworse at nightwill discuss at f/u visit Costal chondritis 302958 04 M94.0 x10 dayswent to ED, told that my heart is finec/o pain with taking deep breathspt smokes 1.5 ppdno relief with muscle relaxer or ibuprofend iscussed management and treatment of costal chondritis Generalize d anxiety disorder 22530539 F41.1 TOM 13start hydroxyzin e, advised pt of ADR, f/u in 1 mo Depression screening 171 115514 Z13.31 PHQ 2 [id number] Anand Romero MD [facility] [address] [place] [address] 09/08/2024 10:31:11 09/08/2024 11:09:28 Dysuria 11447462 R30.0 urinary frequency, urgency, retention, dysuria x1 wkPEx- nlurine dip showed trace leuks and moderate bloodstart macrobid, sent UA and cultureh/o UTIs every couple of months, future referral to urology [id number] Lavern Betts MD [facility] [address] [place] [address] 12/14/2024 10:34:24 12/15/2024 15:48:45 Depression screening 406826355 Z13.31 PHQ9- Negative (2 out of 27) Obesity 403483708 E66.9 BMI 34.4 Pain of bi lateral knee joints [id number] 27452 M25.561 M25.562 Know that arthritis will cause [...] supplement s. XR ordered Low back pain 331892652 M54.50 XR ordered Degenerati on of thoracic intervertebral disc [id number] M51.34 Start meloxicam 15mg daily with food. No other NSAIDs while on this medication Essential hypertension 74501856 I10 BP today: 154/79BP Goal: Less than 140/90BP Controlled : noHealthy Weight: 5'6= 118-154 lbsDiscuss ed: Low sodium balanced diet, moderate exercise at [...] see dentist every 6 months Next Visit: 6week(s) Start lisinopril 10mg dailyLabs ordered today Varicose v eins of lower extremity 64192644 I83.93 Referral to vascular surgeonU/S ordered Impaired g lucose tolerance 1235241 R73.03 Discussed with patient taking blood sugars only in the morning when fasting and explained how different foods can affect blood sugarLabs ordered today [id number] Anand Romero MD [facility] [address] [place] [address] 01/19/2025 10:50:51 01/19/2025 11:45:22 Elevated blood-pressure reading without diagnosis of hypertension 105715938 R03.0 BP 120/70s at homeencour aged pt to continue to monitor Pain of le ft knee joint 1900778644 98637 M25.562 no relief with meloxicamX R showed tricompart mental arthritis and llamas's cysttrial diclofenac refer to PT Smoker 82569348 F17.200 01/19/25: 1/2 to 1 ppd, did not try patches 05/19/24: start patches, smoking 1.5 ppd 03/2023:1 ppdnot amendable to NRT at this time Screening for malignant neoplasm of breast 236479191 Z12.39 due for mammo Chronic se [place] otitis media 22131312 H65.21 requesting referral Constipation 67725041 K5 9.00 no concerning sxPEx- nlmost likely cause of LLQ painrec'd increase water intake/fib er/greenst rial daily miralax Depression screening 171 102333 Z13.31 PHQ 0 [id number] Anand Romero MD [facility] [address] [place] [address] 05/04/2025 10:13:25 05/04/2025 10:53:05 Mixed hyperlipidemia 310419948 E78.2 ASCVD risk 8.2%start ator 10 waits to wait to try simvastati n Smoker 69572629 F17.200 05/04/25: 01/19/25: 1/2 to 1 ppd, did not try patches 05/19/24: start patches, smoking 1.5 ppd 03/2023:1 ppdnot amendable to NRT at this time Health Concerns Section Related Observation LastModified by Organization Detai ls LastModified Time None Recorded Concern Status LastModified by Organization Details LastModified Time None Recorded Advance Directives Directive N: Payers Insurance Date Sequence Insurance Name Policy Number Policy Altman Covered Member ID Altman Member ID Guarantor Name 05/04/2025 1 [facility] ON OR AFTER 05/04/21 (MEDICAID REPLACEMENT - HMO) Yudi Pizarro [id number] Yudi Pizarro 05/30/2021 1 [facility] PRIOR TO 05/04/2021 (MEDICAID REPLACEMENT - HMO) Yudi Pizarro [id number] Yudi Pizarro Notes Date Note Type Note Provider Name and Address Organization Details Recorded Time 05/19/2024 text/html Patient presents today for an [...] usually worse at night. DORCAS BEST Attn: [address] [place], [address], [facility] 05/21/2024 08:45:02 12/14/2024 text/html 39 y/o F [...] like to get labs redone today. JOE DURANT PA-C Attn: [address] [place], [address], [facility] 12/14/2024 11:13:41 01/19/2025 text/html Pt presents [...] eats once a day at work at [employer]. DORCAS BEST Attn: [address] [place], [address], [facility] 01/20/2025 10:23:34 OBGyn Episode Ob Episode Information Episode Created Date Number of Fetuses Patient Bloodtype Patient rh Status Prepregnancy Weight lbs Domestic Partner Domestic Partner Phone Father Name Special Collections Librarian Status 04/10/20 16 1 CLOSED Fetus Data First Name Last Name Admitted to NICU Weight (g) Sex Living Outcome Pediatric Complications Fetus ID Race Codes Race Delivery Type F Full Term 59068 Vaginal Nitin Calculation Initial Nitin Date Initial [...] Complications Tubal Sterilization Discharge Date Comments 1 [facility]- [facility]ural 40 Discharge Information Feeding Method Contraceptive Method Maternal HG B and HCT Levels Ob Episode Information Episode Created Date Number of Fetuses Patient Bloodtype Patient rh Status Prepregnancy Weight lbs Domestic Partner Domestic Partner Phone Father Name Special Collections Librarian Status 04/10/20 16 1 CLOSED Fetus Data First Name Last Name Admitted to NICU Weight (g) Sex Living Outcome Pediatric Complications Fetus ID Race Codes Race Delivery Type 3685.43 5 F Full Term 17889 Vaginal Nitin Calculation Initial Nitin Date Initial [...] Domestic Partner Domestic Partner Phone Father Name [employer] Collections Librarian Status 04/10/20 16 1 CLOSED Fetus Data First Name Last Name Admitted to NICU Weight (g) Sex Living Outcome Pediatric Complications Fetus ID Race Codes Race Delivery Type M Demise 06425 Nitin Calculation Initial Nitin Date Initial Exam [...] Domestic Partner Domestic Partner Phone Father Name Special Collections Librarian Status 04/10/20 16 1 CLOSED Fetus Data First Name Last Name Admitted to NICU Weight (g) Sex Living Outcome Pediatric Complications Fetus ID Race Codes Race Delivery Type 3345.24 1 F Full Term 20926 Vaginal Nitin Calculation Initial Nitin Date Initial [...] Domestic Partner Domestic Partner Phone Father Name Special Collections Librarian Status 04/10/20 16 1 CLOSED Fetus Data First Name Last Name Admitted to NICU Weight (g) Sex Living Outcome Pediatric Complications Fetus ID Race Codes Race Delivery Type F Full Term 70941 Vaginal Nitin Calculation Initial Nitin Date Initial [...] Domestic Partner Domestic Partner Phone Father Name Special Collections Librarian Status 04/10/20 16 1 CLOSED Fetus Data First Name Last Name Admitted to NICU Weight (g) Sex Living Outcome Pediatric Complications Fetus ID Race Codes Race Delivery Type 3345.24 1 F Full Term 26892 Vaginal Nitin Calculation Initial Nitin Date Initial [...]
== END 2025-05-05 08:00 | disposition home or self-care (01) ==
LOC: ANHAUDASC 08:00
PROVIDERS: PCP Physician Assistant; Visit Provider Otolaryngology
DX: H90.72 Mixed conductive and sensorineural hearing loss, unilateral, left ear, with unrestricted hearing on the contralateral side (principal); H93.13 Tinnitus, bilateral
CPT/HCPCS: 92557; 92567

== ENCOUNTER 2025-05-19 12:30 | Outpatient (RCR) | payer OTHER, SELFPAY ==
--- NOTE | 2025-04-13 14:08 | OPREHPOC ---
Outpatient Therapy Plan of Care This is a Multidisciplinary Plan of Care that may contain components documented by all disciplines (PT, OT, and ST.) PT Problem 1 PT Problem #1 Knowledge Deficit PT Goal 1 Goal / Goal Update Patient to demonstrate independence with HEP for improved self-reliance of symptom management. Target Visit 4 PT Problem 2 PT Problem #2 Impaired Range of Motion PT Goal 1 Goal / Goal Update 1. Patient to demonstrate an increase of cervical rotation AROM bilaterally to 50 deg to improve safety with driving. 2. Patient to demonstrate resting forward head posture of 15 for normalized cervical posture to decrease the strain of upper quadrant musculature. Target Visit 8 PT Problem 3 PT Problem #3 Pain PT Goal 1 Goal / Goal Update 1. Patient to decrease subjective reports of pain to <5/10 for improved ADL tolerance. 2. Pt. to decrease subjective reports of SLAUGHTER frequency to less than 3 per week for 2 consecutive weeks. 3. Pt to decrease subjective reports of tenderness upon palpation of the R sided neck musculature for improved pain characteristics. Target Visit 8
--- NOTE | 2025-04-13 14:08 | PTOPEVAL1 ---
Assessment and note entered by Leandra Sampson, PT Evaluation Information Assessment Status Evaluation ICD-10 Condition Codes (PT) Cervicalgia M54.2 Subjective Information Pt reports being prescribed lisinopril for her high blood pressure back in January. She took it for 4 days and reported having trouble breathing so she stopped taking the mediation. She reports 2-3 weeks after stopping the medication she started to have R lateral and posterior neck swelling, burning, and is very tender to palpation. She feels like her vessels on the R side of her neck get swollen. She has had negative head and soft tissue neck CT results only showing chronic R mastoid effusion. Pt. is able to work through the pain but it is an annoyance. She notes some days she feels normal and others are unbearable. She notes upon waking there is a gap at the base of skull where her spine meets that is about a finger width. She reports having headaches everyday for the last 2-3 weeks. Her headaches feel dull at the base of her skull but if she coughs or sneezes it shoots pain to the top of the R side of her head. She notes taking Tylenol and Ibuprofen together is the only thing that helps her HAs. She does note some blurred vision at night but not associated with her HAs. She has a h/o anxiety and feels like there is a lump in her throat on the L side when her anxiety is bad. Denies bowel or bladder changes, stocking glove sensation changes or balance instability. Reported Pain Level Pain Score 0: Self Report Assessment PT Clinical Summary Pt is a 39 year old female who presents to physical therapy with a primary complaint of headaches and r sided neck pain since January 2025. Pt demonstrates decreased cervical mobility, abnormal posture, and tenderness to palpation that limit their ability to perform ADLs. Pt will benefit from skilled physical therapy to address pain management and return to PLOF. HEP instructed and written handout provided, EX tolerated well with no adverse effects to note post-session. Pt was educated on importance of adherence to HEP. Pt was also educated on anatomy, prognosis, home modalities, and PT POC. Plan of Care Interventions Hot Pack/Cold Pack,Manual Therapy,Mechanical Traction,Neuro Re-education,Therapeutic Activities ,Therapeutic Exercise PT Services Indicated Yes Treatment Frequency and 2x/wk for 8 visits Duration These treatments will address the objective and functional deficits as defined above. The patient will be advanced safely and appropriately in order for the patient to progress towards his/her prior level of function. Additional exercises will be introduced and as well as a comprehensive home exercise program upon discharge, if needed, ?to ensure carryover of functional gains achieved in the clinic. This treatment plan has been reviewed and agreement upon by the patient.
--- NOTE | 2025-04-21 11:29 | PCPTNOTE ---
Patient no showed this date. Called and left voicemail to reschedule.
--- NOTE | 2025-04-27 09:58 | PCPTNOTE ---
Patient called to cancel therapy for this date due to illness.
--- NOTE | 2025-04-28 10:48 | PCPTNOTE ---
Patient no showed her appointment this date. Called patient and left a voicemail.
--- NOTE | 2025-05-14 08:17 | PCPTNOTE ---
pt called to cancel her appt for today, states she has a severe UTI
--- NOTE | 2025-05-19 13:05 | PTOPDC ---
Assessment and note entered by Manjinder Garcia PT Evaluation Information Assessment Status Discharge ICD-10 Condition Codes (PT) Cervicalgia M54.2 Subjective Information Pt continues to note upon waking there is a gap at the base of skull where her spine meets that is about a finger width. Mild swelling in R lateral neck persist and is tender to the touch. Pt notes she believes physical therapy has helped with some of the neck pain symptoms but has not noticed any change with gap at the base of skull and she would like to pursue further imaging to figure out whats going on. Reported Pain Level Pain Score 4: Self Report Pain Score 0: Self Report Assessment PT Clinical Summary Patient's neck pain has made slight improvements and displays better postural control and cervical rotation. However pt. has made little to no advancements in symptoms, relating to the pain and swelling that is associated with her pain upon waking up. Pt would benefit from further imaging at this time to rule out any cranial deformities, lymph node obstructions, cardiovascular complications. Patient to discharge from physical therapy this date and continue with home exercise program as instructed. Patient to contact primary care provider if questions or concerns arise and to pursue further diagnostic imaging / testing. Plan of Care PT Services Indicated No
== END 2025-05-19 13:25 | disposition home or self-care (01) ==
LOC: ANHGOSHPT 12:30
PROVIDERS: PCP Physician Assistant; Visit Provider Physician Assistant
DX: M54.2 Cervicalgia (principal); G89.29 Other chronic pain
CPT/HCPCS: 97110; 97112; 97140; 97162